=== PATIENT | male | born 1950 | race Caucasian/White ===

== ENCOUNTER 2020-08-25 21:04 | Emergency (ER) | payer MEDICARE, OTHER, SELFPAY ==
[2020-08-25 21:09] VITALS: BP 193/93; PULSE 96; RESP 22; TEMP 36.7; O2SAT 94; BMI 40.7
--- NOTE | 2020-08-25 21:09 | CTR_ITS ---
PROCEDURE INFORMATION: Exam: CT Head Without Contrast Exam date and time: 08/25/2020 9:11 PM Age: 70 years old Clinical indication: Speech disturbance; Patient HX: HX of stroke C/O weakness and aphasia TECHNIQUE: Imaging protocol: Computed tomography of the head without contrast. Radiation optimization: All CT scans at this facility use at least one of these dose optimization techniques: automated exposure control; mA and/or kV adjustment per patient size (includes targeted exams where dose is matched to clinical indication); or iterative reconstruction. COMPARISON: No relevant prior studies available. RADIATION DOSE METRICS: Total DLP (mGy-cm): 730.09 FINDINGS: Brain: Luis Miguel cisterna magna which is a normal variant. Chronic left frontal lobe infarct with encephalomalacia. 2.5 x 1.4 x 2.2 cm high density hematoma in the left temporal lobe with surrounding edema which may be secondary to hypertensive bleed versus hemorrhagic infarct versus spontaneous intracerebral hemorrhage from amyloid angiopathy or even hemorrhagic metastasis. No definite midline shift. Cerebral ventricles: No ventriculomegaly. Bones/joints: Unremarkable. No acute fracture. Paranasal sinuses: Visualized sinuses are unremarkable. No fluid levels. Mastoid air cells: Visualized mastoid air cells are well aerated. Vasculature: Severe calcified intracranial atherosclerotic vessel disease. Soft tissues: Unremarkable. Other findings: Estimated volume of hematoma is [address]/CT head wo con* [id number] IMPRESSION: 1. 2.5 x 1.4 x 2.2 cm high density hematoma in the left temporal lobe with surrounding edema which may be secondary to hypertensive bleed versus hemorrhagic infarct versus spontaneous intracerebral hemorrhage from amyloid angiopathy or even hemorrhagic metastasis. 2. Estimated volume of hematoma is 4 cc. 3. No definite midline shift. Radiation Dose CTDIVOL = (mGy): DLP = 730.09 (mGy-cm)
[2020-08-25 21:31] VITALS: BP 161/92; PULSE 96; RESP 25; O2SAT 96
--- NOTE | 2020-08-25 21:32 | ECG_ITS ---
[facility] Test Date: 2020-08-25 Pat Name: Zander Carrera Department: Room: Gender: Male Board Filler: : 1950 Requested By: Deejay Todd Order Number: [id number] Soto MD: Amaury Ricks M.D. Measurements Intervals [place] Rate: 94 P: 59 AL: 167 QRS: -44 QRSD: 90 T: 62 QT: 315 QTc: 394 Interpretive Statements SINUS RHYTHM LEFT AXIS DEVIATION [QRS AXIS < -30] PATTERN CONSISTENT WITH PULMONARY DISEASE SEPTAL MYOCARDIAL INFARCTION , OF INDETERMINATE AGE [40+ ms Q WAVE IN V1/V2] No previous ECG available for comparison Electronically Signed On 08-26-2020 17:50:53 SEISMIC PROSPECTING SUPERVISOR by Amaury Ricks M.D. [id number]
--- NOTE | 2020-08-25 21:32 | XRR_ITS ---
PROCEDURE INFORMATION: Exam: XR Chest, 1 View Exam date and time: 08/25/2020 9:48 PM Age: 70 years old Clinical indication: Other: AMS TECHNIQUE: Imaging protocol: XR of the chest Views: 1 view. COMPARISON: [facility] Chest 2 views 07/08/2014 9:22 AM FINDINGS: Lungs: The left lower lobe is partially obscured by overlying soft tissue density. No consolidative pulmonary infiltrate noted. Pleural space: No pleural effusion. No pneumothorax. Heart/Mediastinum: Mild cardiomegaly is noted. Vasculature: Mild atherosclerosis of the thoracic aorta. Bones/joints: Unremarkable. XR/XR chest 1V portable [id number] IMPRESSION: 1. Mild cardiomegaly is noted. This is new when compared to the previous study. 2. The left lower lobe is partially obscured by overlying soft tissue density. No consolidative pulmonary infiltrate noted.
--- NOTE | 2020-08-25 21:42 | W.ED.NEUROSD ---
HPI - Neuro Symptoms/Deficit General: Chief Complaint: Neuro Symptoms/Deficit Stated Complaint: poss stroke Time Seen by Provider: 08/25/20 21:09 History of Present Illness: HPI Narrative: 70-year-old gentleman with a history of embolic stroke 2 years ago. He presents after onset yesterday of a headache, today progressed to mainly language changes. He seemed weak and confused to his . He began to have progressive language problems, not understanding commands as well, and not able to express himself. He could walk. Yesterday he told his he did not want to come to the hospital Onset (ago): hour(s) Timing confirmed by: spouse Location: speech and ataxia History of same: No Severity: moderate Quality: weak Relieving factors: none Exacerbating factors: none Context: gradual onset On Anticoagulants: No Associated symptoms: Reports headache(s); Deny chest pain, cough, fevers/chills or vomiting Review of Systems Const: Denies: fever(s) or chills Card: Denies: chest pain Resp: Denies: dyspnea GI: Denies: abdominal pain or vomiting Neuro: Reports: headache(s), lack of coordination, behavioral changes and difficulty communicating thoughts; Denies: seizure-like activity Physical Exam Const: COMMON NORMALS: alert EXAM LIMITATIONS: altered mental status GENERAL APPEARANCE: ill appearing Chest: COMMONS NORMALS: normal inspection of the chest Resp: COMMON NORMALS: normal respiratory effort and No use of accessory muscles EFFORT & INSPECTION: No tachypneic and No respiratory distress AUSCULTATION: wheezes scattered wheezes Cardio: COMMON NORMALS: regular rate and regular rhythm RATE: regular rate RHYTHM: regular rhythm GI: COMMON NORMALS: Soft to palpation PALPATION: Yes Soft to palpation, No Tenderness to palpation present (GI) and No Guarding due to palpation present (GI) Neuro: SENSORIUM/ORIENTATION: Yes alert CRANIAL NERVES: Yes CN normal except as noted SPEECH: abnormal speech, expressive aphasia and receptive aphasia GAIT: Yes Unable to assess gait SENSORY EXAM: Yes extremities (appear normal) MOTOR EXAM: Pronator motor function not present and Motor abnormalities not present Course Consultations: Consultation #1: MIKEY Gallardo Vital Signs: Vital signs: Vital Signs Temperature 98.0 F 08/25/20 21:09 Pulse Rate 93 08/25/20 22:14 Respiratory Rate 26 H 08/25/20 22:14 Blood Pressure 168/98 08/25/20 22:14 Pulse Oximetry 97 08/25/20 22:14 MDM - Neuro Symptoms/Deficit MDM Narrative: Medical decision making narrative: 70-year-old male with a history of acute thrombotic stroke 2 years ago. He is not on anticoagulation. He does take aspirin 81 mg daily. He presents with headache, followed by language changes, and some ataxia and confusion. He does not appear weak in the extremities. He has significant intraparenchymal bleed in the left temporal lobe, 4 cm. No midline shift. He is awake and alert, but confused. Spoke with Negar Yeh, as we do not have neurosurgery services or neuro ICU here, and they have agreed to take as an ER to ER transfer for acute hemorrhagic stroke. Blood pressure has been 160/90. Has increased now to 200/102, will check in 5 minutes, and if not at the 165 karo will give some labetalol. Lab Data: Labs: Lab Results 08/25/20 08/25/20 08/25/20 Range/Units 21:36 21:52 21:52 WBC 7.6 (4.0-10.0) 10^3/ uL RBC 5.54 H (4.1-5.3) 10^6/u L Hgb 15.8 (11.7-16.6) g/dL Hct 50.8 (42.0-52.0) % MCV 91.7 (80-94) fL MCH 28.5 (28.0-34.0) pg MCHC 31.1 (30.0-36.0) g/dL RDW 14.1 (12.1-15.1) % Plt Count 147 (130-400) 10^3/c mm MPV 11.6 H (7.4-10.4) fL Neut % (Auto) 67.4 % Lymph % (Auto) 20.9 % [place] % (Auto) 8.3 % Eos % (Auto) 1.8 % Baso % (Auto) 1.3 % Neut # (Auto) 5.11 (1.8-7.7) 10^3/u L Lymph # (Auto) 1.6 (0.8-4.8) 10^3/u L [place] # (Auto) 0.6 (0.2-0.9) 10^3/u L Eos # (Auto) 0.1 (0.0-0.8) 10^3/u L Baso # (Auto) 0.1 (0.0-0.1) 10^3/u L Nucleated RBC % (a uto) 0 % Nucleated RBCs # 0.0 /100WBC PT Cancelled INR Cancelled APTT Cancelled Sodium Potassium Chloride Carbon Dioxide Anion Gap BUN Creatinine GFR Calculation Glucose POC Glucose 250 H (70-110) mg/dL Calculated Osmolal ity Calcium Total Bilirubin AST ALT Alkaline Phosphata se Total Protein Albumin Globulin 08/25/20 08/25/20 08/25/20 Range/Units 21:52 22:10 22:10 WBC (4.0-10.0) 10^3/ uL RBC (4.1-5.3) 10^6/u L Hgb (11.7-16.6) g/dL Hct (42.0-52.0) % MCV (80-94) fL MCH (28.0-34.0) pg MCHC (30.0-36.0) g/dL RDW (12.1-15.1) % Plt Count (130-400) 10^3/c mm MPV (7.4-10.4) fL Neut % (Auto) % Lymph % (Auto) % [place] % (Auto) % Eos % (Auto) % Baso % (Auto) % Neut # (Auto) (1.8-7.7) 10^3/u L Lymph # (Auto) (0.8-4.8) 10^3/u L [place] # (Auto) (0.2-0.9) 10^3/u L Eos # (Auto) (0.0-0.8) 10^3/u L Baso # (Auto) (0.0-0.1) 10^3/u L Nucleated RBC % (a uto) % Nucleated RBCs # /100WBC PT Cancelled INR Cancelled APTT Cancelled Sodium Cancelled Cancelled Potassium Cancelled Cancelled Chloride Cancelled Cancelled Carbon Dioxide Cancelled Cancelled Anion Gap Cancelled Cancelled BUN Cancelled Cancelled Creatinine Cancelled Cancelled GFR Calculation Cancelled Cancelled Glucose Cancelled Cancelled POC Glucose (70-110) mg/dL Calculated Osmolal ity Cancelled Cancelled Calcium Cancelled Cancelled Total Bilirubin Cancelled Cancelled AST Cancelled Cancelled ALT Cancelled Cancelled Alkaline Phosphata se Cancelled Cancelled Total Protein Cancelled Cancelled Albumin Cancelled Cancelled Globulin Cancelled Cancelled Discharge Plan Discharge Patient Disposition: Xfer Other Clinical Impression: Intracranial hemorrhage Condition: Stable Referrals: Van Oseguera MD [Primary Care Provider] - Coding Level of Care Code ED Alum Operator for Chg Fwd Exam Detailed
[2020-08-25 21:46] LABS: Glucose Point of Care 250 mg/dL (70-110)
[2020-08-25 21:50] VITALS: BP 200/102; PULSE 90; RESP 25; O2SAT 95
[2020-08-25 21:58] LABS: Basophils # 0.1 10^3/uL (0.0-0.1); Basophils % 1.3 %; Eosinophils # 0.1 10^3/uL (0.0-0.8); Eosinophils % 1.8 %; Hematocrit 50.8 % (42.0-52.0); Hemoglobin 15.8 g/dL (11.7-16.6); Lymphocytes # 1.6 10^3/uL (0.8-4.8); Lymphocytes % 20.9 %; Mean Corpuscular HGB Conc 31.1 g/dL (30.0-36.0); Mean Corpuscular Hemoglobin 28.5 pg (28.0-34.0); Mean Corpuscular Volume 91.7 fL (80-94); Mean Platelet Volume 11.6 fL (7.4-10.4); Monocytes # 0.6 10^3/uL (0.2-0.9); Monocytes % 8.3 %; Neutrophils # 5.11 10^3/uL (1.8-7.7); Neutrophils % 67.4 %; Nucleated Red Blood Cells % 0 %; Platelet Count 147 10^3/cmm (130-400); Red Blood Count 5.54 10^6/uL (4.1-5.3); Red Cell Distribution Width 14.1 % (12.1-15.1); White Blood Count 7.6 10^3/uL (4.0-10.0)
[2020-08-25 22:00] VITALS: BP 181/89; PULSE 97; RESP 23; O2SAT 97
[2020-08-25 22:14] VITALS: BP 168/98; PULSE 93; RESP 26; O2SAT 97
[2020-08-26 01:47] VITALS: BP 175/86; PULSE 81; RESP 16; O2SAT 97
--- NOTE | 2020-08-26 01:47 | PC.NURSE ---
This RN agrees with retail loan originator assistant assessment
== END 2020-08-26 01:48 | disposition other institution (70) ==
PROVIDERS: Emergency Provider Emergency Medicine; PCP Family Medicine
DX: I62.9 Nontraumatic intracranial hemorrhage, unspecified (principal); R53.1 Weakness
CPT/HCPCS: 12345; 36416; 70450; 71045; 82962; 85025; 93005; 96374; 99282; 99285

== ENCOUNTER 2020-09-03 08:11 | Outpatient (RCR) | payer MEDICARE, OTHER, SELFPAY | END 2020-09-23 23:59 | disposition home or self-care (01) | LOC: SR3 08:11 | PROVIDERS: PCP Family Medicine; Referring Provider Anesthesiology; Visit Provider Anesthesiology | DX: I61.9 Nontraumatic intracerebral hemorrhage, unspecified (principal) | CPT/HCPCS: 96105; 97162; 97165 ==

== ENCOUNTER → 2020-09-17 08:02 | Outpatient (BNVA) | payer MEDICARE, OTHER, SELFPAY | PROVIDERS: PCP Family Medicine; Visit Provider Nurse Practitioner | DX: Z86.73 Personal history of transient ischemic attack (TIA), and cerebral infarction without residual deficits (principal); F17.210 Nicotine dependence, cigarettes, uncomplicated | CPT/HCPCS: 99214 ==

== ENCOUNTER 2020-10-18 07:44 | Outpatient (CLI) | payer MEDICARE, OTHER, SELFPAY ==
--- NOTE | 2020-10-18 07:59 | CT_ITS ---
WS: [id number] CT ANGIOGRAM CEREBRAL ARTERIES HISTORY: I61.9 - Nontraumatic intracerebral hemorrhage, unspecified TECHNIQUE: Pre and postcontrast imaging through the brain. CT angiogram is performed of the cerebral arteries. During arterial injection imaging is obtained from the skull vertex to the skull base in 1. 25 mm imaging. Coronal and sagittal reformats are submitted. Additional multi planar reformats of the cerebral arteries are submitted, MIP imaging also reviewed. All CT scans at [facility] use at least one of these dose optimization techniques: automated exposure control; mA and/or kV adju stment per patient size (includes targeted exams where dose is matched to clinical indication); or it erative reconstruction. CONTRAST: Omnipaque 350; 95 mL IV. DLP: 504.54 mGycm COMPARISON: None available. Intracranial vertebral arteries: RIGHT vertebral artery slightly dominant. There are a few scattered calcified plaques in the vertebral arteries. No stenosis. Basilar artery: No significant stenosis or occlusion. No aneurysm. Intracranial Internal carotid arteries: The petrous, cavernous and supraclinoid carotid arteries ther e are a few scattered calcified plaques. Calcified plaques become more moderate the cavernous sinuses . 50% stenosis involving the RIGHT supraclinoid carotid artery. No occlusion or high-grade stenosis. Middle cerebral arteries: Normal. Anterior cerebral arteries and ACOM: Normal. Posterior cerebral arteries and PCOM's: Small caliber posterior communicating arteries. No occlusions . Posterior cerebral arteries are patent. Dural venous sinuses are normally enhancing. Mastoid air cells: Small amount of fluid in the mastoid air cells. Small amount of cerumen in the LEF T external auditory canal. Paranasal sinuses: Mild mucoperiosteal thickening RIGHT maxillary sinus. No air-fluid levels. Calvarium: Normal. CT/CT angio head [id number] IMPRESSION: 1. No vascular abnormality noted in the LEFT temporal lobe to correspond to th e previously described hemorrhage. 2. No aneurysm or AVM. 3. Mild to moderate atherosclerotic disease within the intracranial carotid ar teries. No high-grade stenosis.
--- NOTE | 2020-10-18 07:59 | CT_ITS ---
WS: [id number] CT HEAD NONCONTRAST HISTORY: I61.9 - Nontraumatic intracerebral hemorrhage, unspecified TECHNIQUE: Contiguous axial imaging performed through the brain in 2.5 mm imaging. Bone and soft tiss ue windows. All CT scans at [facility] use at least one of these dose optimization techniq ues: automated exposure control; mA and/or kV adjustment per patient size (includes targeted exams wh ere dose is matched to clinical indication); or iterative reconstruction. DLP: 925.91 mGycm COMPARISON: 08/26/2020 and 08/25/2020 Interval resolution of the acute hemorrhage in the LEFT temporal lobe identified on 08/25/2020. There i s now residual area of decreased attenuation with some mild variability in the periphery. There is an additional area of encephalomalacia from a remote LEFT frontal infarct. Mild atrophy noted bilaterally and within the cerebellum. Ventricles: Mild ex vacuole dilatation of the LEFT lateral ventricle from the volume loss in the LEF T cerebrum. Paranasal sinuses: As visualized are clear. Mastoid air cells: Small amount of fluid in the mastoid air cells bilaterally. Calvarium and scalp: Skull is intact with no soft tissue edema or swelling. Moderate atherosclerotic plaque within the cavernous carotid arteries. CT/CT head wo con* [id number] IMPRESSION: 1. Interval resolution of the acute hemorrhage in the LEFT temporal lobe since 08/25/2020. 2. Residual post hemorrhage ischemic changes in the LEFT temporal lobe. 3. Prior remote large LEFT frontal lobe infarct with encephalomalacia.
[2020-10-18] MEDS: iohexol 350 mg/mL 100 mL Btl IV (08:43)
== END 2020-10-18 07:45 | disposition home or self-care (01) ==
LOC: RADWPI 07:49
PROVIDERS: PCP Family Medicine; Visit Provider Nurse Practitioner
DX: I61.9 Nontraumatic intracerebral hemorrhage, unspecified (principal); I65.23 Occlusion and stenosis of bilateral carotid arteries; I63.9 Cerebral infarction, unspecified; G93.89 Other specified disorders of brain
CPT/HCPCS: 70450; 70496; Q9967

== ENCOUNTER → 2021-01-11 07:55 | Outpatient (BNVA) | payer MEDICARE, OTHER, SELFPAY | PROVIDERS: PCP Family Medicine; Visit Provider Nurse Practitioner | DX: Z86.73 Personal history of transient ischemic attack (TIA), and cerebral infarction without residual deficits (principal); F17.210 Nicotine dependence, cigarettes, uncomplicated | CPT/HCPCS: 99213 ==

== ENCOUNTER → 2021-01-16 12:24 | Outpatient (BNVA) | payer MEDICARE, OTHER, SELFPAY | PROVIDERS: PCP Family Medicine; Visit Provider Specialist | DX: I69.398 Other sequelae of cerebral infarction (principal); R56.9 Unspecified convulsions; F17.210 Nicotine dependence, cigarettes, uncomplicated | CPT/HCPCS: 95816 ==

== ENCOUNTER → 2021-03-21 09:48 | Outpatient (BNVA) | payer MEDICARE, OTHER, SELFPAY | PROVIDERS: PCP Family Medicine; Visit Provider Specialist | DX: R56.9 Unspecified convulsions (principal); F17.200 Nicotine dependence, unspecified, uncomplicated | CPT/HCPCS: 95816 ==

== ENCOUNTER 2021-12-03 08:43 | Outpatient (CLI) | payer MEDICARE, OTHER, SELFPAY ==
--- NOTE | 2021-12-03 08:55 | CT_ITS ---
WS: [id number] LDCT LUNG CANCER SCREENING HISTORY: NICOTINE DEPENDENCE TECHNIQUE: Axial imaging performed from the apices to 1 cm below the costophrenic angles. Coronal and sagittal reformats are submitted with axial MIP series. All CT scans at [facility] use at least one of these dose optimization techniques: automated exposure control; mA and/or kV adjustment per patient size (includes targeted exams where dose is matched to clinical indication); or iterativ e reconstruction. DLP: 87.79 mGy.cm DIvol: Mean CTDIvol: 1.60 (mGy) COMPARISON: None available. Diagnostic quality: Quality is limited by breathing artifact and body habitus. Lung Nodules: Round, noncalcified nodule measuring 6 mm LEFT lower lobe, image 153 of series 4. There are additional calcified nodules. Lungs: Hyperexpansion and emphysema. Heart: Moderately enlarged heart. No pericardial effusion. Other findings: Mild atherosclerosis aorta. Mild enlargement of the pulmonary artery. Heavy calcifica tion in the LEFT anterior descending coronary artery. Small hiatal hernia. Nodular surface of the marissa er from cirrhosis. LEFT lobe of the liver is enlarged in the RIGHT is small. No adrenal mass. Mild at rophy of each kidney. Gallbladder appears present and contracted. CT/CT lung screening [id number] IMPRESSION: LUNG-RADS: 3S-Probably Benign with Significant Findings FOLLOW UP: 6 Month LDCT OTHER FINDINGS (S MODIFIER): Cirrhotic liver. Moderate coronary artery atherosc lerosis. Quality of this examination is limited by significant breathing artifa ct and body habitus.
== END 2021-12-03 08:44 | disposition home or self-care (01) ==
LOC: RAD 08:50
PROVIDERS: PCP Family Medicine; Visit Provider Family Medicine
DX: Z12.2 Encounter for screening for malignant neoplasm of respiratory organs (principal); F17.210 Nicotine dependence, cigarettes, uncomplicated
CPT/HCPCS: 71271

== ENCOUNTER → 2022-06-26 12:53 | Outpatient (BNVA) | payer MEDICARE, OTHER, SELFPAY | PROVIDERS: PCP Family Medicine; Visit Provider Surgery | DX: K61.1 Rectal abscess (principal) | CPT/HCPCS: 99203 ==

== ENCOUNTER 2022-11-27 22:11 | Inpatient (IN) | payer MEDICARE, OTHER, SELFPAY ==
[2022-11-27 22:15] VITALS: PULSE 123; RESP 24; TEMP 36.7; O2SAT 86
--- NOTE | 2022-11-27 22:24 | XRR_ITS ---
PROCEDURE INFORMATION: Exam: XR Chest Exam date and time: 11/27/2022 10:30 PM Age: 72 years old Clinical indication: Shortness of breath; Additional info: SOB TECHNIQUE: Imaging protocol: Radiologic exam of the chest. Views: 1 view. COMPARISON: CT lung screening [id number] 12/03/2021 9:02 AM FINDINGS: Lungs: Bibasilar atelectasis versus infiltrate. Pulmonary vascular congestion. Pleural spaces: Unremarkable. No pleural effusion. No pneumothorax. Heart/Mediastinum: Cardiomegaly. Bones/joints: Unremarkable. XR/XR chest 1V portable [id number] IMPRESSION: 1. Bibasilar atelectasis versus infiltrate. 2. Cardiomegaly. 3. Pulmonary vascular congestion.
[2022-11-27 22:33] VITALS: BP 146/103; PULSE 122; O2SAT 95
--- NOTE | 2022-11-27 22:34 | W.ED.CHESTPA ---
HPI - Chest Pain General: Chief Complaint: Chest Pain Stated Complaint: SOB\Chest Pain Time Seen by Provider: 11/27/22 22:24 Source: patient Mode of arrival: ambulatory Limitations: no limitations History of Present Illness: 72-year-old male who is a longtime smoker he states that every year at this time he seems to have worsening dyspnea and wheezing he does have albuterol at home he is never been formally diagnosed with COPD he also takes Lasix as well states over last 3 days he had increasing cough shortness of breath patient here is tachypneic tachycardic he was 86% on room air he is requiring oxygen at this time able to speak in 4-5 word sentences. States has been coughing up phlegm he has not had any improving factors he states he had had some slight increasing swelling in his legs he does have a chest pain he states that sharp but seems to be more with his cough. Associated symptoms: Reports dyspnea; Deny abdominal pain, nausea or vomiting Review of Systems Const: Reports: chills Eyes: Denies: blurry vision or eye discomfort ENMT: Denies: throat pain or dental pain Card: Reports: chest pain Resp: Reports: dyspnea, non-productive cough and wheezing GI: Denies: abdominal pain, nausea, vomiting or diarrhea : Denies: dysuria Musc: Denies: neck pain or back pain Skin/Breast: Denies: rash Neuro: Denies: headache(s) Psych: Denies: depression Fernando/Lymph: Denies: easy bruising All/Imm: Denies: urticaria PFSH ED PFSH: Surgical History History of surgery on arm History of thumb surgery Family History Mother Stroke Hypertension Social History Smoking and tobacco status: current every day smoker Alcohol intake: never Physical Exam Const: COMMON NORMALS: patient oriented x3 GENERAL APPEARANCE: in distress and ill appearing HENMT: COMMON NORMALS: normocephalic and atraumatic HEAD & SCALP: normocephalic and atraumatic Eye: COMMON NORMALS: Equal, round and reactive pupils present and EOMs intact bilaterally PUPIL: Yes Equal, round and reactive pupils present Neck/C-Spine: COMMON NORMALS: full ROM and supple Chest: COMMONS NORMALS: normal inspection of the chest and normal palpation of entire chest wall Resp: COMMON NORMALS: No retractions EFFORT & INSPECTION: Yes tachypneic and Yes respiratory distress AUSCULTATION: wheezes Cardio: COMMON NORMALS: regular rhythm and No murmurs present (Cardio) RATE: tachycardic RHYTHM: regular rhythm GI: COMMON NORMALS: Normal to inspection, nondistended, normoactive bowel sounds present, Soft to palpation, non-tender and no masses PALPATION: Yes Soft to palpation Extremity: COMMON NORMALS: normal to inspection and full ROM Neuro: COMMON NORMALS: patient oriented x3, moves all extremities and no focal motor deficits Psych: COMMON NORMALS: mental status grossly normal, Normal thought process present and cooperative THOUGHT PROCESS: Normal thought process present Skin: COMMON NORMALS: no rashes or lesions noted and no wounds GENERAL SKIN EXAM: no rashes or lesions noted Course Vital Signs: Vital signs: Vital Signs Temperature 98.0 F 11/27/22 22:15 Pulse Rate 111 H 11/27/22 23:42 Respiratory Rate 18 11/28/22 00:54 Blood Pressure 115/84 11/27/22 23:42 Pulse Oximetry 98 11/28/22 00:54 Oxygen Delivery Me thod 11/27/22 23:42 Oxygen Flow Rate 6 11/27/22 23:42 MDM - Chest Pain Medical Decision Making Patient presents here with shortness of breath along with cough x-ray CT showing pneumonia he is requiring 6 L oxygen here he is improved here after breathing treatment and was oxygen he does have a slightly elevated troponin no signs of pulm embolism did speak to upholsterer limousine and hearse will give a dose of Lovenox and trend the troponin we will continue to treat his pneumonia as well spoke to hospitalist who will admit Lab Data 11/27/22 23:04 11/27/22 23:04 Radiology Impressions Chest X-Ray 11/27/22 22:24 IMPRESSION: 1. Bibasilar atelectasis versus infiltrate. 2. Cardiomegaly. 3. Pulmonary vascular congestion. Chest CTA 11/27/22 23:40 IMPRESSION: 1. Negative for pulmonary embolus. 2. Scattered prominent mediastinal lymph nodes measuring up to 15 mm in the subcarinal region, nonspecific. 3. Small bilateral pleural effusions. 4. Cardiomegaly. 5. Coronary artery atherosclerotic calcifications. 6. Cirrhotic liver. 7. Right middle and lingular lobe atelectasis versus infiltrate. 8. Left adrenal hypertrophy suspected, similar to prior exam. Laboratory Results WBC 12.5 10^3/uL (4.0-10.0) H 11/27/22 23:04 RBC 5.27 10^6/uL (4.1-5.3) 11/27/22 23:04 Hgb 14.7 g/dL (11.7-16.6) 11/27/22 23:04 Hct 47.6 % (42.0-52.0) 11/27/22 23:04 MCV 90.3 fl (80-94) 11/27/22 23:04 MCH 27.9 pg (28.0-34.0) L 11/27/22 23:04 MCHC 30.9 g/dL (30.0-36.0) 11/27/22 23:04 RDW 14.7 % (12.1-15.1) 11/27/22 23:04 Plt Count 198 10^3/cmm (130-400) 11/27/22 23:04 MPV 10.6 fL (7.4-10.4) H 11/27/22 23:04 Neut % (Auto) 82.6 % 11/27/22 23:04 Lymph % (Auto) 9.4 % 11/27/22 23:04 [place] % (Auto) 5.5 % 11/27/22 23:04 Eos % (Auto) 1.1 % 11/27/22 23:04 Baso % (Auto) 1.0 % 11/27/22 23:04 Neut # (Auto) 10.28 10^3/uL (1.8-7.7) H 11/27/22 23:04 Lymph # (Auto) 1.2 10^3/uL (0.8-4.8) 11/27/22 23:04 [place] # (Auto) 0.7 10^3/uL (0.2-0.9) 11/27/22 23:04 Eos # (Auto) 0.1 10^3/uL (0.0-0.8) 11/27/22 23:04 Baso # (Auto) 0.1 10^3/uL (0.0-0.1) 11/27/22 23:04 Nucleated RBC % (auto) 0 % 11/27/22 23:04 Nucleated RBCs # 0.0 /100WBC 11/27/22 23:04 PT 13.20 SECONDS (12.1-14.9) 11/27/22 23:04 INR 0.98 (0.8-1.2) 11/27/22 23:04 Specimen Type Arterial 11/27/22 22:50 Sample Site Radial, left 11/27/22 22:50 ABG pH 7.37 (7.35-7.45) 11/27/22 22:50 ABG pCO2 51.3 mmHg (35-45) H 11/27/22 22:50 ABG pO2 64.8 mmHg (80.0-100.0) L 11/27/22 22:50 ABG HCO3 29.4 mmol/L (22-26) H 11/27/22 22:50 ABG Base Excess 2.9 mmol/L (-2.0-2.0) H 11/27/22 22:50 [place] Test Pos 11/27/22 22:50 Hematocrit 44.9 % (42-52) 11/27/22 22:50 O2 Delivery Device Nc 11/27/22 22:50 O2 Liters/Min 6.0 % 11/27/22 22:50 Job Placement Officer ID [email or web address] 11/27/22 22:50 Sodium 135 mmol/L (136-145) L 11/27/22 23:04 Potassium 4.2 mmol/L (3.5-5.1) 11/27/22 23:04 Chloride 93 mmol/L (98-107) L 11/27/22 23:04 Carbon Dioxide 27 mmol/L (22-29) 11/27/22 23:04 Anion Gap 19.2 (5-19) H 11/27/22 23:04 BUN 21 mg/dL (8-23) 11/27/22 23:04 Creatinine 1.2 mg/dL (0.7-1.2) 11/27/22 23:04 GFR Calculation Not Reportable 11/27/22 23:04 Glucose 261 mg/dL (65-115) H 11/27/22 23:04 Calculated Osmolality 292 mOsm/kg (285-295) 11/27/22 23:04 Calcium 8.8 mg/dL (8.5-10.5) 11/27/22 23:04 Total Bilirubin 0.4 mg/dL (0.15-1.2) 11/27/22 23:04 AST 20 U/L (0-40) 11/27/22 23:04 ALT 25 U/L (0-41) 11/27/22 23:04 Alkaline Phosphatase 107 U/L (40-130) 11/27/22 23:04 Troponin T Baseline 261 ng/L (0-15) H* 11/27/22 23:04 NT-Pro-B Natriuret Pep 1821 pg/mL (0-125) H 11/27/22 23:04 Total Protein 7.8 g/dL (6.6-8.7) 11/27/22 23:04 Albumin 3.7 g/dL (3.5-5.2) 11/27/22 23:04 Globulin 4.1 g/dL (1.3-4.6) 11/27/22 23:04 Influenza Type A Ag negative (Negative) 11/27/22 22:40 Influenza Type B Ag negative (Negative) 11/27/22 22:40 SARS-CoV-2 Ag (Rapid) negative (Negative) 11/27/22 22:40 Critical Care Time Critical Care Time: Critical Care Time: Yes Total Critical Care Time: 45 Attestation: The high probability of a clinically significant, sudden or life threatening deterioration of the patient's cv,resp system(s) required my full and direct attention, intervention and personal management. The critical care time is as shown. This time is in addition to time spent performing any reported procedures but includes the following: [x] Data and vital sign review and interpretation [x] Patient assessment, examination and intervention [x] Documentation [x] Medication orders and management Discharge Plan Discharge Patient Disposition: Admitted As Inpatient Clinical Impression: Pneumonia, Acute respiratory failure with hypoxia, Non-ST elevation MN (NSTEMI) Condition: Stable Coding Level of Care Code ED Kier Tender for April Radford
--- NOTE | 2022-11-27 22:37 | ECG_ITS ---
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 Measurements Intervals [place] Rate: 120 P: 0 SD: 0 QRS: -42 QRSD: 106 T: 137 QT: 328 QTc: 463 Interpretive Statements SUPRAVENTRICULAR TACHYCARDIA LEFT AXIS DEVIATION [QRS AXIS < -30] ANTEROSEPTAL MYOCARDIAL INFARCTION , OF INDETERMINATE AGE [40+ ms Q WAVE IN V1-V4] MODERATE T-WAVE ABNORMALITY, CONSIDER LATERAL ISCHEMIA [-0.1+ mV T-WAVE IN I/aVL/V5/V6] Compared to ECG 08/25/2020 21:41:00 T-wave abnormality now present Possible ischemia now present Sinus rhythm no longer present Myocardial infarct finding still present Electronically Signed On 11-27-2022 23:38:23 CDT by Amaury Ricks M.D. [id number]
[2022-11-27] MEDS: albuterol 2.5 mg/3 mL Neb INHALATION (22:43)
[2022-11-27 22:45] VITALS: PULSE 120; RESP 22; O2SAT 90
[2022-11-27 23:01] LABS: ABG PCO2 51.3 mmHg (35-45); ABG PH Result 7.37 (7.35-7.45); Arterial Blood Gas Hematocrit 44.9 % (42-52); Base Excess ABG 2.9 mmol/L (-2.0-2.0); Blood Gas Allen Test Pos; Blood Gas Sample Site Radial, left; Blood Gas Sample Type Arterial; HCO3 ABG 29.4 mmol/L (22-26); Oxygen Device NC; PO2 ABG 64.8 mmHg (80.0-100.0)
[2022-11-27 23:12] LABS: Basophils # 0.1 10^3/uL (0.0-0.1); Eosinophils # 0.1 10^3/uL (0.0-0.8); Eosinophils % 1.1 %; Hematocrit 47.6 % (42.0-52.0); Hemoglobin 14.7 g/dL (11.7-16.6); Lymphocytes # 1.2 10^3/uL (0.8-4.8); Lymphocytes % 9.4 %; Mean Corpuscular HGB Conc 30.9 g/dL (30.0-36.0); Mean Corpuscular Hemoglobin 27.9 pg (28.0-34.0); Mean Corpuscular Volume 90.3 fl (80-94); Mean Platelet Volume 10.6 fL (7.4-10.4); Monocytes # 0.7 10^3/uL (0.2-0.9); Monocytes % 5.5 %; Neutrophils # 10.28 10^3/uL (1.8-7.7); Neutrophils % 82.6 %; Nucleated Red Blood Cells % 0 %; Platelet Count 198 10^3/cmm (130-400); Red Blood Count 5.27 10^6/uL (4.1-5.3); Red Cell Distribution Width 14.7 % (12.1-15.1); White Blood Count 12.5 10^3/uL (4.0-10.0)
[2022-11-27 23:16] LABS: Influenza A by IFA negative (Negative); Influenza B by IFA negative (Negative)
[2022-11-27 23:17] LABS: SARS Covid-2 Antigen negative (Negative)
[2022-11-27 23:32] LABS: INR 0.98 (0.8-1.2)
[2022-11-27 23:38] LABS: Troponin(5th) Baseline 261 ng/L (0-15)
--- NOTE | 2022-11-27 23:40 | CTR_ITS ---
PROCEDURE INFORMATION: Exam: CTA Chest With Contrast Exam date and time: 11/28/2022 12:29 AM Age: 72 years old Clinical indication: Pain and abnormal findings; Abnormal diagnostic tests; Other: Elevated troponin; Shortness of breath; Chest pressure; Patient HX: C/O chest pain with SOB. Baseline troponin of 265. History of colon cancer. TECHNIQUE: Imaging protocol: Computed tomographic angiography of the chest with contrast. 3D rendering (Not supervised by radiologist): MIP and/or 3D reconstructed images were created by the technologist. Radiation optimization: All CT scans at this facility use at least one of these dose optimization techniques: automated exposure control; mA and/or kV adjustment per patient size (includes targeted exams where dose is matched to clinical indication); or iterative reconstruction. Contrast material: OMNI 350; Contrast volume: 86 ml; Contrast route: INTRAVENOUS (IV); REPORTING DATA: Count of CT and Cardiac NM exams in prior 12 months: This patient has received [address] and 0 known cardiac nuclear medicine studies in the 12 months prior to the current study. COMPARISON: CT lung screening [id number] 12/03/2021 9:02 AM RADIATION DOSE METRICS: Total DLP (mGy-cm): 567.05 FINDINGS: Pulmonary arteries: Normal. No pulmonary emboli. Aorta: Unremarkable. No aortic aneurysm. No aortic dissection. Lungs: Right middle and lingular lobe atelectasis versus infiltrate. Pleural spaces: Small bilateral pleural effusions. Heart: Cardiomegaly. Coronary arteries: Coronary artery atherosclerotic calcifications. Lymph nodes: Scattered prominent mediastinal lymph nodes measuring up to 15 mm in the subcarinal region, nonspecific. Liver: Cirrhotic liver. Bones/joints: Unremarkable. No acute fracture. Soft tissues: Left adrenal hypertrophy suspected, similar to prior exam. CT/CT angio chest PE protcl [id number] IMPRESSION: 1. Negative for pulmonary embolus. 2. Scattered prominent mediastinal lymph nodes measuring up to 15 mm in the subcarinal region, nonspecific. 3. Small bilateral pleural effusions. 4. Cardiomegaly. 5. Coronary artery atherosclerotic calcifications. 6. Cirrhotic liver. 7. Right middle and lingular lobe atelectasis versus infiltrate. 8. Left adrenal hypertrophy suspected, similar to prior exam.
[2022-11-27 23:42] VITALS: BP 115/84; PULSE 111; O2SAT 99
[2022-11-27] MEDS: aspirin 81 mg Chew Tablet 324 MG PO (23:44)
[2022-11-28] VITALS (36 sets, daily range): BP systolic 100–141; BP diastolic 64–100; PULSE 62–117; RESP 11–39; TEMP 36.1–36.8; O2SAT 90–98; BMI 41.1
[2022-11-28] MEDS: ondansetron 2 mg/ML SDV 2 mL 4 MG IVP (00:11)
[2022-11-28] MEDS: morphine 4 mg/mL SDV 1 mL IVP (00:11)
[2022-11-28 00:22] LABS: Alanine Aminotransferase 25 U/L (0-41); Albumin Level 3.7 g/dL (3.5-5.2); Alkaline Phosphatase 107 U/L (40-130); Anion Gap 19.2 (5-19); Aspartate Amino Transferase 20 U/L (0-40); Blood Urea Nitrogen 21 mg/dL (8-23); Calcium 8.8 mg/dL (8.5-10.5); Carbon Dioxide 27 mmol/L (22-29); Chloride 93 mmol/L (98-107); Globulin 4.1 g/dL (1.3-4.6); Glucose 261 mg/dL (65-115); NT Pro B Type Natriuretic Pept 1821 pg/mL (0-125); Osmolality Calculated 292 mOsm/kg (285-295); Potassium 4.2 mmol/L (3.5-5.1); Sodium 135 mmol/L (136-145); Total Bilirubin 0.4 mg/dL (0.15-1.2); Total Protein 7.8 g/dL (6.6-8.7)
[2022-11-28] MEDS: cefTRIAXone 1,000 MG in sodium chloride 0.9% (plus) 50 ML 100 MG IV ×2 (00:25→23:50)
[2022-11-28] MEDS: iohexol 350 mg/mL 500 mL Btl (per mL) IV (00:36)
--- NOTE | 2022-11-28 00:47 | ECG_ITS ---
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 Measurements Intervals [place] Rate: 120 P: 0 MA: 0 QRS: -71 QRSD: 168 T: 76 QT: 350 QTc: 495 Interpretive Statements ATRIAL FLUTTER/TACHYCARDIA WITH RAPID VENTRICULAR RESPONSE RIGHT BUNDLE BRANCH BLOCK [120+ ms QRS DURATION, UPRIGHT V1, 40+ ms S IN I/aVL/V4/V5/V6] LEFT ANTERIOR FASCICULAR BLOCK [QRS AXIS <= -45, QR IN I, RS IN II] POSSIBLE ANTERIOR MYOCARDIAL INFARCTION , PROBABLY OLD [30 ms Q WAVE IN V3/V4, OR R < 0.2 mV IN V4] ST DEPRESSION, CONSIDER SUBENDOCARDIAL INJURY [0.1+ mV ST DEPRESSION] Compared to ECG 11/27/2022 22:37:58 Right bundle-branch block now present. Left anterior fascicular block now present ST (T wave) deviation now present.Left-axis deviation no longer present Possible ischemia no longer present Myocardial infarct finding still present Electronically Signed On 11-28-2022 21:36:57 CDT by Natanael Hays M.D. [id number]
[2022-11-28] MEDS: enoxaparin 120 mg/0.8 mL Syringe SUBCUT (00:54)
[2022-11-28] MEDS: HYDROmorphone 1 mg/mL INJ 1 mL IVP (00:54)
[2022-11-28] MEDS: azithromycin 500 MG in sodium chloride 0.9% 250 ML 250 MG IV (01:17)
[2022-11-28 01:38] LABS: Troponin 5 2HR 278.3 ng/L (0-15); Troponin 5 2HR Delta 17.3 ABS# (0-10)
--- NOTE | 2022-11-28 02:50 | PC.NURSE ---
Called to make aware of patient arrived on unit. Made aware that patient is very SOB and has exp wheezes after getting out of bed to BR. to order RT to assess and treat, asked nurse to call RT to assess patient.
--- NOTE | 2022-11-28 04:24 | ECG_ITS ---
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 Measurements Intervals [place] Rate: 97 P: 47 ME: 148 QRS: -63 QRSD: 122 T: 86 QT: 356 QTc: 453 Interpretive Statements SINUS RHYTHM LEFT AXIS DEVIATION [QRS AXIS < -30] ANTEROSEPTAL MYOCARDIAL INFARCTION , OF INDETERMINATE AGE [40+ ms Q WAVE IN V1-V4] ST DEPRESSION, CONSIDER SUBENDOCARDIAL INJURY [0.1+ mV ST DEPRESSION] Compared to ECG 11/28/2022 00:47:34 Left-axis deviation now present Right bundle-branch block no longer present Left anterior fascicular block no longer present Myocardial infarct finding still present ST (T wave) deviation still present Electronically Signed On 11-28-2022 21:38:21 CDT by Natanael Hays M.D. [id number]
--- NOTE | 2022-11-28 05:05 | PM.HP ---
Providers/Chief Complaint Admitting Physician: Abilio Goddard MD Primary Care Provider: Van Oseguera MD Chief Complaint: SOB\Chest Pain History of Present Illness Zander Carrera is a 72 year old male who is a chronic smoker he has been smoking since he was 15 years old, has seasonal allergies, history of prostate cancer with recurrence awaiting PET scan, seeing a physician in [place], presented today with chief complaint worsening shortness of breath and chest pain. Patient is stating that for last 4 to 5 days he has been experiencing seasonal allergies, sinus congestion, productive cough yellow-colored sputum, he has not noticed any fever, nausea, vomiting but symptoms are associated with chest pain which started around 7 PM a few hours before his arrival in the ER, he is describing his chest pain as throbbing pain radiates towards his neck and back. He is also experiencing wheezing. Currently he is smoking half a pack a day In the ER he was diagnosed with NSTEMI, community-acquired pneumonia, acute hypoxia CTA ruled out PE Currently he is on 5 to 6 L nasal cannula EKG showing ST depression anterolateral leads Review of Systems Const: Reports: body aches and fatigue; Denies: fever(s) Eyes: Denies: change in vision ENMT: Denies: throat pain Card: Reports: chest pain, dyspnea on exertion and orthopnea Resp: Reports: dyspnea and productive cough GI: Denies: abdominal pain : Denies: urinary frequency Musc: Denies: neck pain Skin/Breast: Denies: rash Medications/Allergies Home Medications Medication Instructions Recorded Confirmed Last Taken Type ascorbic acid (vitamin C) 1,000 mg 1 g PO DAILY 09/17/20 06/26/22 Unknown History tablet calcium-vitamin D2-iron tablet tab PO DAILY 09/17/20 06/26/22 Unknown History ferrous sulfate 324 mg (65 mg 648 mg PO DAILY 09/17/20 06/26/22 Unknown History iron) tablet,delayed release furosemide 40 mg tablet 40 mg PO DAILY 09/17/20 06/26/22 Unknown History metformin 500 mg tablet 1,000 mg PO BID 09/17/20 06/26/22 Unknown History montelukast 10 mg tablet 10 mg PO DAILY 09/17/20 06/26/22 Unknown History tamsulosin 0.4 mg capsule 0.4 mg PO DAILY 09/17/20 06/26/22 Unknown History levetiracetam 500 mg tablet 500 mg PO DAILY #30 tabs 02/14/21 06/26/22 Unknown Rx (Keppra) clindamycin HCl 300 mg capsule 300 mg PO QID 10 days #40 caps 06/26/22 06/26/22 Unknown Rx Allergies Allergy/AdvReac Type Severity Reaction Status Date / Time Penicillins Allergy ALGY-Rash Verified 06/26/22 13:00 PFSH Acute PFSH: Medical History (Updated 11/28/22 @ 06:10 by Abilio Goddard MD) Liver cirrhosis Perirectal abscess Prostate cancer Seizure Stroke Surgical History History of surgery on arm History of thumb surgery Family History Mother Stroke Hypertension Social History Smoking and tobacco status: current every day smoker Alcohol intake: never Vitals/I&O/Wt Last Vital Signs Temp 96.9 F L 11/28/22 02:20 Pulse 98 11/28/22 02:50 Resp 13 11/28/22 02:50 BP 100/64 11/28/22 02:50 Pulse Ox 97 11/28/22 03:30 O2 Del Method 11/28/22 03:30 O2 Flow Rate 6 11/28/22 03:30 11/27/22 11/27/22 11/28/22 14:59 22:59 06:59 Intake Total 300 / 300 Balance 300 / 300 Weight last 48 hrs Weight 126.507 kg Weight 120.202 kg Physical Exam Narrative: Morbidly obese male Appears stated age Conversational dyspnea Currently on 6 L humidified air nasal cannula Active wheezing Awake and alert GCS 15 Lower extremity venous stasis dermatitis Dry skin Trace edema Abdomen distended nontender is at the bedside S1, S2 Data 11/27/22 23:04 11/27/22 23:04 Micro: Microbiology 11/28/22 00:21 Blood Culture - Preliminary Blood SPECIMEN COLLECTED 11/28/22 00:21 Blood Culture - Preliminary Blood SPECIMEN COLLECTED A&P Assessment and plan (1) Pneumonia: (2) Acute respiratory failure with hypoxia: (3) Non-ST elevation IA (NSTEMI): (4) Lymphadenopathy: (5) COPD exacerbation: Plan Acute hypoxia with community-acquired pneumonia Start ceftriaxone azithromycin IV steroids for wheezing DuoNeb every 4 as needed Respiratory to assess and treat I Do believe patient has undiagnosed COPD, he does have 15 mm scattered prominent mediastinal lymphadenopathy, for which he will need outpatient pulmonary follow-up, he will also need COPD official diagnosis with pulmonary function test NSTEMI Currently chest pain-free Dyspnea on exertion EKG showing ST depression Requested echo Start ACS protocol Therapeutic Lovenox No signs of PE Patient will need an angiogram, please call cardiology in the morning Acute COPD exacerbation due to pneumonia IV steroids Patient will need pulmonary follow-up outpatient Diastolic CHF exacerbation Continue IV Lasix Lasix Liver cirrhosis most likely related to Key, patient does not drink alcohol, chronic smoker he has been smoking since he was 15 years old Cardiac diet Full code DVT prophylaxis: With therapeutic Lovenox History of seizure continue [place] Attestations Medical Necessity Statement*: More than 2 midnights anticipated Diagnoses Pneumonia J18.9 Acute respiratory failure with hypoxia J96.01 Non-ST elevation IA (NSTEMI) I21.4 Lymphadenopathy R59.1 COPD exacerbation J44.1
[2022-11-28] MEDS: clopidogrel 300 mg Tablet PO (05:45)
[2022-11-28 05:55] LABS: Troponin 5 6HR 447.2 ng/L (0-15); Troponin 5 6HR Delta 186.2 ng/L (0-12)
[2022-11-28 07:16] LABS: Glucose Point of Care 251 mg/dL (70-110)
[2022-11-28] MEDS: ipratropium-albuterol 3 mL Neb INHALATION ×3 (07:51→20:03)
--- NOTE | 2022-11-28 08:04 | PM.CONSULT ---
Providers/Reason For Consult Consulting Physician/Specialty*: Amira Hays MD/cardiology Reason for Consult*: Patient with chest pain and elevated troponin T Requesting Physician: Dr. Goddard/Dr. Gallegos Attending Physician: Berkley Gallegos MD Primary Care Provider: Van Oseguera MD History of Present Illness History of Present Illness Zander Carrera is a 72 year old male is admitted to hospital with clinical features of COPD exacerbation. He also was complaining of chest tightness/heaviness. He was found to have elevated troponin T. Cardiology consult is requested for further cardiac evaluation recommendations. Mr. Carrera is a very poor historian. He has a history of type 2 diabetes,? Dyslipidemia and CVA x2. He been having increasing shortness of breath lately especially with the allergies. For the last 2 days, he been having shortness of breath and tight feeling in the chest. He also has been having increasing cough coughing up whitish and occasional yellowish sputum. Denies any fever or chills. No orthopnea or any PND. He has a history of chest pain and had some cardiac work-up in the past. Details are not available. No documented history for coronary artery disease, myocardial infarction or congestive heart failure. He has a history of heavy smoking abuse, 2 packs a day for more than 40 years. For the last 5 to 6 years, he been trying to cut back. No alcohol abuse or any other substance abuse. No significant family history for atherosclerotic heart diseas. Patient came with a troponin T of 261. The 2-hour delta was 17 and a 6-hour delta of 181. His EKG showed diffuse ST-T changes. Review of Systems Narrative: CONSTITUTIONAL: No fever or chills. EYES: No blurring of vision or other visual disturbances lately. ENT: No hoarseness of voice, auditory disturbances or sore throat. CARDIOVASCULAR: As mentioned above. RESPIRATORY: Increasing shortness of breath and cough as mentioned above. GASTROINTESTINAL: No hematemesis or melena. GENITOURINARY: No dysuria or hematuria. INTEGUMENTARY: No skin rashes or history of skin cancer. NEURO: No transient ischemic attacks or amaurosis. PSYCHIATRIC: No history of psychosis or major depression. HEMATOLOGIC: No bleeding disorders or significant anemia. ENDOCRINE: Type 2 diabetes as mentioned above MUSCULOSKELETAL: No recent joint pain or swelling. ALLERGY/IMMUNOLOGY: As mentioned above. Medications/Allergies Home Medications Medication Instructions Recorded Confirmed Last Taken Type ascorbic acid (vitamin C) 1,000 mg 1 g PO DAILY 09/17/20 11/28/22 Unknown History tablet calcium-vitamin D2-iron tablet 1 tab PO DAILY 09/17/20 11/28/22 Unknown History ferrous sulfate 324 mg (65 mg 648 mg PO DAILY 09/17/20 11/28/22 Unknown History iron) tablet,delayed release furosemide 40 mg tablet 40 mg PO DAILY 09/17/20 11/28/22 Unknown History metformin 500 mg tablet 1,000 mg PO BID 09/17/20 11/28/22 Unknown History montelukast 10 mg tablet 10 mg PO DAILY 09/17/20 11/28/22 Unknown History tamsulosin 0.4 mg capsule 0.4 mg PO DAILY 09/17/20 11/28/22 Unknown History Allergies Allergy/AdvReac Type Severity Reaction Status Date / Time Penicillins Allergy ALGY-Rash Verified 11/28/22 08:38 Current Medications Generic Name Dose Route Start Last Admin Trade Name Kwadwo PRN Reason Stop Dose Admin Albuterol/Ipratropium 3 ml 11/28/22 08:00 11/28/22 07:51 Ipratropium-Albuterol 3 Ml Neb INHALATION 3 ml Q6H.RESP GUDELIA Administration Methylprednisolone Sodium Succinate 40 mg 11/28/22 05:15 11/28/22 05:45 Methylprednisolone Sod Succ 40 Mg/Ml Inj IVP 40 mg Q12H GUDELIA Administration PFSH Acute PFSH: Medical History Liver cirrhosis Perirectal abscess Prostate cancer Seizure Stroke Surgical History History of surgery on arm History of thumb surgery Family History Mother Stroke Hypertension Social History Smoking and tobacco status: current every day smoker Alcohol intake: never Vitals/I&O/Wt Last Vital Signs Temp 97.7 F 11/28/22 06:56 Pulse 92 11/28/22 06:56 Resp 18 11/28/22 06:56 BP 118/93 11/28/22 06:56 Pulse Ox 97 11/28/22 06:56 O2 Del Method 11/28/22 06:56 O2 Flow Rate 5 11/28/22 06:56 11/27/22 11/28/22 11/28/22 22:59 06:59 14:59 Intake Total 350 / 350 Output Total 350 / 350 Balance 0 / 0 Weight last 48 hrs Weight 278 lb 14.4 oz Weight 265 lb Physical Exam Narrative: GENERAL: The patient is alert and oriented times three. Not in any acute distress. Slightly tachypneic HEENT: No significant pallor, icterus or lymphadenopathy.Oral cavity: There are no mucous membrane lesions. NECK: Trachea appears to be central. No masses noted. No JVD or thyromegaly appreciated. RESPIRATORY: Breath sounds are heard bilaterally. Diminished musical sounds in the bases. Bilateral expiratory wheezing and occasional coarse crackles. BREASTS: Deferred. HEART: The heart sounds are normal. No S3 or S4. No significant murmurs. No pericardial rub ABDOMEN: No vessel pulsations or distention. No tenderness. No organomegaly appreciated. Bowel sounds are normally heard. : Deferred. RECTAL: Deferred. LYMPHATIC: No lymphadenopathy noted in the neck. EXTREMITIES: 1-2+ edema both lower extremities. No cyanosis. Peripheral pulses are palpable but weak bilaterally. MUSCULOSKELETAL: No acute joint deformities or swelling SKIN: There are no significant rashes or ecchymosis NEUROPSYCHIATRIC: The patient is alert and oriented x3. Appears to be in a good mood. No tremors or rigidity noted. Data 11/27/22 23:04 11/27/22 23:04 Other Labs: Laboratory Last Values WBC 12.5 10^3/uL (4.0-10.0) H 11/27/22 23:04 RBC 5.27 10^6/uL (4.1-5.3) 11/27/22 23:04 Hgb 14.7 g/dL (11.7-16.6) 11/27/22 23:04 Hct 47.6 % (42.0-52.0) 11/27/22 23:04 MCV 90.3 fl (80-94) 11/27/22 23:04 MCH 27.9 pg (28.0-34.0) L 11/27/22 23:04 MCHC 30.9 g/dL (30.0-36.0) 11/27/22 23:04 RDW 14.7 % (12.1-15.1) 11/27/22 23:04 Plt Count 198 10^3/cmm (130-400) 11/27/22 23:04 MPV 10.6 fL (7.4-10.4) H 11/27/22 23:04 Neut % (Auto) 82.6 % 11/27/22 23:04 Lymph % (Auto) 9.4 % 11/27/22 23:04 [place] % (Auto) 5.5 % 11/27/22 23:04 Eos % (Auto) 1.1 % 11/27/22 23:04 Baso % (Auto) 1.0 % 11/27/22 23:04 Neut # (Auto) 10.28 10^3/uL (1.8-7.7) H 11/27/22 23:04 Lymph # (Auto) 1.2 10^3/uL (0.8-4.8) 11/27/22 23:04 [place] # (Auto) 0.7 10^3/uL (0.2-0.9) 11/27/22 23:04 Eos # (Auto) 0.1 10^3/uL (0.0-0.8) 11/27/22 23:04 Baso # (Auto) 0.1 10^3/uL (0.0-0.1) 11/27/22 23:04 Nucleated RBC % (auto) 0 % 11/27/22 23:04 Nucleated RBCs # 0.0 /100WBC 11/27/22 23:04 PT 13.20 SECONDS (12.1-14.9) 11/27/22 23:04 INR 0.98 (0.8-1.2) 11/27/22 23:04 Specimen Type Arterial 11/27/22 22:50 Sample Site Radial, left 11/27/22 22:50 ABG pH 7.37 (7.35-7.45) 11/27/22 22:50 ABG pCO2 51.3 mmHg (35-45) H 11/27/22 22:50 ABG pO2 64.8 mmHg (80.0-100.0) L 11/27/22 22:50 ABG HCO3 29.4 mmol/L (22-26) H 11/27/22 22:50 ABG Base Excess 2.9 mmol/L (-2.0-2.0) H 11/27/22 22:50 [place] Test Pos 11/27/22 22:50 Hematocrit 44.9 % (42-52) 11/27/22 22:50 O2 Delivery Device Nc 11/27/22 22:50 O2 Liters/Min 6.0 % 11/27/22 22:50 Trimming Assembler ID Evelyn 11/27/22 22:50 Sodium 135 mmol/L (136-145) L 11/27/22 23:04 Potassium 4.2 mmol/L (3.5-5.1) 11/27/22 23:04 Chloride 93 mmol/L (98-107) L 11/27/22 23:04 Carbon Dioxide 27 mmol/L (22-29) 11/27/22 23:04 Anion Gap 19.2 (5-19) H 11/27/22 23:04 BUN 21 mg/dL (8-23) 11/27/22 23:04 Creatinine 1.2 mg/dL (0.7-1.2) 11/27/22 23:04 GFR Calculation Not Reportable 11/27/22 23:04 Glucose 261 mg/dL (65-115) H 11/27/22 23:04 POC Glucose 251 mg/dL (70-110) H 11/28/22 07:13 Calculated Osmolality 292 mOsm/kg (285-295) 11/27/22 23:04 Calcium 8.8 mg/dL (8.5-10.5) 11/27/22 23:04 Total Bilirubin 0.4 mg/dL (0.15-1.2) 11/27/22 23:04 AST 20 U/L (0-40) 11/27/22 23:04 ALT 25 U/L (0-41) 11/27/22 23:04 Alkaline Phosphatase 107 U/L (40-130) 11/27/22 23:04 Troponin T Baseline 261 ng/L (0-15) H* 11/27/22 23:04 Troponin T 120 Minute 278.3 ng/L (0-15) H 11/28/22 00:51 Delta Troponin T 17.3 ABS# (0-10) H* 11/28/22 00:51 Troponin T Hi Sens 6Hr 447.2 ng/L (0-15) H 11/28/22 05:11 Troponin T Hi Sens 6Hr Delta 186.2 ng/L (0-12) H* 11/28/22 05:11 NT-Pro-B Natriuret Pep 1821 pg/mL (0-125) H 11/27/22 23:04 Total Protein 7.8 g/dL (6.6-8.7) 11/27/22 23:04 Albumin 3.7 g/dL (3.5-5.2) 11/27/22 23:04 Globulin 4.1 g/dL (1.3-4.6) 11/27/22 23:04 Influenza Type A Ag negative (Negative) 11/27/22 22:40 Influenza Type B Ag negative (Negative) 11/27/22 22:40 SARS-CoV-2 Ag (Rapid) negative (Negative) 11/27/22 22:40 Micro: Microbiology 11/28/22 00:21 Blood Culture - Preliminary Blood SPECIMEN COLLECTED 11/28/22 00:21 Blood Culture - Preliminary Blood SPECIMEN COLLECTED EKG 1: My Interpretation: Normal sinus rhythm with a heart rate of 97 bpm. QS pattern in leads V2 and V3 suggesting old anteroseptal OR. Left axis deviation. Nonspecific IVCD. ST depressions in leads V5 V6, 1 and aVL suggesting anterolateral wall ischemia. A&P Assessment and plan (1) Elevated troponin: The patient Significant features may suggest a non-ST elevation myocardial infarction. Hemodynamically seems to be stable at this time. The EKG is suggestive of anterolateral wall ischemia. At this point, the patient may be treated with subcu Lovenox, beta-richard, aspirin, Plavix and statin. An echocardiogram was ordered. I will be reviewing the echocardiogram. (2) COPD exacerbation: Management as per the primary. The white cell count is elevated. Management as per the primary. (3) Chest pain: Patient's chest symptoms are atypical. Because of the COPD exacerbation, most of the symptoms could be related to this. (4) T2DM (type 2 diabetes mellitus): Management as per the primary. Plan I will be reviewing the echocardiogram. Patient may benefit from cardiac catheterization. Based on the clinical progress, further recommendations will be made. Thank you for the opportunity to evaluate this patient and make these recommendations Consult Attestations Medical Necessity Statement: Patient requires continued hospital stay for close monitoring and further management Coding Level of Care Code 27919 Diagnoses Elevated troponin R77.8 COPD exacerbation J44.1 Chest pain R07.9 T2DM (type 2 diabetes mellitus) E11.9
[2022-11-28] MEDS: insulin lispro 100 unit/1 mL SUBCUT ×3 (08:28→17:12)
[2022-11-28] MEDS: montelukast sodium 10 mg Tablet PO (08:50)
[2022-11-28] MEDS: potassium chloride ER 20 mEq Tablet PO (08:50)
[2022-11-28] MEDS: levETIRAcetam 500 mg Tablet PO (08:50)
[2022-11-28] MEDS: aspirin 81 mg EC Tablet PO (08:50)
[2022-11-28] MEDS: azithromycin 250 mg Tablet 500 MG PO (08:51)
[2022-11-28] MEDS: tamsulosin 0.4 mg Capsule PO (08:51)
[2022-11-28] MEDS: clopidogrel 75 mg Tablet PO (08:51)
--- NOTE | 2022-11-28 11:18 | PM.PN ---
Subjective Subjective: Still short of breath. Wheezing a lot. No chest pain. Both Mr. Carrera and his think breathing is primary rather than something related to heart. No personal history of heart disease though does have diabetes history of smoking and obesity. Sounds like he has a history of sleep apnea but has been unable to tolerate CPAP therapy. He struggles with oxygen therapy as well. Was significantly hypoxic and continues to require oxygen at 5 L by nasal cannula. Reviewed with patient and his significant cardiac enzyme elevation and need to evaluate further to ensure were not missing something that would require different management. In talking with him he has had problems with lower extremity edema lately. He has attributed that to sleeping in the recliner which is his usual pattern and not keeping his legs elevated. He has had dyspnea on exertion but has attributed it to allergies being worse and breathing issues in general. No family history of coronary artery disease. Vitals/I&O/Wt Last Vital Signs Temp 97.8 F 11/28/22 11:04 Pulse 99 11/28/22 11:04 Resp 22 H 11/28/22 11:04 BP 141/94 11/28/22 11:04 Pulse Ox 94 11/28/22 11:04 O2 Del Method 11/28/22 11:04 O2 Flow Rate 5 11/28/22 11:04 11/27/22 11/28/22 11/28/22 22:59 06:59 14:59 Intake Total 350 / 350 120 / 120 Output Total 350 / 350 Balance 0 / 0 120 / 120 Weight last 48 hrs Weight 126.507 kg Weight 120.202 kg Physical Exam Narrative: Awake and alert. Looks like he does not feel well. Some audible wheezing. Oxygen is in place. Lungs with diffuse wheezing inspiratory and expiratory. Breath sounds are decreased at both bases. Heart sounds are distant. Abdomen is soft, rotund. 3+ pitting edema bilaterally. Brisk capillary refill. No calf tenderness. Data 11/27/22 23:04 11/27/22 23:04 Micro: Microbiology 11/28/22 00:21 Blood Culture - Preliminary Blood SPECIMEN COLLECTED 11/28/22 00:21 Blood Culture - Preliminary Blood SPECIMEN COLLECTED A&P Assessment and plan (1) Seasonal allergies: (2) Pneumonia: (3) Acute respiratory failure with hypoxia: (4) COPD exacerbation: (5) Non-ST elevation UT (NSTEMI): (6) Lymphadenopathy: (7) T2DM (type 2 diabetes mellitus): (8) Hypertension: Plan Continue treatment with Rocephin and azithromycin Continue systemic steroids Add inhaled steroids Continue breathing treatments Add Flonase Continue Singulair Follow-up pending cultures Continue IV Lasix plus supplemental potassium, monitoring output Monitor renal function Discussed with Dr. Hays and plan is tentatively for cardiac catheterization after treatment of his pulmonary issues Continue treatment dose Lovenox, aspirin, statin therapy Check lipid panel Add beta-blockade Add insulin therapy, off of metformin presently Hold vitamin C, calcium plus vitamin D, ferrous sulfate Continue home Flomax Stop Keppra as no longer home medication Order care otherwise Plans were discussed with patient and his and both were given an opportunity to ask questions At discharge anticipate he will likely need oxygen therapy. He has had difficulty tolerating oxygen and facemasks for sleep apnea management in the past Attestations Medical Necessity Statement*: Requires ongoing management for respiratory and cardiac issues as described. At high risk of rapid clinical decline. Coding Level of Care Code Acute Code for Chg Fwd Moderate Time for a total of 35 minutes, includes reviewing past or interval history, examining/interviewing patient, placing orders, updating patient/family/other support, discussing plan of care with staff, communicating with other healthcare providers and documenting encounter Diagnoses Seasonal allergies J30.2 Pneumonia J18.9 Acute respiratory failure with hypoxia J96.01 COPD exacerbation J44.1 Non-ST elevation UT (NSTEMI) I21.4 Lymphadenopathy R59.1 T2DM (type 2 diabetes mellitus) E11.9 Hypertension I10
[2022-11-28 11:25] LABS: Glucose Point of Care 250 mg/dL (70-110)
[2022-11-28] MEDS: enoxaparin 150 mg/mL Syringe 130 MG SUBCUT ×2 (12:17→23:51)
[2022-11-28] MEDS: FUROsemide 10 mg/mL SDV 4mL 40 MG IVP (12:18)
[2022-11-28] MEDS: metoprolol tartrate 25 mg Tablet PO ×2 (14:02→20:37)
[2022-11-28] MEDS: fluticasone nasal spray 16gm Btl 2 SPRAY NASAL (14:04)
[2022-11-28 18:07] LABS: Glucose Point of Care 209 mg/dL (70-110)
[2022-11-28] MEDS: budesonide 0.5 mg/2 mL Neb INHALATION (20:03)
[2022-11-28 20:21] LABS: Glucose Point of Care 183 mg/dL (70-110)
[2022-11-28] MEDS: atorvastatin 40 mg Tablet 80 MG PO (20:36)
[2022-11-29] VITALS (31 sets, daily range): BP systolic 106–122; BP diastolic 65–87; PULSE 81–103; RESP 16–27; TEMP 36.3–37.2; O2SAT 83–97
[2022-11-29] MEDS: ipratropium-albuterol 3 mL Neb INHALATION ×4 (01:17→20:53)
[2022-11-29 03:00] LABS: Basophils % 0.1 %; Eosinophils % 0.1 %; Hematocrit 46.5 % (42.0-52.0); Hemoglobin 13.5 g/dL (11.7-16.6); Lymphocytes # 0.8 10^3/uL (0.8-4.8); Lymphocytes % 5.9 %; Mean Corpuscular Hemoglobin 27.1 pg (28.0-34.0); Mean Corpuscular Volume 93.4 fl (80-94); Mean Platelet Volume 11.3 fL (7.4-10.4); Monocytes # 0.6 10^3/uL (0.2-0.9); Monocytes % 4.4 %; Neutrophils # 12.49 10^3/uL (1.8-7.7); Neutrophils % 89.1 %; Nucleated Red Blood Cells % 0 %; Platelet Count 228 10^3/cmm (130-400); Red Blood Count 4.98 10^6/uL (4.1-5.3); Red Cell Distribution Width 14.6 % (12.1-15.1)
[2022-11-29 03:31] LABS: Anion Gap 19.1 (5-19); Blood Urea Nitrogen 39 mg/dL (8-23); C Reactive Protein 15.1 mg/L (0.0-4.9); Calcium 8.8 mg/dL (8.5-10.5); Carbon Dioxide 26 mmol/L (22-29); Chloride 95 mmol/L (98-107); Glucose 182 mg/dL (65-115); Magnesium 2.4 mg/dL (1.7-2.3); Osmolality Calculated 292 mOsm/kg (285-295); Phosphorus 4.8 mg/dL (2.5-4.5); Potassium 6.1 mmol/L (3.5-5.1); Sodium 134 mmol/L (136-145)
[2022-11-29 03:35] LABS: Estmated Average Glucose 189; Hemoglobin A1C 8.2 % (4.0-6.0)
[2022-11-29 03:38] LABS: Creatinine Clr Calc Pharmacy 58.5699
--- NOTE | 2022-11-29 04:44 | PC.NURSE ---
Vasquez placed by student nurse using aseptic technique. Noted patient to be draining blood into his catheter at this time. Informed Dr Baugh. Perform irrigation. Patient tolerating well. Denies pain to catheter.
[2022-11-29] MEDS: lanolin oint 7 gm 1 APPLIC TOPICAL (05:23)
--- NOTE | 2022-11-29 05:30 | PC.NURSE ---
This RN has followed and observed SN Enedelia perform assessments, administer medications and performed tasks using appropriate protocol procedures. I agree with all of students documentation.
--- NOTE | 2022-11-29 06:00 | USCV_ITS ---
Zander Carrera Age: 72 Gender: M : 1950 Exam Date: 11/29/2022 14:13 Ordering Phys: Natanael Hays MD ([email or web address]) Technologist: KHANG Exam Location: [facility] [place] Indication: cp/sob BP: / HR: 94 Rhythm: Sinus Technical Quality: Adequate MEASUREMENTS (Male / Female) Normal Values 2D ECHO LV Diastolic Diameter PLAX 7.4 cm 4.2 - 5.9 / 3.9 - 5.3 cm LV Systolic Diameter PLAX 6.6 cm IVS Diastolic Thickness 1.0 cm 0.6 - 1.0 / 0.6 - 0.9 cm IVS Systolic Thickness 1.1 cm LVPW Diastolic Thickness 1.1 cm 0.6 - 1.0 / 0.6 - 0.9 cm LVPW Systolic Thickness 1.0 cm LVOT Diameter 2.1 cm LV Ejection Fraction 2D Teich 23.1 % LV Ejection Fraction MOD 2C 42.4 % LV Ejection Fraction 2C AL 40.8 % LA Diameter 4.6 cm IVC Diameter 2.8 cm M-MODE Aortic Annulus Diameter 3.3 cm LA Ao Ratio MM 1.5 MV E Point Septal Separation 1.5 cm DOPPLER AV Peak Velocity 275.0 cm/s LVOT Peak Velocity 80.0 cm/s AV Area Cont Eq vti 1.3 cm squared AV Area Cont Eq pk 1.0 cm squared MV Area PHT 5.0 cm squared Mitral E to A Ratio 1.6 MV E' Velocity 73.0 cm/s Mitral E to MV E' Ratio 34.7 Mitral E to LV E' Lateral Ratio 32.3 Mitral E to LV E' Septal Ratio 38.4 TR Peak Velocity 189.7 cm/s TR Peak Gradient 14.4 mmHg Right Atrial Pressure 15.0 mmHg Pulmonary Artery Systolic Pressu 29.4 mmHg PV Peak Velocity 106.0 cm/s FINDINGS Left Ventricle Normal LV size with a slightly diminished ejection fraction of around 50%. Segmental valve analysis difficult because of poor ultrasonic windows.Grade III/IV diastolic dysfunction (restrictive filling pattern), severely elevated filling pressures. Right Ventricle Possibly of normal size ejection fraction. Right Atrium Appears to be of normal size. Left Atrium Mildly increased left atrial size. Mitral Valve Thickened mitral valve. Moderate mitral annular calcification. Aortic Valve Moderate aortic valve stenosis, mean gradient 18.5 mmHg, BRIAN 1.3 cm squared. Peak velocity of 2.75 m/s with a peak gradient of 30 and a mean gradient of 19 millimeters of mercury. This could be an underestimation because of the poor Doppler signals. Tricuspid Valve Trace tricuspid valve regurgitation. Pulmonic Valve Pulmonic valve not well visualized. Pericardium Normal pericardium without effusion. Aorta Normal ascending aorta dimension. IVC Dilated IVC with decreased respiratory variation. Estimated right atrial pressure of 15 mmHg CONCLUSIONS Normal LV size with a slightly diminished ejection fraction of around 50%. Segmental valve analysis difficult because of poor ultrasonic windows.Grade III/IV diastolic dysfunction (restrictive filling pattern), severely elevated filling pressures. Moderate aortic valve stenosis, mean gradient 18.5 mmHg, BRIAN 1.3 cm squared. Peak velocity of 2.75 m/s with a peak gradient of 30 mm Hg. This could be an underestimation because of the poor Doppler signals. Thickened mitral valve. Moderate mitral annular calcification. Trace tricuspid valve regurgitation. Estimated pulmonary artery peak systolic pressure of 29 mmHg. This could be an underestimation because of poor Doppler signals There is no pericardial effusion. No similar previous studies are available for comparison Technically difficult study because of the poor ultrasonic window. Dr Natanael Hays MD [facility] (Electronically Signed) Final Date: 29 November 2022 20:42 S
[2022-11-29 06:10] LABS: Glucose Point of Care 184 mg/dL (70-110)
[2022-11-29] MEDS: budesonide 0.5 mg/2 mL Neb INHALATION ×2 (08:12→20:53)
--- NOTE | 2022-11-29 08:17 | PM.PN ---
Subjective Subjective: His breathing is much better today. Denies any chest pain. Has the baseline shortness of breath with activities. No fever or chills. He also has some hematuria in the Vasquez's catheter. The creatinine was found to be elevated Medications: Medication Review Details: Current Medications Acetaminophen (Acetaminophen 500 Mg Tablet) 500 mg PO Q4H PRN PRN Reason: fever Albuterol/Ipratropium (Ipratropium-Albuterol 3 Ml Neb) 3 ml INHALATION Q6H.RESP GUDELIA Last Admin: 11/29/22 08:12 Dose: 3 ml Albuterol/Ipratropium (Ipratropium-Albuterol 3 Ml Neb) 3 ml INHALATION Q6H PRN PRN Reason: SHORTNESS OF BREATH Aspirin (Aspirin 81 Mg Ec Tablet) 81 mg PO DAILY [facility] Last Admin: 11/28/22 08:50 Dose: 81 mg Atorvastatin Calcium (Atorvastatin 40 Mg Tablet) 80 mg PO BEDTIME GUDELIA Last Admin: 11/28/22 20:36 Dose: 80 mg Azithromycin (Azithromycin 250 Mg Tablet) 500 mg PO DAILY GUDELIA; Protocol Last Admin: 11/28/22 08:51 Dose: 500 mg Budesonide (Budesonide 0.5 Mg/2 Ml Neb) 0.5 mg INHALATION BID.RESPIRATORY GUDELIA Last Admin: 11/29/22 08:12 Dose: 0.5 mg Clopidogrel Bisulfate (Clopidogrel 75 Mg Tablet) 75 mg PO DAILY [facility] Last Admin: 11/28/22 08:51 Dose: 75 mg Dextrose (Dextrose 50% Syringe 50 Ml) 25 ml IVP ONCE PRN; Protocol PRN Reason: hypoglycemia protocol Dextrose (Dextrose 50% Syringe 50 Ml) 50 ml IVP PRN PRN; Protocol PRN Reason: hypoglycemia protocol Enoxaparin Sodium (Enoxaparin 150 Mg/Ml Syringe) 130 mg SUBCUT Q12H [facility] Last Admin: 11/28/22 23:51 Dose: 130 mg Fluticasone Propionate (Fluticasone Nasal [place] 16gm Btl) 2 spray NASAL DAILY [facility] Last Admin: 11/28/22 14:04 Dose: 2 spray Glucagon (Glucagon 1 Mg/Ml Inj 1 Ml) 1 mg IM ONCE PRN; Protocol PRN Reason: Adult Acute Hypoglycemia Prot. Dextrose (D5w) 500 mls @ 100 mls/hr IV ONCE PRN; Protocol PRN Reason: Adult Acute Hypoglycemia Prot Ceftriaxone Sodium 1,000 mg/ (Sodium Chloride) 50 mls @ 100 mls/hr IV Q24H [facility]; Protocol Last Infusion: 11/29/22 00:25 Dose: Infused Sodium Chloride (Sodium Chloride 0.9%) 1,000 mls @ 75 mls/hr IV .[id number] [facility] Stop: 11/29/22 15:44 Insulin Human Lispro (Insulin Lispro 100 Unit/1 Ml) 0 unit SUBCUT TIDWM [facility]; Protocol Last Admin: 11/28/22 17:12 Dose: 6 unit Insulin Human Lispro (Insulin Lispro 100 Unit/1 Ml) 0 unit SUBCUT BEDTIME [facility]; Protocol Lanolin (Lanolin Oint 7 Gm) 1 applic TOPICAL PRN PRN PRN Reason: DRYNESS Last Admin: 11/29/22 05:23 Dose: 1 applic Methylprednisolone Sodium Succinate (Methylprednisolone Sod Succ 40 Mg/Ml Inj) 40 mg IVP Q12H [facility] Last Admin: 11/29/22 05:23 Dose: 40 mg Metoprolol Tartrate (Metoprolol Tartrate 25 Mg Tablet) 12.5 mg PO BID@0900,2100 [facility] Montelukast Sodium (Montelukast Sodium 10 Mg Tablet) 10 mg PO DAILY [facility] Last Admin: 11/28/22 08:50 Dose: 10 mg Morphine Sulfate (Morphine Ir 15 Mg Tablet) 15 mg PO Q6H PRN PRN Reason: pAIN Ondansetron HCl (Ondansetron 2 Mg/Ml Sdv 2 Ml) 4 mg IVP Q6H PRN PRN Reason: NAUSEA AND VOMITING Tamsulosin HCl (Tamsulosin 0.4 Mg Capsule) 0.4 mg PO DAILY [facility] Last Admin: 11/28/22 08:51 Dose: 0.4 mg Vitals/I&O/Wt Last Vital Signs Temp 98.1 F 11/29/22 07:50 Pulse 83 11/29/22 08:12 Resp 16 11/29/22 08:12 BP 115/76 11/29/22 07:50 Pulse Ox 91 11/29/22 08:12 O2 Del Method 11/29/22 08:12 O2 Flow Rate 4 11/29/22 08:12 11/28/22 11/29/22 11/29/22 22:59 06:59 14:59 Intake Total 820 / 940 Output Total 500 / 500 400 / 900 Balance -500 / -380 420 / 40 Weight last 48 hrs Weight 280 lb 4.8 oz Weight 278 lb 14.4 oz Weight 265 lb Physical Exam Narrative: GENERAL: The patient is alert and oriented times three. Not in any acute distress. HEENT: No significant pallor, icterus or lymphadenopathy.Oral cavity: There are no mucous membrane lesions. NECK: Trachea appears to be central. No masses noted. No JVD or thyromegaly appreciated. RESPIRATORY: Breath sounds are heard bilaterally. Intensity of breath sounds are somewhat diminished in the bases. Occasional expiratory wheezing. BREASTS: Deferred. HEART: The heart sounds are normal. No S3 or S4. Ejection stock murmur grade 3 or 6 in the aortic area. No diastolic murmurs. No pericardial rub ABDOMEN: No vessel pulsations or distention. No tenderness. No organomegaly appreciated. Bowel sounds are normally heard. : Deferred. RECTAL: Deferred. LYMPHATIC: No lymphadenopathy noted in the neck. EXTREMITIES: No edema or cyanosis. No clubbing. MUSCULOSKELETAL: No acute joint deformities or swelling SKIN: There are no significant rashes or ecchymosis NEUROPSYCHIATRIC: The patient is alert and oriented x3. Appears to be in a good mood. No tremors or rigidity noted. Urinary Catheter Management: Vasquez: Cath Placed During This Visit: yes Reason for Continuing Indwelling Catheter: Accurate Measurement of Urinary Output in Critically Ill Patients Urinary Catheter Date of Insertion: 11/29/22 Urinary Catheter Time of Insertion: 01:14 Data 11/29/22 02:27 11/29/22 02:27 Other Labs: Laboratory Last Values WBC 14.0 10^3/uL (4.0-10.0) H 11/29/22 02: RBC 4.98 10^6/uL (4.1-5.3) 11/29/22 02:27 Hgb 13.5 g/dL (11.7-16.6) 11/29/22 02:27 Hct 46.5 % (42.0-52.0) 11/29/22 02:27 MCV 93.4 fl (80-94) 11/29/22 02:27 MCH 27.1 pg (28.0-34.0) L 11/29/22 02:27 MCHC 29.0 g/dL (30.0-36.0) L D 11/29/22 02:27 RDW 14.6 % (12.1-15.1) 11/29/22 02: Plt Count 228 10^3/cmm (130-400) 11/29/22 02: MPV 11.3 fL (7.4-10.4) H 11/29/22 02:27 Neut % (Auto) 89.1 % 11/29/22 02: Lymph % (Auto) 5.9 % 11/29/22 02: [place] % (Auto) 4.4 % 11/29/22 02: Eos % (Auto) 0.1 % 11/29/22 02: Baso % (Auto) 0.1 % 11/29/22 02: Neut # (Auto) 12.49 10^3/uL (1.8-7.7) H 11/29/22 02: Lymph # (Auto) 0.8 10^3/uL (0.8-4.8) 11/29/22 02: [place] # (Auto) 0.6 10^3/uL (0.2-0.9) 11/29/22 02: Eos # (Auto) 0.0 10^3/uL (0.0-0.8) 11/29/22 02: Baso # (Auto) 0.0 10^3/uL (0.0-0.1) 11/29/22 02: Nucleated RBC % (auto) 0 % 11/29/22 02: Nucleated RBCs # 0.0 /100WBC 11/29/22 02: PT 13.20 SECONDS (12.1-14.9) 11/27/22 23:04 INR 0.98 (0.8-1.2) 11/27/22 23:04 Specimen Type Arterial 11/27/22 22:50 Sample Site Radial, left 11/27/22 22:50 ABG pH 7.37 (7.35-7.45) 11/27/22 22:50 ABG pCO2 51.3 mmHg (35-45) H 11/27/22 22:50 ABG pO2 64.8 mmHg (80.0-100.0) L 11/27/22 22:50 ABG HCO3 29.4 mmol/L (22-26) H 11/27/22 22:50 ABG Base Excess 2.9 mmol/L (-2.0-2.0) H 11/27/22 22:50 [place] Test Pos 11/27/22 22:50 Hematocrit 44.9 % (42-52) 11/27/22 22:50 O2 Delivery Device Nc 11/27/22 22:50 O2 Liters/Min 6.0 % 11/27/22 22:50 Repairer And Checker ID Evelyn 11/27/22 22:50 Sodium 134 mmol/L (136-145) L 11/29/22 02:27 Potassium 6.1 mmol/L (3.5-5.1) H 11/29/22 02:27 Chloride 95 mmol/L (98-107) L 11/29/22 02:27 Carbon Dioxide 26 mmol/L (22-29) 11/29/22 02:27 Anion Gap 19.1 (5-19) H 11/29/22 02:27 BUN 39 mg/dL (8-23) H 11/29/22 02:27 Creatinine 1.5 mg/dL (0.7-1.2) H 11/29/22 02:27 GFR Calculation Not Reportable 11/29/22 02:27 Glucose 182 mg/dL (65-115) H 11/29/22 02:27 POC Glucose 184 mg/dL (70-110) H 11/29/22 06:01 Estimat Average Glucose 189 11/29/22 02:27 Hemoglobin A1c 8.2 % (4.0-6.0) H 11/29/22 02:27 Calculated Osmolality 292 mOsm/kg (285-295) 11/29/22 02:27 Calcium 8.8 mg/dL (8.5-10.5) 11/29/22 02:27 Phosphorus 4.8 mg/dL (2.5-4.5) H 11/29/22 02:27 Magnesium 2.4 mg/dL (1.7-2.3) H 11/29/22 02:27 Total Bilirubin 0.4 mg/dL (0.15-1.2) 11/27/22 23:04 AST 20 U/L (0-40) 11/27/22 23:04 ALT 25 U/L (0-41) 11/27/22 23:04 Alkaline Phosphatase 107 U/L (40-130) 11/27/22 23:04 Troponin T Baseline 261 ng/L (0-15) H* 11/27/22 23:04 Troponin T 120 Minute 278.3 ng/L (0-15) H 11/28/22 00:51 Delta Troponin T 17.3 ABS# (0-10) H* 11/28/22 00:51 Troponin T Hi Sens 6Hr 447.2 ng/L (0-15) H 11/28/22 05:11 Troponin T Hi Sens 6Hr Delta 186.2 ng/L (0-12) H* 11/28/22 05:11 C-Reactive Protein 15.1 mg/L (0.0-4.9) H 11/29/22 02:27 NT-Pro-B Natriuret Pep 1821 pg/mL (0-125) H 11/27/22 23:04 Total Protein 7.8 g/dL (6.6-8.7) 11/27/22 23:04 Albumin 3.7 g/dL (3.5-5.2) 11/27/22 23:04 Globulin 4.1 g/dL (1.3-4.6) 11/27/22 23:04 Influenza Type A Ag negative (Negative) 11/27/22 22:40 Influenza Type B Ag negative (Negative) 11/27/22 22:40 SARS-CoV-2 Ag (Rapid) negative (Negative) 11/27/22 22:40 Micro: Microbiology 11/28/22 00:21 Blood Culture - Preliminary Blood NEGATIVE TO DATE 11/28/22 00:21 Blood Culture - Preliminary Blood NEGATIVE TO DATE 11/28/22 05:50 MRSA Culture - Final Nose 11/28/22 07:50 Gram Stain - Final Sputum - Expectorated Sputum A&P Assessment and plan (1) Elevated troponin: The patient has features of non-ST elevation myocardial infarction. Hemodynamically seems to be stable. The delta on the 6 over troponin T is 181. We may go ahead and do a troponin T in the morning. (2) COPD exacerbation: Patient has significant improvement of the respiratory status. Continue on the current management. (3) Chest pain: Symptoms are currently stable. (4) T2DM (type 2 diabetes mellitus): Management as per the primary. Blood sugar seems to be fairly under control. (5) Acute kidney injury: Etiology is not clear. Patient is remaining normotensive at this time. Most likely he may have underlying diabetic kidney disease. (6) Hyperkalemia: Mild. Etiology is unclear. Plan Careful hydration today. BMP in the morning. Troponin T in the morning. Hematuria work-up as per Dr. Gallegos Based on the clinical progress, further recommendations will be made Attestations Medical Necessity Statement*: Patient requires continued hospital stay for close monitoring and further management Coding Level of Care Code Acute Code for Chg Fwd Diagnoses Elevated troponin R77.8 COPD exacerbation J44.1 Chest pain R07.9 T2DM (type 2 diabetes mellitus) E11.9 Acute kidney injury N17.9 Hyperkalemia E87.5
[2022-11-29 08:26] LABS: Uric Acid 8.6 mg/dL (3.4-7.0)
[2022-11-29] MEDS: clopidogrel 75 mg Tablet PO (10:05)
[2022-11-29] MEDS: aspirin 81 mg EC Tablet PO (10:06)
[2022-11-29 10:07] LABS: Bilirubin Urine Neg (Negative); Blood Urine 3+ (Negative); Glucose Urine UA Trace (Normal); Ketones Urine Negative (Negative); Leukocyte Esterase Urine Negative (Negative); Nitrate Urine Negative (Negative); Protein Urine 3+ (Negative); Urine Color Yellow (Yellow); Urobilinogen Urine Norm (Negative); pH Urine 6 (5-7)
[2022-11-29] MEDS: montelukast sodium 10 mg Tablet PO (10:07)
[2022-11-29] MEDS: azithromycin 250 mg Tablet 500 MG PO (10:07)
[2022-11-29] MEDS: tamsulosin 0.4 mg Capsule PO (10:07)
[2022-11-29 10:08] LABS: Add Urine Microscopic? YES
[2022-11-29] MEDS: sodium chloride 0.9% 1,000 ML 75 ML IV (10:08)
[2022-11-29 10:09] LABS: Urine Creatinine 133 mg/dL (39-259); Urine Random Sodium 29 mmol/L
[2022-11-29 10:11] LABS: RBC Urine TOO NUMEROUS TO CNT /hpf (0-2); Squamous Epithelial Cell Urine 0-4 /hpf (0-5); WBC Urine 40-55 /hpf (0-5)
[2022-11-29 10:12] LABS: Bacteria Urine 1+ /hpf
[2022-11-29 10:13] LABS: Add Urine Culture? Yes
[2022-11-29 10:50] LABS: Blood Urea Nitrogen 43 mg/dL (8-23); Carbon Dioxide 26 mmol/L (22-29); Chloride 95 mmol/L (98-107); Glucose 198 mg/dL (65-115); Osmolality Calculated 294 mOsm/kg (285-295); Sodium 134 mmol/L (136-145)
[2022-11-29] MEDS: metoprolol tartrate 25 mg Tablet 12.5 MG PO ×2 (10:52→21:24)
[2022-11-29] MEDS: fluticasone nasal spray 16gm Btl 2 SPRAY NASAL (10:56)
[2022-11-29 11:00] LABS: Anion Gap 18.5 (5-19); Potassium 5.5 mmol/L (3.5-5.1)
[2022-11-29 11:03] LABS: Glucose Point of Care 220 mg/dL (70-110)
--- NOTE | 2022-11-29 11:42 | PC.NURSE ---
Due to hematuria, Dr. Gallegos is putting Lovenox on hold.
[2022-11-29] MEDS: insulin lispro 100 unit/1 mL SUBCUT ×3 (12:01→21:25)
--- NOTE | 2022-11-29 13:54 | P.PN_ITS ---
Subjective Subjective: Overnight had some decreased urine output and Vasquez catheter was placed. Initial urine output was dark yellow. He subsequently developed some gross hematuria. Attempts at irrigating and clearing have not been successful. He does have a known history of prostate cancer. He follows with a urologist in [place]. This morning potassium was up to 6.1 and BUN and creatinine were also elevated compared to values yesterday. He had received some IV Lasix also. Despite all of this patient actually feels a little bit better today. Breathing is a little bit better. He is trying to keep his legs up. No new complaints. Vitals/I&O/Wt Last Vital Signs Temp 98.9 F 11/29/22 11:02 Pulse 96 11/29/22 13:38 Resp 16 11/29/22 13:33 BP 122/87 11/29/22 11:02 Pulse Ox 96 11/29/22 13:33 O2 Del Method 11/29/22 13:33 O2 Flow Rate 4.5 11/29/22 13:33 11/28/22 11/29/22 11/29/22 22:59 06:59 14:59 Intake Total 820 / 940 Output Total 500 / 500 400 / 900 200 / 200 Balance -500 / -380 420 / 40 -200 / -200 Weight last 48 hrs Weight 127.142 kg Weight 126.507 kg Weight 120.202 kg Physical Exam Narrative: Awake, not quite as ill-appearing nor working as hard to breathe today. Continues to have wheezing. Heart sounds are distant but regular. Abdomen is soft. Vasquez catheter in place with dark red urine. No change to lower extremity edema but was keeping legs lowered. Urinary Catheter Management: Vasquez: Cath Placed During This Visit: yes Reason for Continuing Indwelling Catheter: Accurate Measurement of Urinary Output in Critically Ill Patients Urinary Catheter Date of Insertion: 11/29/22 Urinary Catheter Time of Insertion: 01:14 Data 11/29/22 02:27 11/29/22 10:03 Micro: Microbiology 11/28/22 07:50 Gram Stain - Final Sputum - Expectorated Sputum Sputum Culture - Preliminary 11/28/22 00:21 Blood Culture - Preliminary Blood NEGATIVE TO DATE 11/28/22 00:21 Blood Culture - Preliminary Blood NEGATIVE TO DATE 11/28/22 05:50 MRSA Culture - Final Nose A&P Assessment and plan (1) Seasonal allergies: (2) Pneumonia: Organism unknown, present on admission, with infiltrates described in the right middle and lingular lobes (3) Acute respiratory failure with hypoxia: Strongly suspect patient has chronic hypoxia that has been untreated. He does have known sleep apnea and is intolerant of facial mask. (4) COPD exacerbation: Related to allergies and pneumonia (5) Non-ST elevation [place] (NSTEMI): May be a type II process related to degree of hypoxemia but has risk factors for coronary artery disease including obesity, diabetes, hypertension. Cardiomegaly and small bilateral pleural effusions noted on CTA of the chest. (6) Lymphadenopathy: Scattered mediastinal lymph nodes up to 15 mm in the subcarinal region noted on CTA of the chest (7) T2DM (type 2 diabetes mellitus): Chronically on metformin, hemoglobin A1c 8.2 (8) Hypertension: Chronically on Lasix (9) Gross hematuria: Likely traumatic related to Vasquez placement along with anticoagulation. (10) Prostate cancer: May be a contributing factor to above, chronically on Flomax (11) Acute kidney injury: Unclear if this is due to postobstructive process, prerenal or ATN from contrast or other medications at this point in time. (12) Hyperkalemia: Related to acute kidney injury Plan Continue treatment with Rocephin and azithromycin Continue systemic steroids, though will need to watch renal function On inhaled steroids Continue breathing treatments Continue Flonase and Singulair Blood cultures are no growth to date Have held IV Lasix and potassium IV fluids initiated, to run at a low rate Monitor renal function, urine output closely Check urinalysis Lovenox presently held On aspirin and statin therapy, plavix, metoprolol Check lipid panel Continue insulin therapy, off of home metformin, consider addition of long- acting insulin tomorrow Home vitamin C, calcium plus vitamin D, ferrous sulfate all held On home Flomax Supportive care otherwise Plans were discussed with patient and his , as well as several family members who were in the room. All were given an opportunity to ask questions. Encourage patient to keep his legs elevated At discharge anticipate he will likely need oxygen therapy. He has had difficulty tolerating oxygen and facemasks for sleep apnea management in the past. I let him and his family know about this along with my suspicions that he has had issues for some time with low oxygen levels. He would also benefit from a referral to podiatry. Other follow-up beyond PCP to be determined depending on clinical course. Attestations Medical Necessity Statement*: Requires ongoing inpatient stay for management of cardiopulmonary issues as noted above and now also kidney issues. Comorbid medical conditions put him at high risk of complications from treatment and evaluation. and High Time for a total of 50 minutes, includes reviewing past or interval history, examining/interviewing patient, placing orders, updating patient/family/other support, discussing plan of care with staff, communicating with other healthcare providers and documenting encounter Diagnoses Seasonal allergies J30.2 Pneumonia J18.9 Acute respiratory failure with hypoxia J96.01 COPD exacerbation J44.1 Non-ST elevation MA (NSTEMI) I21.4 Lymphadenopathy R59.1 T2DM (type 2 diabetes mellitus) E11.9 Hypertension I10 Gross hematuria R31.0 Prostate cancer C61 Acute kidney injury N17.9 Hyperkalemia E87.5
[2022-11-29 16:33] LABS: Glucose Point of Care 192 mg/dL (70-110)
[2022-11-29 20:49] LABS: Glucose Point of Care 190 mg/dL (70-110)
[2022-11-29] MEDS: atorvastatin 40 mg Tablet 80 MG PO (21:24)
[2022-11-29] MEDS: cefTRIAXone 1,000 MG in sodium chloride 0.9% (plus) 50 ML 100 MG IV (23:30)
[2022-11-30] VITALS (54 sets, daily range): BP systolic 83–181; BP diastolic 59–122; PULSE 60–103; RESP 0–24; TEMP 36.3–37.2; O2SAT 85–99
[2022-11-30] MEDS: ipratropium-albuterol 3 mL Neb INHALATION ×4 (02:29→19:28)
--- NOTE | 2022-11-30 05:21 | PC.NURSE ---
Noted patient SpO2 on monitor to dip to 79%. Patient sleeping with 3L NC and mouth breathing. Increased O2 to 5L high flow NC with increase of SpO2 only to 80-83%. Informed Ruthy RT and she placed oxymask on patient at 5L. Patient's SpO2 is currently 97%. Instructed patient on decrease in O2 levels and he verbalized understanding and was agreeable to try mask for a while until levels improved. Will continue to monitor.
--- NOTE | 2022-11-30 05:36 | PC.NURSE ---
This RN agrees with all assessments and medication administrations. Followed SN and observed her using appropriate patient identifiers.
[2022-11-30 05:42] LABS: Blood Urea Nitrogen 50 mg/dL (8-23); C Reactive Protein 10.3 mg/L (0.0-4.9); Calcium 8.8 mg/dL (8.5-10.5); Carbon Dioxide 25 mmol/L (22-29); Chloride 94 mmol/L (98-107); Cholesterol 176 mg/dL (0-200); Glucose 184 mg/dL (65-115); HDL Cholesterol 40 mg/dL (60-100); LDL Cholesterol Calculated 111 mg/dL (50-129); LDL HDL Ratio 2.78 RATIO (0.00-3.22); Magnesium 2.7 mg/dL (1.7-2.3); Osmolality Calculated 288 mOsm/kg (285-295); Sodium 130 mmol/L (136-145); Triglycerides 125 mg/dL (0-150)
[2022-11-30 05:55] LABS: Anion Gap 16.7 (5-19); Potassium 5.7 mmol/L (3.5-5.1)
[2022-11-30 05:56] LABS: Troponin T (5th) Once 2042 ng/L (0-15)
--- NOTE | 2022-11-30 06:07 | PC.NURSE ---
Received critical troponin this morning of 2041. Informed Dr Baugh and Dr Hays. Received instruction from Dr Hays to keep patient NPO this morning.
[2022-11-30 07:06] LABS: Glucose Point of Care 230 mg/dL (70-110)
--- NOTE | 2022-11-30 07:07 | PC.NURSE ---
Patient agitated this morning wanting to have his flores removed and to go home. Informed Dr Gallegos of this as well as troponin changes. Doctor said to leave flores in place and to give onetime dose of Ativan 0.25 IVP. RBVO
[2022-11-30] MEDS: LORazepam 2 mg/mL INJ 1 mL 0.25 MG IVP (07:12)
[2022-11-30] MEDS: budesonide 0.5 mg/2 mL Neb INHALATION ×2 (07:32→19:28)
--- NOTE | 2022-11-30 08:15 | PC.NURSE ---
Dr. Gallegos at bedside to see patient and speak to patient's . Dr. Gallegos educated patient's on patient's current status and plan of care. Dr. Gallegos spoke with one of the patient's sons, updated him on current status and plan of care. It was decided, between Dr. Gallegos and patient's ,that the patient would not have chest compressions if his heart was to stop. Patient's was given the opportunity to ask questions and have concerns addressed. Patient's son was also educated on patient's code status. Pt's and son verbalized an understanding of updated plan of care.
[2022-11-30 08:16] LABS: Basophils % 0.1 %; Hematocrit 40.2 % (42.0-52.0); Hemoglobin 12.3 g/dL (11.7-16.6); Lymphocytes # 0.8 10^3/uL (0.8-4.8); Lymphocytes % 6.1 %; Mean Corpuscular HGB Conc 30.6 g/dL (30.0-36.0); Mean Corpuscular Hemoglobin 27.2 pg (28.0-34.0); Mean Corpuscular Volume 88.9 fl (80-94); Mean Platelet Volume 12.3 fL (7.4-10.4); Monocytes # 0.7 10^3/uL (0.2-0.9); Monocytes % 5.1 %; Neutrophils % 88.3 %; Nucleated Red Blood Cells % 0 %; Platelet Count 199 10^3/cmm (130-400); Red Blood Count 4.52 10^6/uL (4.1-5.3); Red Cell Distribution Width 14.5 % (12.1-15.1); White Blood Count 13.5 10^3/uL (4.0-10.0)
[2022-11-30 08:36] LABS: Blood Gas Allen Test Pos; Blood Gas Sample Type Arterial; Carboxyhemoglobin 1.5 %THgb (0.4-20.1); HCO3 ABG 29.8 mmol/L (22-26); Oxygen Device NC
--- NOTE | 2022-11-30 08:44 | P.PN_ITS ---
Subjective Subjective: Patient did well most of the night but this morning started to get restless and a little agitated. He did not want to keep his oxygen on. He was wanting his catheter out. He was wanting to take his IV out and he was wanting to leave. His Katt nor nursing staff were able to calm him down. Katt indicates that he gets like this sometimes when his mind gets set something. While renal function was better to the today his troponin has significantly elevated to 2041 from a previous peak of 447. He has not specifically complained of chest pain. He had been down to 3 L of oxygen by nasal cannula from a peak of 5 L but oxygen saturations dropped into the 80s when he had taken his oxygen off with agitation this morning. He is back up to 5 L by nasal cannula but continued to struggle to keep it on and persisted and wanting to leave. Ultimately gave him 0.25 of IV Ativan. He did calm some after this. He has been maintaining appropriate oxygen saturations but when he awakens he immediately tries to take his oxygen off still. I had a long talk with his Katt regarding the significant increase in troponins. He has no prior history of any coronary artery disease. As was the concern at admission, I strongly suspect that he has obstructive coronary disease that has not been identified in addition to his chronic respiratory issues. Dr. Hays is aware of the lab abnormality and current condition and patient has been made n.p.o. I will note that anticoagulation was held yesterday secondary to gross hematuria and worsening renal function. He received fluids and creatinine improved to 1.1. BUN is still up at 50 and potassium is still elevated above normal range. Fluid balance is equivocal since admission and 240 mL positive the last 24 hours. He has some wheezing but does not appear to be significantly fluid overloaded. I was not aware of this prior to talking to his nor evaluating him first thing this morning but echocardiogram came back yesterday showing an ejection fraction of 50% but with moderate aortic stenosis with an aortic valve area of 1.3 cm?, peak velocity of 2.75 m/s, peak gradient of 30 mmHg and a mean gradient of 18.5 mmHg. Poor Doppler signals could indicate an underestimation. Estimated peak pulmonary artery systolic pressure was 29 and also could be underestimated. No prior studies for comparison. In light of the acute decline this morning and ongoing evidence of continued heart strain and patient confusion hindering care, I am transferring him to the ICU. If we need to intubate him short-term to evaluate further that would be okay but he would not want and has clearly expressed to his long-term mechanical ventilation. He would not want chest compressions as he would not want to go through something in which she would definitively have a lower quality of life then he has of late. Before I knew of the aortic valve stenosis as an additional complicating factor and son were considering potential for cardiac catheterization to see if he had a blockage that might be amendable to percutaneous intervention. They indicate he would not want open heart surgery primarily because he would not want to be that dependent and definitively in need of rehabilitation postprocedure. If he were to have a shockable rhythm that we could manage without chest compressions that would be okay as would emergency cardiac medications again without need for compressions. Both patient's and son understand that the strain on the apparent damage to the heart muscle currently is such that he could have an acute life-threatening arrhythmia at any point in time and that he may not survive this hospital stay regardless of what we do. I have updated current CODE STATUS to reflect their wishes. Venous blood gas was checked and showed 7.34/55 presently. At this point in time I am keeping him on oxygen by nasal cannula. If he gets to the point that we are unable to keep it on him, need to proceed with intubation. I have spoken with Dr. Hays and at this point in time we are resuming anticoagulation with heparin drip including a bolus. We will monitor to see if he has recurrent hematuria. If he does not tentatively may consider cardiac catheterization today. If he goes for cardiac catheterization he will require intubation as he is unable to lie flat and we are unable to sedate him and protect his airway safely under the circumstances. If he develops recurrent hematuria with initiation of heparin drip options will be more limited particularly with known history of prostate cancer. In that circumstance, in light of his desires previously expressed to family, we may be at a point of continuing management though with more of a focus on comfort. I have reviewed all of this now not o nly with patient's Katt and son Riky but his other son Isaias, his Sister Gabi, a niece, his [id number] Tori Carrera who is a former ER nurse here and his other [id number] all of whom are here. All were given an opportunity to ask questions and appeared to appreciate current condition. I have spoken with respiratory therapy. He is maintaining oxygen saturation and respiratory rate currently. We will reattempt an ABG in a couple of hours after we see if he is going to have any bleeding or sooner if things change. Vitals/I&O/Wt Last Vital Signs Temp 97.4 F L 11/30/22 04:00 Pulse 86 11/30/22 07:35 Resp 17 11/30/22 07:35 BP 129/88 11/30/22 04:00 Pulse Ox 92 11/30/22 07:35 O2 Del Method 11/30/22 07:35 O2 Flow Rate 5 11/30/22 07:35 11/29/22 11/30/22 11/30/22 22:59 06:59 14:59 Intake Total 1290 / 1290 Output Total 450 / 650 400 / 1050 Balance -450 / -650 890 / 240 Weight last 48 hrs Weight 127.142 kg Physical Exam Urinary Catheter Management: Vasquez: Cath Placed During This Visit: yes Reason for Continuing Indwelling Catheter: Accurate Measurement of Urinary Output in Critically Ill Patients Urinary Catheter Date of Insertion: 11/29/22 Urinary Catheter Time of Insertion: 01:14 Data 11/30/22 04:10 11/30/22 04:10 Other Labs: Laboratory Tests 11/30/22 11/30/22 11/30/22 04:10 04:10 08:24 ABG pH 7.34 L ABG pCO2 55.2 H Troponin T Gen 5 ng/L 2042 H* C-Reactive Protein 10.3 H Triglycerides 125 Cholesterol 176 LDL Cholesterol, Calc 111 HDL Cholesterol 40 L Micro: Microbiology 11/29/22 08:57 Urine Culture - Preliminary Urine,Clean Catch 11/28/22 07:50 Gram Stain - Final Sputum - Expectorated Sputum Sputum Culture - Preliminary Echo: Radiologist's impression: CONCLUSIONS ?Normal LV size with a slightly diminished ejection fraction of ?around 50%.? Segmental valve analysis difficult because of poor ?ultrasonic windows.Grade III/IV diastolic dysfunction ?(restrictive filling pattern), severely elevated filling ?pressures. ?Moderate aortic valve stenosis, mean gradient 18.5 mmHg, BRIAN 1.3 ?cm squared.? Peak velocity of 2.75 m/s with a peak gradient of 30 mm ?Hg. This could be an underestimation because of the poor Doppler ?signals. ?Thickened mitral valve. Moderate mitral annular calcification. ?Trace tricuspid valve regurgitation.? Estimated pulmonary artery ?peak systolic pressure of 29 mmHg.? This could be an ?underestimation because of poor Doppler signals ?There is no pericardial effusion. ?No similar previous studies are available for comparison ?Technically difficult study because of the poor ultrasonic ?window. A&P Assessment and plan (1) Seasonal allergies: (2) Pneumonia: Organism unknown, present on admission, with infiltrates described in the right middle and lingular lobes (3) Acute respiratory failure with hypoxia: Strongly suspect patient has chronic hypoxia that has been untreated. He does have known sleep apnea and is intolerant of facial mask. (4) COPD exacerbation: Related to allergies and pneumonia (5) Non-ST elevation NH (NSTEMI): Type II process related to degree of hypoxemia considered but has risk factors for coronary artery disease including obesity, diabetes, hypertension. Cardiomegaly and small bilateral pleural effusions noted on CTA of the chest. With significant increase in troponin elevation likely had obstructive coronary disease is higher. (6) Lymphadenopathy: Scattered mediastinal lymph nodes up to 15 mm in the subcarinal region noted on CTA of the chest (7) T2DM (type 2 diabetes mellitus): Chronically on metformin, hemoglobin A1c 8.2 (8) Hypertension: Chronically on Lasix (9) Gross hematuria: Likely traumatic related to Vasquez placement along with anticoagulation. Resolved with irrigation and holding of anticoagulation. Will monitor with resumption of anticoagulation. (10) Prostate cancer: May be a contributing factor to above, chronically on Flomax (11) Acute kidney injury: Suspect prerenal from diuresis plus or minus a component of ATN. Improved creatinine today though BUN is a bit higher and potassium remains elevated. May be related to steroids. (12) Hyperkalemia: Related to acute kidney injury, though persists after normalization of creatinine. Not on any potassium containing medications presently will need to monitor. (13) Aortic stenosis: Newly identified diagnosis as per echocardiogram. Aortic valve area 1.3 cm?. Plan Transferring to ICU Continue Rocephin and azithromycin (QT interval okay on EKG today) Continue systemic and inhaled steroids, breathing treatments Maintain oxygen therapy Monitor respiratory status closely with low threshold to intubate to maintain appropriate oxygenation and further evaluation as discussed above Heparin drip resuming Watch for recurrent hematuria In if no hematuria noted in the next few hours we will notify Dr. Hays with plan for cardiac catheterization today For catheterization will require intubation If has hematuria we will discuss plans of care with family and Dr. Hays depending on clinical status at that time Attempt another ABG with any respiratory or other clinical change Currently n.p.o. Will attempt to maintain aspirin, statin, Plavix and beta-blockade Depending on course today may change beta-blockade to IV Other oral medications remain on profile though holding this morning Has insulin for diabetes next Add PPI Maintain Vasquez catheter for close monitoring of urine output and hematuria in this critically ill patient CODE STATUS has been changed to reflect limited advanced life support measures including temporary intubation, defibrillation and emergency cardiac medications if needed for acute arrhythmia management but no CPR. Patient would not want prolonged resuscitative efforts or interventions in which his quality of life would be greatly decreased from baseline. Supportive care for patient and family Further plans pending clinical course today . Attestations Medical Necessity Statement*: Patient currently in critical condition with high risk of rapid clinical decline up to and including the possibility of as described above. Has been transferred to ICU for continued care as outlined. Coding Level of Care Code Critical Care >/= 30 minutes Critical care time (in minutes): 100 The high probability of a clinically significant, sudden or life threatening deterioration, as referenced in this documentation, required my full and direct attention, intervention and personal management. The critical care time shown is in addition to time spent performing any reported separately billable procedures and includes the following: [x] Data and vital sign review and interpretation [x ] Patient assessment, examination and intervention [x] Medication orders and management [x] Patient/Family updates as able [x] Care Coordination and Documentation. The entirety of this time was spent for his to face with patient and in extended conversations with his family regarding current clinical condition, present plans for management and ultimate goals of care, discussions with nursing staff and cardiology, coordinating care and such. Diagnoses Seasonal allergies J30.2 Pneumonia J18.9 Acute respiratory failure with hypoxia J96.01 COPD exacerbation J44.1 Non-ST elevation NH (NSTEMI) I21.4 Lymphadenopathy R59.1 T2DM (type 2 diabetes mellitus) E11.9 Hypertension I10 Gross hematuria R31.0 Prostate cancer C61 Acute kidney injury N17.9 Hyperkalemia E87.5 Aortic stenosis I35.0
[2022-11-30] MEDS: insulin lispro 100 unit/1 mL SUBCUT ×4 (09:13→21:01)
--- NOTE | 2022-11-30 09:37 | ECG_ITS ---
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 Measurements Intervals [place] Rate: 92 P: 62 KS: 144 QRS: -49 QRSD: 127 T: 129 QT: 355 QTc: 440 Interpretive Statements SINUS RHYTHM LEFT AXIS DEVIATION [QRS AXIS < -30] ANTEROSEPTAL MYOCARDIAL INFARCTION , OF INDETERMINATE AGE [40+ ms Q WAVE IN V1-V4] ST DEVIATION AND MODERATE T-WAVE ABNORMALITY, CONSIDER melvina LATERAL ISCHEMIA [-0.1+ mV T-WAVE IN I/aVL/V5/V6] Compared to ECG 11/28/2022 04:38:46 T-wave abnormality now present Possible ischemia now present ST (T wave) deviation no longer present Myocardial infarct finding still present Electronically Signed On 11-30-2022 22:15:39 CDT by Natanael Hays M.D. [email or web address]
[2022-11-30] MEDS: heparin drip 25,000 UNIT/500 ML PREMIX 91.54 UNIT IV (10:18)
[2022-11-30] MEDS: heparin 5,000 unit/mL INJ 1 mL IV (10:31)
[2022-11-30 10:32] LABS: ABG PCO2 53.7 mmHg (35-45); ABG PH Result 7.35 (7.35-7.45); Alveolar-Arterial Oxygen Gradi 3.5 mmHg (5-10); Arterial Blood Gas Hematocrit 38.4 % (42-52); Base Excess ABG 3.1 mmol/L (-2.0-2.0); Blood Gas Operator Identificat CAK; Blood Gas Sample Site Radial, left; HGB O2 Sat 87.7 % (95-100); Ionized Calcium Level - ABG 1.2 mmol/L (1.1-1.4); Methemoglobin 0.3 % (0.4-1.5); Oxygen Saturation ABG 89.3; PO2 ABG 58.9 mmHg (80.0-100.0); Potassium Level - ABG 5.5 mmol/L (3.5-5.0); Total Hemoglobin 12.5 g/dL (14-18)
[2022-11-30] MEDS: azithromycin 500 MG in sodium chloride 0.9% 250 ML 250 MG IV (11:04)
[2022-11-30] MEDS: metoprolol tartrate 25 mg Tablet 12.5 MG PO (11:19)
[2022-11-30 12:35] LABS: Glucose Point of Care 207 mg/dL (70-110)
--- NOTE | 2022-11-30 13:09 | XRR_ITS ---
PROCEDURE INFORMATION: Exam: XR Chest Exam date and time: 11/30/2022 12:14 PM Age: 72 years old Clinical indication: Other: Increased difficulty breathing; Additional info: Increased work of breathing TECHNIQUE: Imaging protocol: Radiologic exam of the chest. Views: 1 view. COMPARISON: CR (CHEST, ) 11/27/2022 10:30 PM FINDINGS: Lungs: There is perihilar vascular congestion and lower lobe pulmonary edema consistent with CHF mildly progressed from previous exam. Pleural spaces: Unremarkable. No pleural effusion. No pneumothorax. Heart/Mediastinum: Cardiac silhouette is moderately enlarged unchanged. The Bones/joints: Unremarkable for age. XR/XR chest 1V portable [id number] IMPRESSION: Cardiomegaly with moderate to CHF pattern worsened from prior study.
[2022-11-30] MEDS: metoprolol tartrate 1 mg/1 mL SDV 5 mL 5 MG IVP (13:11)
[2022-11-30] MEDS: FUROsemide 10 mg/mL SDV 10mL 60 MG IVP (13:19)
--- NOTE | 2022-11-30 13:43 | P.PN_ITS ---
Subjective Subjective: Patient was found to have some episodes of hypoxia and altered mental status in the floor. For that reason, he was brought to the ICU. His troponin T also was found to be going up. EKG does not show any new changes. He has persistent ST T changes in the anterolateral leads. According the fami ly, his mental status has changed from yesterday. Medications: Medication Review Details: Current Medications Acetaminophen (Acetaminophen 500 Mg Tablet) 500 mg PO Q4H PRN PRN Reason: fever Albuterol/Ipratropium (Ipratropium-Albuterol 3 Ml Neb) 3 ml INHALATION Q6H.RESP GUDELIA Last Admin: 11/30/22 07:32 Dose: 3 ml Albuterol/Ipratropium (Ipratropium-Albuterol 3 Ml Neb) 3 ml INHALATION Q6H PRN PRN Reason: SHORTNESS OF BREATH Aspirin (Aspirin 81 Mg Ec Tablet) 81 mg PO DAILY GUDELIA Last Admin: 11/30/22 11:28 Dose: Not Given Atorvastatin Calcium (Atorvastatin 40 Mg Tablet) 80 mg PO BEDTIME GUDELIA Last Admin: 11/29/22 21:24 Dose: 80 mg Budesonide (Budesonide 0.5 Mg/2 Ml Neb) 0.5 mg INHALATION BID.RESPIRATORY GUDELIA Last Admin: 11/30/22 07:32 Dose: 0.5 mg Clopidogrel Bisulfate (Clopidogrel 75 Mg Tablet) 75 mg PO DAILY GUDELIA Last Admin: 11/30/22 11:28 Dose: Not Given Dextrose (Dextrose 50% Syringe 50 Ml) 25 ml IVP ONCE PRN; Protocol PRN Reason: hypoglycemia protocol Dextrose (Dextrose 50% Syringe 50 Ml) 50 ml IVP PRN PRN; Protocol PRN Reason: hypoglycemia protocol Enoxaparin Sodium (Enoxaparin 150 Mg/Ml Syringe) 130 mg SUBCUT Q12H GUDELIA Last Admin: 11/28/22 23:51 Dose: 130 mg Fluticasone Propionate (Fluticasone Nasal [place] 16gm Btl) 2 spray NASAL DAILY GUDELIA Last Admin: 11/30/22 11:19 Dose: Not Given Glucagon (Glucagon 1 Mg/Ml Inj 1 Ml) 1 mg IM ONCE PRN; Protocol PRN Reason: Adult Acute Hypoglycemia Prot. Heparin Sodium (Porcine) (Heparin 5,000 Unit/Ml Inj 1 Ml) 0 unit IV PRN PRN; Protocol PRN Reason: Heparin weight-base protocol Last Admin: 11/30/22 10:31 Dose: 6,500 unit Dextrose (D5w) 500 mls @ 100 mls/hr IV ONCE PRN; Protocol PRN Reason: Adult Acute Hypoglycemia Prot Ceftriaxone Sodium 1,000 mg/ (Sodium Chloride) 50 mls @ 100 mls/hr IV Q24H [facility]; Protocol Last Infusion: 11/30/22 00:36 Dose: Infused Azithromycin 500 mg/ Sodium (Chloride) 250 mls @ 250 mls/hr IV Q24H GUDELIA; Protocol Last Infusion: 11/30/22 12:39 Dose: Infused Heparin Sodium/Sodium Chloride (Heparin Drip) 25,000 unit in 500 mls @ 0 mls/hr IV .Q0M GUDELIA; Protocol Last Admin: 11/30/22 10:18 Dose: 36 unit/kg/hr, 91.54 mls/hr Insulin Human Lispro (Insulin Lispro 100 Unit/1 Ml) 0 unit SUBCUT TIDWM [facility]; Protocol Last Admin: 11/30/22 12:59 Dose: 6 unit Insulin Human Lispro (Insulin Lispro 100 Unit/1 Ml) 0 unit SUBCUT BEDTIME [facility]; Protocol Last Admin: 11/29/22 21:25 Dose: 2 unit Lanolin (Lanolin Oint 7 Gm) 1 applic TOPICAL PRN PRN PRN Reason: DRYNESS Last Admin: 11/29/22 05:23 Dose: 1 applic Methylprednisolone Sodium Succinate (Methylprednisolone Sod Succ 40 Mg/Ml Inj) 40 mg IVP Q12H [facility] Last Admin: 11/30/22 04:01 Dose: 40 mg Metoprolol Tartrate (Metoprolol Tartrate 25 Mg Tablet) 12.5 mg PO BID@0900,2100 [facility] Last Admin: 11/30/22 11:19 Dose: 12.5 mg Metoprolol Tartrate (Metoprolol Tartrate 1 Mg/1 Ml Sdv 5 Ml) 5 mg IVP Q6H PRN PRN Reason: HYPERTENSION Last Admin: 11/30/22 13:11 Dose: 5 mg Montelukast Sodium (Montelukast Sodium 10 Mg Tablet) 10 mg PO DAILY [facility] Last Admin: 11/29/22 10:07 Dose: 10 mg Morphine Sulfate (Morphine 4 Mg/Ml Sdv 1 Ml) 2 mg IVP Q1H PRN PRN Reason: Respiratory distress Ondansetron HCl (Ondansetron 2 Mg/Ml Sdv 2 Ml) 4 mg IVP Q6H PRN PRN Reason: NAUSEA AND VOMITING Pantoprazole Sodium (Pantoprazole 40 Mg Sdv) 40 mg IVP Q24H [facility] Last Admin: 11/30/22 11:28 Dose: Not Given Tamsulosin HCl (Tamsulosin 0.4 Mg Capsule) 0.4 mg PO DAILY [facility] Last Admin: 11/29/22 10:07 Dose: 0.4 mg Vitals/I&O/Wt Last Vital Signs Temp 98.9 F 11/30/22 08:00 Pulse 91 11/30/22 09:00 Resp 14 11/30/22 09:00 BP 130/95 11/30/22 09:00 Pulse Ox 89 L 11/30/22 09:00 O2 Del Method 11/30/22 09:00 O2 Flow Rate 5 11/30/22 08:00 11/29/22 11/30/22 11/30/22 22:59 06:59 14:59 Intake Total 1290 / 1290 250 / 250 Output Total 450 / 650 400 / 1050 250 / 250 Balance -450 / -650 890 / 240 0 / 0 Weight last 48 hrs Weight 280 lb 4.8 oz Physical Exam Narrative: GENERAL: Patient appears very drowsy. No focal motor deficits. HEENT: No significant pallor, icterus or lymphadenopathy.Oral cavity: There are no mucous membrane lesions. NECK: Trachea appears to be central. No masses noted. No JVD or thyromegaly a ppreciated. RESPIRATORY: Breath sounds heard bilaterally with extensive expiratory wheezing and coarse crackles. Few fine rales in the bases. BREASTS: Deferred. [] HEART: The heart sounds are normal. No S3 or S4. Ejection systolic murmur grade 3 or 6 in the aortic area. No diastolic murmurs. ABDOMEN: No vessel pulsations or distention. No tenderness. No organomegaly appreciated. Bowel sounds are normally heard. [] : Deferred. [] RECTAL: Deferred. [] LYMPHATIC: No lymphadenopathy noted in the neck. EXTREMITIES: Trace edema with no cyanosis. MUSCULOSKELETAL: No acute joint deformities or swelling SKIN: There are no significant rashes or ecchymosis NEUROPSYCHIATRIC: Patient appears drowsy with no focal motor deficits. Urinary Catheter Management: Vasquez: Cath Placed During This Visit: yes Reason for Continuing Indwelling Catheter: Accurate Measurement of Urinary Output in Critically Ill Patients Urinary Catheter Date of Insertion: 11/29/22 Urinary Catheter Time of Insertion: 01:14 Data 11/30/22 04:10 11/30/22 04:10 Other Labs: Laboratory Last Values WBC 13.5 10^3/uL (4.0-10.0) H 11/30/22 04:10 RBC 4.52 10^6/uL (4.1-5.3) 11/30/22 04:10 Hgb 12.3 g/dL (11.7-16.6) 11/30/22 04:10 Hct 40.2 % (42.0-52.0) L 11/30/22 04:10 MCV 88.9 fl (80-94) 11/30/22 04:10 MCH 27.2 pg (28.0-34.0) L 11/30/22 04:10 MCHC 30.6 g/dL (30.0-36.0) D 11/30/22 04:10 RDW 14.5 % (12.1-15.1) 11/30/22 04:10 Plt Count 199 10^3/cmm (130-400) 11/30/22 04:10 Plt Count Cancelled 11/30/22 04:10 MPV 12.3 fL (7.4-10.4) H 11/30/22 04:10 Neut % (Auto) 88.3 % 11/30/22 04:10 Lymph % (Auto) 6.1 % 11/30/22 04:10 [place] % (Auto) 5.1 % 11/30/22 04:10 Eos % (Auto) 0.0 % 11/30/22 04:10 Baso % (Auto) 0.1 % 11/30/22 04:10 Neut # (Auto) 11.90 10^3/uL (1.8-7.7) H 11/30/22 04:10 Lymph # (Auto) 0.8 10^3/uL (0.8-4.8) 11/30/22 04:10 [place] # (Auto) 0.7 10^3/uL (0.2-0.9) 11/30/22 04:10 Eos # (Auto) 0.0 10^3/uL (0.0-0.8) 11/30/22 04:10 Baso # (Auto) 0.0 10^3/uL (0.0-0.1) 11/30/22 04:10 Nucleated RBC % (auto) 0 % 11/30/22 04:10 Nucleated RBCs # 0.0 /100WBC 11/30/22 04:10 PT 13.20 SECONDS (12.1-14.9) 11/27/22 23:04 INR 0.98 (0.8-1.2) 11/27/22 23:04 Specimen Type Arterial 11/30/22 08:24 Sample Site Radial, left 11/30/22 08:24 ABG pH 7.35 (7.35-7.45) 11/30/22 08:24 ABG pCO2 53.7 mmHg (35-45) H 11/30/22 08:24 ABG pO2 58.9 mmHg (80.0-100.0) L 11/30/22 08:24 ABG HCO3 29.8 mmol/L (22-26) H 11/30/22 08:24 ABG O2 Saturation 89.3 11/30/22 08:24 ABG Base Excess 3.1 mmol/L (-2.0-2.0) H 11/30/22 08:24 [place] Test Pos 11/30/22 08:24 A-a O2 Gradient 3.5 mmHg (5-10) L 11/30/22 08:24 Hematocrit 38.4 % (42-52) L 11/30/22 08:24 Hgb O2 Saturation 87.7 % (95-100) L 11/30/22 08:24 Carboxyhemoglobin 1.5 %THgb (0.4-20.1) 11/30/22 08:24 Methemoglobin 0.3 % (0.4-1.5) L 11/30/22 08:24 Total Hemoglobin 12.5 g/dL (14-18) L 11/30/22 08:24 Sodium 136.0 mmol/L (131-143) 11/30/22 08:24 Potassium 5.5 mmol/L (3.5-5.0) H 11/30/22 08:24 Glucose 207.0 mg/dL (70-115) H 11/30/22 08:24 Ionized Calcium 1.2 mmol/L (1.1-1.4) 11/30/22 08:24 O2 Delivery Device Nc 11/30/22 08:24 O2 Liters/Min 4.0 % 11/30/22 08:24 Iuss Analyst ID Cak 11/30/22 08:24 Sodium 130 mmol/L (136-145) L 11/30/22 04:10 Potassium 5.7 mmol/L (3.5-5.1) H 11/30/22 04:10 Chloride 94 mmol/L (98-107) L 11/30/22 04:10 Carbon Dioxide 25 mmol/L (22-29) 11/30/22 04:10 Anion Gap 16.7 (5-19) 11/30/22 04:10 BUN 50 mg/dL (8-23) H 11/30/22 04:10 Creatinine 1.1 mg/dL (0.7-1.2) 11/30/22 04:10 GFR Calculation Not Reportable 11/30/22 04:10 Glucose 184 mg/dL (65-115) H 11/30/22 04:10 POC Glucose 207 mg/dL (70-110) H 11/30/22 12:30 Estimat Average Glucose 189 11/29/22 02:27 Hemoglobin A1c 8.2 % (4.0-6.0) H 11/29/22 02:27 Calculated Osmolality 288 mOsm/kg (285-295) 11/30/22 04:10 Uric Acid 8.6 mg/dL (3.4-7.0) H 11/29/22 02:27 Calcium 8.8 mg/dL (8.5-10.5) 11/30/22 04:10 Phosphorus 4.0 mg/dL (2.5-4.5) 11/30/22 04:10 Magnesium 2.7 mg/dL (1.7-2.3) H 11/30/22 04:10 Total Bilirubin 0.4 mg/dL (0.15-1.2) 11/27/22 23:04 AST 20 U/L (0-40) 11/27/22 23:04 ALT 25 U/L (0-41) 11/27/22 23:04 Alkaline Phosphatase 107 U/L (40-130) 11/27/22 23:04 Troponin T Gen 5 ng/L 2042 ng/L (0-15) H* 11/30/22 04:10 Troponin T Baseline 261 ng/L (0-15) H* 11/27/22 23:04 Troponin T 120 Minute 278.3 ng/L (0-15) H 11/28/22 00:51 Delta Troponin T 17.3 ABS# (0-10) H* 11/28/22 00:51 Troponin T Hi Sens 6Hr 447.2 ng/L (0-15) H 11/28/22 05:11 Troponin T Hi Sens 6Hr Delta 186.2 ng/L (0-12) H* 11/28/22 05:11 C-Reactive Protein 10.3 mg/L (0.0-4.9) H 11/30/22 04:10 NT-Pro-B Natriuret Pep 1821 pg/mL (0-125) H 11/27/22 23:04 Total Protein 7.8 g/dL (6.6-8.7) 11/27/22 23:04 Albumin 3.7 g/dL (3.5-5.2) 11/27/22 23:04 Globulin 4.1 g/dL (1.3-4.6) 11/27/22 23:04 Triglycerides 125 mg/dL (0-150) 11/30/22 04:10 Cholesterol 176 mg/dL (0-200) 11/30/22 04:10 LDL Cholesterol, Calc 111 mg/dL (50-129) 11/30/22 04:10 HDL Cholesterol 40 mg/dL (60-100) L 11/30/22 04:10 LDL/HDL Ratio 2.78 RATIO (0.00-3.22) 11/30/22 04:10 Cholesterol/HDL Ratio 4.40 mg/dL (1.0-5.00) 11/30/22 04:10 Urine Color Yellow (Yellow) 11/29/22 08:57 Urine Appearance [place] (CLEAR) A 11/29/22 08:57 Urine pH 6 (5-7) 11/29/22 08:57 Ur Specific [place] 1.020 (1.005-1.030) 11/29/22 08:57 Urine Protein 3+ (Negative) H 11/29/22 08:57 Urine Glucose (UA) Trace (Normal) H 11/29/22 08:57 Urine Ketones Negative (Negative) 11/29/22 08:57 Urine Blood 3+ (Negative) H 11/29/22 08:57 Urine Nitrate Negative (Negative) 11/29/22 08:57 Urine Bilirubin Neg (Negative) 11/29/22 08:57 Urine Urobilinogen Norm mg/dL (Negative) 11/29/22 08:57 Ur Leukocyte Esterase Negative (Negative) 11/29/22 08:57 Urine RBC Too numerous to cnt /hpf (0-2) H 11/29/22 08:57 Urine WBC 40-55 /hpf (0-5) H 11/29/22 08:57 Ur Squamous Epith Cells 0-4 /hpf (0-5) H 11/29/22 08:57 Amorphous Sediment Not Reportable 11/29/22 08:57 Urine Bacteria 1+ /hpf (NONE) H 11/29/22 08:57 Ur Random Sodium 29 mmol/L 11/29/22 08:57 Urine Creatinine 133 mg/dL (39-259) 11/29/22 08:57 Influenza Type A Ag negative (Negative) 11/27/22 22:40 Influenza Type B Ag negative (Negative) 11/27/22 22:40 SARS-CoV-2 Ag (Rapid) negative (Negative) 11/27/22 22:40 Micro: Microbiology 11/28/22 07:50 Gram Stain - Final Sputum - Expectorated Sputum Sputum Culture - Final 11/29/22 08:57 Urine Culture - Preliminary Urine,Clean Catch A&P Assessment and plan (1) Elevated troponin: Troponin today. The EKG does not reveal any new changes. He has some persistent ST depressions in the anterolateral leads. (2) COPD exacerbation: The respiratory status seems to be intermittently getting worse. The altered mental status is unexplained. His oxygenation seems to be appropriate even th ough he may have intermittent hypoxia. However he has difficulty lying flat. (3) Chest pain: Symptoms are currently stable. Intermittently he may have some chest discomfort. It might be difficult to discern whether that is real or not. (4) T2DM (type 2 diabetes mellitus): Management as per the primary. Blood sugar seems to be fairly under control. (5) Acute kidney injury: The creatinine today is better. (6) Hyperkalemia: The potassium level also is normal today. (7) Altered mental status: The etiology of the altered mental status is nausea. According to family he has a history of hemorrhagic stroke couple of years ago. Currently has no headache. However a CT of the head might be appropriate to rule out that possibility. Plan Based on the results of the above tests and the patient's clinical progress, further recommendations will be made. Because of his altered mental status, intermittent hypoxia ,difficulty in lying flat we may need to protect his airway before taking him to the [facility]. This was discussed with Dr. Gallegos. Dr. Gallegos is considering to intubate him before taking him to the CT or doing any invasive procedures. The family also wanted him to have only a limited code. He does not want to be on any ventilatory support for long.. Also he is opposed to have open heart surgery. We will keep him n.p.o. after midnight . Reevaluate in the morning. Consider cardiac catheterization sometime tomorrow if his clinical status is stable. Attestations Medical Necessity Statement*: Patient requires continued hospital stay for close monitoring and further management Coding Level of Care Code 97265 Diagnoses Elevated troponin R77.8 COPD exacerbation J44.1 Chest pain R07.9 T2DM (type 2 diabetes mellitus) E11.9 Acute kidney injury N17.9 Hyperkalemia E87.5 Altered mental status R41.82
[2022-11-30] MEDS: rocuronium 10 mg/mL INJ 5mL 6357.1 MG IVP (14:15)
--- NOTE | 2022-11-30 14:16 | CTR_ITS ---
PROCEDURE INFORMATION: Exam: CT Head Without Contrast Exam date and time: 11/30/2022 3:35 PM the with the Age: 72 years old Clinical indication: Altered mental status/memory loss; Additional info: Confusion, HX hemorrhagic stroke, on anticoagulation for nstemi (trop 2000+), HX hemorrhagic TECHNIQUE: Imaging protocol: Computed tomography of the head without contrast. Radiation optimization: All CT scans at this facility use at least one of these dose optimization techniques: automated exposure control; mA and/or kV adjustment per patient size (includes targeted exams where dose is matched to clinical indication); or iterative reconstruction. REPORTING DATA: Count of CT and Cardiac NM exams in prior 12 months: This patient has received 2 known CTs and 0 known cardiac nuclear medicine studies in the 12 months prior to the current study. COMPARISON: CT head wo con* [id number] 10/18/2020 8:27 AM RADIATION DOSE METRICS: Total DLP (mGy-cm): 1104.88. FINDINGS: Brain: Moderate size area of encephalomalacia left posterior frontal lobe unchanged secondary to old infarct. Small cystic hypodensity within the right of midline developed from previous exam believed secondary to old brainstem infarct. Small old lacunar infarct right periventricular white matter. No evidence of acute infarct. No evidence of intracranial hemorrhage. Remaining cortical sulci are unremarkable. Cerebral ventricles: Unremarkable for age. Paranasal sinuses: Partial opacification of the ethmoid sinuses nasal fossa and right maxillary sinus with the small fluid level right maxillary sinus. Mastoid air cells: Visualized mastoid air cells are well aerated. Bones/joints: Unremarkable. No acute fracture. Soft tissues: Unremarkable. CT/CT head wo con* [id number] IMPRESSION: 1. Interval development of small rounded cystic hypodensity within the terrie right of midline presumed secondary to old brainstem infarct. Recommend follow-up contrast enhanced MRI exam of the brain for confirmation. 2. Small lacunar infarct right periventricular white matter also developed from previous exam likely chronic and could also be reassessed on MRI exam. 3. Stable large area of encephalomalacia left frontal lobe secondary to old infarct. 4. Mild paranasal sinusitis.
[2022-11-30] MEDS: propofol 1,000 MG/100 ML INJ 3.81 MG IV (14:24)
--- NOTE | 2022-11-30 14:46 | XRR_ITS ---
PROCEDURE INFORMATION: Exam: XR Chest Exam date and time: 11/30/2022 2:51 PM Age: 72 years old Clinical indication: Device placement; Other: Et and ng placement; Additional info: Intubation TECHNIQUE: Imaging protocol: Radiologic exam of the chest. Views: 1 view. COMPARISON: CR (CHEST, ) 11/30/2022 12:14 PM FINDINGS: Tubes, catheters and devices: There is an ET tube situated 3 cm above the theresa in adequate position. There is an NG tube coursing into the body of the stomach. Lungs: There is diffuse perihilar and lower lobe pulmonary congestion consistent with CHF, unchanged. Pleural spaces: Unremarkable. No pleural effusion. No pneumothorax. Heart/Mediastinum: Heart remains enlarged. Bones/joints: Unremarkable for age. XR/XR chest 1V portable [id number] IMPRESSION: Interval placement of NG and ET tube in satisfactory position.
--- NOTE | 2022-11-30 16:28 | PC.NURSE ---
Wasted 13ml Propofol from intubation with charge nurse, DARREN.
--- NOTE | 2022-11-30 16:38 | XRR_ITS ---
PROCEDURE INFORMATION: Exam: XR Chest Exam date and time: 11/30/2022 4:47 PM Age: 72 years old Clinical indication: Device placement; Picc; Additional info: Line TECHNIQUE: Imaging protocol: Radiologic exam of the chest. Views: 1 view. COMPARISON: CR (CHEST, ) 11/30/2022 2:51 PM FINDINGS: Tubes, catheters and devices: ET and NG tube are unchanged and in satisfactory position. There is a right-sided PICC line whose tip projects at the cavoatrial junction in satisfactory position. Lungs: There is perihilar and lower lobe pulmonary edema stable from previous examination. Pleural spaces: Unremarkable. No pleural effusion. No pneumothorax. Heart/Mediastinum: Heart is enlarged. Bones/joints: Unremarkable for age. XR/XR chest 1V portable [id number] IMPRESSION: Interval placement of PICC line in satisfactory position.
--- NOTE | 2022-11-30 16:43 | PC.NURSE ---
At 1412 patient intubated by health promotion educator anesthesiologist and RT, and this nurse. Uneventful intubation. See respiratory documentation for vent settings. Patient Sedated with Fentanal at 125, Propofol at 30, currently. Patient proveded consent for procedure and patient agreeable with plan at the time prior to intubation. Dr. Gallegos extensively educated patient and family on plan of care and any and all questions were answered at bedside.
--- NOTE | 2022-11-30 16:55 | PC.NURSE ---
PICC Insertion Consulted by house charge for PICC placement. Upon arrival to room, discussed procedure with patient's spouse and obtained written consent. Assessed RUE via ultrasound and determined brachial vein to be best target for cannulation due to lack of evidence of thrombus or stenosis. Using ultrasound guidance, MST and sterile technique, accessed vein x1 stick. Device advanced without resistance. Positive blood return. Flushed easily. Device secured. EBL <10mL. Patient tolerated as expected. Handed off to primary nurse.
[2022-11-30 17:23] LABS: ABG PCO2 45.8 mmHg (35-45); ABG PH Result 7.42 (7.35-7.45); Arterial Blood Gas Hematocrit 36.4 % (42-52); Base Excess ABG 4.3 mmol/L (-2.0-2.0); Blood Gas Allen Test Pos; Blood Gas Operator Identificat CAK; Blood Gas Sample Site Radial, left; Blood Gas Sample Type Arterial; HCO3 ABG 29.5 mmol/L (22-26); Oxygen Device VENT
[2022-11-30] MEDS: sodium chloride 0.45% 1,000 ML 50 ML IV (17:28)
[2022-11-30 18:43] LABS: Partial Thromboplastin Time 77.9 SECONDS (23.9-36.7)
[2022-11-30 19:31] LABS: Glucose Point of Care 164 mg/dL (70-110)
[2022-11-30 20:57] LABS: Glucose Point of Care 187 mg/dL (70-110)
[2022-11-30] MEDS: propofol 1,000 MG/100 ML INJ 22.89 MG IV (21:59)
[2022-11-30 22:07] LABS: Ammonia 22 umol/L (16-60)
--- NOTE | 2022-11-30 23:00 | PC.NURSE ---
Welfare Eligibility Worker Prep , Katt Carrera was contacted and a telephone consent was given for cardiac catheterization, to be performed 12/01/2022 at 0730. Consent was given to me and verified by the charge nurse ANTONIO Umaña. Will attain am labs and call Dr. Hays with results at 0530. Will hold Heparin infusion at 0400, and have pt ready to transport around 0700.
[2022-12-01] VITALS (104 sets, daily range): BP systolic 70–120; BP diastolic 50–81; PULSE 53–82; RESP 16–18; TEMP 37.2; O2SAT 89–99
[2022-12-01] MEDS: heparin drip 25,000 UNIT/500 ML PREMIX 33 UNIT IV (00:15)
[2022-12-01] MEDS: chlorhexidine gluconate 4% Btl 118 mL 1 APPLIC TOPICAL (00:15)
[2022-12-01] MEDS: cefTRIAXone 1,000 MG in sodium chloride 0.9% (plus) 50 ML 100 MG IV ×2 (00:16→23:14)
[2022-12-01 00:52] LABS: Basophils % 0.1 %; Hematocrit 35.8 % (42.0-52.0); Lymphocytes # 0.7 10^3/uL (0.8-4.8); Lymphocytes % 7.4 %; Mean Corpuscular HGB Conc 30.7 g/dL (30.0-36.0); Monocytes # 0.6 10^3/uL (0.2-0.9); Monocytes % 6.7 %; Neutrophils # 7.76 10^3/uL (1.8-7.7); Neutrophils % 85.4 %; Nucleated Red Blood Cells % 0 %; Platelet Count 166 10^3/cmm (130-400); Red Blood Count 4.07 10^6/uL (4.1-5.3); Red Cell Distribution Width 14.6 % (12.1-15.1); White Blood Count 9.1 10^3/uL (4.0-10.0)
[2022-12-01 01:06] LABS: Partial Thromboplastin Time 66.1 SECONDS (23.9-36.7)
[2022-12-01 01:17] LABS: Creatine Phosphokinase 254 U/L (39-308)
[2022-12-01 01:18] LABS: Alanine Aminotransferase 30 U/L (0-41); Albumin Level 2.8 g/dL (3.5-5.2); Alkaline Phosphatase 65 U/L (40-130); Anion Gap 17.2 (5-19); Aspartate Amino Transferase 35 U/L (0-40); Blood Urea Nitrogen 51 mg/dL (8-23); Calcium 8.1 mg/dL (8.5-10.5); Carbon Dioxide 25 mmol/L (22-29); Chloride 98 mmol/L (98-107); Globulin 3.1 g/dL (1.3-4.6); Glucose 148 mg/dL (65-115); Magnesium 2.5 mg/dL (1.7-2.3); Osmolality Calculated 296 mOsm/kg (285-295); Phosphorus 3.9 mg/dL (2.5-4.5); Potassium 5.2 mmol/L (3.5-5.1); Sodium 135 mmol/L (136-145); Total Bilirubin 0.3 mg/dL (0.15-1.2); Total Protein 5.9 g/dL (6.6-8.7)
[2022-12-01 01:39] LABS: Troponin T (5th) Once 2208 ng/L (0-15)
[2022-12-01] MEDS: propofol 1,000 MG/100 ML INJ 19.07 MG IV ×4 (02:51→20:04)
[2022-12-01] MEDS: ipratropium-albuterol 3 mL Neb INHALATION ×4 (03:04→20:05)
[2022-12-01 03:11] LABS: ABG PCO2 40.1 mmHg (35-45); ABG PH Result 7.46 (7.35-7.45); Arterial Blood Gas Hematocrit 35.1 % (42-52); Blood Gas Allen Test Pos; Blood Gas Sample Site Radial, right; Blood Gas Sample Type Arterial; HCO3 ABG 28.2 mmol/L (22-26); Oxygen Device VENT; PO2 ABG 71.7 mmHg (80.0-100.0)
--- NOTE | 2022-12-01 04:00 | XRR_ITS ---
PROCEDURE INFORMATION: Exam: XR Chest Exam date and time: 12/01/2022 4:14 AM Age: 72 years old Clinical indication: Other: Pulmonary edema, copd, ventilated PT; Additional info: Pulmonary edema copd vent TECHNIQUE: Imaging protocol: Radiologic exam of the chest. Views: 1 view. COMPARISON: CR (CHEST, ) 11/30/2022 4:47 PM FINDINGS: Tubes, catheters and devices: Endotracheal tube position is unremarkable about 4.5 cm cephalad to the theresa. PICC line in the distal SVC. Enteric tube within stomach. Lungs: Hazy lower lung opacities bilaterally. Pleural spaces: Bilateral pleural effusions. Negative for pneumothorax. Heart/Mediastinum: Cardiomegaly. Bones/joints: Unremarkable. XR/XR chest 1V portable [id number] IMPRESSION: No significant change in the chest.
--- NOTE | 2022-12-01 06:33 | XACV_ITS ---
Exam Room: 2 Ht: 175 cm Wt: 127 kg BSA: 2.55 m2 Gender: Male : 1950 Any Known Allergies: Penicillins Exam Priority: Routine Procedure(s): Procedure Description: Diagnostic procedure Procedure Description: Left Heart Catheterization Procedure Description: Coronary Angiography Saúl WILKES; Diagnostic Cath Status: Elective Diagnostic Findings * Left Anterior Descending has no significant disease. * Circumflex has no significant disease. * Abdominal angiogram performed to assess access site for possible impella. Femoral arteries are patent however there is left external iliac artery plaque noted. Calcified arteries. * Left Main: significant 80% stenosis, DEB: 3 flow. * Proximal Right Coronary Artery: total occlusion, DEB: 0 flow. * Coronary angiography shows right dominance. PCI Status: Elective Conclusions 1. Severe left main artery stenosis. 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 2. Moderate to severe aortic stenosis with mean gradient across the aortic valve of 39 mmHg. Recommendations * I had a detailed discussion with the patient and family regarding all possible options, including attempt to transfer to tertiary care center for heart team discussion vs high risk impella supported PCI of left main artery here vs medical therapy/hospice. Family wants to think and inform us about decision later. primary sticker hand, Dr Hays also present during the discussion. * Continue aggressive medical therapy. Pressures Phase:Rest AO : 117 / 68 ( 86 ) @ 1:32:00 PM 91 / 67 ( 78 ) @ 1:33:00 PM 128 / 73 ( 94 ) @ 1:40:00 PM 125 / 71 ( 92 ) @ 1:40:00 PM LV : 173 / 0 / 43 @ 1:39:00 PM 179 / 10 / 45 @ 1:39:00 PM 176 / 10 / 44 @ 1:40:00 PM Valves Phase:DefaultPhase AV : 47.0 @ 1:19:26 PM 47.0 @ 1:19:26 PM AV Mean Gradient: 39.0 @ 1:19:26 PM 39.0 @ 1:19:26 PM Clinical Evaluation EBL: 5mL-10mL Procedural Details Procedure Consent Obtained. Admit Source: In Patient. Pre-Procedure Time Out. Identified patient by full name and date of as verbalized by the patient/guarantor. Does the consent match the physician's order: Yes. Accurate & Complete Informed Consent: Yes. Inpatient/Outpatient History & Physical on Chart: Yes. If H&P is completed, is and addenduem needed: No; If yes, is the addendum complete: N/A. Visualize and Verify Site with Patient/Guarantor: N/A. Relevant Radiology Images available: N/A. The risks, benefits, and alternatives of sedation and/or procedure were discussed by physician. The patient agrees to continue. [facility] Clinical Fraility Score: 7: Severely Frail. Research Coordinator Indications:NSTEMI. Cardiovascular Instability: Yes, if yes, Acute Heart Failure. Current diagnosis: NSTEMI. Procedure started. IV Site on Arrival: 20 gauge in the right forearm. IV Site on Arrival: 20 gauge in the left forearm. PICC line access upper right arm. IV Fluids: 0.9% NaCl at KVO. 800 mL infused prior to quality lab assoc. Levo 4mcg/min. Fentanyl 75mcg/hr. Propofol 25 mcg/kg/min. Pre Procedural Pulses: bilateral dorsalis pedis was Doppled. bilateral groins was prepped with chloroprep then draped in the usual sterile fashion. Physician notified. Baseline sample Acquired. HR: 70 BPM. Patient arrived to quality lab assoc on a ventilator and will be managed by respiratiory. Physician arrived. Physician scrubbed in. Immediate Pre-Procedure Time Out. Correct Patient: Yes; Correct Procedure: Yes; Correct Site: Yes; Correct Patient Position: Yes; Correct Supplies: Yes; Dried Flammable Prep: Yes; Blood Products Available: N/A;. Lidocaine 1% infiltrated to the right groin. Ultrasound being used by Dr Ricks for access. An attempt to gain access to the right femoral artery was unsuccessful. Manual pressure was held as needed to stop the bleeding. Arterial access obtained with micropuncture set. A 5 prydeinig JL4 catheter in over wire. Multiple views taken of left coronary artery. Catheter removed over the exchange wire. A 5 prydeinig JR4 catheter in over wire. EDP Sample taken: LV 179/10,45; HR: 70 BPM; SpO2: 96%. Pullback taken: LV 176/10,44; AO 128/73(94); Mean: 39mmHg, Peak to Peak: 47mmHg, SEP: 19sec/min; HR: 68 BPM; SpO2: 96%. Multiple views taken of right coronary artery. Catheter removed over the exchange wire. A 5 prydeinig Angled Pig catheter in over wire. Abdominal Aortogram performed in AP @ 10 mL/second for a total of 30 mL. Catheter out. Wire out. Side port of sheath attached to Normal Saline flush at KVO to maintain patency. Patient's family updated. AP pads attatched to pt per physcian. A Suture was successful obtaining hemostatsis at the Right Femoral artery insertion site. No VTE prophylaxis required. Medication's Wasted: Lidocaine 1% = 2 mL. Post-op diagnosis: severe l main artery stenosis. Complications: none. Estimated blood loss: 5mL-10mL. Circulation: W/N/L, pulses unchanged. Nausea/Vomiting: No. Procedure completed. Patient transferred by bed to ICU. Vital chart was stopped. Access Site Site: Right Femoral artery Sheath Size: 6 Fr Hemostasis Method: Suture Hemostasis Success: Successful I, the attending physician, have reviewed and verified all procedure medications. Yes, all medications given per verbal order History/Risk Factors Hypertension: Yes Dyslipidemia: Yes Peripheral Arterial Disease (PAD): No Myocardial Infarction (WA): No Obesity: No Renal Disease: No Tobacco Use: Current/Recent(w/in 1 year) Prior Interventions PCI: No CABG: No Valve Surgery: No Report Signatures Finalized by Amaury Ricks MD on 12/15/2022 10:33 AM
[2022-12-01] MEDS: budesonide 0.5 mg/2 mL Neb INHALATION ×2 (07:23→20:05)
--- NOTE | 2022-12-01 07:47 | CT_ITS ---
WS: [id number] CT ABDOMEN PELVIS TECHNIQUE: Noncontrast CT of the abdomen and pelvis with coronal and sagittal reformatted images. CLINICAL INFORMATION: hypotension, abnormal UA, jenna COMPARISON: None. DLP: 1194.[address] scans at [facility] use at least one of these dose optimization techniques: automated e xposure control; mA and/or kV adjustment per patient size (includes targeted exams where dose is matc hed to clinical indication); or iterative reconstruction. FINDINGS: Small moderate bilateral pleural effusions. Compressive atelectasis in the lung bases. Enteric tube w ith tip in the stomach. Wide mouth fat-containing umbilical hernia.. . Small to moderate bilateral pl eural effusions with compressive atelectasis in the lung bases. Fatty atrophy of the pancreas. Splenic artery calcification. Adrenal glands are normal. No hydronephrosis in either kidney. No obstructing renal or ureteral calcu li. Vasquez catheter. Small RIGHT renal cyst upper pole RIGHT kidney measuring 12 mm. Aortic calcificat ion. Slightly aneurysmal distal abdominal aorta measuring 2.9 x 2.7 cm AP by transverse. Prominent prostate measuring 5.4 CM. Small amount of free fluid in the pelvis. Mild diffuse body wall anasarca. Cardiomegaly. Spondylolysis L5-S1. Minimal anterolisthesis L5 on S1. CT/CT kidney stone [id number] IMPRESSION: 1. Small to moderate bilateral pleural effusions RIGHT greater than LEFT with compressive atelectasis in the lung bases. 2. No hydronephrosis in either kidney. No obstructing renal or ureteral calcul i. 3. Vasquez catheter. Enlarged prostate measuring 5.4 cm. 4. Cardiomegaly. 5. Cirrhotic liver. 6. Enteric tube with tip in the stomach. 7. Fat-containing umbilical hernia. No herniated bowel. 8. Slightly aneurysmal distal abdominal aorta measuring 2.9 x 2.7 cm
--- NOTE | 2022-12-01 07:47 | USCV_ITS ---
Zander Carrera Age: 72 Gender: M : 1950 Exam Date: 12/01/2022 09:18 Ordering Phys: Migel Bates MD Technologist: Martinez Swain Exam Location: [facility] Indication: EF BP: 109 / 64 HR: 78 Rhythm: Sinus Technical Quality: Adequate MEASUREMENTS (Male / Female) Normal Values 2D ECHO LV Ejection Fraction MOD 2C 42.4 % LV Ejection Fraction 2C AL 41.8 % FINDINGS Left Ventricle Moderate to severe diffuse hypokinesia of the septum, anteroseptum and the LV apex. The LV ejection fraction on 25 to 30% Because of the technical difficulty, echo contrast was used Mildly dilated LV cavity Right Ventricle Right Atrium Left Atrium Mitral Valve Aortic Valve Tricuspid Valve Pulmonic Valve Pericardium Aorta IVC CONCLUSIONS 1. Multiple wall motion normalities with a diminished ejection fraction of 25 to 30%. 2. Mildly dilated LV cavity. 3. Mildly dilated left atrium. (Echo contrast - Optison was used to delineate the endocardium and to estimate the LV ejection fraction) Comparison with the previous study is difficult because of the difference in the technical quality Dr Natanael Hays MD [facility] (Electronically Signed) Final Date: 01 December 2022 09:55 S
[2022-12-01 08:09] LABS: Glucose Point of Care 188 mg/dL (70-110)
[2022-12-01] MEDS: insulin lispro 100 unit/1 mL SUBCUT ×4 (08:42→21:07)
[2022-12-01] MEDS: azithromycin 500 MG in sodium chloride 0.9% 250 ML 250 MG IV (09:01)
--- NOTE | 2022-12-01 10:03 | ECG_ITS ---
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 Measurements Intervals [place] Rate: 76 P: 73 NE: 162 QRS: -53 QRSD: 118 T: 176 QT: 393 QTc: 444 Interpretive Statements SINUS RHYTHM LEFT AXIS DEVIATION [QRS AXIS < -30] ANTEROSEPTAL MYOCARDIAL INFARCTION , PROBABLY RECENT [40+ ms Q WAVE IN V1-V4] ACUTE AR Compared to ECG 11/30/2022 09:42:20 T-wave abnormality no longer present Possible ischemia no longer present Myocardial infarct finding still present Electronically Signed On 12-01-2022 23:47:36 CDT by Natanael Hays M.D. [id number]
--- NOTE | 2022-12-01 10:16 | PC.SOCIAL ---
IMM UPDATED IMM dated and initialed and copy given to family, and placed in chart.
[2022-12-01] MEDS: pantoprazole 40 mg SDV IVP (11:29)
[2022-12-01 11:32] LABS: Glucose Point of Care 220 mg/dL (70-110)
--- NOTE | 2022-12-01 11:55 | PC.NURSE ---
Patient off Unit Patient off unit to supervisor cytogenetic laboratory, taken on vent & cont. monitoring. Fentanyl, Propofol, Levophed and IVF infusing per orders/protocol please see MAR for infusion rates. Patient not alert or following commands at this time.
--- NOTE | 2022-12-01 11:58 | P.PN_ITS ---
Subjective Subjective: On ventilator, sedated, not in discomfort. Reportedly briefly awoke last night, did not seem in discomfort. Vitals/I&O/Wt Last Vital Signs Temp 99.0 F 12/01/22 09:00 Pulse 71 12/01/22 09:00 Resp 16 12/01/22 08:58 BP 105/68 12/01/22 09:00 Pulse Ox 98 12/01/22 09:00 O2 Del Method 12/01/22 09:00 O2 Flow Rate 6 12/01/22 08:56 FiO2 30 12/01/22 09:00 11/30/22 12/01/22 12/01/22 22:59 06:59 14:59 Intake Total 499.946 / 758.748 512.699 / 1271.447 126.971 / 126.971 Output Total 900 / 1150 225 / 1375 Balance -400.054 / -391.252 287.699 / -103.553 126.971 / 126.971 Physical Exam Narrative: Accompanied by family including his . Const: GENERAL APPEARANCE: patient mechanically ventilated HENMT: COMMON NORMALS: oropharynx normal Neck/C-Spine: COMMON NORMALS: no JVD Resp: AUSCULTATION: rhonchi Cardio: COMMON NORMALS: no JVD, regular rhythm, S1 normal heart sound present, S2 normal heart sound present and No murmurs present (Cardio) RHYTHM: regular rhythm HEART SOUNDS: S1 normal heart sound present and S2 normal heart sound present GI: COMMON NORMALS: Normal to inspection, nondistended, normoactive bowel sounds present, Soft to palpation and non-tender PALPATION: Yes Soft to palpation Extremity: COMMON NORMALS: no joint enlargement GENERAL: Yes edema (Trace) Urinary Catheter Management: Vasquez: Cath Placed During This Visit: no Data 12/01/22 00:36 12/01/22 00:36 Micro: Microbiology 11/30/22 14:40 Gram Stain - Final Sputum - Endotracheal Tube Aspirate Sputum Culture - Preliminary Gram Negative Rods 11/29/22 08:57 Urine Culture - Final Urine,Clean Catch 11/28/22 07:50 Gram Stain - Final Sputum - Expectorated Sputum Sputum Culture - Final A&P Assessment and plan (1) Hypotension: Cardiology noting concern of developing hypotension overnight, discussed this morning with also development of ALFRED, required up to 4 mcg of Levophed. Review of his vitals, labs revealed no fever, no leukocytosis. Noted urine abnormality with RBC and WBC although with some loss of possible trauma from the Vasquez. Some rhonchi noted exam this morning with secretions being suctioned. Discussed with family possible etiologies, as well as further assessment treatment plan. He continues empirically on ceftriaxone and azithromycin. So far no growth on blood cultures, no growth on initial urine culture, sputum culture, negative MRSA PCR. Continue. Coverage for now. Discussed possibility of cardiogenic shock given his had noted NSTEMI. Requested repeat limited TTE. Additionally requested assessment with kidney stone protocol CT given pyuria, hematuria, ALFRED, hypotension, to exclude possibility of obstructive uropathy with developing septic shock. Otherwise plan to pursue coronary angiography for further cardiac relation and possible management. Continue empiric antibiotics antibiotic coverage. Pulmonary toilet. Follow-up pending cultures. As per discussion with nursing staff he has been comfortable, has not tried to wake up overnight or recently, per family woke up briefly last night was not in discomfort. Nursing to wean down propofol to help further reduce need for pressor. Continue fentanyl for now. Limited TTE which was changed to contrast today by cardiology due to poor visibility and prior study, with wall motion abnormalities, diminished EF 25- 30%. He is returning from CT scan. Updated and discussed with family, they want to proceed with coronary angiography which is being arranged by cardiology. Incidental findings on CT without hydronephrosis or obstructive uropathy. Noted moderate bilateral pleural effusions right greater than left. Compressive atelectasis. Cardiomegaly, cirrhotic appearance of liver. Enlarged prostate 5.4 cm. Fat-containing umbilical hernia without herniated bowel. Slightly aneurysmal distal abdominal aorta 2.9 x 2.7 cm. Aortic stenosis noticeable, although per discussion with cardiology more on the milder side. (2) Seasonal allergies: (3) Pneumonia: Possible pneumonia, although afebrile, without leukocytosis. Does have secretions/rhonchi. RT performing pulmonary toilet. Continue ceftriaxone, azithromycin. Follow-up sputum, blood cultures. MRSA PCR noted negative. (4) Acute respiratory failure with hypoxia: Strongly suspect patient has chronic hypoxia that has been untreated. He does have known sleep apnea and is intolerant of facial mask. Reported history of emphysema. (5) COPD exacerbation: Related to allergies and pneumonia (6) Non-ST elevation VT (NSTEMI): On aspirin, Plavix, heparin drip. Beta-richard held, hypotensive. Decreased EF on TTE. Suspicion of type I VT, possibly type II as well with risk factors of CAD, on presentation with suspected pneumonia, cardiomegaly and small bilateral pleural effusions noted on CTA of the chest. (7) Lymphadenopathy: Scattered mediastinal lymph nodes up to 15 mm in the subcarinal region noted on CTA of the chest (8) T2DM (type 2 diabetes mellitus): Chronically on metformin, hemoglobin A1c 8.2 (9) Hypertension: Chronically on Lasix (10) Gross hematuria: Likely traumatic related to Vasquez placement along with anticoagulation. Resolved with irrigation and holding of anticoagulation. Will monitor with resumption of anticoagulation. CT kidney stone protocol suggestion of stone/obstructive uropathy. Follow-up CBC requested. (11) Prostate cancer: May be a contributing factor to above, chronically on Flomax (12) Acute kidney injury: Creatinine up to 1.4. Obstructive uropathy urgently excluded as above. Otherwise suspicion for prerenal ALFRED versus ATN. Continue hemodynamic support, wean down as tolerating. Follow-up chemistry requested, follow-up kidney function and potassium tonight and in the morning. (13) Hyperkalemia: Related to acute kidney injury, though persists after normalization of creatinine. Not on any potassium containing medications presently will need to monitor. (14) Aortic stenosis: Newly identified diagnosis as per echocardiogram. Aortic valve area 1.3 cm?. Plan Bilateral pleural effusions, right greater than left: With noted decreased EF 25-30%, NSTEMI, peripheral trace edema. Suspect component of CHF for which will benefit from diuresis, however, currently hypotensive, pending additional cardiac assessment as above. Smoking addiction Emphysema Attestations Medical Necessity Statement*: Continue admission for assessment management of hypotension, NSTEMI, cardiomyopathy, Coding Level of Care Code Critical Care >/= 30 minutes Critical care time (in minutes): 40 The high probability of a clinically significant, sudden or life threatening deterioration, as referenced in this documentation, required my full and direct attention, intervention and personal management. The critical care time shown is in addition to time spent performing any reported separately billable procedures and includes the following: [x] Data and vital sign review and interpretation [x ] Patient assessment, examination and intervention [x] Medication orders and management [x] Patient/Family updates as able [x] Care Coordination and Documentation. Diagnoses Hypotension I95.9 Seasonal allergies J30.2 Pneumonia J18.9 Acute respiratory failure with hypoxia J96.01 COPD exacerbation J44.1 Non-ST elevation VT (NSTEMI) I21.4 Lymphadenopathy R59.1 T2DM (type 2 diabetes mellitus) E11.9 Hypertension I10 Gross hematuria R31.0 Prostate cancer C61 Acute kidney injury N17.9 Hyperkalemia E87.5 Aortic stenosis I35.0
--- NOTE | 2022-12-01 12:08 | W.PM.OPSUD ---
Surgery/Procedure H&P Update DATE OF PROCEDURE: December 01, 2022 DATE H&P PERFORMED: 11/28/22 H&P UPDATE INFORMATION: I have reviewed H&P completed within last 30 days and I have examined patient prior to procedure CHANGES TO PREVIOUS DOCUMENTATION: Patient is now intubated and sedated. Patient has a significant drop in LV systolic function PREOP DIAGNOSIS: NSTEMI/ Congestive heart failure PRIMARY INDICATION FOR PROCEDURE: NSTEMI/ Congestive heart failure PLANNED PROCEDURE: Operation Date: 12/01/22 07:45 Proposed Procedures p Cardiac Catheterization(Not Applicable) - Amaury Ricks MD Possible percutaneous coronary intervention PATIENT REASSESSED PRIOR TO SEDATION, WITH NO CHANGE NOTED: Yes OTHER PERTINENT EXAM FINDINGS: Intubated and sedated. Regularly regular. AIRWAY EVAL/ANESTHESIA PLAN: ASA IV, Local Anesthesia and Risks, benefits & alternatives of sedation and/or procedure discussed
--- NOTE | 2022-12-01 13:21 | PC.NURSE ---
Patient Arrive From [facility] Patient arrived from radiographer cardiac catheterization on vent and cont. monitoring. Fentanyl, Propofol, Levophed and IVF infusing upon arrival from radiographer cardiac catheterization. Patient has right femoral sheath in place hooked to pressure bag. Dressing applied over sheath insertion site.
--- NOTE | 2022-12-01 16:54 | PM.MISC ---
Miscellaneous Note Purpose of Documentation: Brief procedure note Note: Left main artery: Has severe 80-90% hazy stenosis. LAD: Patent LCx: Patent RCA: Chronic total occlusion of the proximal vessel. Left to right collaterals seen LVEDP: Very high, over 40mmHg Moderate to severe aortic stenosis PLAN: Detailed discussion with the family. All options discussed including transfer to tertiary care center for possible CABG evaluation vs high risk PCI of left main artery with impella support. Family wants to think about it and will inform us about the final decision. If decide on high risk PCI, we will proceed with loading with dual antiplatelet agents. We will discuss the situation again in the evening with patient's family and finalize the plan.
--- NOTE | 2022-12-01 16:59 | XRR_ITS ---
PROCEDURE INFORMATION: Exam: XR Abdomen Exam date and time: 12/01/2022 4:11 PM Age: 72 years old Clinical indication: Abdominal pain; Acute; Additional info: Assess for any distention/obstruction TECHNIQUE: Imaging protocol: Radiologic exam of the abdomen. Views: 2 Views. Upright and supine views. COMPARISON: NM bone scan whole body* [id number] 12/28/2015 11:03 AM FINDINGS: Tubes, catheters and devices: Endotracheal tube tip in place 4.4 cm above the theresa. Enteric tube tip below the diaphragm over the gastric bubble. Right central venous catheter tip just distal to the right atrium. Lungs: Patchy bilateral largely right lower lobe pneumonia. Pulmonary vascular congestion. Heart/Mediastinum: Cardiomegaly. Gastrointestinal tract: Normal. No bowel dilation. Intraperitoneal space: Normal. No free air. Bones/joints: Unremarkable for age. XR/XR acute abdomen series [id number] IMPRESSION: 1. Endotracheal tube tip in place 4.4 cm above the theresa. 2. Enteric tube tip below the diaphragm over the gastric bubble. 3. Cardiomegaly. 4. Patchy bilateral largely right lower lobe pneumonia. 5. Pulmonary vascular congestion. 6. Right central venous catheter tip just distal to the right atrium.
[2022-12-01 17:22] LABS: Glucose Point of Care 220 mg/dL (70-110)
[2022-12-01 17:25] LABS: Anion Gap 17.5 (5-19); Blood Urea Nitrogen 49 mg/dL (8-23); Calcium 8.1 mg/dL (8.5-10.5); Carbon Dioxide 24 mmol/L (22-29); Chloride 95 mmol/L (98-107); Glucose 209 mg/dL (65-115); Osmolality Calculated 293 mOsm/kg (285-295); Potassium 4.5 mmol/L (3.5-5.1); Sodium 132 mmol/L (136-145)
[2022-12-01] MEDS: aspirin 325 mg Tablet PO (17:28)
[2022-12-01] MEDS: clopidogrel 300 mg Tablet 600 MG PO (17:29)
[2022-12-01] MEDS: sodium chloride 0.45% 1,000 ML 50 ML IV (20:34)
[2022-12-01] MEDS: atorvastatin 40 mg Tablet 80 MG PO (20:40)
--- NOTE | 2022-12-01 20:59 | P.PN_ITS ---
Subjective Subjective: The patient remains intubated and sedated. He had some hypotensive episodes last night and was started on Levophed. Currently is on Levophed 4 mics per KG per minute. His FiO2 is 40% No fever or chills. No cough no hemoptysis. No new arrhythmias to Medications: Medication Review Details: Current Medications Acetaminophen (Acetaminophen 500 Mg Tablet) 500 mg PO Q4H PRN PRN Reason: fever Albuterol/Ipratropium (Ipratropium-Albuterol 3 Ml Neb) 3 ml INHALATION Q6H.RESP GUDELIA Last Admin: 12/01/22 20:05 Dose: 3 ml Albuterol/Ipratropium (Ipratropium-Albuterol 3 Ml Neb) 3 ml INHALATION Q6H PRN PRN Reason: SHORTNESS OF BREATH Aspirin (Aspirin 81 Mg Ec Tablet) 81 mg PO DAILY GUDELIA Last Admin: 12/01/22 09:23 Dose: Not Given Atorvastatin Calcium (Atorvastatin 40 Mg Tablet) 80 mg PO BEDTIME GUDELIA Last Admin: 12/01/22 20:40 Dose: 80 mg Budesonide (Budesonide 0.5 Mg/2 Ml Neb) 0.5 mg INHALATION BID.RESPIRATORY GUDELIA Last Admin: 12/01/22 20:05 Dose: 0.5 mg Chlorhexidine Gluconate (Chlorhexidine Gluconate 4% Btl 118 Ml) 1 applic TOPICAL 0100 GUDELIA Last Admin: 12/01/22 00:15 Dose: 1 applic Clopidogrel Bisulfate (Clopidogrel 75 Mg Tablet) 75 mg PO DAILY GUDELIA Last Admin: 12/01/22 09:23 Dose: Not Given Dextrose (Dextrose 50% Syringe 50 Ml) 25 ml IVP ONCE PRN; Protocol PRN Reason: hypoglycemia protocol Dextrose (Dextrose 50% Syringe 50 Ml) 50 ml IVP PRN PRN; Protocol PRN Reason: hypoglycemia protocol Diphenhydramine HCl (Diphenhydramine 50 Mg Capsule) 50 mg PO ONCE ONE Stop: 12/02/22 07:01 Fluticasone Propionate (Fluticasone Nasal Success 16gm Btl) 2 spray NASAL DAILY GUDELIA Last Admin: 12/01/22 08:10 Dose: Not Given Glucagon (Glucagon 1 Mg/Ml Inj 1 Ml) 1 mg IM ONCE PRN; Protocol PRN Reason: Adult Acute Hypoglycemia Prot. Heparin Sodium (Porcine) (Heparin 5,000 Unit/Ml Inj 1 Ml) 0 unit IV PRN PRN; Protocol PRN Reason: Heparin weight-base protocol Last Admin: 11/30/22 10:31 Dose: 6,500 unit Dextrose (D5w) 500 mls @ 100 mls/hr IV ONCE PRN; Protocol PRN Reason: Adult Acute Hypoglycemia Prot Ceftriaxone Sodium 1,000 mg/ (Sodium Chloride) 50 mls @ 100 mls/hr IV Q24H GUDELIA; Protocol Last Infusion: 12/01/22 00:49 Dose: Infused Azithromycin 500 mg/ Sodium (Chloride) 250 mls @ 250 mls/hr IV Q24H GUDELIA; Protocol Last Infusion: 12/01/22 10:01 Dose: Infused Heparin Sodium/Sodium Chloride (Heparin Drip) 25,000 unit in 500 mls @ 0 mls/hr IV .Q0M GUDELIA; Protocol Last Titration: 12/01/22 04:00 Dose: 0 unit/kg/hr, 0 mls/hr Propofol (Diprivan) 1,000 mg in 100 mls @ 0 mls/hr IV .Q0M GUDELIA; Protocol Last Admin: 12/01/22 20:04 Dose: 25 mcg/kg/min, 19.07 mls/hr Fentanyl 1,000 mcg/ Sodium (Chloride) 100 mls @ 0 mls/hr IV .Q0M GUDELIA; Protocol Last Admin: 12/01/22 20:41 Dose: 75 mcg/hr, 7.5 mls/hr Sodium Chloride (Sodium Chloride 0.45%) 1,000 mls @ 50 mls/hr IV .Q20H GUDELIA Last Admin: 12/01/22 20:34 Dose: 50 mls/hr Norepinephrine Bitartrate 4 mg (/ Dextrose) 254 mls @ 0 mls/hr IV .Q0M GUDELIA; Protocol Last Titration: 12/01/22 20:05 Dose: 2 mcg/min, 7.62 mls/hr Insulin Human Lispro (Insulin Lispro 100 Unit/1 Ml) 0 unit SUBCUT TIDWM GUDELIA; Protocol Last Admin: 12/01/22 17:47 Dose: 6 unit Insulin Human Lispro (Insulin Lispro 100 Unit/1 Ml) 0 unit SUBCUT BEDTIME GUDELIA; Protocol Last Admin: 11/30/22 21:01 Dose: 2 unit Lanolin (Lanolin Oint 7 Gm) 1 applic TOPICAL PRN PRN PRN Reason: DRYNESS Last Admin: 11/29/22 05:23 Dose: 1 applic Methylprednisolone Sodium Succinate (Methylprednisolone Sod Succ 40 Mg/Ml Inj) 40 mg IVP Q12H GUDELIA Last Admin: 12/01/22 17:28 Dose: 40 mg Metoprolol Tartrate (Metoprolol Tartrate 1 Mg/1 Ml Sdv 5 Ml) 5 mg IVP Q6H PRN PRN Reason: HYPERTENSION Last Admin: 11/30/22 13:11 Dose: 5 mg Ondansetron HCl (Ondansetron 2 Mg/Ml Sdv 2 Ml) 4 mg IVP Q6H PRN PRN Reason: NAUSEA AND VOMITING Pantoprazole Sodium (Pantoprazole 40 Mg Sdv) 40 mg IVP Q24H GUDELIA Last Admin: 12/01/22 11:29 Dose: 40 mg Vitals/I&O/Wt Last Vital Signs Temp 99.0 F 12/01/22 09:00 Pulse 68 12/01/22 20:05 Resp 18 12/01/22 20:41 BP 105/65 12/01/22 16:15 Pulse Ox 94 12/01/22 20:05 O2 Del Method 12/01/22 20:05 O2 Flow Rate 6 12/01/22 08:56 FiO2 30 12/01/22 20:05 12/01/22 12/01/22 12/01/22 06:59 14:59 22:59 Intake Total 512.699 / 4999.140 3088.971 / 1476.971 435.542 / 1912.513 Output Total 225 / 1375 650 / 650 Balance 287.699 / -264.976 6329.971 / 1476.971 -214.458 / 1262.513 Physical Exam Narrative: GENERAL: Patient is intubated and sedated. HEENT: No significant pallor, icterus or lymphadenopathy.Oral cavity: There are no mucous membrane lesions. NECK: Trachea appears to be central. No masses noted. No JVD or thyromegaly appreciated. RESPIRATORY: Occasional scattered expiratory wheezing present BREASTS: Deferred. HEART: The heart sounds are normal. No S3 or S4. No significant murmurs. No pericardial rub ABDOMEN: No vessel pulsations or distention. No tenderness. No organomegaly appreciated. Bowel sounds are normally heard. : Deferred. RECTAL: Deferred. LYMPHATIC: No lymphadenopathy noted in the neck. EXTREMITIES: Trace edema with no cyanosis MUSCULOSKELETAL: No acute joint deformities or swelling SKIN: There are no significant rashes or ecchymosis NEUROPSYCHIATRIC: The patient is alert and oriented x3. Appears to be in a good mood. No tremors or rigidity noted. Urinary Catheter Management: Vasquez: Cath Placed During This Visit: yes Reason for Continuing Indwelling Catheter: Accurate Measurement of Urinary Output in Critically Ill Patients Urinary Catheter Date of Insertion: 11/29/22 Urinary Catheter Time of Insertion: 01:14 Data 12/01/22 00:36 12/01/22 16:32 Other Labs: Laboratory Last Values WBC 9.1 10^3/uL (4.0-10.0) 12/01/22 00:36 RBC 4.07 10^6/uL (4.1-5.3) L 12/01/22 00:36 Hgb 11.0 g/dL (11.7-16.6) L 12/01/22 00:36 Hct 35.8 % (42.0-52.0) L 12/01/22 00:36 MCV 88.0 fl (80-94) 04 00:36 MCH 27.0 pg (28.0-34.0) L 12/01/22 00:36 MCHC 30.7 g/dL (30.0-36.0) 12/01/22 00:36 RDW 14.6 % (12.1-15.1) 12/01/22 00:36 Plt Count 166 10^3/cmm (130-400) 12/01/22 00:36 MPV 11.0 fL (7.4-10.4) H 12/01/22 00:36 Neut % (Auto) 85.4 % 12/01/22 00:36 Lymph % (Auto) 7.4 % 12/01/22 00:36 [place] % (Auto) 6.7 % 12/01/22 00:36 Eos % (Auto) 0.0 % 12/01/22 00:36 Baso % (Auto) 0.1 % 12/01/22 00:36 Neut # (Auto) 7.76 10^3/uL (1.8-7.7) H 12/01/22 00:36 Lymph # (Auto) 0.7 10^3/uL (0.8-4.8) L 12/01/22 00:36 [place] # (Auto) 0.6 10^3/uL (0.2-0.9) 12/01/22 00:36 Eos # (Auto) 0.0 10^3/uL (0.0-0.8) 12/01/22 00:36 Baso # (Auto) 0.0 10^3/uL (0.0-0.1) 12/01/22 00:36 Nucleated RBC % (auto) 0 % 12/01/22 00:36 Nucleated RBCs # 0.0 /100WBC 12/01/22 00:36 PT 13.20 SECONDS (12.1-14.9) 11/27/22 23:04 INR 0.98 (0.8-1.2) 11/27/22 23:04 APTT 66.1 SECONDS (23.9-36.7) H 12/01/22 00:36 Specimen Type Arterial 12/01/22 03:06 Sample Site Radial, right 12/01/22 03:06 ABG pH 7.46 (7.35-7.45) H 12/01/22 03:06 ABG pCO2 40.1 mmHg (35-45) 12/01/22 03:06 ABG pO2 71.7 mmHg (80.0-100.0) L 12/01/22 03:06 ABG HCO3 28.2 mmol/L (22-26) H 12/01/22 03:06 ABG O2 Saturation 89.3 11/30/22 08:24 ABG Base Excess 4.0 mmol/L (-2.0-2.0) H 12/01/22 03:06 [place] Test Pos 12/01/22 03:06 A-a O2 Gradient 3.5 mmHg (5-10) L 11/30/22 08:24 Hematocrit 35.1 % (42-52) L 12/01/22 03:06 Hgb O2 Saturation 87.7 % (95-100) L 11/30/22 08:24 Carboxyhemoglobin 1.5 %THgb (0.4-20.1) 11/30/22 08:24 Methemoglobin 0.3 % (0.4-1.5) L 11/30/22 08:24 Total Hemoglobin 12.5 g/dL (14-18) L 11/30/22 08:24 Sodium 136.0 mmol/L (131-143) 11/30/22 08:24 Potassium 5.5 mmol/L (3.5-5.0) H 11/30/22 08:24 Glucose 207.0 mg/dL (70-115) H 11/30/22 08:24 Ionized Calcium 1.2 mmol/L (1.1-1.4) 11/30/22 08:24 O2 Delivery Device Vent 12/01/22 03:06 O2 Liters/Min 4.0 % 11/30/22 08:24 FiO2 40.0 % 12/01/22 03:06 Tidal Volume 0.50 12/01/22 03:06 PEEP 8.0 cmH20 12/01/22 03:06 Offset Second Press Operator ID [email or web address] 12/01/22 03:06 Sodium 132 mmol/L (136-145) L 12/01/22 16:32 Potassium 4.5 mmol/L (3.5-5.1) 12/01/22 16:32 Chloride 95 mmol/L (98-107) L 12/01/22 16:32 Carbon Dioxide 24 mmol/L (22-29) 12/01/22 16:32 Anion Gap 17.5 (5-19) 12/01/22 16:32 BUN 49 mg/dL (8-23) H 12/01/22 16:32 Creatinine 1.3 mg/dL (0.7-1.2) H 12/01/22 16:32 GFR Calculation Not Reportable 12/01/22 16:32 Glucose 209 mg/dL (65-115) H 12/01/22 16:32 POC Glucose 220 mg/dL (70-110) H 12/01/22 17:18 Estimat Average Glucose 189 11/29/22 02:27 Hemoglobin A1c 8.2 % (4.0-6.0) H 11/29/22 02:27 Calculated Osmolality 293 mOsm/kg (285-295) 12/01/22 16:32 Uric Acid 8.6 mg/dL (3.4-7.0) H 11/29/22 02:27 Calcium 8.1 mg/dL (8.5-10.5) L 12/01/22 16:32 Phosphorus 3.9 mg/dL (2.5-4.5) 12/01/22 00:36 Magnesium 2.5 mg/dL (1.7-2.3) H 12/01/22 00:36 Total Bilirubin 0.3 mg/dL (0.15-1.2) 12/01/22 00:36 AST 35 U/L (0-40) 12/01/22 00:36 ALT 30 U/L (0-41) 12/01/22 00:36 Alkaline Phosphatase 65 U/L (40-130) 12/01/22 00:36 Ammonia 22 umol/L (16-60) 11/30/22 21:41 Creatine Kinase 254 U/L (39-308) 12/01/22 00:36 Troponin T Gen 5 ng/L 2208 ng/L (0-15) H* 12/01/22 00:36 Troponin T Baseline 261 ng/L (0-15) H* 11/27/22 23:04 Troponin T 120 Minute 278.3 ng/L (0-15) H 11/28/22 00:51 Delta Troponin T 17.3 ABS# (0-10) H* 11/28/22 00:51 Troponin T Hi Sens 6Hr 447.2 ng/L (0-15) H 11/28/22 05:11 Troponin T Hi Sens 6Hr Delta 186.2 ng/L (0-12) H* 11/28/22 05:11 C-Reactive Protein 10.3 mg/L (0.0-4.9) H 11/30/22 04:10 NT-Pro-B Natriuret Pep 1821 pg/mL (0-125) H 11/27/22 23:04 Total Protein 5.9 g/dL (6.6-8.7) L 12/01/22 00:36 Albumin 2.8 g/dL (3.5-5.2) L 12/01/22 00:36 Globulin 3.1 g/dL (1.3-4.6) 12/01/22 00:36 Triglycerides 125 mg/dL (0-150) 11/30/22 04:10 Cholesterol 176 mg/dL (0-200) 11/30/22 04:10 LDL Cholesterol, Calc 111 mg/dL (50-129) 11/30/22 04:10 HDL Cholesterol 40 mg/dL (60-100) L 11/30/22 04:10 LDL/HDL Ratio 2.78 RATIO (0.00-3.22) 11/30/22 04:10 Cholesterol/HDL Ratio 4.40 mg/dL (1.0-5.00) 11/30/22 04:10 Urine Color Cancelled 12/01/22 08:35 Urine Appearance Cancelled 12/01/22 08:35 Urine pH Cancelled 12/01/22 08:35 Ur Specific [place] Cancelled 12/01/22 08:35 Urine Protein Cancelled 12/01/22 08:35 Urine Glucose (UA) Cancelled 12/01/22 08:35 Urine Ketones Cancelled 12/01/22 08:35 Urine Blood Cancelled 12/01/22 08:35 Urine Nitrate Cancelled 12/01/22 08:35 Urine Bilirubin Cancelled 12/01/22 08:35 Prot Sulfosalicylic Acd Cancelled 12/01/22 08:35 Urine Urobilinogen Cancelled 12/01/22 08:35 Ur Leukocyte Esterase Cancelled 12/01/22 08:35 Urine RBC Too numerous to cnt /hpf (0-2) H 11/29/22 08:57 Urine WBC 40-55 /hpf (0-5) H 11/29/22 08:57 Ur Squamous Epith Cells 0-4 /hpf (0-5) H 11/29/22 08:57 Amorphous Sediment Not Reportable 11/29/22 08:57 Urine Bacteria 1+ /hpf (NONE) H 11/29/22 08:57 Ur Random Sodium 29 mmol/L 11/29/22 08:57 Urine Creatinine 133 mg/dL (39-259) 11/29/22 08:57 Influenza Type A Ag negative (Negative) 11/27/22 22:40 Influenza Type B Ag negative (Negative) 11/27/22 22:40 SARS-CoV-2 Ag (Rapid) negative (Negative) 11/27/22 22:40 Micro: Microbiology 11/30/22 14:40 Gram Stain - Final Sputum - Endotracheal Tube Aspirate Sputum Culture - Preliminary Gram Negative Rods 11/29/22 08:57 Urine Culture - Final Urine,Clean Catch A&P Assessment and plan (1) Elevated troponin: Troponin . The EKG does not reveal any new changes. He has some persistent ST depressions in the anterolateral leads. Troponin T seems to be slowly trending down. Today it is 1800 range. (2) COPD exacerbation: The respiratory status seems to be intermittently getting worse. The altered mental status is unexplained. His oxygenation seems to be appropriate even though he may have intermittent hypoxia. However he has difficulty lying flat. (3) Chest pain: Symptoms are currently stable. Intermittently he may have some chest discomfor t. It might be difficult to discern whether that is real or not. (4) T2DM (type 2 diabetes mellitus): Management as per the primary. Blood sugar seems to be fairly under control. (5) Acute kidney injury: The creatinine today is better. (6) Hyperkalemia: The potassium level also is normal today. (7) Altered mental status: Pt has been having periods of confusion, even at home Plan I will be discussing with Dr. Chaudhari as to as to what would be an appropriate time to do the cardiac catheterization. He would like to see him hemodynamically as stable as possible. A limited 2D echocardiogram with contrast was performed today. His ejection fr action was around 25 to 30%. Most likely he may have three-vessel disease. This needs to be further evaluated. Based on the clinical progress, further recommendations will be made. Attestations Medical Necessity Statement*: patient requires continued hospital stay for close monitoring and further management Coding Level of Care Code 30307 Diagnoses Elevated troponin R77.8 COPD exacerbation J44.1 Chest pain R07.9 T2DM (type 2 diabetes mellitus) E11.9 Acute kidney injury N17.9 Hyperkalemia E87.5 Altered mental status R41.82
[2022-12-01 22:14] LABS: Glucose Point of Care 213 mg/dL (70-110)
[2022-12-02] VITALS (89 sets, daily range): BP systolic 83–121; BP diastolic 53–78; PULSE 54–74; RESP 13–26; O2SAT 90–100
[2022-12-02] MEDS: propofol 1,000 MG/100 ML INJ 22.89 MG IV ×4 (00:41→16:27)
[2022-12-02] MEDS: chlorhexidine gluconate 4% Btl 118 mL 1 APPLIC TOPICAL (01:41)
[2022-12-02 02:41] LABS: Basophils % 0.1 %; Hematocrit 36.9 % (42.0-52.0); Hemoglobin 11.5 g/dL (11.7-16.6); Lymphocytes # 0.6 10^3/uL (0.8-4.8); Lymphocytes % 4.4 %; Mean Corpuscular HGB Conc 31.2 g/dL (30.0-36.0); Mean Corpuscular Hemoglobin 26.9 pg (28.0-34.0); Mean Corpuscular Volume 86.4 fl (80-94); Mean Platelet Volume 11.1 fL (7.4-10.4); Neutrophils # 12.46 10^3/uL (1.8-7.7); Nucleated Red Blood Cells % 0 %; Platelet Count 220 10^3/cmm (130-400); Red Blood Count 4.27 10^6/uL (4.1-5.3); Red Cell Distribution Width 14.7 % (12.1-15.1); White Blood Count 14.2 10^3/uL (4.0-10.0)
[2022-12-02] MEDS: ipratropium-albuterol 3 mL Neb INHALATION ×4 (02:59→19:53)
[2022-12-02 03:00] LABS: Alanine Aminotransferase 32 U/L (0-41); Albumin Level 3.1 g/dL (3.5-5.2); Alkaline Phosphatase 67 U/L (40-130); Anion Gap 17.6 (5-19); Aspartate Amino Transferase 40 U/L (0-40); Blood Urea Nitrogen 45 mg/dL (8-23); Carbon Dioxide 25 mmol/L (22-29); Chloride 98 mmol/L (98-107); Glucose 209 mg/dL (65-115); Osmolality Calculated 300 mOsm/kg (285-295); Potassium 4.6 mmol/L (3.5-5.1); Sodium 136 mmol/L (136-145); Total Bilirubin 0.3 mg/dL (0.15-1.2); Total Protein 6.1 g/dL (6.6-8.7)
--- NOTE | 2022-12-02 06:31 | XACV_ITS ---
Exam Room: [facility] Ht: 175 cm Wt: 127 kg BSA: 2.55 m2 Gender: Male : 1950 Any Known Allergies: Penicillins Exam Priority: Routine Procedure(s): Procedure Description: Diagnostic procedure Procedure Description: PCI procedure Procedure Description: Left Heart Catheterization Procedure Description: Coronary IVUS Procedure Description: Drug Eluting Coronary Stent Procedure Description: PTCA Procedure Description: Miscellaneous Procedure Description: Perclose Procedure Description: ACT Procedure Description: Coronary Angiography Procedure Description: pVAD Diagnostic Cath Status: Urgent Diagnostic Findings * INDICATION: NSTEMI/Cardiogenic shock/ Congestive heart failure. Patient currently intubated. Patient had diagnostic coronary angiogram performed yesterday. He has critical left main artery stenosis. 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 All options were discussed with patient's family including transfer to a tertiary care center for CABG evaluation versus high risk Impella supported PCI. Risks and benefits of the procedures inluding possibility of were discussed in detail. They expressed patient's wishes of not undergoing open heart procedures and wanted to proceed with high risk PCI at our center. Code status will be full code for duration of the procedure. * This was a planned PCI of left main artery. For full diagnostic report, please refer to procedure from 12/01/2022. * Right Coronary Artery not injected. * Left Anterior Descending has no disease. * Circumflex has no disease. * Left Main to Left Main: significant 80% stenosis, DEB: 3 flow. PCI Status: Urgent PCI Indication: NSTE - ACS Interventional Findings * Procedure detail: We obtained bilateral common femoral artery access using micropuncture. Right common femoral artery was healthier and we decided to place Impella through that. Under fluoroscopic guidance, Impella CP was placed. We engaged left main artery with XB 3.5 guide catheter. IVUS was performed to size the vessel. We predilated left main artery serially with 2.5 x 12 mm semicompliant balloon followed by 3.0 x 15 mm semicompliant balloon. We then predilated the vessel with 3.25 x 8 mm NC balloon. At this time we proceeded with placement of 3.5 x 18 mm resolute Kam drug-eluting stent based on the vessel sizing on IVUS. We again performed IVUS that showed excellent stent expansion other than midsegment with there was slight underexpansion. We postdilated this area with a 3.5 x 12 mm noncompliant balloon at high pressure. At this time final angiogram was performed that showed excellent stent expansion, no residual stenosis and DEB-3 flow. Guidewire and guide catheter were removed. Impella was removed at the end of the procedure however 12 Cambodian sheath was placed for removal later and hemostasis. Patient left the Fruit Tester in a stable condition.. * Left Main to Left Main: 80% stenosis treated with a AB TREK 2.50X12 RX BALLOON, AB TREK 3.00X15 RX BALLOON, ASHLEY LESTER EUPHORA RX [id number] BALLOON, ASHLEY Flynn KAM 3.5X18 TATI, and ASHLEY LESTER EUPHORA RX [id number] BALLOON. 0% residual stenosis, DEB: 3 flow. Conclusions 1. Severe left main artery stenosis s/p 2. successful revascularization 3. with 4. Impella supported high risk PCI. 5. TATI x1 placed.. 6. Left Main to Left Main was treated with a Balloon, Balloon, Balloon, Drug Eluting Stent, and Balloon. Recommendations * Transfer back to ICU. * Dual antiplatelet therapy with aspirin and Plavix for at least 1 year. * High intensity statin therapy. * Outpatient cardiology follow-up. Interventional RX Recommendation: PCI w/o planned CABG Diagnostic RX Recommendation: PCI w/o planned CABG Anticoagulation: Heparin Pressures Phase:Rest AO : 112 / 78 ( 94 ) @ 10:55:00 AM 114 / 87 ( 101 ) @ 10:56:00 AM 75 / 39 ( 53 ) @ 11:00:00 AM 62 / 35 ( 46 ) @ 11:03:00 AM 108 / 76 ( 91 ) @ 11:07:00 AM 96 / 81 ( 89 ) @ 11:23:00 AM LV : 164 / 6 / 30 @ 10:34:00 AM Clinical Evaluation EBL: 5mL-10mL Procedural Details Procedure Consent Obtained. Hemodynamic formulas in Rest were re-calculated based on hemoglobin value from 12/02/2022 12:00:00 AM. Pre-Procedure Time Out. Identified patient by full name and date of as verbalized by the patient/guarantor. Does the consent match the physician's order: Yes. Accurate & Complete Informed Consent: Yes. Inpatient/Outpatient History & Physical on Chart: Yes. If H&P is completed, is and addenduem needed: No; If yes, is the addendum complete: N/A. Visualize and Verify Site with Patient/Guarantor: N/A. Relevant Radiology Images available: Yes. Pre-op teaching completed and patient verbalized understanding. The risks, benefits, and alternatives of sedation and/or procedure were discussed by physician. The patient agrees to continue. Physician arrived. Procedure started. [facility] Clinical Fraility Score: 7: Severely Frail. Fruit Tester Indications: ACS > 24 hours. Chest Pain Symptom Assessment: Typical Angina Symptoms. Cardiovascular Instability: Yes, if yes, Cardiogenic Shock. Correct patient, site and procedure confirmed by cath team. Current diagnosis: ACS. PERRLA. Strong, equal hand bus monitor bilaterally. Lungs clear x 5 lobes. IV Site on Arrival: 20 gauge in the right forearm. Patient arrived to the [facility] on the ventilator and on a Fentanyl drip and Propofol drip. ICU nurse is present to monitor the Propofol. He arrived with a flores catheter. bilateral groins was prepped with chloroprep then draped in the usual sterile fashion. IV Fluids: 0.9% NaCl at KVO. 500 mL infused prior to manager laboratory. Baseline sample Acquired. HR: 61 BPM. IV Site on Arrival: 18 gauge in the left forearm. Patient has a PICC line in the right upper arm. Physician scrubbed in. Immediate Pre-Procedure Time Out. Correct Patient: Yes; Correct Procedure: Yes; Correct Site: Yes; Correct Patient Position: Yes; Correct Supplies: Yes; Dried Flammable Prep: Yes; Blood Products Available: N/A;. Ultrasound being used to obtain left femoral arterial access. AP Pads placed on patient. Lidocaine 1% infiltrated to the left groin. Arterial access obtained with micropuncture set. Patient arrived with a right femoral sheath from his procedure yesterday. Contrast hand injected through the left femoral sheath. Contrast hand injected through the right femoral sheath. The 6Fr right femoral sheath out OTW. Perclose x3 (lot# [id number] x2 and lot# [id number]) seated in the right femoral access site. The 6Fr sheath inserted OTW in the right femoral arterial access site. The right 6Fr sheath out OTW. 8Fr dilator inserted OTW. 8Fr dilator out OTW. 10Fr dilator inserted OTW. 10Fr dilator out OTW. 12Fr dilator inserted OTW. 12Fr dilator out OTW. The 14Fr Impella sheath inserted OTW and inserted to the right femoral artery. A 5 cook islander Angled Pig catheter in over wire through the right femoral sheath. Catheter removed over the exchange wire. A 5 cook islander JR4 catheter in over wire. EDP Sample taken: LV 164/6,30; HR: 71 BPM; SpO2: 93%. Imella wire inserted and advanced through the cathter. Catheter removed over the Impella wire. Impella CP inserted and advanced OTW. Current Diagnosis : ACS. Patient's family updated. Impella wire out. Impella CP adequately postioned across the valve with a flow of 3.7. ACT drawn. Results 239 seconds. Therapeutic limits - pre-heparin administration 90-150 seconds and monitoring heparin during a vascular procedure >250 seconds. The 6Fr left femoral sheath was exchanged for a 7Fr 45cm Flexor sheath. The 7Fr Flexor sheath out OTW. The 7Fr dilator inserted OTW. A 7Fr dilator removed OTW. A 7Fr short sheath inserted and advanced through the left femoral sheath. Contrast hand injected through the left femoral sheath. 6 cook islander XB 3.5 guide catheter was inserted over the wire. Guide catheter out. 6 cook islander CLS 3 guide catheter was inserted over the wire. Runthrough guidewire was advanced through the guide catheter to lesion in the LM. IVUS catheter inserted OTW and advanced to the LM. IVUS measurements obtained. Patient's family updated. IVUS catheter removed OTW. Inflation number : 1 A AB TREK 2.50X12 RX BALLOON was prepped and advanced across the LMCA , then inflated to 10 CHARLES for 0:19 seconds. Inflation number: 2 The AB TREK 2.50X12 RX BALLOON was reinflated across the LMCA, to 8 CHARLES for 0:16 seconds. Inflation number: 3 The AB TREK 2.50X12 RX BALLOON was reinflated across the LMCA, to 12 CHARLES for 0:20 seconds. Balloon out. Results checked. 3.0x15mm Balloon inserted to lesion in the prox LM. Patient's family updated. Balloon out. Inflation number : 4 A AB TREK 3.00X15 RX BALLOON was prepped and advanced across the LMCA , then inflated to 10 CHARLES for 0:27 seconds. Inflation number: 5 The AB TREK 3.00X15 RX BALLOON was reinflated across the LMCA, to 12 CHARLES for 0:11 seconds. Balloon out. Results checked. Inflation number : 6 A MDT NC EUPHORA RX [id number] BALLOON was prepped and advanced across the LMCA , then inflated to 12 CHARLES for 0:24 seconds. Inflation number: 7 The MDT NC EUPHORA RX [id number] BALLOON was reinflated across the LMCA, to 14 CHARLES for 0:23 seconds. Balloon out. IVUS catheter inserted OTW and advanced to the LM. IVUS measurements obtained. IVUS catheter removed OTW. Inflation Number : 8 A MDT R KAM 3.5X18 TATI -Lot Number# _[id number] EXP: 07/18/2025 was prepped and advanced across the LMCA. The stent was deployed at 12 CHARLES for 0:31 seconds. Stent balloon out over wire. Results checked. IVUS catheter inserted OTW and advanced to the LM. IVUS measurements obtained. IVUS catheter removed OTW. Patient's family updated. Inflation number : 9 A MDT NC EUPHORA RX 3.26U57LL BALLOON was prepped and advanced across the LMCA , then inflated to 14 CHARLES for 0:28 seconds. Inflation number: 10 The MDT NC EUPHORA RX [id number] BALLOON was reinflated across the LMCA, to 14 CHARLES for 0:16 seconds. Balloon out. Results checked. Wire out. Results checked. ACT drawn. Results out of range seconds. Therapeutic limits - pre-heparin administration 90-150 seconds and monitoring heparin during a vascular procedure >250 seconds. Guide catheter out. Impella catheter removed. Perclose x2 placed in the right femoral artery. There was still some oozing. A 8Fr femoral sheath inserted. 15 mins of pressure held and still oozing around the sheath. The 8Fr was removed OTW. A 12Fr 13cm sheath inserted OTW. Contrast hand injected through the sheath to check the placement. Arterial sheath flushed and connected to tranducer and pressure bag with heparinized saline. Medication's Wasted: Heparin = 1000 units. Medication's Wasted: Lidocaine 1% = 1 mL. Total IV fluids: 110 mL. A Suture was successful obtaining hemostatsis at the Left Femoral artery insertion site. Arterial sheath flushed and connected to tranducer and pressure bag with heparinized saline. Post Procedure: Pulses reassessed and unchanged. PERRLA. Strong, equal hand bus monitor bilaterally. No VTE prophylaxis required. Complications: None. Post-op diagnosis: Stent to LM. Estimated blood loss: 5mL-10mL. Responsiveness - Normal response to verbal stimuli; alert and oriented, PERRLA. Airway - Unaffected, no intervention required; spontaneous ventilation. Circulation: W/N/L, pulses unchanged. Nausea/Vomiting: No. ACT drawn. Results 272 seconds. Therapeutic limits - pre-heparin administration 90-150 seconds and monitoring heparin during a vascular procedure >250 seconds. Procedure completed. Vital chart was stopped. Femostop placed above the right femoral sheath. Patient transferred by bed to ICU. Access Site Site: Left Femoral artery Sheath Size: 6 Fr Hemostasis Method: Suture Hemostasis Success: Successful Site: Right Femoral artery Sheath Size: 6 Fr Hemostasis Success: Unsuccessful Procedure Medications Start: 9:27 AM Stop: 9:27 AM Medication: Heparin Amount: 62593 units Route: I.V. Start: 9:46 AM Stop: 9:46 AM Medication: Heparin Amount: 2000 units Route: I.V. Start: 9:58 AM Stop: 9:58 AM Medication: Heparin Amount: 2000 units Route: I.V. Start: 10:07 AM Stop: 10:07 AM Medication: Heparin Amount: 1000 units Route: I.V. Start: 10:35 AM Stop: 10:35 AM Medication: Heparin Amount: 1000 units Route: I.V. I, the attending physician, have reviewed and verified all procedure medications. Yes, all medications given per verbal order History/Risk Factors Hypertension: Yes Dyslipidemia: Yes Peripheral Arterial Disease (PAD): No Myocardial Infarction (DE): No Obesity: No Renal Disease: No Tobacco Use: Current/Recent(w/in 1 year) Prior Interventions PCI: No CABG: No Valve Surgery: No Report Signatures Finalized by Amaury Ricks MD on 12/16/2022 12:18 PM
[2022-12-02] MEDS: budesonide 0.5 mg/2 mL Neb INHALATION ×2 (07:15→19:53)
[2022-12-02 07:21] LABS: Glucose Point of Care 220 mg/dL (70-110)
[2022-12-02] MEDS: diphenhydrAMINE 50 mg Capsule PO (07:42)
[2022-12-02] MEDS: insulin lispro 100 unit/1 mL SUBCUT ×4 (07:43→20:35)
[2022-12-02] MEDS: clopidogrel 75 mg Tablet PO (08:01)
--- NOTE | 2022-12-02 08:38 | P.HPUD_ITS ---
Surgery/Procedure H&P Update DATE OF PROCEDURE: December 02, 2022 DATE H&P PERFORMED: 11/28/22 H&P UPDATE INFORMATION: I have reviewed H&P completed within last 30 days, I have examined patient prior to procedure and Changes to prior documentation as noted here CHANGES TO PREVIOUS DOCUMENTATION: Patient has diagnostic coronary angiogram performed yesterday. He has critical left main artery stenosis. 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 All options were discussed with patient's family including transfer to a tertiary care center for CABG evaluation versus high risk Impella supported PCI. Risks and benefits of the procedures inluding possibility of were discussed in detail. They expressed patient's wishes of not undergoing open heart procedures and wanted to proceed with high risk PCI at our center. Code status will be full code for duration of the procedure. PREOP DIAGNOSIS: NSTEMI/ Congestive heart failure/Cardiogenic shock PRIMARY INDICATION FOR PROCEDURE: NSTEMI/ Congestive heart failure/Cardiogenic shock PLANNED PROCEDURE: Operation Date: 12/02/22 Proposed Procedures p Cardiac Catheterization(Not Applicable) -Amaury Ricks MD High risk impella supported PCI of left main artery Patient is intubated and sedated PATIENT REASSESSED PRIOR TO SEDATION, WITH NO CHANGE NOTED: Yes OTHER PERTINENT EXAM FINDINGS: Intubated and sedated
--- NOTE | 2022-12-02 12:03 | PC.NURSE ---
[facility]
[2022-12-02] MEDS: aspirin 81 mg EC Tablet PO (12:27)
[2022-12-02] MEDS: pantoprazole 40 mg SDV IVP (13:14)
--- NOTE | 2022-12-02 13:20 | PM.PN ---
Subjective Subjective: Intubated, mechanical insulation with sedation. Does not appear in discomfort. Vitals/I&O/Wt Last Vital Signs Temp 99.0 F 12/01/22 09:00 Pulse 56 L 12/02/22 12:00 Resp 16 12/02/22 11:59 BP 95/59 12/02/22 12:00 Pulse Ox 99 12/02/22 12:00 O2 Del Method 12/02/22 07:10 O2 Flow Rate 6 12/02/22 06:00 FiO2 30 12/02/22 11:59 12/01/22 12/02/22 12/02/22 22:59 06:59 14:59 Intake Total 447.226 / 1924.197 281.538 / 2205.735 260 / 260 Output Total 950 / 950 375 / 1325 Balance -502.774 / 974.197 -93.462 / 880.735 260 / 260 Physical Exam Const: GENERAL APPEARANCE: patient mechanically ventilated HENMT: COMMON NORMALS: oropharynx normal Neck/C-Spine: COMMON NORMALS: no JVD Resp: AUSCULTATION: rhonchi (Fewer) Cardio: COMMON NORMALS: no JVD, regular rhythm, S1 normal heart sound present, S2 normal heart sound present and No murmurs present (Cardio) RHYTHM: regular rhythm HEART SOUNDS: S1 normal heart sound present and S2 normal heart sound present GI: COMMON NORMALS: Normal to inspection, nondistended, normoactive bowel sounds present, Soft to palpation and non-tender PALPATION: Yes Soft to palpation Extremity: COMMON NORMALS: no joint enlargement NARRATIVE EXTREMITY EXAM: Right femoral sheath in place. GENERAL: Yes edema (Trace) Urinary Catheter Management: Vasquez: Cath Placed During This Visit: yes Reason for Continuing Indwelling Catheter: Accurate Measurement of Urinary Output in Critically Ill Patients Urinary Catheter Date of Insertion: 11/29/22 Urinary Catheter Time of Insertion: 01:14 Data 12/02/22 02:10 12/02/22 02:04 Micro: Microbiology 11/30/22 14:40 Gram Stain - Final Sputum - Endotracheal Tube Aspirate Sputum Culture - Preliminary Gram Negative Rods 11/29/22 08:57 Urine Culture - Final Urine,Clean Catch A&P Assessment and plan (1) Hypotension: Hypertension improved, overnight weaned off pressor, today transiently with Impella support while undergoing high risk PCI, but weaned off support, weaned off pressor. Impella removed. Currently MAP soft, 67 mmHg, on 30 mg/min propofol. This will be attempted to be weaned down which expect will help with blood pressure and he will continue on fentanyl. Hypertension suspected was likely degree of cardiogenic shock, moderate to severe aortic stenosis and propofol. Limited TTE which was repeated with contrast due to poor visibility and prior study, with wall motion abnormalities, diminished EF 25-30%. (2) Non-ST elevation CT (NSTEMI): Status post high risk PCI, transient Impella support on 12/02. Stent placed in LAD. She is currently stent in place, heavy arterial calcification. Pending return to Inside Account Executive later tonight for removal. On aspirin, Plavix. Beta-richard held, hypotensive. Will benefit from addition of statin. Type I NSTEMI with troponin elevation, EKG changes, regional wall motion abnormalities on echo decreased EF. (3) Seasonal allergies: (4) Pneumonia: Discussed with family also gram-negative rods in sputum. Continue ceftriaxone. Follow-up sputum culture. Possible pneumonia, although afebrile, without leukocytosis. Does have secretions/rhonchi. RT performing pulmonary toilet. Continue ceftriaxone, azithromycin. Follow-up sputum, blood cultures. MRSA PCR noted negative. (5) Acute respiratory failure with hypoxia: Pneumonia, as well as appears may have component of decompensated acute systolic and diastolic CHF with as discussed bilateral pleural effusions. Continue to biotic coverage. Follow-up sputum culture. Discussed additionally will benefit from diuresis, as per discussion with cardiology diuresis to be attempted starting tomorrow at which point we will also start to see if able to wean off ventilatory support. Discussed with family consideration also given he had encephalopathy/delirium prior to intubation that is possible he may have it again with attempted weaning sedation and ventilatory support which may complicate his recovery. Suspected chronic hypoxia that has been untreated. He does have known sleep apnea and is intolerant of facial mask. Reported history of emphysema. (6) COPD exacerbation: Continue with antibiotics as above, Solu-Medrol. Breathing treatments. Related to allergies and pneumonia (7) Lymphadenopathy: Scattered mediastinal lymph nodes up to 15 mm in the subcarinal region noted on CTA of the chest (8) T2DM (type 2 diabetes mellitus): Chronically on metformin, hemoglobin A1c 8.2 (9) Hypertension: Chronically on Lasix (10) Gross hematuria: Likely traumatic related to Vasquez placement along with anticoagulation. Resolved with irrigation and holding of anticoagulation. Will monitor with resumption of anticoagulation. CT kidney stone protocol suggestion of stone/obstructive uropathy. Follow-up CBC requested. (11) Prostate cancer: May be a contributing factor to above, chronically on Flomax (12) Acute kidney injury: Creatinine up to 1.4. Obstructive uropathy urgently excluded as above. Otherwise suspicion for prerenal ALFRED versus ATN. Continue hemodynamic support, wean down as tolerating. Follow-up chemistry requested, follow-up kidney function and potassium tonight and in the morning. (13) Hyperkalemia: Related to acute kidney injury, though persists after normalization of creatinine. Not on any potassium containing medications presently will need to monitor. (14) Aortic stenosis: Newly identified diagnosis as per echocardiogram. Aortic valve area 1.3 cm?. Plan Bilateral pleural effusions, right greater than left: With noted decreased EF 25-30%, NSTEMI, peripheral trace edema. Suspect component of CHF for which will benefit from diuresis, however, currently hypotensive, pending additional cardiac assessment as above. Smoking addiction Emphysema Attestations Medical Necessity Statement*: Continue admission for assessment management following high risk PCI mechanical attention support, soft blood pressures with multiple contributing factors, with NSTEMI, cardiomyopathy, moderate to severe aortic stenosis, continue ventilatory support, at the moment requiring sedation, treatment of pneumonia, subsequently additionally treatment of CHF. Coding Level of Care Code Critical Care >/= 30 minutes Critical care time (in minutes): 35 The high probability of a clinically significant, sudden or life threatening deterioration, as referenced in this documentation, required my full and direct attention, intervention and personal management. The critical care time shown is in addition to time spent performing any reported separately billable procedures and includes the following: [x] Data and vital sign review and interpretation [x] Patient assessment, examination and intervention [x] Medication orders and management [x] Patient/Family updates as able [x] Care Coordination and Documentation. Diagnoses Hypotension I95.9 Non-ST elevation CT (NSTEMI) I21.4 Seasonal allergies J30.2 Pneumonia J18.9 Acute respiratory failure with hypoxia J96.01 COPD exacerbation J44.1 Lymphadenopathy R59.1 T2DM (type 2 diabetes mellitus) E11.9 Hypertension I10 Gross hematuria R31.0 Prostate cancer C61 Acute kidney injury N17.9 Hyperkalemia E87.5 Aortic stenosis I35.0
[2022-12-02] MEDS: sodium chloride 0.45% 1,000 ML 50 ML IV (17:44)
--- NOTE | 2022-12-02 17:44 | P.MISC_ITS ---
Miscellaneous Note Purpose of Documentation: Brief procedure note Note: We used right common femoral artery to place impella. 7 Fr sheath was introduced in the Left CLINICAL APPLICATIONS SPECIALIST . After serial dilation of the left main artery stenosis with compliant and non compliant balloons, we performed PCI of left main artery with a 3.5x18 mm Resolute bernard TATI. IVUS was used for stent sizing and post dilation assessment. Impella was removed at the end of the procedure. Patient left the semiconductor lab technician in a stable condition. Impella sheath was removed and was replaced with 12 Fr sheath for removal later once ACT will normalize. Perclose sutures were stabilized. Patient left semiconductor lab technician in a stable condition
--- NOTE | 2022-12-02 17:46 | PC.NURSE ---
[facility] at approximately 1540, picket [employer] removed both groin lines, bedrest for the next 6 hours, no s\s of active bleeding or hematoma present
[2022-12-02 17:48] LABS: Glucose Point of Care 241 mg/dL (70-110)
--- NOTE | 2022-12-02 17:49 | P.PCN_ITS ---
Procedure Note: Date of procedure: 12/02/22 Pre-procedure diagnosis: Femoral sheath removal and perclose deployment Post-procedure diagnosis: other (S/p femoral sheath removal and perclose deployment) Procedure: Patient was brought to laboratory technology teacher and using sterile technique was prepped. Right SCREW MACHINE OPERATOR SWISS TYPE had 12 fr sheath and preclosure sutures. We deployed the 2 percloses and manual pressure was held. Successful hemostasis was achieved. We then removed the 7 fr left SCREW MACHINE OPERATOR SWISS TYPE sheath and manual pressure was held. Patient left the laboratory technology teacher in a stable condition. Performing Provider: Amaury Ricks Estimated blood loss (mL): 10 Complications: None Condition: stable Disposition: ICU Coding Level of Care Code Acute Code for [facility]
--- NOTE | 2022-12-02 17:49 | PM.PROC ---
Procedure Note: Date of procedure: 12/02/22 Pre-procedure diagnosis: Femoral sheath removal and perclose deployment Post-procedure diagnosis: other (S/p femoral sheath removal and perclose deployment) Procedure: Patient was brought to analytical lab technician and using sterile technique was prepped. Right RESIDENT MANAGER had 12 fr sheath and preclosure sutures. We deployed the 2 percloses and manual pressure was held. Successful hemostasis was achieved. We then removed the 7 fr left RESIDENT MANAGER sheath and manual pressure was held. Patient left the analytical lab technician in a stable condition. Performing Provider: Amaury Ricks Estimated blood loss (mL): 10 Complications: None Condition: stable Disposition: ICU Coding Level of Care Code Acute Code for [facility] Fwjohann
--- NOTE | 2022-12-02 18:46 | PM.PN ---
Subjective Subjective: Patient underwent left main stenting today with Impella support. He tolerated the procedure fairly well. Still remains intubated. As of now the IV sedation's are being weaned down. Medications: Medication Review Details: Current Medications Acetaminophen (Acetaminophen 500 Mg Tablet) 500 mg PO Q4H PRN PRN Reason: fever Albuterol/Ipratropium (Ipratropium-Albuterol 3 Ml Neb) 3 ml INHALATION Q6H.RESP GUDELIA Last Admin: 12/02/22 14:26 Dose: 3 ml Albuterol/Ipratropium (Ipratropium-Albuterol 3 Ml Neb) 3 ml INHALATION Q6H PRN PRN Reason: SHORTNESS OF BREATH Aspirin (Aspirin 81 Mg Ec Tablet) 81 mg PO DAILY [facility] Last Admin: 12/02/22 12:27 Dose: 81 mg Atorvastatin Calcium (Atorvastatin 40 Mg Tablet) 80 mg PO BEDTIME GUDELIA Last Admin: 12/01/22 20:40 Dose: 80 mg Budesonide (Budesonide 0.5 Mg/2 Ml Neb) 0.5 mg INHALATION BID.RESPIRATORY [facility] Last Admin: 12/02/22 07:15 Dose: 0.5 mg Chlorhexidine Gluconate (Chlorhexidine Gluconate 4% Btl 118 Ml) 1 applic TOPICAL 0100 UGDELIA Last Admin: 12/02/22 01:41 Dose: 1 applic Clopidogrel Bisulfate (Clopidogrel 75 Mg Tablet) 75 mg PO DAILY [facility] Last Admin: 12/02/22 08:01 Dose: 75 mg Dextrose (Dextrose 50% Syringe 50 Ml) 25 ml IVP ONCE PRN; Protocol PRN Reason: hypoglycemia protocol Dextrose (Dextrose 50% Syringe 50 Ml) 50 ml IVP PRN PRN; Protocol PRN Reason: hypoglycemia protocol Fluticasone Propionate (Fluticasone Nasal [place] 16gm Btl) 2 spray NASAL DAILY [facility] Last Admin: 12/02/22 12:05 Dose: Not Given Glucagon (Glucagon 1 Mg/Ml Inj 1 Ml) 1 mg IM ONCE PRN; Protocol PRN Reason: Adult Acute Hypoglycemia Prot. Heparin Sodium (Porcine) (Heparin 5,000 Unit/Ml Inj 1 Ml) 0 unit IV PRN PRN; Protocol PRN Reason: Heparin weight-base protocol Last Admin: 11/30/22 10:31 Dose: 6,500 unit Dextrose (D5w) 500 mls @ 100 mls/hr IV ONCE PRN; Protocol PRN Reason: Adult Acute Hypoglycemia Prot Ceftriaxone Sodium 1,000 mg/ (Sodium Chloride) 50 mls @ 100 mls/hr IV Q24H GUDELIA; Protocol Last Infusion: 12/02/22 00:49 Dose: Infused Azithromycin 500 mg/ Sodium (Chloride) 250 mls @ 250 mls/hr IV Q24H GUDELIA; Protocol Last Admin: 12/02/22 12:05 Dose: Not Given Heparin Sodium/Sodium Chloride (Heparin Drip) 25,000 unit in 500 mls @ 0 mls/hr IV .Q0M GUDELIA; Protocol Last Titration: 12/01/22 04:00 Dose: 0 unit/kg/hr, 0 mls/hr Propofol (Diprivan) 1,000 mg in 100 mls @ 0 mls/hr IV .Q0M GUDELIA; Protocol Last Titration: 12/02/22 18:13 Dose: 20 mcg/kg/min, 15.26 mls/hr Fentanyl 1,000 mcg/ Sodium (Chloride) 100 mls @ 0 mls/hr IV .Q0M GUDELIA; Protocol Last Titration: 12/02/22 18:13 Dose: 100 mcg/hr, 10 mls/hr Sodium Chloride (Sodium Chloride 0.45%) 1,000 mls @ 50 mls/hr IV .Q20H GUDELIA Last Admin: 12/02/22 17:44 Dose: 50 mls/hr Norepinephrine Bitartrate 4 mg (/ Dextrose) 254 mls @ 0 mls/hr IV .Q0M GUDELIA; Protocol Last Titration: 12/02/22 05:07 Dose: 0 mcg/min, 0 mls/hr Insulin Human Lispro (Insulin Lispro 100 Unit/1 Ml) 0 unit SUBCUT TIDWM GUDELIA; Protocol Last Admin: 12/02/22 17:46 Dose: 8 unit Insulin Human Lispro (Insulin Lispro 100 Unit/1 Ml) 0 unit SUBCUT BEDTIME GUDELIA; Protocol Last Admin: 12/01/22 21:07 Dose: 2 unit Lanolin (Lanolin Oint 7 Gm) 1 applic TOPICAL PRN PRN PRN Reason: DRYNESS Last Admin: 11/29/22 05:23 Dose: 1 applic Methylprednisolone Sodium Succinate (Methylprednisolone Sod Succ 40 Mg/Ml Inj) 40 mg IVP Q12H GUDELIA Last Admin: 12/02/22 17:43 Dose: 40 mg Metoprolol Tartrate (Metoprolol Tartrate 1 Mg/1 Ml Sdv 5 Ml) 5 mg IVP Q6H PRN PRN Reason: HYPERTENSION Last Admin: 11/30/22 13:11 Dose: 5 mg Ondansetron HCl (Ondansetron 2 Mg/Ml Sdv 2 Ml) 4 mg IVP Q6H PRN PRN Reason: NAUSEA AND VOMITING Pantoprazole Sodium (Pantoprazole 40 Mg Sdv) 40 mg IVP Q24H GUDELIA Last Admin: 12/02/22 13:14 Dose: 40 mg Vitals/I&O/Wt Last Vital Signs Temp 99.0 F 12/01/22 09:00 Pulse 56 L 12/02/22 14:20 Resp 16 12/02/22 17:50 BP 95/59 12/02/22 12:00 Pulse Ox 95 12/02/22 17:50 O2 Del Method 12/02/22 14:10 O2 Flow Rate 6 12/02/22 06:00 FiO2 30 12/02/22 17:50 12/02/22 12/02/22 12/02/22 06:59 14:59 22:59 Intake Total 281.538 / 2205.735 260 / 260 1201.939 / 1461.939 Output Total 375 / 1325 Balance -93.462 / 880.735 260 / 260 1201.939 / 1461.939 Physical Exam Narrative: GENERAL: The patient is intubated and sedated HEENT: No significant pallor, icterus or lymphadenopathy.Oral cavity: There are no mucous membrane lesions. NECK: Trachea appears to be central. No masses noted. No JVD or thyromegaly appreciated. RESPIRATORY: Chest is symmetrical. No intercostals muscle retraction or any accessory muscle activation. There is no chest wall tenderness. Breath sounds are heard bilaterally. No rales or rhonchi heard. No evidence of any consolidation. BREASTS: Deferred. HEART: The heart sounds are normal. No S3 or S4. Ejection systolic murmur grade 3 or 6 in the aortic area. No diastolic murmurs. No pericardial rub ABDOMEN: No vessel pulsations or distention. No tenderness. No organomegaly appreciated. Bowel sounds are normally heard. : Deferred. RECTAL: Deferred. LYMPHATIC: No lymphadenopathy noted in the neck. EXTREMITIES: No edema or cyanosis. No clubbing. MUSCULOSKELETAL: No acute joint deformities or swelling SKIN: There are no significant rashes or ecchymosis NEUROPSYCHIATRIC: Patient is intubated and sedated Urinary Catheter Management: Vasquez: Cath Placed During This Visit: yes Reason for Continuing Indwelling Catheter: Accurate Measurement of Urinary Output in Critically Ill Patients Urinary Catheter Date of Insertion: 11/29/22 Urinary Catheter Time of Insertion: 01:14 Data 12/03/22 02:13 12/03/22 02:13 Micro: Microbiology 11/30/22 14:40 Gram Stain - Final Sputum - Endotracheal Tube Aspirate Sputum Culture - Final Pseudomonas aeruginosa A&P Assessment and plan (1) Stenosis of left main coronary artery: Start post PCI of the left main. Currently seems to be stable. We will continue on the Plavix, aspirin and other medications. (2) Non-ST elevation [place] (NSTEMI): No recurrence of chest pain. Status post hypotension. Currently off the vasopressors. Hemodynamic status seems to be fairly stable (3) Acute respiratory failure with hypoxia: Respiratory status seems to be s stable at this time. in the process of weaning off the ventilator (4) Altered mental status: Currently intubated and sedated. (5) T2DM (type 2 diabetes mellitus): The diabetes seems to be fairly under control. (6) Acute kidney injury: The kidney function seems to stable Plan Patient may be continued on the current medications. Work on gradual extubation. Attestations Medical Necessity Statement*: Patient requires close monitoring at this point Coding Level of Care Code 32384 Diagnoses Stenosis of left main coronary artery I25.10 Non-ST elevation [place] (NSTEMI) I21.4 Acute respiratory failure with hypoxia J96.01 Altered mental status R41.82 T2DM (type 2 diabetes mellitus) E11.9 Acute kidney injury N17.9
[2022-12-02 20:16] LABS: Glucose Point of Care 227 mg/dL (70-110)
[2022-12-02] MEDS: atorvastatin 40 mg Tablet 80 MG PO (20:22)
[2022-12-03] VITALS (89 sets, daily range): BP systolic 86–126; BP diastolic 53–72; PULSE 57–82; RESP 11–22; TEMP 37.1–37.3; O2SAT 88–97; BMI 44.1
[2022-12-03] MEDS: cefTRIAXone 1,000 MG in sodium chloride 0.9% (plus) 50 ML 100 MG IV (00:13)
[2022-12-03 00:41] LABS: Glucose Point of Care 242 mg/dL (70-110)
[2022-12-03] MEDS: propofol 1,000 MG/100 ML INJ 15.26 MG IV (01:11)
--- NOTE | 2022-12-03 01:39 | PC.NURSE ---
Addendum entered by Gina Schmitz RN 12/03/22 01:49: Witnessed waste of 20 ml propofol with ANTONIO Cuello. Original Note: 20 mL of propofol wasted with ANTONIO Fuentes.
[2022-12-03 02:24] LABS: Basophils % 0.1 %; Hematocrit 33.3 % (42.0-52.0); Hemoglobin 10.5 g/dL (11.7-16.6); Lymphocytes # 0.6 10^3/uL (0.8-4.8); Lymphocytes % 4.1 %; Mean Corpuscular HGB Conc 31.5 g/dL (30.0-36.0); Mean Corpuscular Hemoglobin 27.3 pg (28.0-34.0); Mean Corpuscular Volume 86.7 fl (80-94); Mean Platelet Volume 11.3 fL (7.4-10.4); Monocytes # 1.1 10^3/uL (0.2-0.9); Monocytes % 7.6 %; Neutrophils # 12.89 10^3/uL (1.8-7.7); Neutrophils % 87.7 %; Nucleated Red Blood Cells % 0.3 %; Platelet Count 187 10^3/cmm (130-400); Red Blood Count 3.84 10^6/uL (4.1-5.3); Red Cell Distribution Width 14.7 % (12.1-15.1); White Blood Count 14.7 10^3/uL (4.0-10.0)
[2022-12-03] MEDS: ipratropium-albuterol 3 mL Neb INHALATION ×4 (02:39→20:16)
--- NOTE | 2022-12-03 02:43 | PC.NURSE ---
Upon assessment,Lung sounds were coarse and crackles. Dr. Baugh notified and no new orders received.
[2022-12-03 02:48] LABS: Alanine Aminotransferase 26 U/L (0-41); Albumin Level 2.7 g/dL (3.5-5.2); Alkaline Phosphatase 56 U/L (40-130); Aspartate Amino Transferase 28 U/L (0-40); Blood Urea Nitrogen 40 mg/dL (8-23); Calcium 7.6 mg/dL (8.5-10.5); Carbon Dioxide 25 mmol/L (22-29); Chloride 98 mmol/L (98-107); Globulin 2.8 g/dL (1.3-4.6); Glucose 179 mg/dL (65-115); Osmolality Calculated 290 mOsm/kg (285-295); Sodium 133 mmol/L (136-145); Total Bilirubin 0.3 mg/dL (0.15-1.2); Total Protein 5.5 g/dL (6.6-8.7)
[2022-12-03 02:49] LABS: Anion Gap 14.8 (5-19); Potassium 4.8 mmol/L (3.5-5.1)
[2022-12-03] MEDS: chlorhexidine gluconate 4% Btl 118 mL 1 APPLIC TOPICAL (03:30)
[2022-12-03] MEDS: propofol 1,000 MG/100 ML INJ 19.07 MG IV (06:30)
[2022-12-03 07:07] LABS: Glucose Point of Care 224 mg/dL (70-110)
[2022-12-03] MEDS: budesonide 0.5 mg/2 mL Neb INHALATION ×2 (07:58→20:16)
[2022-12-03] MEDS: insulin lispro 100 unit/1 mL SUBCUT ×4 (08:28→20:44)
[2022-12-03] MEDS: aspirin 81 mg EC Tablet PO (08:33)
[2022-12-03] MEDS: clopidogrel 75 mg Tablet PO (08:33)
[2022-12-03] MEDS: azithromycin 500 MG in sodium chloride 0.9% 250 ML 250 MG IV (08:41)
[2022-12-03] MEDS: levofloxacin-dextrose 5 % 750 MG/150 ML PREMIX 100 MG IV (08:51)
[2022-12-03] MEDS: pantoprazole 40 mg SDV IVP (10:24)
[2022-12-03] MEDS: FUROsemide 10 mg/mL SDV 2mL 20 MG IVP ×2 (10:53→22:38)
[2022-12-03 12:16] LABS: Glucose Point of Care 226 mg/dL (70-110)
--- NOTE | 2022-12-03 12:27 | PC.SOCIAL ---
IMM update IMM not updated as patient is intubated and not expected to dc in the next 24-48 hours.
[2022-12-03] MEDS: propofol 1,000 MG/100 ML INJ 11.44 MG IV (12:51)
--- NOTE | 2022-12-03 16:17 | P.PN_ITS ---
Subjective Subjective: Intubated, sedated, noted moving extremities spontaneously on fentanyl and propofol. Vitals/I&O/Wt Last Vital Signs Temp 98.8 F 12/03/22 04:00 Pulse 72 12/03/22 14:00 Resp 16 12/03/22 13:16 BP 105/61 12/03/22 12:00 Pulse Ox 92 12/03/22 13:16 O2 Del Method Mechanical Ventilation 12/03/22 13:16 O2 Flow Rate 6 12/02/22 06:00 FiO2 40 12/03/22 13:16 12/03/22 12/03/22 12/03/22 06:59 14:59 22:59 Intake Total 100.612 / 8183.812 8347.000 / 1600.000 Output Total 615 / 1265 Balance -514.388 / 906.463 2375.000 / 1600.000 Weight last 48 hrs Weight 135.76 kg Physical Exam Narrative: Accompanied by family including his . Const: GENERAL APPEARANCE: patient mechanically ventilated HENMT: COMMON NORMALS: oropharynx normal Neck/C-Spine: COMMON NORMALS: no JVD Resp: AUSCULTATION: rhonchi (Fewer) Cardio: COMMON NORMALS: no JVD, regular rhythm, S1 normal heart sound present, S2 normal heart sound present and No murmurs present (Cardio) RHYTHM: regular rhythm HEART SOUNDS: S1 normal heart sound present and S2 normal heart sound present GI: COMMON NORMALS: Normal to inspection, nondistended, normoactive bowel sounds present, Soft to palpation and non-tender PALPATION: Yes Soft to palpation Extremity: COMMON NORMALS: no joint enlargement NARRATIVE EXTREMITY EXAM: Right femoral sheath in place. GENERAL: Yes edema (Trace) Urinary Catheter Management: Vasquez: Cath Placed During This Visit: yes Reason for Continuing Indwelling Catheter: Accurate Measurement of Urinary Output in Critically Ill Patients Urinary Catheter Date of Insertion: 11/29/22 Urinary Catheter Time of Insertion: 01:14 Data 12/03/22 02:13 12/03/22 02:13 Micro: Microbiology 11/28/22 00:21 Blood Culture - Final Blood NO GROWTH AFTER 5 DAYS 11/28/22 00:21 Blood Culture - Final Blood NO GROWTH AFTER 5 DAYS 11/30/22 14:40 Gram Stain - Final Sputum - Endotracheal Tube Aspirate Sputum Culture - Final Pseudomonas aeruginosa A&P Assessment and plan (1) Acute respiratory failure with hypoxia: IV fluid discontinued. Discussed with cardiology, start Lasix, for now with soft blood pressure 20 mg IV twice daily. Monitor blood pressures, I&O. Follow-up chemistry requested to track electrolytes, renal function. Continue Vasquez. Weaning sedation, coming down on performance related to help with soft blood pressures, but is still on 100 mics of fentanyl as well. With, now on propofol had to stay on 15 mcg as otherwise becoming rather restless. As discussed with family certainly acute metabolic encephalopathy with delirium unfortunately may make weaning more of a challenge. Add Precedex, will try to see if he can cut down to max dose of 50 mcg on fentanyl. Keep propofol as his unless becoming more restless. Spontaneous breathing trial. Continue to reassess possibility for extubation. Discussed with his this morning also Pseudomonas noted in culture sputum culture. Antibiotics changed from ceftriaxone to Levaquin. Continue azithromycin. FiO2 30% this morning, PEEP 6, FiO2 had to be increased with weaning sedation with some dyssynchrony To 40%. Discussed with family consideration also given he had encephalopathy/delirium prior to intubation that is possible he may have it again with attempted weaning sedation and ventilatory support which may complicate his recovery. Suspected chronic hypoxia that has been untreated. He does have known sleep apnea and is intolerant of facial mask. Reported history of emphysema. (2) Hypotension: Overall better, but blood pressure still soft. Wean down on propofol. With ex tubation intent needs to wean down on fentanyl. Lasix added this morning at only 20 mg IV twice daily. Continue to watch blood pressure. Hypertension suspected was likely degree of cardiogenic shock, moderate to severe aortic stenosis and propofol. Limited TTE which was repeated with contrast due to poor visibility and prior study, with wall motion abnormalities, diminished EF 25-30%. (3) Non-ST elevation [place] (NSTEMI): Status post high risk PCI, transient Impella support on 12/02. Stent placed in LAD. Sheath removed on return to Director Housekeeping last night and hemostasis achieved. On aspirin, Plavix. Beta-richard held, hypotensive. Will benefit from addition of statin. Type I NSTEMI with troponin elevation, EKG changes, regional wall motion abnormalities on echo decreased EF. (4) Seasonal allergies: (5) Pneumonia: Pseudomonas. Change ceftriaxone to Levaquin. Continue azithromycin. Possible pneumonia, although afebrile, without leukocytosis. Does have secretions/rhonchi. RT performing pulmonary toilet. Continue ceftriaxone, azithromycin. Follow-up sputum, blood cultures. MRSA PCR noted negative. (6) COPD exacerbation: Antibiotic changed as above, Solu-Medrol. Breathing treatments. Related to allergies and pneumonia (7) Lymphadenopathy: Scattered mediastinal lymph nodes up to 15 mm in the subcarinal region noted on CTA of the chest (8) T2DM (type 2 diabetes mellitus): Chronically on metformin, hemoglobin A1c 8.2 (9) Hypertension: Chronically on Lasix (10) Gross hematuria: Likely traumatic related to Vasquez placement along with anticoagulation. Resolved with irrigation and holding of anticoagulation. Will monitor with resumption of anticoagulation. CT kidney stone protocol suggestion of stone/obstructive uropathy. Follow-up CBC requested. (11) Prostate cancer: May be a contributing factor to above, chronically on Flomax (12) Acute kidney injury: Improved, creatinine down to 1, although some dilutional effect likely as well. Discussed with his . Monitor renal function, urine output with diuresis. Obstructive uropathy excluded. Otherwise suspicion for prerenal ALFRED versus ATN. Continue hemodynamic support, wean down as tolerating. Follow-up chemistry requested. (13) Hyperkalemia: Resolved. Related to acute kidney injury, though persists after normalization of creatinine. Not on any potassium containing medications presently will need to monitor. (14) Aortic stenosis: Newly identified diagnosis as per echocardiogram. Aortic valve area 1.3 cm?. Plan Bilateral pleural effusions, right greater than left: Started diuresis gently due to soft blood pressure. Monitor HANNAH, blood pressures, renal function. With noted decreased EF 25-30%, NSTEMI, peripheral trace edema. Suspect component of acute systolic and diastolic CHF for which will benefit from diuresis, however, currently hypotensive, pending additional cardiac assessment as above. Smoking addiction Emphysema Attestations Medical Necessity Statement*: Continue admission for assessment management of respiratory failure, weaning of mechanical ventilatory support, CHF, pneumonia, weaning of sedation in setting of encephalopathy with delirium, status post high risk PCI for NSTEMI. Coding Level of Care Code Critical Care >/= 30 minutes Critical care time (in minutes): 45 The high probability of a clinically significant, sudden or life threatening d eterioration, as referenced in this documentation, required my full and direct attention, intervention and personal management. The critical care time shown is in addition to time spent performing any reported separately billable procedures and includes the following: [x] Data and vital sign review and interpretation [x ] Patient assessment, examination and intervention [x] Medication orders and management [x] Patient/Family updates as able [x] Care Coordination and Documentation. Diagnoses Acute respiratory failure with hypoxia J96.01 Hypotension I95.9 Non-ST elevation [place] (NSTEMI) I21.4 Seasonal allergies J30.2 Pneumonia J18.9 COPD exacerbation J44.1 Lymphadenopathy R59.1 T2DM (type 2 diabetes mellitus) E11.9 Hypertension I10 Gross hematuria R31.0 Prostate cancer C61 Acute kidney injury N17.9 Hyperkalemia E87.5 Aortic stenosis I35.0
[2022-12-03] MEDS: dexmedetomidine 400 MCG in sodium chloride 0.9% (100 ml) 100 ML IV (16:42)
[2022-12-03 17:25] LABS: Glucose Point of Care 183 mg/dL (70-110)
[2022-12-03] MEDS: atorvastatin 40 mg Tablet 80 MG PO (20:36)
[2022-12-03 20:53] LABS: Glucose Point of Care 197 mg/dL (70-110)
--- NOTE | 2022-12-03 22:51 | PM.PN ---
Subjective Subjective: The patient is still on the ventilator. Telemetry shows sinus rhythm. Blood pressure is still soft. Continues to be off the vasopressors Medications: Medication Review Details: Current Medications Acetaminophen (Acetaminophen 500 Mg Tablet) 500 mg PO Q4H PRN PRN Reason: fever Albuterol/Ipratropium (Ipratropium-Albuterol 3 Ml Neb) 3 ml INHALATION Q6H.RESP GUDELIA Last Admin: 12/03/22 20:16 Dose: 3 ml Albuterol/Ipratropium (Ipratropium-Albuterol 3 Ml Neb) 3 ml INHALATION Q6H PRN PRN Reason: SHORTNESS OF BREATH Aspirin (Aspirin 81 Mg Ec Tablet) 81 mg PO DAILY GUDELIA Last Admin: 12/03/22 08:33 Dose: 81 mg Atorvastatin Calcium (Atorvastatin 40 Mg Tablet) 80 mg PO BEDTIME GUDELIA Last Admin: 12/03/22 20:36 Dose: 80 mg Budesonide (Budesonide 0.5 Mg/2 Ml Neb) 0.5 mg INHALATION BID.RESPIRATORY GUDELIA Last Admin: 12/03/22 20:16 Dose: 0.5 mg Chlorhexidine Gluconate (Chlorhexidine Gluconate 4% Btl 118 Ml) 1 applic TOPICAL 0100 GUDELIA Last Admin: 12/03/22 03:30 Dose: 1 applic Clopidogrel Bisulfate (Clopidogrel 75 Mg Tablet) 75 mg PO DAILY [facility] Last Admin: 12/03/22 08:33 Dose: 75 mg Dextrose (Dextrose 50% Syringe 50 Ml) 25 ml IVP ONCE PRN; Protocol PRN Reason: hypoglycemia protocol Dextrose (Dextrose 50% Syringe 50 Ml) 50 ml IVP PRN PRN; Protocol PRN Reason: hypoglycemia protocol Fluticasone Propionate (Fluticasone Nasal [employer] 16gm Btl) 2 spray NASAL DAILY [facility] Last Admin: 12/03/22 08:03 Dose: Not Given Furosemide (Furosemide 10 Mg/Ml Sdv 2ml) 20 mg IVP Q12H [facility] Last Admin: 12/03/22 22:38 Dose: 20 mg Glucagon (Glucagon 1 Mg/Ml Inj 1 Ml) 1 mg IM ONCE PRN; Protocol PRN Reason: Adult Acute Hypoglycemia Prot. Heparin Sodium (Porcine) (Heparin 5,000 Unit/Ml Inj 1 Ml) 0 unit IV PRN PRN; Protocol PRN Reason: Heparin weight-base protocol Last Admin: 11/30/22 10:31 Dose: 6,500 unit Dextrose (D5w) 500 mls @ 100 mls/hr IV ONCE PRN; Protocol PRN Reason: Adult Acute Hypoglycemia Prot Azithromycin 500 mg/ Sodium (Chloride) 250 mls @ 250 mls/hr IV Q24H GUDELIA; Protocol Last Infusion: 12/03/22 10:15 Dose: Infused Heparin Sodium/Sodium Chloride (Heparin Drip) 25,000 unit in 500 mls @ 0 mls/hr IV .Q0M GUDELIA; Protocol Last Titration: 12/01/22 04:00 Dose: 0 unit/kg/hr, 0 mls/hr Propofol (Diprivan) 1,000 mg in 100 mls @ 0 mls/hr IV .Q0M GUDELIA; Protocol Last Titration: 12/03/22 16:43 Dose: 10 mcg/kg/min, 7.63 mls/hr Norepinephrine Bitartrate 4 mg (/ Dextrose) 254 mls @ 0 mls/hr IV .Q0M GUDELIA; Protocol Last Titration: 12/02/22 21:45 Dose: 1 mcg/min, 3.81 mls/hr Levofloxacin/Dextrose (Levaquin-D5w) 750 mg in 150 mls @ 100 mls/hr IV Q24H GUDELIA; Protocol Last Infusion: 12/03/22 10:24 Dose: Infused Dexmedetomidine HCl 400 mcg/ (Sodium Chloride) 104 mls @ 0 mls/hr IV .Q0M GUDELIA; Protocol Last Titration: 12/03/22 17:30 Dose: 0.4 mcg/kg/hr, 14.12 mls/hr Fentanyl 1,000 mcg/ Sodium (Chloride) 100 mls @ 0 mls/hr IV .Q0M GUDELIA; Protocol Last Admin: 12/03/22 21:22 Dose: 50 mcg/hr, 5 mls/hr Insulin Human Lispro (Insulin Lispro 100 Unit/1 Ml) 0 unit SUBCUT TIDWM GUDELIA; Protocol Last Admin: 12/03/22 17:24 Dose: 6 unit Insulin Human Lispro (Insulin Lispro 100 Unit/1 Ml) 0 unit SUBCUT BEDTIME GUDELIA; Protocol Last Admin: 12/03/22 20:44 Dose: 2 unit Lanolin (Lanolin Oint 7 Gm) 1 applic TOPICAL PRN PRN PRN Reason: DRYNESS Last Admin: 11/29/22 05:23 Dose: 1 applic Methylprednisolone Sodium Succinate (Methylprednisolone Sod Succ 40 Mg/Ml Inj) 40 mg IVP Q12H [facility] Last Admin: 12/03/22 16:34 Dose: 40 mg Metoprolol Tartrate (Metoprolol Tartrate 1 Mg/1 Ml Sdv 5 Ml) 5 mg IVP Q6H PRN PRN Reason: HYPERTENSION Last Admin: 11/30/22 13:11 Dose: 5 mg Ondansetron HCl (Ondansetron 2 Mg/Ml Sdv 2 Ml) 4 mg IVP Q6H PRN PRN Reason: NAUSEA AND VOMITING Pantoprazole Sodium (Pantoprazole 40 Mg Sdv) 40 mg IVP Q24H GUDELIA Last Admin: 12/03/22 10:24 Dose: 40 mg Vitals/I&O/Wt Last Vital Signs Temp 99.1 F 12/03/22 20:00 Pulse 74 12/03/22 22:00 Resp 14 12/03/22 20:00 BP 91/55 12/03/22 21:30 Pulse Ox 93 12/03/22 21:30 O2 Del Method Mechanical Ventilation 12/03/22 20:00 O2 Flow Rate 6 12/02/22 06:00 FiO2 40 12/03/22 22:00 12/03/22 12/03/22 12/03/22 06:59 14:59 22:59 Intake Total 100.612 / 8943.818 4406.000 / 1600.000 130.624 / 1730.624 Output Total 615 / 1265 1000 / 1000 Balance -514.388 / 601.982 6039.000 / 1600.000 -869.376 / 730.624 Weight last 48 hrs Weight 299 lb 4.8 oz Physical Exam Narrative: GENERAL: Patient is remaining intubated. The IV propofol and fentanyl are being titrated down. HEENT: Minimal pallor with no icterus or lymphadenopathy.Oral cavity: There are no mucous membrane lesions. NECK: Trachea appears to be central. No masses noted. No JVD or thyromegaly appreciated. RESPIRATORY: Chest is symmetrical. No intercostals muscle retraction or any accessory muscle activation. There is no chest wall tenderness. Breath sounds are heard bilaterally. Psych scattered expiratory wheezing BREASTS: Deferred. HEART: The heart sounds are normal. No S3 or S4. No pericardial rub ABDOMEN: No vessel pulsations or distention. No tenderness. No organomegaly appreciated. Bowel sounds are normally heard. : Deferred. RECTAL: Deferred. LYMPHATIC: No lymphadenopathy noted in the neck. EXTREMITIES: Trace edema with no cyanosis MUSCULOSKELETAL: No acute joint deformities or swelling SKIN: There are no significant rashes or ecchymosis NEUROPSYCHIATRIC: No focal motor deficits Urinary Catheter Management: Vasquez: Cath Placed During This Visit: yes Reason for Continuing Indwelling Catheter: Accurate Measurement of Urinary Output in Critically Ill Patients Urinary Catheter Date of Insertion: 11/29/22 Urinary Catheter Time of Insertion: 01:14 Data 12/03/22 02:13 12/03/22 02:13 Other Labs: Laboratory Last Values WBC 14.7 10^3/uL (4.0-10.0) H 12/03/22 02:13 RBC 3.84 10^6/uL (4.1-5.3) L 12/03/22 02:13 Hgb 10.5 g/dL (11.7-16.6) L 12/03/22 02:13 Hct 33.3 % (42.0-52.0) L 12/03/22 02:13 MCV 86.7 fl (80-94) 12/03/22 02:13 MCH 27.3 pg (28.0-34.0) L 12/03/22 02:13 MCHC 31.5 g/dL (30.0-36.0) 12/03/22 02:13 RDW 14.7 % (12.1-15.1) 12/03/22 02:13 Plt Count 187 10^3/cmm (130-400) 12/03/22 02:13 MPV 11.3 fL (7.4-10.4) H 12/03/22 02:13 Neut % (Auto) 87.7 % 12/03/22 02:13 Lymph % (Auto) 4.1 % 12/03/22 02:13 [place] % (Auto) 7.6 % 12/03/22 02:13 Eos % (Auto) 0.0 % 12/03/22 02:13 Baso % (Auto) 0.1 % 12/03/22 02:13 Neut # (Auto) 12.89 10^3/uL (1.8-7.7) H 12/03/22 02:13 Lymph # (Auto) 0.6 10^3/uL (0.8-4.8) L 12/03/22 02:13 [place] # (Auto) 1.1 10^3/uL (0.2-0.9) H 12/03/22 02:13 Eos # (Auto) 0.0 10^3/uL (0.0-0.8) 12/03/22 02:13 Baso # (Auto) 0.0 10^3/uL (0.0-0.1) 12/03/22 02:13 Nucleated RBC % (auto) 0.3 % 12/03/22 02:13 Nucleated RBCs # 0.0 /100WBC 12/03/22 02:13 PT 13.20 SECONDS (12.1-14.9) 11/27/22 23:04 INR 0.98 (0.8-1.2) 11/27/22 23:04 APTT 66.1 SECONDS (23.9-36.7) H 12/01/22 00:36 Specimen Type Arterial 12/01/22 03:06 Sample Site Radial, right 12/01/22 03:06 ABG pH 7.46 (7.35-7.45) H 12/01/22 03:06 ABG pCO2 40.1 mmHg (35-45) 12/01/22 03:06 ABG pO2 71.7 mmHg (80.0-100.0) L 12/01/22 03:06 ABG HCO3 28.2 mmol/L (22-26) H 12/01/22 03:06 ABG O2 Saturation 89.3 11/30/22 08:24 ABG Base Excess 4.0 mmol/L (-2.0-2.0) H 12/01/22 03:06 [place] Test Pos 12/01/22 03:06 A-a O2 Gradient 3.5 mmHg (5-10) L 11/30/22 08:24 Hematocrit 35.1 % (42-52) L 12/01/22 03:06 Hgb O2 Saturation 87.7 % (95-100) L 11/30/22 08:24 Carboxyhemoglobin 1.5 %THgb (0.4-20.1) 11/30/22 08:24 Methemoglobin 0.3 % (0.4-1.5) L 11/30/22 08:24 Total Hemoglobin 12.5 g/dL (14-18) L 11/30/22 08:24 Sodium 136.0 mmol/L (131-143) 11/30/22 08:24 Potassium 5.5 mmol/L (3.5-5.0) H 11/30/22 08:24 Glucose 207.0 mg/dL (70-115) H 11/30/22 08:24 Ionized Calcium 1.2 mmol/L (1.1-1.4) 11/30/22 08:24 O2 Delivery Device Vent 12/01/22 03:06 O2 Liters/Min 4.0 % 11/30/22 08:24 FiO2 40.0 % 12/01/22 03:06 Tidal Volume 0.50 12/01/22 03:06 PEEP 8.0 cmH20 12/01/22 03:06 Agent Contract Clerk ID [email or web address] 12/01/22 03:06 Sodium 133 mmol/L (136-145) L 12/03/22 02:13 Potassium 4.8 mmol/L (3.5-5.1) 12/03/22 02:13 Chloride 98 mmol/L (98-107) 12/03/22 02:13 Carbon Dioxide 25 mmol/L (22-29) 12/03/22 02:13 Anion Gap 14.8 (5-19) 12/03/22 02:13 BUN 40 mg/dL (8-23) H 12/03/22 02:13 Creatinine 1.0 mg/dL (0.7-1.2) 12/03/22 02:13 GFR Calculation Not Reportable 12/03/22 02:13 Glucose 179 mg/dL (65-115) H 12/03/22 02:13 POC Glucose 197 mg/dL (70-110) H 12/03/22 20:38 Estimat Average Glucose 189 11/29/22 02:27 Hemoglobin A1c 8.2 % (4.0-6.0) H 11/29/22 02:27 Calculated Osmolality 290 mOsm/kg (285-295) 12/03/22 02:13 Uric Acid 8.6 mg/dL (3.4-7.0) H 11/29/22 02:27 Calcium 7.6 mg/dL (8.5-10.5) L 12/03/22 02:13 Phosphorus 3.9 mg/dL (2.5-4.5) 12/01/22 00:36 Magnesium 2.5 mg/dL (1.7-2.3) H 12/01/22 00:36 Total Bilirubin 0.3 mg/dL (0.15-1.2) 12/03/22 02:13 AST 28 U/L (0-40) 12/03/22 02:13 ALT 26 U/L (0-41) 12/03/22 02:13 Alkaline Phosphatase 56 U/L (40-130) 12/03/22 02:13 Ammonia 22 umol/L (16-60) 11/30/22 21:41 Creatine Kinase 254 U/L (39-308) 12/01/22 00:36 Troponin T Gen 5 ng/L 2208 ng/L (0-15) H* 12/01/22 00:36 Troponin T Baseline 261 ng/L (0-15) H* 11/27/22 23:04 Troponin T 120 Minute 278.3 ng/L (0-15) H 11/28/22 00:51 Delta Troponin T 17.3 ABS# (0-10) H* 11/28/22 00:51 Troponin T Hi Sens 6Hr 447.2 ng/L (0-15) H 11/28/22 05:11 Troponin T Hi Sens 6Hr Delta 186.2 ng/L (0-12) H* 11/28/22 05:11 C-Reactive Protein 10.3 mg/L (0.0-4.9) H 11/30/22 04:10 NT-Pro-B Natriuret Pep 1821 pg/mL (0-125) H 11/27/22 23:04 Total Protein 5.5 g/dL (6.6-8.7) L 12/03/22 02:13 Albumin 2.7 g/dL (3.5-5.2) L 12/03/22 02:13 Globulin 2.8 g/dL (1.3-4.6) 12/03/22 02:13 Triglycerides 125 mg/dL (0-150) 11/30/22 04:10 Cholesterol 176 mg/dL (0-200) 11/30/22 04:10 LDL Cholesterol, Calc 111 mg/dL (50-129) 11/30/22 04:10 HDL Cholesterol 40 mg/dL (60-100) L 11/30/22 04:10 LDL/HDL Ratio 2.78 RATIO (0.00-3.22) 11/30/22 04:10 Cholesterol/HDL Ratio 4.40 mg/dL (1.0-5.00) 11/30/22 04:10 Urine Color Cancelled 12/01/22 08:35 Urine Appearance Cancelled 12/01/22 08:35 Urine pH Cancelled 12/01/22 08:35 Ur Specific [place] Cancelled 12/01/22 08:35 Urine Protein Cancelled 12/01/22 08:35 Urine Glucose (UA) Cancelled 12/01/22 08:35 Urine Ketones Cancelled 12/01/22 08:35 Urine Blood Cancelled 12/01/22 08:35 Urine Nitrate Cancelled 12/01/22 08:35 Urine Bilirubin Cancelled 12/01/22 08:35 Prot Sulfosalicylic Acd Cancelled 12/01/22 08:35 Urine Urobilinogen Cancelled 12/01/22 08:35 Ur Leukocyte Esterase Cancelled 12/01/22 08:35 Urine RBC Too numerous to cnt /hpf (0-2) H 11/29/22 08:57 Urine WBC 40-55 /hpf (0-5) H 11/29/22 08:57 Ur Squamous Epith Cells 0-4 /hpf (0-5) H 11/29/22 08:57 Amorphous Sediment Not Reportable 11/29/22 08:57 Urine Bacteria 1+ /hpf (NONE) H 11/29/22 08:57 Ur Random Sodium 29 mmol/L 11/29/22 08:57 Urine Creatinine 133 mg/dL (39-259) 11/29/22 08:57 Influenza Type A Ag negative (Negative) 11/27/22 22:40 Influenza Type B Ag negative (Negative) 11/27/22 22:40 SARS-CoV-2 Ag (Rapid) negative (Negative) 11/27/22 22:40 Micro: Microbiology 11/28/22 00:21 Blood Culture - Final Blood NO GROWTH AFTER 5 DAYS 11/28/22 00:21 Blood Culture - Final Blood NO GROWTH AFTER 5 DAYS A&P Assessment and plan (1) Stenosis of left main coronary artery: Start post PCI of the left main. Currently seems to be stable. We will continue on the Plavix, aspirin and other medications. (2) Non-ST elevation [place] (NSTEMI): No recurrence of chest pain. Status post hypotension. Currently off the vasopressors. Hemodynamic status seems to be fairly stable. The blood pressure seems to be improving as the IV sedation is being tapered down (3) Acute respiratory failure with hypoxia: Respiratory status seems to be s stable at this time. Patient is on FiO2 30%. In the process of weaning off the ventilator (4) Altered mental status: Currently intubated and sedated. (5) T2DM (type 2 diabetes mellitus): The blood sugar seems to be fairly under control. (6) Acute kidney injury: The kidney function seems to stable Plan May continue to work on weaning him off the ventilator Attestations Medical Necessity Statement*: Patient requires continued hospital stay for close monitoring and further management Coding Level of Care Code 44818 Diagnoses Stenosis of left main coronary artery I25.10 Non-ST elevation [place] (NSTEMI) I21.4 Acute respiratory failure with hypoxia J96.01 Altered mental status R41.82 T2DM (type 2 diabetes mellitus) E11.9 Acute kidney injury N17.9
[2022-12-04] VITALS (54 sets, daily range): BP systolic 92–120; BP diastolic 52–74; PULSE 60–76; RESP 7–29; TEMP 35.9–37.4; O2SAT 88–99; BMI 44.7
[2022-12-04] MEDS: dexmedetomidine 400 MCG in sodium chloride 0.9% (100 ml) 100 ML 14.12 MCG IV ×2 (00:19→08:38)
[2022-12-04] MEDS: chlorhexidine gluconate 4% Btl 118 mL 1 APPLIC TOPICAL (01:10)
[2022-12-04] MEDS: propofol 1,000 MG/100 ML INJ 7.63 MG IV (01:12)
[2022-12-04] MEDS: ipratropium-albuterol 3 mL Neb INHALATION ×4 (02:23→19:49)
[2022-12-04 03:09] LABS: Basophils % 0.1 %; Hematocrit 33.3 % (42.0-52.0); Hemoglobin 10.3 g/dL (11.7-16.6); Lymphocytes # 0.6 10^3/uL (0.8-4.8); Lymphocytes % 4.4 %; Mean Corpuscular HGB Conc 30.9 g/dL (30.0-36.0); Mean Corpuscular Hemoglobin 26.8 pg (28.0-34.0); Mean Corpuscular Volume 86.7 fl (80-94); Mean Platelet Volume 11.3 fL (7.4-10.4); Monocytes # 0.9 10^3/uL (0.2-0.9); Monocytes % 7.1 %; Neutrophils # 11.32 10^3/uL (1.8-7.7); Neutrophils % 87.9 %; Nucleated Red Blood Cells # 0.1 /100WBC; Nucleated Red Blood Cells % 0.4 %; Platelet Count 173 10^3/cmm (130-400); Red Blood Count 3.84 10^6/uL (4.1-5.3); Red Cell Distribution Width 14.9 % (12.1-15.1); White Blood Count 12.9 10^3/uL (4.0-10.0)
[2022-12-04 03:27] LABS: Alanine Aminotransferase 24 U/L (0-41); Albumin Level 2.9 g/dL (3.5-5.2); Alkaline Phosphatase 59 U/L (40-130); Aspartate Amino Transferase 17 U/L (0-40); Blood Urea Nitrogen 45 mg/dL (8-23); Calcium 7.6 mg/dL (8.5-10.5); Carbon Dioxide 27 mmol/L (22-29); Chloride 99 mmol/L (98-107); Globulin 2.8 g/dL (1.3-4.6); Glucose 211 mg/dL (65-115); Osmolality Calculated 302 mOsm/kg (285-295); Sodium 137 mmol/L (136-145); Total Bilirubin 0.3 mg/dL (0.15-1.2); Total Protein 5.7 g/dL (6.6-8.7)
[2022-12-04 06:39] LABS: Blood Gas Allen Test Pos; Blood Gas Operator Identificat JB; Blood Gas Sample Site Radial, right; Blood Gas Sample Type Arterial; Oxygen Device VENT
[2022-12-04 06:41] LABS: ABG PCO2 40.6 mmHg (35-45); ABG PH Result 7.45 (7.35-7.45); Alveolar-Arterial Oxygen Gradi 22.3 mmHg (5-10); Arterial Blood Gas Hematocrit 35.7 % (42-52); Base Excess ABG 3.6 mmol/L (-2.0-2.0); Carboxyhemoglobin 1.2 %THgb (0.4-20.1); HGB O2 Sat 91.1 % (95-100); Methemoglobin 0.4 % (0.4-1.5); Oxygen Saturation ABG 92.6; PO2 ABG 62.8 mmHg (80.0-100.0); Total Hemoglobin 11.6 g/dL (14-18)
[2022-12-04] MEDS: budesonide 0.5 mg/2 mL Neb INHALATION ×2 (07:50→19:49)
--- NOTE | 2022-12-04 07:59 | PM.PN ---
Subjective Subjective: The patient is off all the IV sedation. He still appears to be paroxysmal nocturnal dyspnea drowsy. Answers to questions by yes or no. Seems to be moving all the extremities. No fever or chills. Vitals are stable. No arrhythmias on the monitor. Medications: Medication Review Details: Current Medications Acetaminophen (Acetaminophen 500 Mg Tablet) 500 mg PO Q4H PRN PRN Reason: fever Albuterol/Ipratropium (Ipratropium-Albuterol 3 Ml Neb) 3 ml INHALATION Q6H.RESP [facility] Last Admin: 12/04/22 13:20 Dose: 3 ml Albuterol/Ipratropium (Ipratropium-Albuterol 3 Ml Neb) 3 ml INHALATION Q6H PRN PRN Reason: SHORTNESS OF BREATH Aspirin (Aspirin 81 Mg Ec Tablet) [address] [facility] Last Admin: 12/04/22 08:35 Dose: 81 mg Atorvastatin Calcium (Atorvastatin 40 Mg Tablet) [address] [facility] Last Admin: 12/03/22 20:36 Dose: 80 mg Budesonide (Budesonide 0.5 Mg/2 Ml Neb) 0.5 mg [address]ID.RES[address] [facility] Last Admin: 12/04/22 07:50 Dose: 0.5 mg Chlorhexidine Gluconate (Chlorhexidine Gluconate 4% Btl 118 Ml) [address] [facility] Last Admin: 12/04/22 01:10 Dose: 1 applic Clopidogrel Bisulfate (Clopidogrel 75 Mg Tablet) [address] [facility] Last Admin: 12/04/22 08:35 Dose: 75 mg Dextrose (Dextrose 50% Syringe 50 Ml) 25 ml IVP ONCE PRN; Protocol PRN Reason: hypoglycemia protocol Dextrose (Dextrose 50% Syringe 50 Ml) 50 ml IVP PRN PRN; Protocol PRN Reason: hypoglycemia protocol Fluticasone Propionate (Fluticasone Nasal [place] 16gm Btl) [address] [facility] Last Admin: 12/04/22 08:35 Dose: 2 spray Furosemide (Furosemide 10 Mg/Ml Sdv 2ml) [address] [facility] Last Admin: 12/04/22 11:19 Dose: 20 mg Glucagon (Glucagon 1 Mg/Ml Inj 1 Ml) 1 mg IM ONCE PRN; Protocol PRN Reason: Adult Acute Hypoglycemia Prot. Heparin Sodium (Porcine) (Heparin 5,000 Unit/Ml Inj 1 Ml) 0 unit IV PRN PRN; Protocol PRN Reason: Heparin weight-base protocol Last Admin: 11/30/22 10:31 Dose: 6,500 unit Dextrose (D5w) 500 mls @ 100 mls/hr IV ONCE PRN; Protocol PRN Reason: Adult Acute Hypoglycemia Prot Azithromycin 500 mg/ Sodium (Chloride) 250 mls @ 250 mls/hr IV Q24H [facility]; Protocol Last Admin: 12/04/22 08:35 Dose: 250 mls/hr Heparin Sodium/Sodium Chloride (Heparin Drip) 25,000 unit in 500 mls @ 0 mls/hr IV .Q0M [facility]; Protocol Last Titration: 12/01/22 04:00 Dose: 0 unit/kg/hr, 0 mls/hr Propofol (Diprivan) 1,000 mg in 100 mls @ 0 mls/hr IV .Q0M [facility]; Protocol Last Admin: 12/04/22 01:12 Dose: 10 mcg/kg/min, 7.63 mls/hr Norepinephrine Bitartrate 4 mg (/ Dextrose) 254 mls @ 0 mls/hr IV .Q0M [facility]; Protocol Last Titration: 12/02/22 21:45 Dose: 1 mcg/min, 3.81 mls/hr Levofloxacin/Dextrose (Levaquin-D5w) 750 mg in 150 mls @ 100 mls/hr IV Q24H [facility]; Protocol Last Admin: 12/04/22 08:35 Dose: 100 mls/hr Fentanyl 1,000 mcg/ Sodium (Chloride) 100 mls @ 0 mls/hr IV .Q0M [facility]; Protocol Last Admin: 12/03/22 21:22 Dose: 50 mcg/hr, 5 mls/hr Dexmedetomidine HCl 1,000 mcg/ (Sodium Chloride) 260 mls @ 0 mls/hr IV .Q0M [facility]; Protocol Last Titration: 12/04/22 14:00 Dose: 0 mcg/kg/hr, 0 mls/hr Insulin Human Lispro (Insulin Lispro 100 Unit/1 Ml) 0 unit SUBCUT TIDWM [facility]; Protocol Last Admin: 12/04/22 17:02 Dose: 8 unit Insulin Human Lispro (Insulin Lispro 100 Unit/1 Ml) 0 unit SUBCUT BEDTIME [facility]; Protocol Last Admin: 12/03/22 20:44 Dose: 2 unit Lanolin (Lanolin Oint 7 Gm) 1 applic TOPICAL PRN PRN PRN Reason: DRYNESS Last Admin: 11/29/22 05:23 Dose: 1 applic Methylprednisolone Sodium Succinate (Methylprednisolone Sod Succ 40 Mg/Ml Inj) 20 mg IVP Q12H [facility] Last Admin: 12/04/22 17:02 Dose: 20 mg Metoprolol Tartrate (Metoprolol Tartrate 1 Mg/1 Ml Sdv 5 Ml) 5 mg IVP Q6H PRN PRN Reason: HYPERTENSION Last Admin: 11/30/22 13:11 Dose: 5 mg Ondansetron HCl (Ondansetron 2 Mg/Ml Sdv 2 Ml) 4 mg IVP Q6H PRN PRN Reason: NAUSEA AND VOMITING Pantoprazole Sodium (Pantoprazole 40 Mg Sdv) 40 mg IVP Q24H [facility] Last Admin: 12/04/22 11:19 Dose: 40 mg Vitals/I&O/Wt Last Vital Signs Temp 99.3 F 12/04/22 00:00 Pulse 63 12/04/22 07:50 Resp 19 H 12/04/22 07:50 BP 98/61 12/04/22 04:30 Pulse Ox 93 12/04/22 07:50 O2 Del Method Mechanical Ventilation 12/04/22 07:50 O2 Flow Rate 6 12/02/22 06:00 FiO2 40 12/04/22 07:50 12/03/22 12/04/22 12/04/22 22:59 06:59 14:59 Intake Total 130.624 / 1730.624 152.016 / 1882.640 Output Total 1700 / 1700 400 / 2100 Balance -1569.376 / 30.624 -247.984 / -217.360 Weight last 48 hrs Weight 303 lb Weight 299 lb 4.8 oz Physical Exam Narrative: GENERAL: Patient is remaining intubated. HEENT: Minimal pallor with no icterus or lymphadenopathy.Oral cavity: There are no mucous membrane lesions. NECK: Trachea appears to be central. No masses noted. No JVD or thyromegaly appreciated. RESPIRATORY: Chest is symmetrical. No intercostals muscle retraction or any accessory muscle activation. There is no chest wall tenderness. Breath sounds are heard bilaterally. Psych scattered expiratory wheezing BREASTS: Deferred. HEART: The heart sounds are normal. No S3 or S4. No pericardial rub ABDOMEN: No vessel pulsations or distention. No tenderness. No organomegaly appreciated. Bowel sounds are normally heard. : Deferred. RECTAL: Deferred. LYMPHATIC: No lymphadenopathy noted in the neck. EXTREMITIES: Trace edema with no cyanosis MUSCULOSKELETAL: No acute joint deformities or swelling SKIN: There are no significant rashes or ecchymosis NEUROPSYCHIATRIC: No focal motor deficits Urinary Catheter Management: Vasquez: Cath Placed During This Visit: yes Reason for Continuing Indwelling Catheter: Accurate Measurement of Urinary Output in Critically Ill Patients Urinary Catheter Date of Insertion: 11/29/22 Urinary Catheter Time of Insertion: 01:14 Data 12/04/22 02:22 12/04/22 02:22 Other Labs: Laboratory Last Values WBC 12.9 10^3/uL (4.0-10.0) H 12/04/22 02:22 RBC 3.84 10^6/uL (4.1-5.3) L 12/04/22 02:22 Hgb 10.3 g/dL (11.7-16.6) L 12/04/22 02:22 Hct 33.3 % (42.0-52.0) L 12/04/22 02:22 MCV 86.7 fl (80-94) 12/04/22 02:22 MCH 26.8 pg (28.0-34.0) L 12/04/22 02:22 MCHC 30.9 g/dL (30.0-36.0) 12/04/22 02:22 RDW 14.9 % (12.1-15.1) 12/04/22 02:22 Plt Count 173 10^3/cmm (130-400) 12/04/22 02:22 MPV 11.3 fL (7.4-10.4) H 12/04/22 02:22 Neut % (Auto) 87.9 % 12/04/22 02:22 Lymph % (Auto) 4.4 % 12/04/22 02:22 [place] % (Auto) 7.1 % 12/04/22 02:22 Eos % (Auto) 0.0 % 12/04/22 02:22 Baso % (Auto) 0.1 % 12/04/22 02:22 Neut # (Auto) 11.32 10^3/uL (1.8-7.7) H 12/04/22 02:22 Lymph # (Auto) 0.6 10^3/uL (0.8-4.8) L 12/04/22 02:22 [place] # (Auto) 0.9 10^3/uL (0.2-0.9) 12/04/22 02:22 Eos # (Auto) 0.0 10^3/uL (0.0-0.8) 12/04/22 02:22 Baso # (Auto) 0.0 10^3/uL (0.0-0.1) 12/04/22 02:22 Nucleated RBC % (auto) 0.4 % 12/04/22 02:22 Nucleated RBCs # 0.1 /100WBC 12/04/22 02:22 PT 13.20 SECONDS (12.1-14.9) 11/27/22 23:04 INR 0.98 (0.8-1.2) 11/27/22 23:04 APTT 66.1 SECONDS (23.9-36.7) H 12/01/22 00:36 Specimen Type Arterial 12/04/22 06:24 Sample Site Radial, right 12/04/22 06:24 ABG pH 7.45 (7.35-7.45) 12/04/22 06:24 ABG pCO2 40.6 mmHg (35-45) 12/04/22 06:24 ABG pO2 62.8 mmHg (80.0-100.0) L 12/04/22 06:24 ABG HCO3 28.0 mmol/L (22-26) H 12/04/22 06:24 ABG O2 Saturation 92.6 12/04/22 06:24 ABG Base Excess 3.6 mmol/L (-2.0-2.0) H 12/04/22 06:24 [place] Test Pos 12/04/22 06:24 A-a O2 Gradient 22.3 mmHg (5-10) H 12/04/22 06:24 Hematocrit 35.7 % (42-52) L 12/04/22 06:24 Hgb O2 Saturation 91.1 % (95-100) L 12/04/22 06:24 Carboxyhemoglobin 1.2 %THgb (0.4-20.1) 12/04/22 06:24 Methemoglobin 0.4 % (0.4-1.5) 12/04/22 06:24 Total Hemoglobin 11.6 g/dL (14-18) L 12/04/22 06:24 Sodium 136.0 mmol/L (131-143) 12/04/22 06:24 Potassium 5.0 mmol/L (3.5-5.0) 12/04/22 06:24 Glucose 210.0 mg/dL (70-115) H 12/04/22 06:24 Ionized Calcium 1.0 mmol/L (1.1-1.4) L 12/04/22 06:24 O2 Delivery Device Vent 12/04/22 06:24 O2 Liters/Min 4.0 % 11/30/22 08:24 FiO2 40.0 % 12/04/22 06:24 Tidal Volume 0.50 12/04/22 06:24 PEEP 8.0 cmH20 12/04/22 06:24 Video Specialist ID Lai 12/04/22 06:24 Sodium 137 mmol/L (136-145) 12/04/22 02:22 Potassium 5.0 mmol/L (3.5-5.1) 12/04/22 02:22 Chloride 99 mmol/L (98-107) 12/04/22 02:22 Carbon Dioxide 27 mmol/L (22-29) 12/04/22 02:22 Anion Gap 16.0 (5-19) 12/04/22 02:22 BUN 45 mg/dL (8-23) H 12/04/22 02:22 Creatinine 1.1 mg/dL (0.7-1.2) 12/04/22 02:22 GFR Calculation Not Reportable 12/04/22 02:22 Glucose 211 mg/dL (65-115) H 12/04/22 02:22 POC Glucose 197 mg/dL (70-110) H 12/03/22 20:38 Estimat Average Glucose 189 11/29/22 02:27 Hemoglobin A1c 8.2 % (4.0-6.0) H 11/29/22 02:27 Calculated Osmolality 302 mOsm/kg (285-295) H 12/04/22 02:22 Uric Acid 8.6 mg/dL (3.4-7.0) H 11/29/22 02:27 Calcium 7.6 mg/dL (8.5-10.5) L 12/04/22 02:22 Phosphorus 3.9 mg/dL (2.5-4.5) 12/01/22 00:36 Magnesium 2.5 mg/dL (1.7-2.3) H 12/01/22 00:36 Total Bilirubin 0.3 mg/dL (0.15-1.2) 12/04/22 02:22 AST 17 U/L (0-40) 12/04/22 02:22 ALT 24 U/L (0-41) 12/04/22 02:22 Alkaline Phosphatase 59 U/L (40-130) 12/04/22 02:22 Ammonia 22 umol/L (16-60) 11/30/22 21:41 Creatine Kinase 254 U/L (39-308) 12/01/22 00:36 Troponin T Gen 5 ng/L 2208 ng/L (0-15) H* 12/01/22 00:36 Troponin T Baseline 261 ng/L (0-15) H* 11/27/22 23:04 Troponin T 120 Minute 278.3 ng/L (0-15) H 11/28/22 00:51 Delta Troponin T 17.3 ABS# (0-10) H* 11/28/22 00:51 Troponin T Hi Sens 6Hr 447.2 ng/L (0-15) H 11/28/22 05:11 Troponin T Hi Sens 6Hr Delta 186.2 ng/L (0-12) H* 11/28/22 05:11 C-Reactive Protein 10.3 mg/L (0.0-4.9) H 11/30/22 04:10 NT-Pro-B Natriuret Pep 1821 pg/mL (0-125) H 11/27/22 23:04 Total Protein 5.7 g/dL (6.6-8.7) L 12/04/22 02:22 Albumin 2.9 g/dL (3.5-5.2) L 12/04/22 02:22 Globulin 2.8 g/dL (1.3-4.6) 12/04/22 02:22 Triglycerides 125 mg/dL (0-150) 11/30/22 04:10 Cholesterol 176 mg/dL (0-200) 11/30/22 04:10 LDL Cholesterol, Calc 111 mg/dL (50-129) 11/30/22 04:10 HDL Cholesterol 40 mg/dL (60-100) L 11/30/22 04:10 LDL/HDL Ratio 2.78 RATIO (0.00-3.22) 11/30/22 04:10 Cholesterol/HDL Ratio 4.40 mg/dL (1.0-5.00) 11/30/22 04:10 Urine Color Cancelled 12/01/22 08:35 Urine Appearance Cancelled 12/01/22 08:35 Urine pH Cancelled 12/01/22 08:35 Ur Specific Okay Cancelled 12/01/22 08:35 Urine Protein Cancelled 12/01/22 08:35 Urine Glucose (UA) Cancelled 12/01/22 08:35 Urine Ketones Cancelled 12/01/22 08:35 Urine Blood Cancelled 12/01/22 08:35 Urine Nitrate Cancelled 12/01/22 08:35 Urine Bilirubin Cancelled 12/01/22 08:35 Prot Sulfosalicylic Acd Cancelled 12/01/22 08:35 Urine Urobilinogen Cancelled 12/01/22 08:35 Ur Leukocyte Esterase Cancelled 12/01/22 08:35 Urine RBC Too numerous to cnt /hpf (0-2) H 11/29/22 08:57 Urine WBC 40-55 /hpf (0-5) H 11/29/22 08:57 Ur Squamous Epith Cells 0-4 /hpf (0-5) H 11/29/22 08:57 Amorphous Sediment Not Reportable 11/29/22 08:57 Urine Bacteria 1+ /hpf (NONE) H 11/29/22 08:57 Ur Random Sodium 29 mmol/L 11/29/22 08:57 Urine Creatinine 133 mg/dL (39-259) 11/29/22 08:57 Influenza Type A Ag negative (Negative) 11/27/22 22:40 Influenza Type B Ag negative (Negative) 11/27/22 22:40 SARS-CoV-2 Ag (Rapid) negative (Negative) 11/27/22 22:40 A&P Assessment and plan (1) Stenosis of left main coronary artery: Start post PCI of the left main. Currently seems to be stable. We will continue on the Plavix, aspirin and other medications. (2) Non-ST elevation [place] (NSTEMI): No recurrence of chest pain. Status post hypotension. Currently off the vasopressors. Hemodynamic status seems to be fairly stable. The blood pressure seems to be improving as the IV sedation is being tapered down (3) Acute respiratory failure with hypoxia: Respiratory status seems to be s stable at this time. Patient is on FiO2 30%. In the process of weaning off the ventilator (4) Altered mental status: Etiology. Patient has a history of altered mental status (5) T2DM (type 2 diabetes mellitus): The blood sugar seems to be fairly under control. (6) Acute kidney injury: The kidney function seems to stable Plan Still trying to wean him off the ventilator. Cardiac tejeda seems to be stable. May continue on the current measures. May gradually start him on GDMT Start of the metoprolol 12.5 mg p.o. twice daily Attestations Medical Necessity Statement*: Disposition as per the primary Coding Level of Care Code 39487 Diagnoses Stenosis of left main coronary artery I25.10 Non-ST elevation [place] (NSTEMI) I21.4 Acute respiratory failure with hypoxia J96.01 Altered mental status R41.82 T2DM (type 2 diabetes mellitus) E11.9 Acute kidney injury N17.9
[2022-12-04] MEDS: aspirin 81 mg EC Tablet PO (08:35)
[2022-12-04] MEDS: azithromycin 500 MG in sodium chloride 0.9% 250 ML 250 MG IV (08:35)
[2022-12-04] MEDS: clopidogrel 75 mg Tablet PO (08:35)
[2022-12-04] MEDS: fluticasone nasal spray 16gm Btl 2 SPRAY NASAL (08:35)
[2022-12-04] MEDS: levofloxacin-dextrose 5 % 750 MG/150 ML PREMIX 100 MG IV (08:35)
[2022-12-04 11:17] LABS: Glucose Point of Care 264 mg/dL (70-110)
[2022-12-04] MEDS: pantoprazole 40 mg SDV IVP (11:19)
[2022-12-04] MEDS: insulin lispro 100 unit/1 mL SUBCUT ×3 (11:19→20:37)
[2022-12-04] MEDS: FUROsemide 10 mg/mL SDV 2mL 20 MG IVP ×2 (11:19→22:22)
--- NOTE | 2022-12-04 13:17 | PM.PN ---
Subjective Subjective: Lethargic. Medications: Medication Review Details: Current Medications Acetaminophen (Acetaminophen 500 Mg Tablet) 500 mg PO Q4H PRN PRN Reason: fever Albuterol/Ipratropium (Ipratropium-Albuterol 3 Ml Neb) 3 ml INHALATION Q6H.RESP [facility] Last Admin: 12/03/22 20:16 Dose: 3 ml Albuterol/Ipratropium (Ipratropium-Albuterol 3 Ml Neb) 3 ml INHALATION Q6H PRN PRN Reason: SHORTNESS OF BREATH Aspirin (Aspirin 81 Mg Ec Tablet) 81 mg PO DAILY [facility] Last Admin: 12/03/22 08:33 Dose: 81 mg Atorvastatin Calcium (Atorvastatin 40 Mg Tablet) 80 mg PO BEDTIME [facility] Last Admin: 12/03/22 20:36 Dose: 80 mg Budesonide (Budesonide 0.5 Mg/2 Ml Neb) 0.5 mg INHALATION BID.RESPIRATORY [facility] Last Admin: 12/03/22 20:16 Dose: 0.5 mg Chlorhexidine Gluconate (Chlorhexidine Gluconate 4% Btl 118 Ml) 1 applic TOPICAL 0100 [facility] Last Admin: 12/03/22 03:30 Dose: 1 applic Clopidogrel Bisulfate (Clopidogrel 75 Mg Tablet) 75 mg PO DAILY [facility] Last Admin: 12/03/22 08:33 Dose: 75 mg Dextrose (Dextrose 50% Syringe 50 Ml) 25 ml IVP ONCE PRN; Protocol PRN Reason: hypoglycemia protocol Dextrose (Dextrose 50% Syringe 50 Ml) 50 ml IVP PRN PRN; Protocol PRN Reason: hypoglycemia protocol Fluticasone Propionate (Fluticasone Nasal [place] 16gm Btl) 2 spray NASAL DAILY [facility] Last Admin: 12/03/22 08:03 Dose: Not Given Furosemide (Furosemide 10 Mg/Ml Sdv 2ml) 20 mg IVP Q12H [facility] Last Admin: 12/03/22 22:38 Dose: 20 mg Glucagon (Glucagon 1 Mg/Ml Inj 1 Ml) 1 mg IM ONCE PRN; Protocol PRN Reason: Adult Acute Hypoglycemia Prot. Heparin Sodium (Porcine) (Heparin 5,000 Unit/Ml Inj 1 Ml) 0 unit IV PRN PRN; Protocol PRN Reason: Heparin weight-base protocol Last Admin: 11/30/22 10:31 Dose: 6,500 unit Dextrose (D5w) 500 mls @ 100 mls/hr IV ONCE PRN; Protocol PRN Reason: Adult Acute Hypoglycemia Prot Azithromycin 500 mg/ Sodium (Chloride) 250 mls @ 250 mls/hr IV Q24H [facility]; Protocol Last Infusion: 12/03/22 10:15 Dose: Infused Heparin Sodium/Sodium Chloride (Heparin Drip) 25,000 unit in 500 mls @ 0 mls/hr IV .Q0M [facility]; Protocol Last Titration: 12/01/22 04:00 Dose: 0 unit/kg/hr, 0 mls/hr Propofol (Diprivan) 1,000 mg in 100 mls @ 0 mls/hr IV .Q0M [facility]; Protocol Last Titration: 12/03/22 16:43 Dose: 10 mcg/kg/min, 7.63 mls/hr Norepinephrine Bitartrate 4 mg (/ Dextrose) 254 mls @ 0 mls/hr IV .Q0M [facility]; Protocol Last Titration: 12/02/22 21:45 Dose: 1 mcg/min, 3.81 mls/hr Levofloxacin/Dextrose (Levaquin-D5w) 750 mg in 150 mls @ 100 mls/hr IV Q24H [facility]; Protocol Last Infusion: 12/03/22 10:24 Dose: Infused Dexmedetomidine HCl 400 mcg/ (Sodium Chloride) 104 mls @ 0 mls/hr IV .Q0M [facility]; Protocol Last Titration: 12/03/22 17:30 Dose: 0.4 mcg/kg/hr, 14.12 mls/hr Fentanyl 1,000 mcg/ Sodium (Chloride) 100 mls @ 0 mls/hr IV .Q0M [facility]; Protocol Last Admin: 12/03/22 21:22 Dose: 50 mcg/hr, 5 mls/hr Insulin Human Lispro (Insulin Lispro 100 Unit/1 Ml) 0 unit SUBCUT TIDWM [facility]; Protocol Last Admin: 12/03/22 17:24 Dose: 6 unit Insulin Human Lispro (Insulin Lispro 100 Unit/1 Ml) 0 unit SUBCUT BEDTIME [facility]; Protocol Last Admin: 12/03/22 20:44 Dose: 2 unit Lanolin (Lanolin Oint 7 Gm) 1 applic TOPICAL PRN PRN PRN Reason: DRYNESS Last Admin: 11/29/22 05:23 Dose: 1 applic Methylprednisolone Sodium Succinate (Methylprednisolone Sod Succ 40 Mg/Ml Inj) 40 mg IVP Q12H [facility] Last Admin: 12/03/22 16:34 Dose: 40 mg Metoprolol Tartrate (Metoprolol Tartrate 1 Mg/1 Ml Sdv 5 Ml) 5 mg IVP Q6H PRN PRN Reason: HYPERTENSION Last Admin: 11/30/22 13:11 Dose: 5 mg Ondansetron HCl (Ondansetron 2 Mg/Ml Sdv 2 Ml) 4 mg IVP Q6H PRN PRN Reason: NAUSEA AND VOMITING Pantoprazole Sodium (Pantoprazole 40 Mg Sdv) 40 mg IVP Q24H [facility] Last Admin: 12/03/22 10:24 Dose: 40 mg Vitals/I&O/Wt Last Vital Signs Temp 99.3 F 12/04/22 00:00 Pulse 72 12/04/22 12:00 Resp 14 12/04/22 11:14 BP 114/70 12/04/22 12:00 Pulse Ox 91 12/04/22 12:00 O2 Del Method Mechanical Ventilation 12/04/22 07:50 O2 Flow Rate 6 12/02/22 06:00 FiO2 30 12/04/22 11:14 12/03/22 12/04/22 12/04/22 22:59 06:59 14:59 Intake Total 130.624 / 1730.624 152.016 / 1882.640 104 / 104 Output Total 1700 / 1700 400 / 2100 Balance -1569.376 / 30.624 -247.984 / -217.360 104 / 104 Weight last 48 hrs Weight 137.438 kg Weight 135.76 kg Physical Exam Narrative: Accompanied by family including his . Const: GENERAL APPEARANCE: patient mechanically ventilated HENMT: COMMON NORMALS: oropharynx normal Neck/C-Spine: COMMON NORMALS: no JVD Resp: AUSCULTATION: rhonchi (Fewer) Cardio: COMMON NORMALS: no JVD, regular rhythm, S1 normal heart sound present, S2 normal heart sound present and No murmurs present (Cardio) RHYTHM: regular rhythm HEART SOUNDS: S1 normal heart sound present and S2 normal heart sound present GI: COMMON NORMALS: Normal to inspection, nondistended, normoactive bowel sounds present, Soft to palpation and non-tender PALPATION: Yes Soft to palpation Extremity: COMMON NORMALS: no joint enlargement NARRATIVE EXTREMITY EXAM: Right femoral sheath in place. GENERAL: Yes edema (Trace) Urinary Catheter Management: Vasquez: Cath Placed During This Visit: yes Reason for Continuing Indwelling Catheter: Accurate Measurement of Urinary Output in Critically Ill Patients Urinary Catheter Date of Insertion: 11/29/22 Urinary Catheter Time of Insertion: 01:14 Data 12/04/22 02:22 12/04/22 02:22 A&P Assessment and plan (1) Acute respiratory failure with hypoxia: Weaning sedation, still lethargic. Last night with weaning down propofol waking up starting, restless, Precedex was added, fentanyl max dose decreased to 50 mcg, this morning continued weaning, fentanyl down to 30, propofol weaned off. Precedex 0.8. Currently off all sedation. Monitor mental status. Once waking up breathing trial, consideration of extubation. ABG this morning 7.45/40.6/62.8/28. On PEEP 6, FiO2 40. Continue treatment of respiratory infection, Levaquin, azithromycin. Pseudomonas in sputum culture. Continue diuretics, he is in negative balance today, -713 mL. Blood pressure is improving with weaning sedation. Likely will be able to escalate diuretic. Renal function noted with slight bump BUN 45, creatinine 1.1. Do anticipate a degree of increased given fluid overload. As discussed with family consideration also given he had encephalopathy/delirium prior to intubation that is possible he may have it again with attempted weaning sedation and ventilatory support which may complicate his recovery. Suspected chronic hypoxia that has been untreated. He does have known sleep apnea and is intolerant of facial mask. Reported history of emphysema. (2) Hypotension: Gradually improving with weaning down sedation. Lasix for now at only 20 mg IV twice daily. Continue to watch blood pressure. Hypertension suspected was likely degree of cardiogenic shock, moderate to severe aortic stenosis and propofol. Limited TTE which was repeated with contrast due to poor visibility and prior study, with wall motion abnormalities, diminished EF 25-30%. (3) Non-ST elevation [place] (NSTEMI): Status post high risk PCI, transient Impella support on 12/02. Stent placed in LAD. 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 On aspirin, Plavix. Beta-richard held, hypotensive. Will benefit from addition of statin. Type I NSTEMI with troponin elevation, EKG changes, regional wall motion abnormalities on echo decreased EF. (4) Seasonal allergies: (5) Pneumonia: Levaquin. Continue azithromycin. Noted leukocytosis improving, down to 12.9. Still predominantly neutrophilic 11.32. Possible pneumonia, although afebrile, without leukocytosis. Does have secretions/rhonchi. RT performing pulmonary toilet. Continue ceftriaxone, azithromycin. Follow-up sputum, blood cultures. MRSA PCR noted negative. (6) COPD exacerbation: Antibiotic changed as above, Solu-Medrol. Breathing treatments. Related to allergies and pneumonia (7) Lymphadenopathy: Scattered mediastinal lymph nodes up to 15 mm in the subcarinal region noted on CTA of the chest (8) T2DM (type 2 diabetes mellitus): Chronically on metformin, hemoglobin A1c 8.2 (9) Hypertension: Chronically on Lasix (10) Gross hematuria: Likely traumatic related to Vasquez placement along with anticoagulation. Resolved with irrigation and holding of anticoagulation. Will monitor with resumption of anticoagulation. CT kidney stone protocol suggestion of stone/obstructive uropathy. Follow-up CBC requested. (11) Prostate cancer: May be a contributing factor to above, chronically on Flomax (12) Acute kidney injury: Improved, although some dilutional effect likely as well. Anticipate increasing creatinine with diuresis. Monitor renal function, urine output with diuresis. Obstructive uropathy excluded. Otherwise suspicion for prerenal ALFRED versus ATN. Continue hemodynamic support, wean down as tolerating. Follow-up chemistry requested. (13) Hyperkalemia: Resolved. Related to acute kidney injury, though persists after normalization of creatinine. Not on any potassium containing medications presently will need to monitor. (14) Aortic stenosis: Newly identified diagnosis as per echocardiogram. Aortic valve area 1.3 cm?. Plan Bilateral pleural effusions, right greater than left: Started diuresis gently due to soft blood pressure. Monitor HANNAH, blood pressures, renal function. With noted decreased EF 25-30%, NSTEMI, peripheral trace edema. Suspect component of acute systolic and diastolic CHF for which will benefit from diuresis, however, currently hypotensive, pending additional cardiac assessment as above. Smoking addiction Emphysema Attestations Medical Necessity Statement*: Continue admission for weaning off sedation and MV support and extubation. Coding Level of Care Code Critical Care >/= 30 minutes Critical care time (in minutes): 35 The high probability of a clinically significant, sudden or life threatening deterioration, as referenced in this documentation, required my full and direct attention, intervention and personal management. The critical care time shown is in addition to time spent performing any reported separately billable procedures and includes the following: [x] Data and vital sign review and interpretation [x] Patient assessment, examination and intervention [x] Medication orders and management [x] Patient/Family updates as able [x] Care Coordination and Documentation. Diagnoses Acute respiratory failure with hypoxia J96.01 Hypotension I95.9 Non-ST elevation ND (NSTEMI) I21.4 Seasonal allergies J30.2 Pneumonia J18.9 COPD exacerbation J44.1 Lymphadenopathy R59.1 T2DM (type 2 diabetes mellitus) E11.9 Hypertension I10 Gross hematuria R31.0 Prostate cancer C61 Acute kidney injury N17.9 Hyperkalemia E87.5 Aortic stenosis I35.0
[2022-12-04 14:31] LABS: Ammonia 24 umol/L (16-60)
[2022-12-04 16:47] LABS: Glucose Point of Care 233 mg/dL (70-110)
--- NOTE | 2022-12-04 18:50 | PC.NURSE ---
Shift summary: Patient extubated per RT, AO x3, speech still little lethargic at times but improving. uneventful shift
[2022-12-04] MEDS: atorvastatin 40 mg Tablet 80 MG PO (20:37)
[2022-12-04 20:40] LABS: Glucose Point of Care 175 mg/dL (70-110)
[2022-12-05] VITALS (47 sets, daily range): BP systolic 88–130; BP diastolic 53–78; PULSE 66–87; RESP 15–29; TEMP 36.4–36.9; O2SAT 90–97; BMI 45.2; BMI 45.1
[2022-12-05] MEDS: ipratropium-albuterol 3 mL Neb INHALATION ×4 (01:42→20:13)
[2022-12-05 04:55] LABS: Basophils % 0.1 %; Hematocrit 34.1 % (42.0-52.0); Hemoglobin 10.5 g/dL (11.7-16.6); Lymphocytes # 0.8 10^3/uL (0.8-4.8); Lymphocytes % 5.7 %; Mean Corpuscular HGB Conc 30.8 g/dL (30.0-36.0); Mean Corpuscular Hemoglobin 27.5 pg (28.0-34.0); Mean Corpuscular Volume 89.3 fl (80-94); Mean Platelet Volume 11.5 fL (7.4-10.4); Monocytes # 1.1 10^3/uL (0.2-0.9); Monocytes % 7.9 %; Neutrophils # 11.66 10^3/uL (1.8-7.7); Neutrophils % 85.6 %; Nucleated Red Blood Cells % 0 %; Platelet Count 155 10^3/cmm (130-400); Red Blood Count 3.82 10^6/uL (4.1-5.3); Red Cell Distribution Width 15.1 % (12.1-15.1); White Blood Count 13.6 10^3/uL (4.0-10.0)
[2022-12-05 05:39] LABS: Blood Urea Nitrogen 44 mg/dL (8-23); Calcium 7.6 mg/dL (8.5-10.5); Carbon Dioxide 27 mmol/L (22-29); Chloride 101 mmol/L (98-107); Glucose 139 mg/dL (65-115); Osmolality Calculated 301 mOsm/kg (285-295); Sodium 139 mmol/L (136-145)
[2022-12-05 05:42] LABS: Anion Gap 16.1 (5-19); Potassium 5.1 mmol/L (3.5-5.1)
--- NOTE | 2022-12-05 07:42 | PM.PN ---
Subjective Subjective: Patient is extubated. Denies chest pain. Vitals/I&O/Wt Last Vital Signs Temp 97.5 F L 12/05/22 04:00 Pulse 67 12/05/22 06:00 Resp 15 12/05/22 06:00 BP 97/59 12/05/22 06:00 Pulse Ox 97 12/05/22 06:00 O2 Del Method Nasal Cannula 12/05/22 04:00 O2 Flow Rate 4 12/05/22 04:00 FiO2 30 12/04/22 13:25 12/04/22 12/05/22 12/05/22 22:59 06:59 14:59 Intake Total 250 / 413.422 220.196 / 633.618 Output Total 1400 / 1400 500 / 1900 Balance -1150 / -986.578 -279.804 / -1266.382 Weight last 48 hrs Weight 306 lb Weight 306 lb 7.08 oz Weight 303 lb Physical Exam Narrative: GENERAL: Patient is alert NECK: No jugular vein distension. [] HEENT: No cyanosis. No icterus. No pallor. [] HEART: Regular S1 and S2. No murmur, rub or gallop. [] LUNGS: Diminished air entry ABDOMEN: Soft CENTRAL NERVOUS SYSTEM: Grossly nonfocal. [] EXTREMITIES: Lower extremities with 1+ edema bilaterally. Urinary Catheter Management: Vasquez: Cath Placed During This Visit: yes Reason for Continuing Indwelling Catheter: Accurate Measurement of Urinary Output in Critically Ill Patients Urinary Catheter Date of Insertion: 11/29/22 Urinary Catheter Time of Insertion: 01:14 Data 12/06/22 03:45 12/06/22 03:45 A&P Assessment and plan (1) Stenosis of left main coronary artery: Start post PCI of the left main.Continue aspirin and Plavix. Patient is stable. (2) Non-ST elevation [place] (NSTEMI): No recurrence of chest pain. Off vasopressors. (3) Acute respiratory failure with hypoxia: Patient was extubated yesterday. Continue diuresis. Close monitoring of renal function (4) Altered mental status: Has prior history of altered mental status (5) T2DM (type 2 diabetes mellitus): Per primary team (6) Acute kidney injury: The kidney function seems to stable Plan Patient has improved significantly. Start metoprolol 12.5 mg BID Attestations Medical Necessity Statement*: Care expected to cross 2 midnights. Coding Level of Care Code Acute Code for Chg Fwd Diagnoses Stenosis of left main coronary artery I25.10 Non-ST elevation [place] (NSTEMI) I21.4 Acute respiratory failure with hypoxia J96.01 Altered mental status R41.82 T2DM (type 2 diabetes mellitus) E11.9 Acute kidney injury N17.9
[2022-12-05 07:56] LABS: Glucose Point of Care 172 mg/dL (70-110)
[2022-12-05] MEDS: budesonide 0.5 mg/2 mL Neb INHALATION ×2 (08:08→20:13)
[2022-12-05] MEDS: clopidogrel 75 mg Tablet PO (08:49)
[2022-12-05] MEDS: aspirin 81 mg EC Tablet PO (08:49)
[2022-12-05] MEDS: levofloxacin-dextrose 5 % 750 MG/150 ML PREMIX 100 MG IV (08:49)
[2022-12-05] MEDS: azithromycin 500 MG in sodium chloride 0.9% 250 ML 250 MG IV (08:49)
[2022-12-05] MEDS: insulin lispro 100 unit/1 mL SUBCUT ×4 (08:50→21:01)
[2022-12-05] MEDS: fluticasone nasal spray 16gm Btl 2 SPRAY NASAL (08:56)
[2022-12-05] MEDS: heparin 5,000 unit/mL INJ 1 mL 5000 UNIT SUBCUT ×2 (10:29→20:56)
[2022-12-05] MEDS: pantoprazole 40 mg SDV IVP (10:29)
[2022-12-05] MEDS: FUROsemide 10 mg/mL SDV 2mL 20 MG IVP ×2 (10:29→22:37)
[2022-12-05 11:05] LABS: Glucose Point of Care 177 mg/dL (70-110)
--- NOTE | 2022-12-05 11:26 | PC.SOCIAL ---
IMM Updated Updated pt on IMM. No questions voiced. Provided pt a copy. Initialed, dated, & timed copy in chart.
--- NOTE | 2022-12-05 14:26 | PM.PN ---
Subjective Subjective: He is overall feeling better, happy to be extubated. Feels comfortable on nasal cannula. He is overall generally very weak as pointed out by his nurse. He denies chest pain or pressure. Vitals/I&O/Wt Last Vital Signs Temp 98.3 F 12/05/22 08:00 Pulse 77 12/05/22 14:00 Resp 18 12/05/22 13:15 BP 121/75 12/05/22 12:30 Pulse Ox 94 12/05/22 13:15 O2 Del Method Nasal Cannula 12/05/22 13:15 O2 Flow Rate 3 12/05/22 13:15 FiO2 30 12/04/22 13:25 12/04/22 12/05/22 12/05/22 22:59 06:59 14:59 Intake Total 250 / 813.422 220.196 / 1033.618 400 / 400 Output Total 1400 / 1400 500 / 1900 Balance -1150 / -586.578 -279.804 / -866.382 400 / 400 Weight last 48 hrs Weight 138.799 kg Weight 139 kg Weight 137.438 kg Physical Exam Narrative: Accompanied by family including his . Const: GENERAL APPEARANCE: patient mechanically ventilated HENMT: COMMON NORMALS: oropharynx normal Neck/C-Spine: COMMON NORMALS: no JVD Resp: AUSCULTATION: rhonchi Cardio: COMMON NORMALS: no JVD, regular rhythm, S1 normal heart sound present, S2 normal heart sound present and No murmurs present (Cardio) RHYTHM: regular rhythm HEART SOUNDS: S1 normal heart sound present and S2 normal heart sound present GI: COMMON NORMALS: Normal to inspection, nondistended, normoactive bowel sounds present, Soft to palpation and non-tender PALPATION: Yes Soft to palpation Extremity: COMMON NORMALS: no joint enlargement GENERAL: Yes edema (Trace) Urinary Catheter Management: Vasquez: Cath Placed During This Visit: yes Reason for Continuing Indwelling Catheter: Accurate Measurement of Urinary Output in Critically Ill Patients Urinary Catheter Date of Insertion: 11/29/22 Urinary Catheter Time of Insertion: 01:14 Data 12/05/22 02:31 12/05/22 02:31 A&P Assessment and plan (1) Acute respiratory failure with hypoxia: Extubated 12/04 to nasal cannula. So far doing well on 3 L. Does have quite significant rhonchi. For now continue Solu-Medrol without further decrease at 20 mg. Add flutter valve, I-S. Mucinex. ST assessment. He is generally very weak. PT, OT. Continue Levaquin, azithromycin. Pseudomonas in sputum culture. Continue diuretics, he is in negative balance today. Blood pressure is improving with weaning sedation. Likely will be able to escalate diuretic. Renal function noted with slight bump BUN 45, creatinine 1.1. Do anticipate a degree of increased given fluid overload. Follow-up chemistry requested. Monitor electrolytes with diuresis, at risk of deficiency. Monitor on telemetry. Check magnesium as well. As discussed with family consideration also given he had encephalopathy/delirium prior to intubation that is possible he may have it again with attempted weaning sedation and ventilatory support which may complicate his recovery. Suspected chronic hypoxia that has been untreated. He does have known sleep apnea and is intolerant of facial mask. Reported history of emphysema. Transfer for continued care on CSU. (2) Hypotension: Gradually improving Lasix for now at only 20 mg IV twice daily. Continue to watch blood pressure. Hypotension suspected was likely degree of cardiogenic shock, moderate to severe aortic stenosis and propofol. Limited TTE which was repeated with contrast due to poor visibility and prior study, with wall motion abnormalities, diminished EF 25-30%. (3) Non-ST elevation [place] (NSTEMI): Status post high risk PCI, transient Impella support on 12/02. Stent placed in LAD. Sheath removed on return to [employer] last night and hemostasis achieved. On aspirin, Plavix. Beta-richard held, hypotensive. Will benefit from addition of statin. Type I NSTEMI with troponin elevation, EKG changes, regional wall motion abnormalities on echo decreased EF. Has been off heparin drip since held by cardiology. Changed to prophylactic dose. Discussed with cardiology. (4) Seasonal allergies: (5) Pneumonia: Levaquin. Continue azithromycin. Noted some worsening cytosis 13.6 with still predominantly neutrophilic. Still elevated 7.6. Thick secretions which he appears to be having difficulty bringing up. Continue pulmonary toilet, flutter valve discussed with him and his and added. As well as incentive spirometer. Guaifenesin. Discussed with RT. Continue ceftriaxone, azithromycin. Follow-up sputum, blood cultures. MRSA PCR noted negative. (6) COPD exacerbation: Antibiotic changed as above, Solu-Medrol. Breathing treatments. Solu-Medrol has been decreased down to 20 mg, continue Related to allergies and pneumonia (7) Lymphadenopathy: Scattered mediastinal lymph nodes up to 15 mm in the subcarinal region noted on CTA of the chest (8) T2DM (type 2 diabetes mellitus): Chronically on metformin, hemoglobin A1c 8.2 (9) Hypertension: Chronically on Lasix (10) Gross hematuria: Likely traumatic related to Vasquez placement along with anticoagulation. Resolved with irrigation and holding of anticoagulation. Will monitor with resumption of anticoagulation. CT kidney stone protocol suggestion of stone/obstructive uropathy. Follow-up CBC requested. (11) Prostate cancer: May be a contributing factor to above, chronically on Flomax (12) Acute kidney injury: Improved, although some dilutional effect likely as well. Anticipate increasing creatinine with diuresis. Monitor renal function, urine output with diuresis. Obstructive uropathy excluded. Otherwise suspicion for prerenal ALFRED versus ATN. Continue hemodynamic support, wean down as tolerating. Follow-up chemistry requested. (13) Hyperkalemia: Resolved. Related to acute kidney injury, though persists after normalization of creatinine. Not on any potassium containing medications presently will need to monitor. (14) Aortic stenosis: Newly identified diagnosis as per echocardiogram. Aortic valve area 1.3 cm?. Plan Bilateral pleural effusions, right greater than left: He is diuresing well. We will recheck x-ray in a day or 2. Monitor HANNAH, blood pressures, renal function. With noted decreased EF 25-30%, NSTEMI, peripheral trace edema. Suspect component of acute systolic and diastolic CHF for which will benefit from diuresis, however, currently hypotensive, pending additional cardiac assessment as above. Smoking addiction Emphysema Attestations Medical Necessity Statement*: Continue admission for assessment and management of improving respiratory failure, acute CHF, pneumonia, after NSTEMI, additional conditions as above. Diagnoses Acute respiratory failure with hypoxia J96.01 Hypotension I95.9 Non-ST elevation [place] (NSTEMI) I21.4 Seasonal allergies J30.2 Pneumonia J18.9 COPD exacerbation J44.1 Lymphadenopathy R59.1 T2DM (type 2 diabetes mellitus) E11.9 Hypertension I10 Gross hematuria R31.0 Prostate cancer C61 Acute kidney injury N17.9 Hyperkalemia E87.5 Aortic stenosis I35.0
[2022-12-05 17:00] LABS: Glucose Point of Care 144 mg/dL (70-110)
[2022-12-05] MEDS: guaiFENesin 600 mg Tablet PO (17:02)
[2022-12-05] MEDS: atorvastatin 40 mg Tablet 80 MG PO (20:55)
[2022-12-05 22:56] LABS: Glucose Point of Care 173 mg/dL (70-110)
[2022-12-06] VITALS (30 sets, daily range): BP systolic 110–136; BP diastolic 63–75; PULSE 72–99; RESP 13–26; TEMP 36.7–37.2; O2SAT 91–98; BMI 43.2
[2022-12-06] MEDS: zolpidem 5 mg Tablet 2.5 MG PO (01:33)
[2022-12-06] MEDS: ipratropium-albuterol 3 mL Neb INHALATION ×4 (02:49→20:08)
[2022-12-06 04:17] LABS: Basophils % 0.1 %; Hemoglobin 10.2 g/dL (11.7-16.6); Lymphocytes # 0.8 10^3/uL (0.8-4.8); Lymphocytes % 4.9 %; Mean Corpuscular Volume 89.9 fl (80-94); Mean Platelet Volume 10.9 fL (7.4-10.4); Monocytes # 1.1 10^3/uL (0.2-0.9); Neutrophils # 13.27 10^3/uL (1.8-7.7); Neutrophils % 87.5 %; Nucleated Red Blood Cells % 0 %; Platelet Count 162 10^3/cmm (130-400); Red Blood Count 3.78 10^6/uL (4.1-5.3); White Blood Count 15.2 10^3/uL (4.0-10.0)
[2022-12-06 04:47] LABS: Anion Gap 12.7 (5-19); Blood Urea Nitrogen 55 mg/dL (8-23); Calcium 7.6 mg/dL (8.5-10.5); Carbon Dioxide 27 mmol/L (22-29); Chloride 97 mmol/L (98-107); Glucose 141 mg/dL (65-115); Magnesium 2.5 mg/dL (1.7-2.3); Osmolality Calculated 291 mOsm/kg (285-295); Potassium 4.7 mmol/L (3.5-5.1); Sodium 132 mmol/L (136-145)
[2022-12-06 08:31] LABS: Glucose Point of Care 143 mg/dL (70-110)
[2022-12-06] MEDS: budesonide 0.5 mg/2 mL Neb INHALATION ×2 (08:37→20:08)
[2022-12-06] MEDS: insulin lispro 100 unit/1 mL SUBCUT ×4 (09:00→20:36)
[2022-12-06] MEDS: clopidogrel 75 mg Tablet PO (09:01)
[2022-12-06] MEDS: guaiFENesin 600 mg Tablet PO ×2 (09:01→17:16)
[2022-12-06] MEDS: aspirin 81 mg EC Tablet PO (09:01)
[2022-12-06] MEDS: azithromycin 500 MG in sodium chloride 0.9% 250 ML 250 MG IV (09:02)
[2022-12-06] MEDS: levofloxacin-dextrose 5 % 750 MG/150 ML PREMIX 100 MG IV (09:05)
[2022-12-06] MEDS: heparin 5,000 unit/mL INJ 1 mL 5000 UNIT SUBCUT ×2 (09:06→20:37)
[2022-12-06] MEDS: fluticasone nasal spray 16gm Btl 2 SPRAY NASAL (09:09)
--- NOTE | 2022-12-06 09:23 | PM.PN ---
Subjective Subjective: Patient is doing well. Sitting in chair today. No chest pain. Vitals/I&O/Wt Last Vital Signs Temp 98.6 F 12/06/22 04:00 Pulse 81 12/06/22 08:50 Resp 18 12/06/22 08:30 BP 128/68 12/06/22 04:00 Pulse Ox 95 12/06/22 08:30 O2 Del Method Nasal Cannula 12/06/22 08:30 O2 Flow Rate 3 12/06/22 08:30 FiO2 30 12/04/22 13:25 12/05/22 12/06/22 12/06/22 22:59 06:59 14:59 Intake Total 540 / 940 100 / 1040 Output Total 1650 / 1650 1000 / 2650 Balance -1110 / -710 -900 / -1610 Weight last 48 hrs Weight 292 lb 5.327 oz Weight 306 lb Weight 306 lb 7.08 oz Physical Exam Narrative: GENERAL: Patient is alert NECK: No jugular vein distension. [] HEENT: No cyanosis. No icterus. No pallor. [] HEART: Regular S1 and S2. No murmur, rub or gallop. [] LUNGS: Diminished air entry, has bilateral crackles ABDOMEN: Soft CENTRAL NERVOUS SYSTEM: Grossly nonfocal. [] EXTREMITIES: Lower extremities with 1+ edema bilaterally. Urinary Catheter Management: Vasquez: Cath Placed During This Visit: yes Reason for Continuing Indwelling Catheter: Accurate Measurement of Urinary Output in Critically Ill Patients Urinary Catheter Date of Insertion: 11/29/22 Urinary Catheter Time of Insertion: 01:14 Data 12/07/22 05:25 12/07/22 05:25 A&P Assessment and plan (1) Stenosis of left main coronary artery: Start post PCI of the left main.Continue aspirin and Plavix. Patient is improving (2) Non-ST elevation [place] (NSTEMI): Stable. S/p PCI of left main artery. Continue aspirin, plavix, statin therapy (3) Acute respiratory failure with hypoxia: Patient is diuresing well. Had increase in Cr and BUN today. Continue diuresis with close monitoring of renal function (4) Altered mental status: Has prior history of altered mental status (5) T2DM (type 2 diabetes mellitus): Per primary team (6) Acute kidney injury: Creatinine and BUN worsened today. Close monitoring. Plan Can uptitrate metoprolol as BP tolerates Attestations Medical Necessity Statement*: Care expected to cross 2 midnights. Coding Level of Care Code Acute Code for Chg Fwd Diagnoses Stenosis of left main coronary artery I25.10 Non-ST elevation [place] (NSTEMI) I21.4 Acute respiratory failure with hypoxia J96.01 Altered mental status R41.82 T2DM (type 2 diabetes mellitus) E11.9 Acute kidney injury N17.9
[2022-12-06] MEDS: metoprolol tartrate 25 mg Tablet 12.5 MG PO ×2 (10:40→20:39)
[2022-12-06] MEDS: pantoprazole 40 mg SDV IVP (10:41)
[2022-12-06] MEDS: FUROsemide 10 mg/mL SDV 2mL 20 MG IVP (10:42)
[2022-12-06] MEDS: polyethylene glycol 3350 Pkt 17 gm PO ×2 (12:03→17:12)
[2022-12-06 12:21] LABS: Glucose Point of Care 213 mg/dL (70-110)
--- NOTE | 2022-12-06 14:38 | PM.PN ---
Subjective Subjective: States he is doing all right today. Denies any chest pain or pressure. Breathing is okay. Generally weak, but to work with therapy. Will be agreeable to rehabilitation at [facility]. Vitals/I&O/Wt Last Vital Signs Temp 98.3 F 12/06/22 12:00 Pulse 77 12/06/22 14:29 Resp 18 12/06/22 14:17 BP 110/67 12/06/22 12:00 Pulse Ox 95 12/06/22 14:17 O2 Del Method Nasal Cannula 12/06/22 14:17 O2 Flow Rate 2.5 12/06/22 14:17 FiO2 30 12/04/22 13:25 12/05/22 12/06/22 12/06/22 22:59 06:59 14:59 Intake Total 540 / 940 100 / 1040 760 / 760 Output Total 1650 / 1650 1000 / 2650 1075 / 1075 Balance -1110 / -710 -900 / -1610 -315 / -315 Weight last 48 hrs Weight 132.6 kg Weight 138.799 kg Weight 139 kg Physical Exam Narrative: Accompanied by his . Const: GENERAL APPEARANCE: patient mechanically ventilated HENMT: COMMON NORMALS: oropharynx normal Neck/C-Spine: COMMON NORMALS: no JVD Resp: AUSCULTATION: rhonchi (Minimal) Cardio: COMMON NORMALS: no JVD, regular rhythm, S1 normal heart sound present, S2 normal heart sound present and No murmurs present (Cardio) RHYTHM: regular rhythm HEART SOUNDS: S1 normal heart sound present and S2 normal heart sound present GI: COMMON NORMALS: Normal to inspection, nondistended, normoactive bowel sounds present, Soft to palpation and non-tender PALPATION: Yes Soft to palpation Extremity: COMMON NORMALS: no joint enlargement GENERAL: Yes edema (Trace) Urinary Catheter Management: Vasquez: Cath Placed During This Visit: yes Reason for Continuing Indwelling Catheter: Accurate Measurement of Urinary Output in Critically Ill Patients Urinary Catheter Date of Insertion: 11/29/22 Urinary Catheter Time of Insertion: 01:14 Data 12/06/22 03:45 12/06/22 03:45 A&P Assessment and plan (1) Acute respiratory failure with hypoxia: Continue to gradually wean down oxygen support. She is having some phlegm, encouraged expectoration. Continue Antibiotic coverage with Levaquin to cover Pseudomonas which grew in culture, azithromycin. Decrease Solu-Medrol to 10 mg every 12 hours. Add flutter valve, I-S. Mucinex. ST assessment. He is generally very weak. PT, OT. Continue Levaquin, azithromycin. Pseudomonas in sputum culture. Continue diuretics INR noted, continues in negative balance, -2.3 L. We will repeat chest x-ray. Creatinine noted at 1.3. Hold additional Lasix for now. Do anticipate a degree of increase given fluid overload. Follow-up chemistry requested. Monitor electrolytes with diuresis, at risk of deficiency. Monitor on telemetry. Magnesium 2.5. Potassium 4.7. Sodium 132. So far encephalopathy and delirium have shown improvement, he has been awake alert, cooperative, calm. Suspected chronic hypoxia that has been untreated. He does have known sleep apnea and is intolerant of facial mask. Reported history of emphysema. In ICU as overflow from CSU. (2) Acute kidney injury: Creatinine is worsening up to 1.3. Hold Lasix. Follow-up renal function. Improved, although some dilutional effect likely as well. Anticipate increasing creatinine with diuresis. Monitor renal function, urine output with diuresis. Obstructive uropathy excluded. Otherwise suspicion for prerenal ALFRED versus ATN. Continue hemodynamic support, wean down as tolerating. Follow-up chemistry requested. (3) Hypotension: Gradually improving Lasix for now at only 20 mg IV twice daily. Continue to watch blood pressure. Hypotension suspected was likely degree of cardiogenic shock, moderate to severe aortic stenosis and propofol. Limited TTE which was repeated with contrast due to poor visibility and prior study, with wall motion abnormalities, diminished EF 25-30%. (4) Non-ST elevation [place] (NSTEMI): Status post high risk PCI, transient Impella support on 12/02. Stent placed in LAD. Sheath removed on return to [employer] last night and hemostasis achieved. On aspirin, Plavix. Beta-richard held, hypotensive. Will benefit from addition of statin. Type I NSTEMI with troponin elevation, EKG changes, regional wall motion abnormalities on echo decreased EF. Has been off heparin drip since held by cardiology. Changed to prophylactic dose. Discussed with cardiology. (5) Pneumonia: Levaquin. Continue azithromycin. Noted some worsening cytosis 13.6 with still predominantly neutrophilic. Still elevated 7.6. Thick secretions which he appears to be having difficulty bringing up. Continue pulmonary toilet, flutter valve discussed with him and his and added. As well as incentive spirometer. Guaifenesin. Discussed with RT. Pseudomonas aeruginosa on sputum culture. Negative blood cultures. MRSA PCR noted negative. (6) COPD exacerbation: Antibiotic changed as above, Solu-Medrol. Breathing treatments. Decrease Solu-Medrol dose to 10 mg every 12 hours. Related to allergies and pneumonia (7) Lymphadenopathy: Scattered mediastinal lymph nodes up to 15 mm in the subcarinal region noted on CTA of the chest (8) T2DM (type 2 diabetes mellitus): Chronically on metformin, hemoglobin A1c 8.2 (9) Hypertension: Chronically on Lasix (10) Gross hematuria: Likely traumatic related to Vasquez placement along with anticoagulation. Resolved with irrigation and holding of anticoagulation. Will monitor with resumption of anticoagulation. CT kidney stone protocol suggestion of stone/obstructive uropathy. Follow-up CBC requested. (11) Prostate cancer: May be a contributing factor to above, chronically on Flomax (12) Hyperkalemia: Resolved. Related to acute kidney injury, though persists after normalization of creatinine. Not on any potassium containing medications presently will need to monitor. (13) Aortic stenosis: Newly identified diagnosis as per echocardiogram. Aortic valve area 1.3 cm?. (14) Seasonal allergies: Plan Bilateral pleural effusions, right greater than left: Requested follow-up chest x-ray. Monitor HANNAH, blood pressures, renal function. With noted decreased EF 25-30%, NSTEMI, peripheral trace edema. Suspect component of acute systolic and diastolic CHF for which will benefit from diuresis, however, currently hypotensive, pending additional cardiac assessment as above. Physical deconditioning: Generally weak. Working with therapy. Case management working with patient and family regarding disposition, he will need rehabilitation at SNF. Smoking addiction Emphysema Attestations Medical Necessity Statement*: Continue admission for assessment and management of pneumonia, CHF exacerbation, ALFRED, COPD exacerbation and additional conditions as above. Diagnoses Acute respiratory failure with hypoxia J96.01 Acute kidney injury N17.9 Hypotension I95.9 Non-ST elevation [place] (NSTEMI) I21.4 Pneumonia J18.9 COPD exacerbation J44.1 Lymphadenopathy R59.1 T2DM (type 2 diabetes mellitus) E11.9 Hypertension I10 Gross hematuria R31.0 Prostate cancer C61 Hyperkalemia E87.5 Aortic stenosis I35.0 Seasonal allergies J30.2
[2022-12-06 16:17] LABS: Glucose Point of Care 164 mg/dL (70-110)
[2022-12-06] MEDS: bisacodyl 10 mg Supp PR (18:09)
--- NOTE | 2022-12-06 18:26 | PC.NURSE ---
This nurse and Tho RN were assisting patient back to bed. We had patient stand up form recliner, walker in hand, and one nurse helping steady the patient. Other nurse removed recliner form behind patient so it could be replaced with the bed and have patient sit down. Patient was unable to stand long enough to do furniture swap, but chair was already removed form behind patient. Patient had a gait belt on and was eased to the floor. Patient was able to be lowered to the floor in a controlled manner. Patient uninjured. Nurse used buster lift straps to get patient back into bed.
--- NOTE | 2022-12-06 18:41 | PC.NURSE ---
Shift SUmmary: uneventful shift. Patient was up to a chair for the entire shift, this was his first time getting up and he is very weak, but able to stand for very short periods. Oxygen titrated down to 2L. Sheath sites are unremarkable besides bruising which has not worsened. No bowel movement yet, miralax and bisacodyl given.
[2022-12-06 20:35] LABS: Glucose Point of Care 207 mg/dL (70-110)
[2022-12-06] MEDS: atorvastatin 40 mg Tablet 80 MG PO (20:37)
[2022-12-07] VITALS (26 sets, daily range): BP systolic 117–146; BP diastolic 60–79; PULSE 69–94; RESP 12–23; TEMP 36.5–36.7; O2SAT 89–99
[2022-12-07] MEDS: ipratropium-albuterol 3 mL Neb INHALATION ×4 (02:45→21:12)
[2022-12-07 05:58] LABS: Basophils % 0.1 %; Eosinophils % 0.2 %; Hematocrit 32.5 % (42.0-52.0); Hemoglobin 9.9 g/dL (11.7-16.6); Lymphocytes # 0.8 10^3/uL (0.8-4.8); Lymphocytes % 6.8 %; Mean Corpuscular HGB Conc 30.5 g/dL (30.0-36.0); Mean Corpuscular Hemoglobin 27.3 pg (28.0-34.0); Mean Corpuscular Volume 89.8 fl (80-94); Mean Platelet Volume 10.6 fL (7.4-10.4); Monocytes % 8.9 %; Neutrophils # 9.35 10^3/uL (1.8-7.7); Neutrophils % 83.2 %; Nucleated Red Blood Cells % 0 %; Platelet Count 146 10^3/cmm (130-400); Red Blood Count 3.62 10^6/uL (4.1-5.3); Red Cell Distribution Width 15.1 % (12.1-15.1); White Blood Count 11.2 10^3/uL (4.0-10.0)
[2022-12-07 06:24] LABS: Anion Gap 7.1 (5-19); Blood Urea Nitrogen 44 mg/dL (8-23); Carbon Dioxide 31 mmol/L (22-29); Chloride 98 mmol/L (98-107); Glucose 134 mg/dL (65-115); Osmolality Calculated 287 mOsm/kg (285-295); Potassium 4.1 mmol/L (3.5-5.1); Sodium 132 mmol/L (136-145)
--- NOTE | 2022-12-07 07:23 | PM.PN ---
Subjective Subjective: Patient is doing well. No complaints of chest pain. Renal function has improved and he is diuresing well. Vitals/I&O/Wt Last Vital Signs Temp 97.7 F 12/07/22 04:00 Pulse 75 12/07/22 06:00 Resp 14 12/07/22 04:00 BP 129/70 12/07/22 04:00 Pulse Ox 95 12/07/22 04:00 O2 Del Method Nasal Cannula 12/07/22 04:00 O2 Flow Rate 2 12/07/22 04:00 FiO2 30 12/04/22 13:25 12/06/22 12/07/22 12/07/22 22:59 06:59 14:59 Intake Total 450 / 1210 Output Total 1350 / 2425 900 / 3325 Balance -900 / -1215 -900 / -2115 Weight last 48 hrs Weight 286 lb Weight 292 lb 5.327 oz Physical Exam Narrative: GENERAL: Patient is alert NECK: No jugular vein distension. [] HEENT: No cyanosis. No icterus. No pallor. [] HEART: Regular S1 and S2. No murmur, rub or gallop. [] LUNGS: Diminished air entry, has bilateral crackles ABDOMEN: Soft CENTRAL NERVOUS SYSTEM: Grossly nonfocal. [] EXTREMITIES: Lower extremities with 1+ edema bilaterally. Urinary Catheter Management: Vasquez: Cath Placed During This Visit: yes Reason for Continuing Indwelling Catheter: Accurate Measurement of Urinary Output in Critically Ill Patients Urinary Catheter Date of Insertion: 11/29/22 Urinary Catheter Time of Insertion: 01:14 Data 12/08/22 04:37 12/08/22 04:37 A&P Assessment and plan (1) Stenosis of left main coronary artery: Start post PCI of the left main.Continue aspirin and Plavix. Patient is improving (2) Non-ST elevation [place] (NSTEMI): Stable. S/p PCI of left main artery. Continue aspirin, plavix, statin therapy. Overall improving. (3) Acute respiratory failure with hypoxia: Patient is diuresing well. Renal function improved, lasix was downtitrated. Continue at current dose (4) Altered mental status: Has prior history of altered mental status. Improved right now (5) T2DM (type 2 diabetes mellitus): Per primary team (6) Acute kidney injury: Creatinine and BUN improving. Diuresing well. Plan Metoprolol uptitrated and we will continue to uptitrate based on BP. Can consider adding ARB once renal function stabilizes. Will benefit from LifeVest. Attestations Medical Necessity Statement*: Care expected to cross 2 midnights. Coding Level of Care Code Acute Code for Chg Fwd Diagnoses Stenosis of left main coronary artery I25.10 Non-ST elevation [place] (NSTEMI) I21.4 Acute respiratory failure with hypoxia J96.01 Altered mental status R41.82 T2DM (type 2 diabetes mellitus) E11.9 Acute kidney injury N17.9
--- NOTE | 2022-12-07 08:00 | XRR_ITS ---
PROCEDURE INFORMATION: Exam: XR Chest Exam date and time: 12/07/2022 8:17 AM Age: 72 years old Clinical indication: Other: Follow-up pleural effusions TECHNIQUE: Imaging protocol: Radiologic exam of the chest. Views: 1 view. Other technique: Frontal portable upright view of the chest. COMPARISON: CR (CHEST, ) 12/01/2022 4:14 AM FINDINGS: Tubes, catheters and devices: EKG leads are present overlying the chest. The right upper extremity PICC line tip is in the mid SVC. Lungs: The pulmonary vasculature congestion has resolved. There is persistent stable left lower lobe opacity obscuring the left diaphragmatic and descending aortic shadows. Stable right lower lobe partial atelectasis. The pulmonary vasculature is normal. Pleural spaces: Increased small right pleural effusion. No pneumothorax. Heart/Mediastinum: The heart is normal in size and contour. Mediastinum: Stable. Vasculature: Moderate aortic arch atherosclerotic calcification without ectasia. Bones/joints: Stable. XR/XR chest 2V insp/exp 16310 IMPRESSION: 1. Resolved pulmonary vascular congestion. 2. Stable left lower lobe atelectasis/consolidation. 3. Stable right lower lobe partial atelectasis. 4. Increased small right pleural effusion.
[2022-12-07] MEDS: budesonide 0.5 mg/2 mL Neb INHALATION ×2 (08:17→21:11)
[2022-12-07 08:54] LABS: Glucose Point of Care 138 mg/dL (70-110)
[2022-12-07] MEDS: levofloxacin-dextrose 5 % 750 MG/150 ML PREMIX 100 MG IV (09:01)
[2022-12-07] MEDS: azithromycin 500 MG in sodium chloride 0.9% 250 ML 250 MG IV (09:02)
[2022-12-07] MEDS: aspirin 81 mg EC Tablet PO (09:02)
[2022-12-07] MEDS: clopidogrel 75 mg Tablet PO (09:02)
[2022-12-07] MEDS: guaiFENesin 600 mg Tablet PO ×2 (09:02→17:59)
[2022-12-07] MEDS: heparin 5,000 unit/mL INJ 1 mL 5000 UNIT SUBCUT ×2 (09:03→21:34)
[2022-12-07] MEDS: polyethylene glycol 3350 Pkt 17 gm PO (09:05)
[2022-12-07] MEDS: fluticasone nasal spray 16gm Btl 2 SPRAY NASAL (09:07)
[2022-12-07] MEDS: pantoprazole 40 mg SDV IVP (09:49)
[2022-12-07] MEDS: metoprolol tartrate 25 mg Tablet PO ×2 (09:49→21:33)
[2022-12-07 12:34] LABS: Glucose Point of Care 199 mg/dL (70-110)
[2022-12-07] MEDS: insulin lispro 100 unit/1 mL SUBCUT ×2 (12:40→21:34)
--- NOTE | 2022-12-07 15:22 | PC.SOCIAL ---
IMM Update Updated pt & on IMM. No questions voiced. Provided pt a copy. Initialed, dated, & timed copy in chart.
[2022-12-07 17:44] LABS: Glucose Point of Care 140 mg/dL (70-110)
--- NOTE | 2022-12-07 18:05 | PC.NURSE ---
Transfer Note Patient transferred to CSU room 107 from ICU via bed. Handoff report given to ANTONIO Saucedo. Patient oriented to environment and equipment. Covering service notified. Orders reviewed and will continue to monitor. Family notified. Upon transfer patient is alert/oriented x4, on 2LNC. Bruising noted to bilateral groin, no other wounds/skin issues noted upon transfer. All patient belongings transferred with patient and placed at bedside. No pain reported by patient throughout shift.
--- NOTE | 2022-12-07 18:21 | PC.NURSE ---
Patient arrived to CSU at 1805.
--- NOTE | 2022-12-07 20:08 | P.PN_ITS ---
Subjective Subjective: He reports he is doing all right. He still coughing up quite a bit of phlegm. Denies trouble breathing. No chest pain. His states that his legs felt warm last night. He does not seem to re member that. Vitals/I&O/Wt Last Vital Signs Temp 98.0 F 12/07/22 20:00 Pulse 89 12/07/22 20:00 Resp 19 H 12/07/22 20:00 BP 130/73 12/07/22 20:00 Pulse Ox 95 12/07/22 20:00 O2 Del Method Nasal Cannula 12/07/22 20:00 O2 Flow Rate 1 12/07/22 20:00 FiO2 30 12/04/22 13:25 12/07/22 12/07/22 12/07/22 06:59 14:59 22:59 Intake Total 1000 / 1000 Output Total 900 / 3325 1000 / 1000 Balance -900 / -2115 1000 / 1000 -1000 / 0 Weight last 48 hrs Weight 129.727 kg Weight 132.6 kg Physical Exam Narrative: Accompanied by his and son. Const: GENERAL APPEARANCE: patient mechanically ventilated HENMT: COMMON NORMALS: oropharynx normal Neck/C-Spine: COMMON NORMALS: no JVD Resp: AUSCULTATION: rhonchi (Minimal) Cardio: COMMON NORMALS: no JVD, regular rhythm, S1 normal heart sound present, S2 normal heart sound present and No murmurs present (Cardio) RHYTHM: regular rhythm HEART SOUNDS: S1 normal heart sound present and S2 normal heart sound present GI: COMMON NORMALS: Normal to inspection, nondistended, normoactive bowel sounds present, Soft to palpation and non-tender PALPATION: Yes Soft to palpation Extremity: COMMON NORMALS: no joint enlargement GENERAL: Yes edema (Trace) Urinary Catheter Management: Vasquez: Cath Placed During This Visit: yes Reason for Continuing Indwelling Catheter: Accurate Measurement of Urinary Output in Critically Ill Patients Urinary Catheter Date of Insertion: 11/29/22 Urinary Catheter Time of Insertion: 01:14 Data 12/07/22 05:25 12/07/22 05:25 A&P Assessment and plan (1) Acute respiratory failure with hypoxia: Continues having quite a bit of phlegm. Increase guaifenesin to 1200. We will switch to prednisone but continue steroid for now. Continue to gradually wean down oxygen support. She is having some phlegm, encouraged expectoration. Continue Antibiotic coverage with Levaquin to cover Pseudomonas which grew in culture, stop azithromycin. CXR appreciated, stable left lower lobe atelectasis/consolidation. Stable right lower lobe partial atelectasis. Encouraged flutter valve, I-S. Noted increased small right pleural effusion. flutter valve, I-S. Mucinex. ST assessment. He is generally very weak. PT, OT. Held diuretics. Chest x-ray appreciated with resolved pulmonary vascular congestion although there is increase in small right pleural effusion. Creatinine with improvement down to 0.9. BUN down to 44. Follow-up chemistry requested. Monitor electrolytes with diuresis, at risk of deficiency. Monitor on telemetry. Potassium 4.1. Follow-up chemistry. So far encephalopathy and delirium have shown improvement, he has been awake alert, cooperative, calm. Suspected chronic hypoxia that has been untreated. He does have known sleep apnea and is intolerant of facial mask. Reported history of emphysema. In ICU as overflow from CSU. (2) Acute kidney injury: As above. Improved, although some dilutional effect likely as well. Anticipate increasing creatinine with diuresis. Monitor renal function, urine output with diuresis. Obstructive uropathy excluded. Otherwise suspicion for prerenal ALFRED versus ATN. Continue hemodynamic support, wean down as tolerating. Follow-up chemistry requested. (3) Hypotension: Resolved Lasix on hold. Continue to watch blood pressure. Hypotension suspected was likely degree of cardiogenic shock, moderate to severe aortic stenosis and propofol. Limited TTE which was repeated with contrast due to poor visibility and prior study, with wall motion abnormalities, diminished EF 25-30%. (4) Non-ST elevation MO (NSTEMI): Status post high risk PCI, transient Impella support on 12/02. Stent placed in LAD. Sheath removed on return to [employer] last night and hemostasis achieved. On aspirin, Plavix. Beta-richard held, hypotensive. Will benefit from addition of statin. Type I NSTEMI with troponin elevation, EKG changes, regional wall motion abnormalities on echo decreased EF. Has been off heparin drip since held by cardiology. Changed to prophylactic dose. Discussed with cardiology. (5) Pneumonia: Levaquin. Stop azithromycin. Noted some worsening cytosis 13.6 with still predominantly neutrophilic. Still elevated 7.6. Thick secretions which he appears to be having difficulty bringing up. Continue pulmonary toilet, flutter valve discussed with him and his and added. As well as incentive spirometer. Guaifenesin. Discussed with RT. Pseudomonas aeruginosa on sputum culture. Negative blood cultures. MRSA PCR noted negative. (6) COPD exacerbation: Switch to prednisone. Stop azithromycin. Breathing treatments. Related to allergies and pneumonia (7) Lymphadenopathy: Scattered mediastinal lymph nodes up to 15 mm in the subcarinal region noted on CTA of the chest (8) T2DM (type 2 diabetes mellitus): Chronically on metformin, hemoglobin A1c 8.2 (9) Hypertension: Chronically on Lasix (10) Gross hematuria: Likely traumatic related to Vasquez placement along with anticoagulation. Resol moon with irrigation and holding of anticoagulation. Will monitor with resumption of anticoagulation. CT kidney stone protocol suggestion of stone/obstructive uropathy. Follow-up CBC requested. (11) Prostate cancer: May be a contributing factor to above, chronically on Flomax (12) Hyperkalemia: Resolved. Related to acute kidney injury, though persists after normalization of creatinine. Not on any potassium containing medications presently will need to monitor. (13) Aortic stenosis: Newly identified diagnosis as per echocardiogram. Aortic valve area 1.3 cm?. (14) Seasonal allergies: Plan Bilateral pleural effusions, right greater than left: Requested follow-up chest x-ray. Appreciated, slight increase in small right pleural effusion. Monitor HANNAH, blood pressures, renal function. With noted decreased EF 25-30%, NSTEMI, peripheral trace edema. Suspect component of acute systolic and diastolic CHF for which will benefit from diuresis, however, currently hy potensive, pending additional cardiac assessment as above. Physical deconditioning: Generally weak. Working with therapy. Case management working with patient and family regarding disposition, he will need rehabilitation at SNF. Smoking addiction Emphysema Attestations Medical Necessity Statement*: Continue admission for assessment and management of pneumonia, COPD this admission, de-escalation of treatment, post discharge planning and arrangements. Diagnoses Acute respiratory failure with hypoxia J96.01 Acute kidney injury N17.9 Hypotension I95.9 Non-ST elevation MO (NSTEMI) I21.4 Pneumonia J18.9 COPD exacerbation J44.1 Lymphadenopathy R59.1 T2DM (type 2 diabetes mellitus) E11.9 Hypertension I10 Gross hematuria R31.0 Prostate cancer C61 Hyperkalemia E87.5 Aortic stenosis I35.0 Seasonal allergies J30.2
[2022-12-07 21:21] LABS: Glucose Point of Care 260 mg/dL (70-110)
[2022-12-07] MEDS: atorvastatin 40 mg Tablet 80 MG PO (21:33)
[2022-12-08] VITALS (16 sets, daily range): BP systolic 108–128; BP diastolic 59–74; PULSE 72–87; RESP 15–22; TEMP 36.6–37.3; O2SAT 95–99
[2022-12-08 05:20] LABS: Basophils % 0.1 %; Eosinophils % 0.1 %; Hematocrit 30.9 % (42.0-52.0); Hemoglobin 9.2 g/dL (11.7-16.6); Lymphocytes # 0.5 10^3/uL (0.8-4.8); Mean Corpuscular HGB Conc 29.8 g/dL (30.0-36.0); Mean Corpuscular Hemoglobin 26.7 pg (28.0-34.0); Mean Corpuscular Volume 89.6 fl (80-94); Mean Platelet Volume 11.2 fL (7.4-10.4); Monocytes # 0.9 10^3/uL (0.2-0.9); Monocytes % 8.8 %; Neutrophils # 8.36 10^3/uL (1.8-7.7); Neutrophils % 85.2 %; Nucleated Red Blood Cells % 0 %; Platelet Count 141 10^3/cmm (130-400); Red Blood Count 3.45 10^6/uL (4.1-5.3); Red Cell Distribution Width 14.9 % (12.1-15.1); White Blood Count 9.8 10^3/uL (4.0-10.0)
[2022-12-08 05:42] LABS: Anion Gap 12.1 (5-19); Blood Urea Nitrogen 38 mg/dL (8-23); Calcium 8.2 mg/dL (8.5-10.5); Carbon Dioxide 29 mmol/L (22-29); Chloride 103 mmol/L (98-107); Glucose 187 mg/dL (65-115); Osmolality Calculated 302 mOsm/kg (285-295); Potassium 5.1 mmol/L (3.5-5.1); Sodium 139 mmol/L (136-145)
[2022-12-08 06:43] LABS: Glucose Point of Care 184 mg/dL (70-110)
[2022-12-08] MEDS: insulin lispro 100 unit/1 mL SUBCUT ×4 (08:13→21:10)
[2022-12-08] MEDS: fluticasone nasal spray 16gm Btl 2 SPRAY NASAL (08:20)
[2022-12-08] MEDS: aspirin 81 mg EC Tablet PO (08:20)
[2022-12-08] MEDS: predniSONE 20 mg Tablet PO (08:21)
[2022-12-08] MEDS: guaiFENesin 600 mg Tablet 1200 MG PO ×2 (08:21→18:59)
[2022-12-08] MEDS: clopidogrel 75 mg Tablet PO (08:21)
[2022-12-08] MEDS: levofloxacin-dextrose 5 % 750 MG/150 ML PREMIX 100 MG IV (08:24)
[2022-12-08] MEDS: heparin 5,000 unit/mL INJ 1 mL 5000 UNIT SUBCUT ×2 (09:12→21:10)
[2022-12-08] MEDS: metoprolol tartrate 25 mg Tablet PO ×2 (09:12→21:10)
[2022-12-08] MEDS: budesonide 0.5 mg/2 mL Neb INHALATION ×2 (09:46→19:18)
[2022-12-08] MEDS: ipratropium-albuterol 3 mL Neb INHALATION ×3 (09:46→19:19)
[2022-12-08] MEDS: pantoprazole 40 mg SDV IVP (09:59)
[2022-12-08 11:30] LABS: Glucose Point of Care 217 mg/dL (70-110)
[2022-12-08 17:18] LABS: Glucose Point of Care 180 mg/dL (70-110)
--- NOTE | 2022-12-08 20:10 | PM.PN ---
Subjective Subjective: The patient has not had any chest pain. The shortness of breath is significantly improved. He is slowly ambulating. The vital signs are stable. No significant arrhythmias were noted on the monitor Medications: Medication Review Details: Current Medications Acetaminophen (Acetaminophen 500 Mg Tablet) 500 mg PO Q4H PRN PRN Reason: fever Albuterol/Ipratropium (Ipratropium-Albuterol 3 Ml Neb) 3 ml INHALATION Q6H.RESP GUDELIA Last Admin: 12/08/22 19:19 Dose: 3 ml Albuterol/Ipratropium (Ipratropium-Albuterol 3 Ml Neb) 3 ml INHALATION Q6H PRN PRN Reason: SHORTNESS OF BREATH Aspirin (Aspirin 81 Mg Ec Tablet) 81 mg PO DAILY [facility] Last Admin: 12/08/22 08:20 Dose: 81 mg Atorvastatin Calcium (Atorvastatin 40 Mg Tablet) 80 mg PO BEDTIME GUDELIA Last Admin: 12/07/22 21:33 Dose: 80 mg Budesonide (Budesonide 0.5 Mg/2 Ml Neb) 0.5 mg INHALATION BID.RESPIRATORY [facility] Last Admin: 12/08/22 19:18 Dose: 0.5 mg Chlorhexidine Gluconate (Chlorhexidine Gluconate 4% Btl 118 Ml) 1 applic TOPICAL 0100 [facility] Last Admin: 12/08/22 00:04 Dose: Not Given Clopidogrel Bisulfate (Clopidogrel 75 Mg Tablet) 75 mg PO DAILY [facility] Last Admin: 12/08/22 08:21 Dose: 75 mg Dextrose (Dextrose 50% Syringe 50 Ml) 25 ml IVP ONCE PRN; Protocol PRN Reason: hypoglycemia protocol Dextrose (Dextrose 50% Syringe 50 Ml) 50 ml IVP PRN PRN; Protocol PRN Reason: hypoglycemia protocol Fluticasone Propionate (Fluticasone Nasal [place] 16gm Btl) 2 spray NASAL DAILY [facility] Last Admin: 12/08/22 08:20 Dose: 2 spray Furosemide (Furosemide 10 Mg/Ml Sdv 2ml) 20 mg IVP Q12H [facility] Last Admin: 12/06/22 10:42 Dose: 20 mg Glucagon (Glucagon 1 Mg/Ml Inj 1 Ml) 1 mg IM ONCE PRN; Protocol PRN Reason: Adult Acute Hypoglycemia Prot. Guaifenesin (Guaifenesin 600 Mg Tablet) 1,200 mg PO BID [facility] Last Admin: 12/08/22 18:59 Dose: 1,200 mg Heparin Sodium (Porcine) (Heparin 5,000 Unit/Ml Inj 1 Ml) 5,000 unit SUBCUT Q12H [facility] Last Admin: 12/08/22 09:12 Dose: 5,000 unit Dextrose (D5w) 500 mls @ 100 mls/hr IV ONCE PRN; Protocol PRN Reason: Adult Acute Hypoglycemia Prot Levofloxacin/Dextrose (Levaquin-D5w) 750 mg in 150 mls @ 100 mls/hr IV Q24H [facility]; Protocol Last Infusion: 12/08/22 09:57 Dose: Infused Insulin Human Lispro (Insulin Lispro 100 Unit/1 Ml) 0 unit SUBCUT TIDWM [facility]; Protocol Last Admin: 12/08/22 18:59 Dose: 4 unit Insulin Human Lispro (Insulin Lispro 100 Unit/1 Ml) 0 unit SUBCUT BEDTIME [facility]; Protocol Last Admin: 12/07/22 21:34 Dose: 3 unit Lanolin (Lanolin Oint 7 Gm) 1 applic TOPICAL PRN PRN PRN Reason: DRYNESS Last Admin: 11/29/22 05:23 Dose: 1 applic Metoprolol Tartrate (Metoprolol Tartrate 1 Mg/1 Ml Sdv 5 Ml) 5 mg IVP Q6H PRN PRN Reason: HYPERTENSION Last Admin: 11/30/22 13:11 Dose: 5 mg Metoprolol Tartrate (Metoprolol Tartrate 25 Mg Tablet) 25 mg PO BID@0900,2100 [facility] Last Admin: 12/08/22 09:12 Dose: 25 mg Ondansetron HCl (Ondansetron 2 Mg/Ml Sdv 2 Ml) 4 mg IVP Q6H PRN PRN Reason: NAUSEA AND VOMITING Pantoprazole Sodium (Pantoprazole 40 Mg Sdv) 40 mg IVP Q24H [facility] Last Admin: 12/08/22 09:59 Dose: 40 mg Polyethylene Glycol (Polyethylene Glycol 3350 Pkt 17 Gm) 17 gm PO BID [facility] Last Admin: 12/08/22 18:57 Dose: Not Given Prednisone (Prednisone 20 Mg Tablet) 20 mg PO DAILY [facility] Last Admin: 12/08/22 08:21 Dose: 20 mg Vitals/I&O/Wt Last Vital Signs Temp 99.1 F 12/08/22 19:52 Pulse 84 12/08/22 19:52 Resp 19 H 12/08/22 19:52 BP 110/60 12/08/22 19:52 Pulse Ox 95 12/08/22 19:52 O2 Del Method Nasal Cannula 12/08/22 19:19 O2 Flow Rate 2 12/08/22 19:19 FiO2 30 12/04/22 13:25 12/08/22 12/08/22 12/08/22 06:59 14:59 22:59 Intake Total 240 / 1360 510 / 510 360 / 870 Output Total 600 / 1950 950 / 950 Balance -360 / -590 510 / 510 -590 / -80 Weight last 48 hrs Weight 280 lb 3.32 oz Weight 286 lb Physical Exam Narrative: GENERAL: The patient is alert and oriented times three. Not in any acute distress. HEENT: No significant pallor, icterus or lymphadenopathy.Oral cavity: There are no mucous membrane lesions. NECK: Trachea appears to be central. No masses noted. No JVD or thyromegaly appreciated. RESPIRATORY: Chest is symmetrical. No intercostals muscle retraction or any accessory muscle activation. There is no chest wall tenderness. Breath sounds are heard bilaterally. Occasional expiratory wheezing and coarse crackles BREASTS: Deferred. HEART: The heart sounds are normal. No S3 or S4. No significant murmurs. No pericardial rub ABDOMEN: No vessel pulsations or distention. No tenderness. No organomegaly appreciated. Bowel sounds are normally heard. : Deferred. RECTAL: Deferred. LYMPHATIC: No lymphadenopathy noted in the neck. EXTREMITIES: No edema or cyanosis. No clubbing. MUSCULOSKELETAL: No acute joint deformities or swelling SKIN: There are no significant rashes or ecchymosis NEUROPSYCHIATRIC: The patient is alert and oriented x3. Appears to be in a good mood. No tremors or rigidity noted. Urinary Catheter Management: Vasquez: Cath Placed During This Visit: yes Reason for Continuing Indwelling Catheter: Acute Urinary Retention or Obstruction Urinary Catheter Date of Insertion: 11/29/22 Urinary Catheter Time of Insertion: 01:14 Data 12/08/22 04:37 12/08/22 04:37 Other Labs: Laboratory Last Values WBC 9.8 10^3/uL (4.0-10.0) 12/08/22 04:37 RBC 3.45 10^6/uL (4.1-5.3) L 12/08/22 04:37 Hgb 9.2 g/dL (11.7-16.6) L 12/08/22 04:37 Hct 30.9 % (42.0-52.0) L 12/08/22 04:37 MCV 89.6 fl (80-94) 12/08/22 04:37 MCH 26.7 pg (28.0-34.0) L 12/08/22 04:37 MCHC 29.8 g/dL (30.0-36.0) L 12/08/22 04:37 RDW 14.9 % (12.1-15.1) 12/08/22 04:37 Plt Count 141 10^3/cmm (130-400) 12/08/22 04:37 MPV 11.2 fL (7.4-10.4) H 12/08/22 04:37 Neut % (Auto) 85.2 % 12/08/22 04:37 Lymph % (Auto) 5.0 % 12/08/22 04:37 [place] % (Auto) 8.8 % 12/08/22 04:37 Eos % (Auto) 0.1 % 12/08/22 04:37 Baso % (Auto) 0.1 % 12/08/22 04:37 Neut # (Auto) 8.36 10^3/uL (1.8-7.7) H 12/08/22 04:37 Lymph # (Auto) 0.5 10^3/uL (0.8-4.8) L 12/08/22 04:37 [place] # (Auto) 0.9 10^3/uL (0.2-0.9) 12/08/22 04:37 Eos # (Auto) 0.0 10^3/uL (0.0-0.8) 12/08/22 04:37 Baso # (Auto) 0.0 10^3/uL (0.0-0.1) 12/08/22 04:37 Nucleated RBC % (auto) 0 % 12/08/22 04:37 Nucleated RBCs # 0.0 /100WBC 12/08/22 04:37 PT 13.20 SECONDS (12.1-14.9) 11/27/22 23:04 INR 0.98 (0.8-1.2) 11/27/22 23:04 APTT 66.1 SECONDS (23.9-36.7) H 12/01/22 00:36 Specimen Type Arterial 12/04/22 06:24 Sample Site Radial, right 12/04/22 06:24 ABG pH 7.45 (7.35-7.45) 12/04/22 06:24 ABG pCO2 40.6 mmHg (35-45) 12/04/22 06:24 ABG pO2 62.8 mmHg (80.0-100.0) L 12/04/22 06:24 ABG HCO3 28.0 mmol/L (22-26) H 12/04/22 06:24 ABG O2 Saturation 92.6 12/04/22 06:24 ABG Base Excess 3.6 mmol/L (-2.0-2.0) H 12/04/22 06:24 [place] Test Pos 12/04/22 06:24 A-a O2 Gradient 22.3 mmHg (5-10) H 12/04/22 06:24 Hematocrit 35.7 % (42-52) L 12/04/22 06:24 Hgb O2 Saturation 91.1 % (95-100) L 12/04/22 06:24 Carboxyhemoglobin 1.2 %THgb (0.4-20.1) 12/04/22 06:24 Methemoglobin 0.4 % (0.4-1.5) 12/04/22 06:24 Total Hemoglobin 11.6 g/dL (14-18) L 12/04/22 06:24 Sodium 136.0 mmol/L (131-143) 12/04/22 06:24 Potassium 5.0 mmol/L (3.5-5.0) 12/04/22 06:24 Glucose 210.0 mg/dL (70-115) H 12/04/22 06:24 Ionized Calcium 1.0 mmol/L (1.1-1.4) L 12/04/22 06:24 O2 Delivery Device Vent 12/04/22 06:24 O2 Liters/Min 4.0 % 11/30/22 08:24 FiO2 40.0 % 12/04/22 06:24 Tidal Volume 0.50 12/04/22 06:24 PEEP 8.0 cmH20 12/04/22 06:24 Project Portfolio Analyst ID Lai 12/04/22 06:24 Sodium 139 mmol/L (136-145) 12/08/22 04:37 Potassium 5.1 mmol/L (3.5-5.1) 12/08/22 04:37 Chloride 103 mmol/L (98-107) 12/08/22 04:37 Carbon Dioxide 29 mmol/L (22-29) 12/08/22 04:37 Anion Gap 12.1 (5-19) 12/08/22 04:37 BUN 38 mg/dL (8-23) H 12/08/22 04:37 Creatinine 0.9 mg/dL (0.7-1.2) 12/08/22 04:37 GFR Calculation Not Reportable 12/08/22 04:37 Glucose 187 mg/dL (65-115) H 12/08/22 04:37 POC Glucose 180 mg/dL (70-110) H 12/08/22 17:09 Estimat Average Glucose 189 11/29/22 02:27 Hemoglobin A1c 8.2 % (4.0-6.0) H 11/29/22 02:27 Calculated Osmolality 302 mOsm/kg (285-295) H 12/08/22 04:37 Uric Acid 8.6 mg/dL (3.4-7.0) H 11/29/22 02:27 Calcium 8.2 mg/dL (8.5-10.5) L 12/08/22 04:37 Phosphorus 3.9 mg/dL (2.5-4.5) 12/01/22 00:36 Magnesium 2.5 mg/dL (1.7-2.3) H 12/06/22 03:45 Total Bilirubin 0.3 mg/dL (0.15-1.2) 12/04/22 02:22 AST 17 U/L (0-40) 12/04/22 02:22 ALT 24 U/L (0-41) 12/04/22 02:22 Alkaline Phosphatase 59 U/L (40-130) 12/04/22 02:22 Ammonia 24 umol/L (16-60) 12/04/22 14:06 Creatine Kinase 254 U/L (39-308) 12/01/22 00:36 Troponin T Gen 5 ng/L 2208 ng/L (0-15) H* 12/01/22 00:36 Troponin T Baseline 261 ng/L (0-15) H* 11/27/22 23:04 Troponin T 120 Minute 278.3 ng/L (0-15) H 11/28/22 00:51 Delta Troponin T 17.3 ABS# (0-10) H* 11/28/22 00:51 Troponin T Hi Sens 6Hr 447.2 ng/L (0-15) H 11/28/22 05:11 Troponin T Hi Sens 6Hr Delta 186.2 ng/L (0-12) H* 11/28/22 05:11 C-Reactive Protein 10.3 mg/L (0.0-4.9) H 11/30/22 04:10 NT-Pro-B Natriuret Pep 1821 pg/mL (0-125) H 11/27/22 23:04 Total Protein 5.7 g/dL (6.6-8.7) L 12/04/22 02:22 Albumin 2.9 g/dL (3.5-5.2) L 12/04/22 02:22 Globulin 2.8 g/dL (1.3-4.6) 12/04/22 02:22 Triglycerides 125 mg/dL (0-150) 11/30/22 04:10 Cholesterol 176 mg/dL (0-200) 11/30/22 04:10 LDL Cholesterol, Calc 111 mg/dL (50-129) 11/30/22 04:10 HDL Cholesterol 40 mg/dL (60-100) L 11/30/22 04:10 LDL/HDL Ratio 2.78 RATIO (0.00-3.22) 11/30/22 04:10 Cholesterol/HDL Ratio 4.40 mg/dL (1.0-5.00) 11/30/22 04:10 Urine Color Cancelled 12/01/22 08:35 Urine Appearance Cancelled 12/01/22 08:35 Urine pH Cancelled 12/01/22 08:35 Ur Specific [place] Cancelled 12/01/22 08:35 Urine Protein Cancelled 12/01/22 08:35 Urine Glucose (UA) Cancelled 12/01/22 08:35 Urine Ketones Cancelled 12/01/22 08:35 Urine Blood Cancelled 12/01/22 08:35 Urine Nitrate Cancelled 12/01/22 08:35 Urine Bilirubin Cancelled 12/01/22 08:35 Prot Sulfosalicylic Acd Cancelled 12/01/22 08:35 Urine Urobilinogen Cancelled 12/01/22 08:35 Ur Leukocyte Esterase Cancelled 12/01/22 08:35 Urine RBC Too numerous to cnt /hpf (0-2) H 11/29/22 08:57 Urine WBC 40-55 /hpf (0-5) H 11/29/22 08:57 Ur Squamous Epith Cells 0-4 /hpf (0-5) H 11/29/22 08:57 Amorphous Sediment Not Reportable 11/29/22 08:57 Urine Bacteria 1+ /hpf (NONE) H 11/29/22 08:57 Ur Random Sodium 29 mmol/L 11/29/22 08:57 Urine Creatinine 133 mg/dL (39-259) 11/29/22 08:57 Influenza Type A Ag negative (Negative) 11/27/22 22:40 Influenza Type B Ag negative (Negative) 11/27/22 22:40 SARS-CoV-2 Ag (Rapid) negative (Negative) 11/27/22 22:40 A&P Assessment and plan (1) Stenosis of left main coronary artery: Start post PCI of the left main. Currently seems to be stable. We will continue on the Plavix, aspirin and other medications. (2) Ischemic cardiomyopathy: The ejection fraction was 25 to 30% by echocardiogram on 12/01/2022. I may go ahead and do a limited 2D echocardiogram in the morning to reevaluate ejection fraction. The need for the LifeVest will be decided afterwards (3) Non-ST elevation CO (NSTEMI): No recurrence of chest pain. (4) Acute respiratory failure with hypoxia: The patient is respiratory status is stable. He is off the ventilator. Oxygenation seems to be appropriate. (5) Altered mental status: His mental status has significant improvement (6) T2DM (type 2 diabetes mellitus): The blood sugar seems to be fairly under control. (7) Acute kidney injury: The kidney function seems to stable Plan Based on the results of the echocardiogram, further recommendations will be made. May continue on the current medications for the time being. Attestations Medical Necessity Statement*: Disposition as per the primary Coding Level of Care Code 31321 Diagnoses Stenosis of left main coronary artery I25.10 Ischemic cardiomyopathy I25.5 Non-ST elevation CO (NSTEMI) I21.4 Acute respiratory failure with hypoxia J96.01 Altered mental status R41.82 T2DM (type 2 diabetes mellitus) E11.9 Acute kidney injury N17.9
--- NOTE | 2022-12-08 20:18 | USCV_ITS ---
Zander Carrera Age: 72 Gender: M : 1950 Exam Date: 12/08/2022 23:21 Ordering Phys: Natanael Hays MD ([email or web address]) Technologist: RONALD Exam Location: [facility] [place] Indication: re-evaluate ejection fraction after coronary intervention. BP: 110 / 60 HR: 76 Rhythm: Sinus Technical Quality: Adequate with OPTISON MEASUREMENTS (Male / Female) Normal Values 2D ECHO LV Diastolic Diameter PLAX 4.7 cm 4.2 - 5.9 / 3.9 - 5.3 cm LV Systolic Diameter PLAX 3.2 cm IVS Diastolic Thickness 2.3 cm 0.6 - 1.0 / 0.6 - 0.9 cm IVS Systolic Thickness 3.4 cm LVPW Diastolic Thickness 1.9 cm 0.6 - 1.0 / 0.6 - 0.9 cm LVPW Systolic Thickness 2.1 cm LVOT Diameter 2.2 cm LV Ejection Fraction 2D Teich 59.2 % LV Ejection Fraction MOD 2C 37.4 % LV Ejection Fraction 2C AL 34.4 % LA Diameter 4.8 cm LA Width 4.5 cm LA Height 6.1 cm RA Width 4.6 cm RA Height 4.8 cm Aorta at Sinotubular Diameter 3.1 cm IVC Diameter 2.1 cm M-MODE Aortic Annulus Diameter 3.3 cm LA Ao Ratio MM 1.4 MV E Point Septal Separation 1.0 cm DOPPLER AV Peak Velocity 344.0 cm/s LVOT Peak Velocity 68.0 cm/s AV Area Cont Eq vti 0.8 cm squared AV Area Cont Eq pk 0.8 cm squared MV Peak Velocity 152.0 cm/s MV Area PHT 3.6 cm squared Mitral E to A Ratio 1.6 MV E' Velocity 80.0 cm/s Mitral E to MV E' Ratio 24.6 Mitral E to LV E' Lateral Ratio 21.5 Mitral E to LV E' Septal Ratio 29.4 PV Peak Velocity 147.0 cm/s RV Acceleration Time 0.1 s RV Ejection Time 0.3 s RV AcT/ET 0.4 FINDINGS Left Ventricle Normal LV size with a diminished ejection fraction of around 43%. Mild hypokinesia of the mid and apical septum, anteroseptum and inferior wall segments.Grade III/IV diastolic dysfunction (restrictive filling pattern), severely elevated filling pressures. Right Ventricle Normal right ventricular size. Mildly decreased right ventricular systolic function. Right Atrium Left Atrium Mildly increased left atrial size. Mitral Valve Thickened mitral valve. Moderate mitral annular calcification. Aortic Valve Severe low gradient aortic valve stenosis, mean gradient 26 mmHg, BRIAN 0.8 cm squared. Peak velocity of 3.44 m/s with a peak gradient of 47 mmHg. Tricuspid Valve Mild tricuspid valve regurgitation. Pulmonic Valve Pulmonic valve not well visualized. Pericardium No pericardial effusion. Aorta Normal aortic annulus size. IVC Normal inferior vena cava. CONCLUSIONS Normal LV size with a diminished ejection fraction of around 43%. Mild hypokinesia of the mid and apical septum, anteroseptum and inferior wall segments.Grade III/IV diastolic dysfunction (restrictive filling pattern), severely elevated filling pressures. Because of the poor ultrasonic window, Optison was used for endocardial delineation and ejection fraction estimation. Severe low gradient aortic valve stenosis, mean gradient 26 mmHg, BRIAN 0.8 cm squared. Peak velocity of 3.44 m/s with a peak gradient of 47 mmHg. Thickened mitral valve. Moderate mitral annular calcification. Mildly increased left atrial size. No pericardial effusion Compared to the study from 12/01/2022, there is significant improvement in the LV ejection fraction. The aortic valve stenosis appears to be more severe compared to the study from 11/29/2022-could be because of the difference in the technical quality Dr Natanael Hays MD [facility] (Electronically Signed) Final Date: 09 December 2022 10:14 S
--- NOTE | 2022-12-08 20:47 | PM.PN ---
Subjective Subjective: He reports he is doing better. Secretions are clearing up. He is working with [employer]. Worked with therapy, required sit to stand and assistance, but somewhat less than before. Vitals/I&O/Wt Last Vital Signs Temp 99.1 F 12/08/22 20:39 Pulse 84 12/08/22 20:39 Resp 19 H 12/08/22 20:39 BP 110/60 12/08/22 20:39 Pulse Ox 95 12/08/22 20:39 O2 Del Method Nasal Cannula 12/08/22 20:39 O2 Flow Rate 2 12/08/22 19:19 FiO2 30 12/04/22 13:25 12/08/22 12/08/22 12/08/22 06:59 14:59 22:59 Intake Total 240 / 1360 510 / 510 360 / 870 Output Total 600 / 1950 950 / 950 Balance -360 / -590 510 / 510 -590 / -80 Weight last 48 hrs Weight 127.1 kg Weight 129.727 kg Physical Exam Narrative: Accompanied by and granddaughter Const: GENERAL APPEARANCE: patient mechanically ventilated HENMT: COMMON NORMALS: oropharynx normal Neck/C-Spine: COMMON NORMALS: no JVD Resp: COMMON NORMALS: clear to auscultation bilaterally AUSCULTATION: clear to auscultation bilaterally Cardio: COMMON NORMALS: no JVD, regular rhythm, S1 normal heart sound present, S2 normal heart sound present and No murmurs present (Cardio) RHYTHM: regular rhythm HEART SOUNDS: S1 normal heart sound present and S2 normal heart sound present GI: COMMON NORMALS: Normal to inspection, nondistended, normoactive bowel sounds present, Soft to palpation and non-tender PALPATION: Yes Soft to palpation Extremity: COMMON NORMALS: no joint enlargement GENERAL: Yes edema (Trace) Urinary Catheter Management: Vasquez: Cath Placed During This Visit: yes Reason for Continuing Indwelling Catheter: Acute Urinary Retention or Obstruction Urinary Catheter Date of Insertion: 11/29/22 Urinary Catheter Time of Insertion: 01:14 Data 12/08/22 04:37 12/08/22 04:37 A&P Assessment and plan (1) Acute respiratory failure with hypoxia: Continues to improve. Phlegm is clearing up. He is working with [employer] valve. Increase guaifenesin to 1200. The crease prednisone to 10 mg. Continue to gradually wean down oxygen support. Antibiotic coverage with Levaquin to cover Pseudomonas which grew in culture, CXR stable left lower lobe atelectasis/consolidation. Stable right lower lobe partial atelectasis. Flutter valve, I-S. Noted increased small right pleural effusion. Cardiology note appreciated. Limited echo to be repeated. Consideration of LifeVest. flutter valve, I-S. Mucinex. ST assessment. He is generally very weak. PT, OT. Held diuretics. Chest x-ray appreciated with resolved pulmonary vascular congestion although there is increase in small right pleural effusion. Creatinine with improvement down to 0.9. BUN down to 44. Follow-up chemistry requested. Monitor electrolytes with diuresis, at risk of deficiency. Monitor on telemetry. Potassium 4.1. Follow-up chemistry. So far encephalopathy and delirium have shown improvement, he has been awake alert, cooperative, calm. Suspected chronic hypoxia that has been untreated. He does have known sleep apnea and is intolerant of facial mask. Reported history of emphysema. (2) Acute kidney injury: Improved. Monitor renal function, urine output with diuresis. Obstructive uropathy excluded. Otherwise suspicion for prerenal ALFRED versus ATN. Continue hemodynamic support, wean down as tolerating. Follow-up chemistry requested. (3) Hypotension: Resolved Lasix on hold. Continue to watch blood pressure. Hypotension suspected was likely degree of cardiogenic shock, moderate to severe aortic stenosis and propofol. Limited TTE which was repeated with contrast due to poor visibility and prior study, with wall motion abnormalities, diminished EF 25-30%. (4) Non-ST elevation MT (NSTEMI): Cardiology repeating limited TTE. Considering LifeVest at discharge. Status post high risk PCI, transient Impella support on 12/02. Stent placed in LAD. Sheath removed on return to [employer] last night and hemostasis achieved. On aspirin, Plavix. Beta-richard held, hypotensive. Will benefit from addition of statin. Type I NSTEMI with troponin elevation, EKG changes, regional wall motion abnormalities on echo decreased EF. Has been off heparin drip since held by cardiology. Changed to prophylactic dose. Discussed with cardiology. (5) Pneumonia: Levaquin. Leukocytosis noted resolved. Secretions resolving. Continue pulmonary toilet, flutter valve discussed with him and his and added. As well as incentive spirometer. Guaifenesin. Pseudomonas aeruginosa on sputum culture. Negative blood cultures. MRSA PCR noted negative. (6) COPD exacerbation: Decrease prednisone. Breathing treatments. Related to allergies and pneumonia (7) Lymphadenopathy: Scattered mediastinal lymph nodes up to 15 mm in the subcarinal region noted on CTA of the chest (8) T2DM (type 2 diabetes mellitus): Chronically on metformin, hemoglobin A1c 8.2 (9) Hypertension: Chronically on Lasix (10) Gross hematuria: Likely traumatic related to Vasquez placement along with anticoagulation. Resolved with irrigation and holding of anticoagulation. Will monitor with resumption of anticoagulation. CT kidney stone protocol suggestion of stone/obstructive uropathy. Follow-up CBC requested. (11) Prostate cancer: May be a contributing factor to above, chronically on Flomax (12) Hyperkalemia: Potassium again with uptrend up to 5.1. Change diet to low potassium. (13) Aortic stenosis: Newly identified diagnosis as per echocardiogram. Aortic valve area 1.3 cm?. (14) Seasonal allergies: Plan Bilateral pleural effusions, right greater than left: Requested follow-up chest x-ray. Appreciated, slight increase in small right pleural effusion. Monitor HANNAH, blood pressures, renal function. With noted decreased EF 25-30%, NSTEMI, peripheral trace edema. Suspect component of acute systolic and diastolic CHF for which will benefit from diuresis, however, currently hypotensive, pending additional cardiac assessment as above. Physical deconditioning: Generally weak. Working with therapy. Case management working with patient and family regarding disposition, he will need rehabilitation at SNF. Smoking addiction Emphysema Attestations Medical Necessity Statement*: Continue admission for reassessment of cardiomyopathy, treatment of pneumonia, de-escalation of treatment of COPD, reassessment of renal function, post discharge planning and arrangements. Diagnoses Acute respiratory failure with hypoxia J96.01 Acute kidney injury N17.9 Hypotension I95.9 Non-ST elevation MT (NSTEMI) I21.4 Pneumonia J18.9 COPD exacerbation J44.1 Lymphadenopathy R59.1 T2DM (type 2 diabetes mellitus) E11.9 Hypertension I10 Gross hematuria R31.0 Prostate cancer C61 Hyperkalemia E87.5 Aortic stenosis I35.0 Seasonal allergies J30.2
[2022-12-08 21:06] LABS: Glucose Point of Care 223 mg/dL (70-110)
[2022-12-08] MEDS: atorvastatin 40 mg Tablet 80 MG PO (21:10)
[2022-12-09] VITALS (12 sets, daily range): BP systolic 100–118; BP diastolic 60–75; PULSE 72–133; RESP 16–23; TEMP 36.8–37.1; O2SAT 93–99
[2022-12-09] MEDS: ipratropium-albuterol 3 mL Neb INHALATION ×3 (04:09→20:24)
--- NOTE | 2022-12-09 04:19 | ECG_ITS ---
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 Measurements Intervals [place] Rate: 112 P: 0 ND: 0 QRS: 35 QRSD: 119 T: 60 QT: 311 QTc: 425 Interpretive Statements ATRIAL FIBRILLATION WITH RAPID VENTRICULAR RESPONSE ANTEROSEPTAL MYOCARDIAL INFARCTION , OF INDETERMINATE AGE [40+ ms Q WAVE IN V1-V4] Compared to ECG 12/01/2022 10:03:58 Sinus rhythm no longer present Left-axis deviation no longer present Myocardial infarct finding still present Electronically Signed On 12-09-2022 14:49:17 CDT by Amaury Ricks M.D. [email or web address] [email or web address] [id number]
--- NOTE | 2022-12-09 04:35 | PC.NURSE ---
Made Dr Nova aware of patient going into a new onset afib, rate anywhere from 90-110s, will tach up to 120s when moving around. EKG confirmed Afib with RVR rate 112. Patient is asymptomatic. Per continue to monitor for now, no new orders.
[2022-12-09 06:21] LABS: Eosinophils # 0.1 10^3/uL (0.0-0.8); Eosinophils % 1.1 %; Hematocrit 29.8 % (42.0-52.0); Lymphocytes # 0.9 10^3/uL (0.8-4.8); Lymphocytes % 8.9 %; Mean Corpuscular HGB Conc 30.2 g/dL (30.0-36.0); Mean Corpuscular Hemoglobin 27.1 pg (28.0-34.0); Mean Corpuscular Volume 89.8 fl (80-94); Mean Platelet Volume 10.8 fL (7.4-10.4); Monocytes % 10.1 %; Nucleated Red Blood Cells % 0 %; Platelet Count 123 10^3/cmm (130-400); Red Blood Count 3.32 10^6/uL (4.1-5.3); Red Cell Distribution Width 15.2 % (12.1-15.1); White Blood Count 10.1 10^3/uL (4.0-10.0)
[2022-12-09 06:35] LABS: Anion Gap 11.6 (5-19); Blood Urea Nitrogen 31 mg/dL (8-23); Carbon Dioxide 28 mmol/L (22-29); Chloride 104 mmol/L (98-107); Glucose 211 mg/dL (65-115); Osmolality Calculated 301 mOsm/kg (285-295); Potassium 4.6 mmol/L (3.5-5.1); Sodium 139 mmol/L (136-145)
[2022-12-09 06:48] LABS: Glucose Point of Care 221 mg/dL (70-110)
[2022-12-09] MEDS: perflutren protein-a microsphr 0.22 mg/mL SDV 3 mL IV (06:56)
[2022-12-09] MEDS: insulin lispro 100 unit/1 mL SUBCUT ×4 (08:01→21:13)
[2022-12-09] MEDS: predniSONE 10 mg Tablet PO (08:39)
[2022-12-09] MEDS: clopidogrel 75 mg Tablet PO (08:39)
[2022-12-09] MEDS: guaiFENesin 600 mg Tablet 1200 MG PO ×2 (08:39→17:27)
[2022-12-09] MEDS: aspirin 81 mg EC Tablet PO (08:40)
[2022-12-09] MEDS: metoprolol tartrate 25 mg Tablet 50 MG PO ×2 (08:40→21:14)
[2022-12-09] MEDS: levofloxacin-dextrose 5 % 750 MG/150 ML PREMIX 100 MG IV (08:40)
[2022-12-09] MEDS: pantoprazole 40 mg SDV IVP (08:40)
[2022-12-09] MEDS: fluticasone nasal spray 16gm Btl 2 SPRAY NASAL (08:41)
[2022-12-09 08:57] LABS: Magnesium 1.9 mg/dL (1.7-2.3)
--- NOTE | 2022-12-09 09:56 | PC.NURSE ---
noted to be in nsr at 0950.dr rush and dr cantu here to examine pt.
--- NOTE | 2022-12-09 10:02 | PC.NURSE ---
sq heparin held per dr rush.
[2022-12-09] MEDS: amiodarone 200 mg Tablet 400 MG PO ×2 (10:06→21:14)
[2022-12-09 11:30] LABS: Glucose Point of Care 194 mg/dL (70-110)
--- NOTE | 2022-12-09 12:33 | CT_ITS ---
WS: [id number] CT HEAD NONCONTRAST HISTORY: AMS TECHNIQUE: Contiguous axial imaging performed through the brain in 2.5 mm imaging. Bone and soft tiss ue windows. Sagittal and coronal reformats reviewed. All CT scans at [facility] use at least one of these dose optimization techniques: automated exposure control; mA and/or kV adjustment per pa tient size (includes targeted exams where dose is matched to clinical indication); or iterative recon struction. DLP: 1148.71 mGy.cm COMPARISON: 11/30/2022 No acute intracranial hemorrhage, midline shift or mass effect. Moderate atrophy. Remote large LEFT frontal lobe infarct with ex vacuo dilatation of the lateral vent ricle. Prior lacunar infarct in the RIGHT terrie is unchanged. Mild cerebellar atrophy. Ventricles: Normal size with no hydrocephalus. No inferior displacement of cerebellar tonsils. Paranasal sinuses: As visualized are clear. Mastoid air cells: Well pneumatized. Calvarium and scalp: Skull is intact with no soft tissue edema or swelling. CT/CT head wo con* [id number] IMPRESSION: 1. Stable noncontrast head CT since 11/30/2022. No acute intracranial hemorrhage or edema. 2. Remote LEFT frontal lobe infarct. 3. Remote lacunar infarct RIGHT terrie. 4. Moderate atrophy and small vessel ischemic disease.
--- NOTE | 2022-12-09 12:33 | XR_ITS ---
WS: [id number] Portable AP upright chest, 12/09/2022 Clinical Data: poss aspiration Comparison: Portable chest, 12/07/2022 Findings: Bilateral pulmonary lower lobe opacities have increased compared to 2 days ago. The opaciti es may represent a combination of pneumonia, atelectasis and effusion. The heart is enlarged. The rig ht PICC line remains in the same position. Monitor leads are on the chest wall. No pneumothorax is se en. XR/XR chest 1V portable [id number] Impression: 1. Increase in bilateral lower lobe opacities. 2. Cardiomegaly.
[2022-12-09 16:41] LABS: Glucose Point of Care 159 mg/dL (70-110)
--- NOTE | 2022-12-09 19:16 | P.PN_ITS ---
Subjective Subjective: The patient went into atrial fibrillation last night. The dose of the metoprolol was increased to 50 mg p.o. twice daily. This morning he was found to be back in sinus rhythm. He had a repeat echocardiogram last evening. The ejection fraction was found to be 43%. Medications: Medication Review Details: Current Medications Acetaminophen (Acetaminophen 500 Mg Tablet) 500 mg PO Q4H PRN PRN Reason: fever Albuterol/Ipratropium (Ipratropium-Albuterol 3 Ml Neb) 3 ml INHALATION Q6H.RESP GUDELIA Last Admin: 12/09/22 13:44 Dose: 3 ml Albuterol/Ipratropium (Ipratropium-Albuterol 3 Ml Neb) 3 ml INHALATION Q6H PRN PRN Reason: SHORTNESS OF BREATH Amiodarone HCl (Amiodarone 200 Mg Tablet) 400 mg PO Q12H GUDELIA Apixaban (Apixaban 5 Mg Tablet) 5 mg PO BID@0900,2100 [facility] Aspirin (Aspirin 81 Mg Ec Tablet) 81 mg PO DAILY [facility] Last Admin: 12/09/22 08:40 Dose: 81 mg Atorvastatin Calcium (Atorvastatin 40 Mg Tablet) 80 mg PO BEDTIME [facility] Last Admin: 12/08/22 21:10 Dose: 80 mg Budesonide (Budesonide 0.5 Mg/2 Ml Neb) 0.5 mg INHALATION BID.RESPIRATORY [facility] Last Admin: 12/09/22 13:23 Dose: Not Given Chlorhexidine Gluconate (Chlorhexidine Gluconate 4% Btl 118 Ml) 1 applic TOPICAL 0100 [facility] Last Admin: 12/09/22 02:36 Dose: Not Given Clopidogrel Bisulfate (Clopidogrel 75 Mg Tablet) 75 mg PO DAILY [facility] Last Admin: 12/09/22 08:39 Dose: 75 mg Dextrose (Dextrose 50% Syringe 50 Ml) 25 ml IVP ONCE PRN; Protocol PRN Reason: hypoglycemia protocol Dextrose (Dextrose 50% Syringe 50 Ml) 50 ml IVP PRN PRN; Protocol PRN Reason: hypoglycemia protocol Fluticasone Propionate (Fluticasone Nasal Wright 16gm Btl) 2 spray NASAL DAILY [facility] Last Admin: 12/09/22 08:41 Dose: 2 spray Furosemide (Furosemide 10 Mg/Ml Sdv 2ml) 20 mg IVP Q12H GUDELIA Last Admin: 12/06/22 10:42 Dose: 20 mg Glucagon (Glucagon 1 Mg/Ml Inj 1 Ml) 1 mg IM ONCE PRN; Protocol PRN Reason: Adult Acute Hypoglycemia Prot. Guaifenesin (Guaifenesin 600 Mg Tablet) 1,200 mg PO BID [facility] Last Admin: 12/09/22 17:27 Dose: 1,200 mg Dextrose (D5w) 500 mls @ 100 mls/hr IV ONCE PRN; Protocol PRN Reason: Adult Acute Hypoglycemia Prot Levofloxacin/Dextrose (Levaquin-D5w) 750 mg in 150 mls @ 100 mls/hr IV Q24H [facility]; Protocol Last Infusion: 12/09/22 10:13 Dose: Infused Insulin Human Lispro (Insulin Lispro 100 Unit/1 Ml) 0 unit SUBCUT TIDWM [facility]; Protocol Last Admin: 12/09/22 17:27 Dose: 4 unit Insulin Human Lispro (Insulin Lispro 100 Unit/1 Ml) 0 unit SUBCUT BEDTIME [facility]; Protocol Last Admin: 12/08/22 21:10 Dose: 3 unit Lanolin (Lanolin Oint 7 Gm) 1 applic TOPICAL PRN PRN PRN Reason: DRYNESS Last Admin: 11/29/22 05:23 Dose: 1 applic Metoprolol Tartrate (Metoprolol Tartrate 1 Mg/1 Ml Sdv 5 Ml) 5 mg IVP Q6H PRN PRN Reason: HYPERTENSION Last Admin: 11/30/22 13:11 Dose: 5 mg Metoprolol Tartrate (Metoprolol Tartrate 25 Mg Tablet) 50 mg PO BID@0900,2100 [facility] Last Admin: 12/09/22 08:40 Dose: 50 mg Ondansetron HCl (Ondansetron 2 Mg/Ml Sdv 2 Ml) 4 mg IVP Q6H PRN PRN Reason: NAUSEA AND VOMITING Pantoprazole Sodium (Pantoprazole 40 Mg Sdv) 40 mg IVP Q24H [facility] Last Admin: 12/09/22 08:40 Dose: 40 mg Polyethylene Glycol (Polyethylene Glycol 3350 Pkt 17 Gm) 17 gm PO BID [facility] Last Admin: 12/09/22 16:33 Dose: Not Given Prednisone (Prednisone 10 Mg Tablet) 10 mg PO DAILY [facility] Last Admin: 12/09/22 08:39 Dose: 10 mg Vitals/I&O/Wt Last Vital Signs Temp 98.2 F 12/09/22 04:00 Pulse 77 12/09/22 16:00 Resp 23 H 12/09/22 16:00 BP 118/65 12/09/22 16:00 Pulse Ox 97 12/09/22 16:00 O2 Del Method Nasal Cannula 12/09/22 16:00 O2 Flow Rate 1.5 12/09/22 13:48 FiO2 30 12/04/22 13:25 12/09/22 12/09/22 12/09/22 06:59 14:59 22:59 Intake Total 630 / 630 Output Total 400 / 1550 Balance -400 / -680 630 / 630 Weight last 48 hrs Weight 279 lb 1.683 oz Weight 280 lb 3.32 oz Physical Exam Narrative: GENERAL: Patient is alert but somewhat confused. HEENT: No significant pallor, icterus or lymphadenopathy.Oral cavity: There are no mucous membrane lesions. NECK: Trachea appears to be central. No masses noted. No JVD or thyromegaly appreciated. RESPIRATORY: Chest is symmetrical. No intercostals muscle retraction or any accessory muscle activation. There is no chest wall tenderness. Breath sounds are heard bilaterally. No rales or rhonchi heard. No evidence of any consolidation. BREASTS: Deferred. HEART: The heart sounds are normal. No S3 or S4. Short systolic murmur in the left sternal border. No diastolic murmurs. No pericardial rub ABDOMEN: No vessel pulsations or distention. No tenderness. No organomegaly appreciated. Bowel sounds are normally heard. : Deferred. RECTAL: Deferred. LYMPHATIC: No lymphadenopathy noted in the neck. EXTREMITIES: Trace edema with no cyanosis. MUSCULOSKELETAL: No acute joint deformities or swelling SKIN: There are no significant rashes or ecchymosis NEUROPSYCHIATRIC: Patient is alert with intermittent confusion. No focal motor deficits. Urinary Catheter Management: Vasquez: Cath Placed During This Visit: yes Reason for Continuing Indwelling Catheter: Accurate Measurement of Urinary Output in Critically Ill Patients Urinary Catheter Date of Insertion: 11/29/22 Urinary Catheter Time of Insertion: 01:14 Data 12/09/22 06:08 12/09/22 06:08 Other Labs: Laboratory Last Values WBC 10.1 10^3/uL (4.0-10.0) H 12/09/22 06:08 RBC 3.32 10^6/uL (4.1-5.3) L 12/09/22 06:08 Hgb 9.0 g/dL (11.7-16.6) L 12/09/22 06:08 Hct 29.8 % (42.0-52.0) L 12/09/22 06:08 MCV 89.8 fl (80-94) 12/09/22 06:08 MCH 27.1 pg (28.0-34.0) L 12/09/22 06:08 MCHC 30.2 g/dL (30.0-36.0) 12/09/22 06:08 RDW 15.2 % (12.1-15.1) H 12/09/22 06:08 Plt Count 123 10^3/cmm (130-400) L 12/09/22 06:08 MPV 10.8 fL (7.4-10.4) H 12/09/22 06:08 Neut % (Auto) 79.0 % 12/09/22 06:08 Lymph % (Auto) 8.9 % 12/09/22 06:08 [place] % (Auto) 10.1 % 12/09/22 06:08 Eos % (Auto) 1.1 % 12/09/22 06:08 Baso % (Auto) 0.0 % 12/09/22 06:08 Neut # (Auto) 8.00 10^3/uL (1.8-7.7) H 12/09/22 06:08 Lymph # (Auto) 0.9 10^3/uL (0.8-4.8) 12/09/22 06:08 [place] # (Auto) 1.0 10^3/uL (0.2-0.9) H 12/09/22 06:08 Eos # (Auto) 0.1 10^3/uL (0.0-0.8) 12/09/22 06:08 Baso # (Auto) 0.0 10^3/uL (0.0-0.1) 12/09/22 06:08 Nucleated RBC % (auto) 0 % 12/09/22 06:08 Nucleated RBCs # 0.0 /100WBC 12/09/22 06:08 PT 13.20 SECONDS (12.1-14.9) 11/27/22 23:04 INR 0.98 (0.8-1.2) 11/27/22 23:04 APTT 66.1 SECONDS (23.9-36.7) H 12/01/22 00:36 Specimen Type Arterial 12/04/22 06:24 Sample Site Radial, right 12/04/22 06:24 ABG pH 7.45 (7.35-7.45) 12/04/22 06:24 ABG pCO2 40.6 mmHg (35-45) 12/04/22 06:24 ABG pO2 62.8 mmHg (80.0-100.0) L 12/04/22 06:24 ABG HCO3 28.0 mmol/L (22-26) H 12/04/22 06:24 ABG O2 Saturation 92.6 12/04/22 06:24 ABG Base Excess 3.6 mmol/L (-2.0-2.0) H 12/04/22 06:24 [place] Test Pos 12/04/22 06:24 A-a O2 Gradient 22.3 mmHg (5-10) H 12/04/22 06:24 Hematocrit 35.7 % (42-52) L 12/04/22 06:24 Hgb O2 Saturation 91.1 % (95-100) L 12/04/22 06:24 Carboxyhemoglobin 1.2 %THgb (0.4-20.1) 12/04/22 06:24 Methemoglobin 0.4 % (0.4-1.5) 12/04/22 06:24 Total Hemoglobin 11.6 g/dL (14-18) L 12/04/22 06:24 Sodium 136.0 mmol/L (131-143) 12/04/22 06:24 Potassium 5.0 mmol/L (3.5-5.0) 12/04/22 06:24 Glucose 210.0 mg/dL (70-115) H 12/04/22 06:24 Ionized Calcium 1.0 mmol/L (1.1-1.4) L 12/04/22 06:24 O2 Delivery Device Vent 12/04/22 06:24 O2 Liters/Min 4.0 % 11/30/22 08:24 FiO2 40.0 % 12/04/22 06:24 Tidal Volume 0.50 12/04/22 06:24 PEEP 8.0 cmH20 12/04/22 06:24 Fermenter ID Lai 12/04/22 06:24 Sodium 139 mmol/L (136-145) 12/09/22 06:08 Potassium 4.6 mmol/L (3.5-5.1) 12/09/22 06:08 Chloride 104 mmol/L (98-107) 12/09/22 06:08 Carbon Dioxide 28 mmol/L (22-29) 12/09/22 06:08 Anion Gap 11.6 (5-19) 12/09/22 06:08 BUN 31 mg/dL (8-23) H 12/09/22 06:08 Creatinine 0.9 mg/dL (0.7-1.2) 12/09/22 06:08 GFR Calculation Not Reportable 12/09/22 06:08 Glucose 211 mg/dL (65-115) H 12/09/22 06:08 POC Glucose 159 mg/dL (70-110) H 12/09/22 16:13 Estimat Average Glucose 189 11/29/22 02:27 Hemoglobin A1c 8.2 % (4.0-6.0) H 11/29/22 02:27 Calculated Osmolality 301 mOsm/kg (285-295) H 12/09/22 06:08 Uric Acid 8.6 mg/dL (3.4-7.0) H 11/29/22 02:27 Calcium 8.0 mg/dL (8.5-10.5) L 12/09/22 06:08 Phosphorus 3.9 mg/dL (2.5-4.5) 12/01/22 00:36 Magnesium 1.9 mg/dL (1.7-2.3) 12/09/22 06:08 Total Bilirubin 0.3 mg/dL (0.15-1.2) 12/04/22 02:22 AST 17 U/L (0-40) 12/04/22 02:22 ALT 24 U/L (0-41) 12/04/22 02:22 Alkaline Phosphatase 59 U/L (40-130) 12/04/22 02:22 Ammonia 24 umol/L (16-60) 12/04/22 14:06 Creatine Kinase 254 U/L (39-308) 12/01/22 00:36 Troponin T Gen 5 ng/L 2208 ng/L (0-15) H* 12/01/22 00:36 Troponin T Baseline 261 ng/L (0-15) H* 11/27/22 23:04 Troponin T 120 Minute 278.3 ng/L (0-15) H 11/28/22 00:51 Delta Troponin T 17.3 ABS# (0-10) H* 11/28/22 00:51 Troponin T Hi Sens 6Hr 447.2 ng/L (0-15) H 11/28/22 05:11 Troponin T Hi Sens 6Hr Delta 186.2 ng/L (0-12) H* 11/28/22 05:11 C-Reactive Protein 10.3 mg/L (0.0-4.9) H 11/30/22 04:10 NT-Pro-B Natriuret Pep 1821 pg/mL (0-125) H 11/27/22 23:04 Total Protein 5.7 g/dL (6.6-8.7) L 12/04/22 02:22 Albumin 2.9 g/dL (3.5-5.2) L 12/04/22 02:22 Globulin 2.8 g/dL (1.3-4.6) 12/04/22 02:22 Triglycerides 125 mg/dL (0-150) 11/30/22 04:10 Cholesterol 176 mg/dL (0-200) 11/30/22 04:10 LDL Cholesterol, Calc 111 mg/dL (50-129) 11/30/22 04:10 HDL Cholesterol 40 mg/dL (60-100) L 11/30/22 04:10 LDL/HDL Ratio 2.78 RATIO (0.00-3.22) 11/30/22 04:10 Cholesterol/HDL Ratio 4.40 mg/dL (1.0-5.00) 11/30/22 04:10 Urine Color Cancelled 12/01/22 08:35 Urine Appearance Cancelled 12/01/22 08:35 Urine pH Cancelled 12/01/22 08:35 Ur Specific Kimberly Cancelled 12/01/22 08:35 Urine Protein Cancelled 12/01/22 08:35 Urine Glucose (UA) Cancelled 12/01/22 08:35 Urine Ketones Cancelled 12/01/22 08:35 Urine Blood Cancelled 12/01/22 08:35 Urine Nitrate Cancelled 12/01/22 08:35 Urine Bilirubin Cancelled 04/10/23 08:35 Prot Sulfosalicylic Acd Cancelled 12/01/22 08:35 Urine Urobilinogen Cancelled 12/01/22 08:35 Ur Leukocyte Esterase Cancelled 12/01/22 08:35 Urine RBC Too numerous to cnt /hpf (0-2) H 11/29/22 08:57 Urine WBC 40-55 /hpf (0-5) H 11/29/22 08:57 Ur Squamous Epith Cells 0-4 /hpf (0-5) H 11/29/22 08:57 Amorphous Sediment Not Reportable 11/29/22 08:57 Urine Bacteria 1+ /hpf (NONE) H 11/29/22 08:57 Ur Random Sodium 29 mmol/L 11/29/22 08:57 Urine Creatinine 133 mg/dL (39-259) 11/29/22 08:57 Influenza Type A Ag negative (Negative) 11/27/22 22:40 Influenza Type B Ag negative (Negative) 11/27/22 22:40 SARS-CoV-2 Ag (Rapid) negative (Negative) 11/27/22 22:40 Other data: From 12/08/2022 Normal LV size with a diminished ejection fraction of around ?43%.? Mild hypokinesia of the mid and apical septum, ?anteroseptum and inferior wall segments.Grade III/IV diastolic ?dysfunction (restrictive filling pattern), severely elevated ?filling pressures.? Because of the poor ultrasonic window, ?Optison was used for endocardial delineation and ejection ?fraction estimation. ?Severe low gradient aortic valve stenosis, mean gradient 26 ?mmHg, BRIAN 0.8 cm squared.? Peak velocity of 3.44 m/s with a peak ?gradient of 47 mmHg. ?Thickened mitral valve. Moderate mitral annular calcification. ?Mildly increased left atrial size. ?No pericardial effusion ?Compared to the study from 12/01/2022, there is significant ?improvement in the LV ejection fraction.? The aortic valve ?stenosis appears to be more severe compared to the study from ?11/29/2022-could be because of the difference in the technical ?quality EKG from today, 12/09/2022 revealed atrial fibrillation with rapid ventricular rate of 112 bpm. Poor R wave progression. Diffuse nonspecific ST-T changes. QS pattern in lead V2 suggesting of old anteroseptal MT. A&P Assessment and plan (1) New onset atrial fibrillation: In view of the new onset of atrial fibrillation, patient carries a high risk for thromboembolism and recurrent arrhythmia. I may start him on amiodarone 400 mg p.o. twice daily. The dose need to be slowly titrated. He also may benefit from long-term oral anticoagulation. The so discussed with the patient and family. May keep him on aspirin and Plavix for a month, because of the left main stenting and then take him off the aspirin (2) Stenosis of left main coronary artery: Start post PCI of the left main. Currently seems to be stable. We will continue on the Plavix, aspirin and other medications. (3) Ischemic cardiomyopathy: There is significant improvement of the LV ejection fraction, since the PCI. At this point, I may hold off on the LifeVest. (4) Non-ST elevation MT (NSTEMI): May continue on the Plavix. (5) Acute respiratory failure with hypoxia: The patient is respiratory status is stable. He is off the ventilator. Oxygenation seems to be appropriate. (6) Altered mental status: Patient seems to have intermittent confusion (7) T2DM (type 2 diabetes mellitus): The blood sugar seems to be fairly under control. (8) Acute kidney injury: The kidney function seems to stable Plan Discussed with Dr. Bates. Decided to start him on Eliquis and amiodarone. Closely monitor for any bleeding . May discontinue Lovenox. Attestations Medical Necessity Statement*: Patient requires continued hospital stay for close monitoring and further management Coding Level of Care Code 97713 Diagnoses New onset atrial fibrillation I48.91 Stenosis of left main coronary artery I25.10 Ischemic cardiomyopathy I25.5 Non-ST elevation MT (NSTEMI) I21.4 Acute respiratory failure with hypoxia J96.01 Altered mental status R41.82 T2DM (type 2 diabetes mellitus) E11.9 Acute kidney injury N17.9
[2022-12-09] MEDS: budesonide 0.5 mg/2 mL Neb INHALATION (20:24)
[2022-12-09 20:42] LABS: Glucose Point of Care 213 mg/dL (70-110)
--- NOTE | 2022-12-09 20:50 | P.PN_ITS ---
Subjective Subjective: He is somewhat more irritable today per discussion with his . He denies any symptoms, however, reports choking upon eating eggs and drinking milk this morning. Vitals/I&O/Wt Last Vital Signs Temp 98.7 F 12/09/22 20:00 Pulse 83 12/09/22 20:33 Resp 19 H 12/09/22 20:00 BP 115/68 12/09/22 20:00 Pulse Ox 99 12/09/22 20:00 O2 Del Method Nasal Cannula 12/09/22 20:00 O2 Flow Rate 2 12/09/22 20:00 FiO2 30 12/04/22 13:25 12/09/22 12/09/22 12/09/22 06:59 14:59 22:59 Intake Total 630 / 630 52 / 682 Output Total 400 / 1550 Balance -400 / -680 630 / 630 52 / 682 Weight last 48 hrs Weight 126.6 kg Weight 127.1 kg Physical Exam Narrative: Accompanied by Const: GENERAL APPEARANCE: patient mechanically ventilated HENMT: COMMON NORMALS: oropharynx normal Neck/C-Spine: COMMON NORMALS: no JVD Resp: COMMON NORMALS: clear to auscultation bilaterally AUSCULTATION: clear to auscultation bilaterally and no rhonchi Cardio: COMMON NORMALS: no JVD, regular rhythm, S1 normal heart sound present, S2 normal heart sound present and No murmurs present (Cardio) RHYTHM: regular rhythm HEART SOUNDS: S1 normal heart sound present and S2 normal heart sound present GI: COMMON NORMALS: Normal to inspection, nondistended, normoactive bowel sounds present, Soft to palpation and non-tender PALPATION: Yes Soft to palpation Extremity: COMMON NORMALS: no joint enlargement GENERAL: Yes edema (Trace) Urinary Catheter Management: Vasquez: Cath Placed During This Visit: yes Reason for Continuing Indwelling Catheter: Accurate Measurement of Urinary Output in Critically Ill Patients Urinary Catheter Date of Insertion: 11/29/22 Urinary Catheter Time of Insertion: 01:14 Data 12/09/22 06:08 12/09/22 06:08 A&P Assessment and plan (1) Acute respiratory failure with hypoxia: provides history that he is more irritable today. Suspect acute encephalopathy with mild delirium. Choking up this morning while eating eggs and drinking milk. This morning also went into new A-fib with RVR. CT head obtained. Chest x-ray obtained. Worsening of bibasilar opacities. Suspect aspiration. MBS requested. Requested ST to be notified. Strongly suspect patient has chronic hypoxia that has been untreated. He does have known sleep apnea and is intolerant of facial mask. Limited echocardiogram reassess, noted, EF appears to have risen into the 40s. (2) New onset atrial fibrillation: Metoprolol dose increased to 50 mg. Discussed with cardiology. They are adding amiodarone as well. Magnesium checked, 1.9. Given 1 g magnesium. Discussed risk of CVA, risk of bleeding. Start Eliquis. (3) Acute kidney injury: Improved. Suspect prerenal from diuresis plus or minus a component of ATN. Improved creatinine today though BUN is a bit higher and potassium remains elevated. May be related to steroids. (4) Hypotension: (5) Non-ST elevation OR (NSTEMI): Type II process related to degree of hypoxemia considered but has risk factors for coronary artery disease including obesity, diabetes, hypertension. Cardiomegaly and small bilateral pleural effusions noted on CTA of the chest. With significant increase in troponin elevation likely had obstructive coronary disease is higher. (6) Pneumonia: Organism unknown, present on admission, with infiltrates described in the right middle and lingular lobes (7) COPD exacerbation: Related to allergies and pneumonia (8) Lymphadenopathy: Scattered mediastinal lymph nodes up to 15 mm in the subcarinal region noted on CTA of the chest (9) T2DM (type 2 diabetes mellitus): Chronically on metformin, hemoglobin A1c 8.2 (10) Hypertension: Chronically on Lasix (11) Gross hematuria: Likely traumatic related to Vasquez placement along with anticoagulation. Resolved with irrigation and holding of anticoagulation. Will monitor with resumption of anticoagulation. (12) Prostate cancer: May be a contributing factor to above, chronically on Flomax (13) Hyperkalemia: Related to acute kidney injury, though persists after normalization of creatinine. Not on any potassium containing medications presently will need to monitor. (14) Aortic stenosis: Newly identified diagnosis as per echocardiogram. Aortic valve area 1.3 cm?. (15) Seasonal allergies: Plan Thrombocytopenia: Platelets noted down to 123. Heparin stopped. Follow-up CBC. Attestations Medical Necessity Statement*: Continue admission for further assessment of mild worsening mental status/delirium, some worsening of pneumonia, aspiration pneumonia, new A-fib with RVR Coding Level of Care Code 58904 Straight Forward/Low MDM includes number and complexity of problems actively addressed during encounter and amount and/or complexity of data reviewed/ordered [ previous or external records, resulted lab(s)/test(s), ordered lab(s)/test(s), independent historian and other healthcare professional discussion] as docu mented Diagnoses Acute respiratory failure with hypoxia J96.01 New onset atrial fibrillation I48.91 Acute kidney injury N17.9 Hypotension I95.9 Non-ST elevation OR (NSTEMI) I21.4 Pneumonia J18.9 COPD exacerbation J44.1 Lymphadenopathy R59.1 T2DM (type 2 diabetes mellitus) E11.9 Hypertension I10 Gross hematuria R31.0 Prostate cancer C61 Hyperkalemia E87.5 Aortic stenosis I35.0 Seasonal allergies J30.2
[2022-12-09] MEDS: atorvastatin 40 mg Tablet 80 MG PO (21:14)
[2022-12-09] MEDS: apixaban 5 mg Tablet PO (21:46)
[2022-12-10] VITALS (13 sets, daily range): BP systolic 106–134; BP diastolic 54–75; PULSE 68–80; RESP 14–20; TEMP 36.6–37.1; O2SAT 91–98
[2022-12-10] MEDS: ipratropium-albuterol 3 mL Neb INHALATION ×4 (03:34→19:28)
[2022-12-10 06:22] LABS: Basophils % 0.1 %; Eosinophils # 0.2 10^3/uL (0.0-0.8); Eosinophils % 1.4 %; Hematocrit 30.1 % (42.0-52.0); Hemoglobin 8.9 g/dL (11.7-16.6); Lymphocytes # 0.8 10^3/uL (0.8-4.8); Lymphocytes % 6.9 %; Mean Corpuscular HGB Conc 29.6 g/dL (30.0-36.0); Mean Corpuscular Hemoglobin 26.7 pg (28.0-34.0); Mean Corpuscular Volume 90.4 fl (80-94); Monocytes # 1.1 10^3/uL (0.2-0.9); Monocytes % 9.3 %; Neutrophils # 9.49 10^3/uL (1.8-7.7); Neutrophils % 81.4 %; Nucleated Red Blood Cells % 0.2 %; Platelet Count 118 10^3/cmm (130-400); Red Blood Count 3.33 10^6/uL (4.1-5.3); Red Cell Distribution Width 15.3 % (12.1-15.1); White Blood Count 11.7 10^3/uL (4.0-10.0)
[2022-12-10 06:33] LABS: Glucose Point of Care 142 mg/dL (70-110)
[2022-12-10 06:43] LABS: Anion Gap 11.6 (5-19); Blood Urea Nitrogen 28 mg/dL (8-23); Calcium 8.2 mg/dL (8.5-10.5); Carbon Dioxide 29 mmol/L (22-29); Chloride 105 mmol/L (98-107); Glucose 136 mg/dL (65-115); Osmolality Calculated 300 mOsm/kg (285-295); Potassium 4.6 mmol/L (3.5-5.1); Sodium 141 mmol/L (136-145)
[2022-12-10] MEDS: levofloxacin-dextrose 5 % 750 MG/150 ML PREMIX 100 MG IV (08:38)
[2022-12-10] MEDS: fluticasone nasal spray 16gm Btl 2 SPRAY NASAL (08:41)
[2022-12-10] MEDS: metoprolol tartrate 25 mg Tablet 50 MG PO ×2 (08:42→21:04)
[2022-12-10] MEDS: guaiFENesin 600 mg Tablet 1200 MG PO ×2 (08:42→17:55)
[2022-12-10] MEDS: apixaban 5 mg Tablet PO ×2 (08:43→21:04)
[2022-12-10] MEDS: predniSONE 10 mg Tablet PO (08:43)
[2022-12-10] MEDS: clopidogrel 75 mg Tablet PO (08:43)
[2022-12-10] MEDS: amiodarone 200 mg Tablet 400 MG PO ×2 (08:43→21:04)
[2022-12-10] MEDS: aspirin 81 mg EC Tablet PO (08:43)
--- NOTE | 2022-12-10 09:00 | FL_ITS ---
WS: [id number] Modified barium swallow, 12/10/2022 Clinical Data: Oropharyngeal dysphagia Comparison: None. Fluoroscopy time: 1min [id number] # of spot films: 0 Findings: The patient exhibited normal oral function with minimal premature spillage once. There was no residue on the vallecula or piriform sinuses. There is no aspiration or penetration. FL/FL barium swallow modifd [id number] Impression: Negative modified barium swallow.
[2022-12-10] MEDS: pantoprazole 40 mg SDV IVP (10:30)
[2022-12-10 11:29] LABS: Glucose Point of Care 203 mg/dL (70-110)
--- NOTE | 2022-12-10 12:15 | PC.NURSE ---
wound assessment pt family reported pt reported of soreness in his bottom. check on pt's bottom and noted to have a pressure injury/excoration due to freq BM. wound assessed and noted. notified. juany to apply optifoam dressing. Applied aloe vesta barrier cream and optifoam dressing. educated pt on repositioning to his sides at least q2hrs.
[2022-12-10] MEDS: insulin lispro 100 unit/1 mL SUBCUT ×3 (12:24→21:05)
--- NOTE | 2022-12-10 15:54 | P.PN_ITS ---
Subjective Subjective: He reports today he is feeling slightly better. He is having a little bit more phlegm. He has been having a sore area on his bottom. Vitals/I&O/Wt Last Vital Signs Temp 98.0 F 12/10/22 11:05 Pulse 73 12/10/22 13:43 Resp 16 12/10/22 13:43 BP 108/54 12/10/22 11:05 Pulse Ox 94 12/10/22 13:43 O2 Del Method Room Air 12/10/22 13:43 O2 Flow Rate 1.5 12/10/22 08:00 FiO2 30 12/04/22 13:25 12/10/22 12/10/22 12/10/22 06:59 14:59 22:59 Intake Total 240 / 922 372 / 372 Output Total 400 / 1000 Balance -160 / -78 372 / 372 Weight last 48 hrs Weight 126.6 kg Physical Exam Narrative: Accompanied by and male family member Const: GENERAL APPEARANCE: patient mechanically ventilated HENMT: COMMON NORMALS: oropharynx normal Neck/C-Spine: COMMON NORMALS: no JVD Resp: AUSCULTATION: rhonchi Cardio: COMMON NORMALS: no JVD, regular rhythm, S1 normal heart sound present, S2 normal heart sound present and No murmurs present (Cardio) RHYTHM: regular rhythm HEART SOUNDS: S1 normal heart sound present and S2 normal heart sound present GI: COMMON NORMALS: Normal to inspection, nondistended, normoactive bowel sounds present, Soft to palpation and non-tender PALPATION: Yes Soft to palpation Extremity: COMMON NORMALS: no joint enlargement GENERAL: Yes edema (Trace) Urinary Catheter Management: Vasquez: Cath Placed During This Visit: yes Reason for Continuing Indwelling Catheter: Accurate Measurement of Urinary Output in Critically Ill Patients Urinary Catheter Date of Insertion: 11/29/22 Urinary Catheter Time of Insertion: 01:14 Data 12/10/22 06:09 12/10/22 06:09 A&P Assessment and plan (1) Acute respiratory failure with hypoxia: Discussed with patient additional aspiration yesterday based on chest x-ray, which seems to have affected his mentation somewhat as well with mild ence phalopathy and delirium. WBC worsened up to 11.7. Today mental status is improved. Delirium appears to have resolved. He is having more rhonchi today. Encouraged him to use flutter valve. Noted worsening of thrombocytopenia. Stop Levaquin. Check procalcitonin. Underwent MBS, and did well per discussion with ST. Diet unchanged. Continue special precautions, level 7 diet easy to chew. Strongly suspect patient has chronic hypoxia that has been untreated. He does have known sleep apnea and is intolerant of facial mask. Limited echocardiogram reassess, noted, EF appears to have risen into the 40s. (2) New onset atrial fibrillation: Continue metoprolol 50 mg. Amiodarone 400 mg twice daily per cardiology. Heart rate appears to have responded well. Potassium noted 4.6. Follow-up chemistry, recheck magnesium level. Discussed risk of CVA, risk of bleeding. Eliquis, however, noted platelets down to 118. Stop Levaquin. Stop pantoprazole, switch to famotidine. Recheck CBC. (3) Acute kidney injury: Improved. Suspect prerenal from diuresis plus or minus a component of ATN. Improved creatinine today though BUN is a bit higher and potassium remains elevated. May be related to steroids. (4) Hypotension: (5) Non-ST elevation CA (NSTEMI): Type II process related to degree of hypoxemia considered but has risk factors for coronary artery disease including obesity, diabetes, hypertension. Cardiomegaly and small bilateral pleural effusions noted on CTA of the chest. With significant increase in troponin elevation likely had obstructive coronary disease is higher. (6) Pneumonia: Organism unknown, present on admission, with infiltrates described in the right middle and lingular lobes (7) COPD exacerbation: Related to allergies and pneumonia (8) Lymphadenopathy: Scattered mediastinal lymph nodes up to 15 mm in the subcarinal region noted on CTA of the chest (9) T2DM (type 2 diabetes mellitus): Chronically on metformin, hemoglobin A1c 8.2 (10) Hypertension: Chronically on Lasix (11) Gross hematuria: Likely traumatic related to Vasquez placement along with anticoagulation. Resolved with irrigation and holding of anticoagulation. Will monitor with resumption of anticoagulation. (12) Prostate cancer: May be a contributing factor to above, chronically on Flomax (13) Hyperkalemia: Related to acute kidney injury, though persists after normalization of creatinine. Not on any potassium containing medications presently will need to monitor. (14) Aortic stenosis: Newly identified diagnosis as per echocardiogram. Aortic valve area 1.3 cm?. (15) Seasonal allergies: Plan Thrombocytopenia: Noted some worsening today down to 118. Stop Levaquin, stop Protonix, changed to famotidine. Sacral erythema: Noted some skin maceration, possible stage II decubitus ulcer. Wound care. Repositioning. Continue nutrition supplements. Attestations Medical Necessity Statement*: Continue admission for assessment management of pneumonia, assessment of thrombocytopenia, medication adjustment, requiring antiplatelets, anticoagul ation. Diagnoses Acute respiratory failure with hypoxia J96.01 New onset atrial fibrillation I48.91 Acute kidney injury N17.9 Hypotension I95.9 Non-ST elevation CA (NSTEMI) I21.4 Pneumonia J18.9 COPD exacerbation J44.1 Lymphadenopathy R59.1 T2DM (type 2 diabetes mellitus) E11.9 Hypertension I10 Gross hematuria R31.0 Prostate cancer C61 Hyperkalemia E87.5 Aortic stenosis I35.0 Seasonal allergies J30.2
[2022-12-10 17:25] LABS: Glucose Point of Care 173 mg/dL (70-110)
[2022-12-10] MEDS: famotidine 20 mg Tablet PO (17:55)
--- NOTE | 2022-12-10 19:24 | PC.NURSE ---
notified Dr pt had urine output of only 200. received verbal orders to bladder scan and may irrigate or change flores catheter due to high urine sediments. night nurse notified.
[2022-12-10] MEDS: budesonide 0.5 mg/2 mL Neb INHALATION (19:28)
[2022-12-10 20:22] LABS: Glucose Point of Care 165 mg/dL (70-110)
--- NOTE | 2022-12-10 20:52 | PM.PN ---
Subjective Subjective: Patient continues to stay in the sinus rhythm. Tolerating the amiodarone so far well. Has no fever or chills. Medications: Medication Review Details: Current Medications Acetaminophen (Acetaminophen 500 Mg Tablet) 500 mg PO Q4H PRN PRN Reason: fever Albuterol/Ipratropium (Ipratropium-Albuterol 3 Ml Neb) 3 ml INHALATION Q6H.RESP GUDELIA Last Admin: 12/10/22 19:28 Dose: 3 ml Albuterol/Ipratropium (Ipratropium-Albuterol 3 Ml Neb) 3 ml INHALATION Q6H PRN PRN Reason: SHORTNESS OF BREATH Amiodarone HCl (Amiodarone 200 Mg Tablet) 400 mg PO Q12H [facility] Last Admin: 12/10/22 08:43 Dose: 400 mg Apixaban (Apixaban 5 Mg Tablet) 5 mg PO BID@0900,2100 [facility] Last Admin: 12/10/22 08:43 Dose: 5 mg Aspirin (Aspirin 81 Mg Ec Tablet) 81 mg PO DAILY [facility] Last Admin: 12/10/22 08:43 Dose: 81 mg Atorvastatin Calcium (Atorvastatin 40 Mg Tablet) 80 mg PO BEDTIME [facility] Last Admin: 12/09/22 21:14 Dose: 80 mg Budesonide (Budesonide 0.5 Mg/2 Ml Neb) 0.5 mg INHALATION BID.RESPIRATORY [facility] Last Admin: 12/10/22 19:28 Dose: 0.5 mg Chlorhexidine Gluconate (Chlorhexidine Gluconate 4% Btl 118 Ml) 1 applic TOPICAL 0100 [facility] Last Admin: 12/10/22 01:15 Dose: Not Given Clopidogrel Bisulfate (Clopidogrel 75 Mg Tablet) 75 mg PO DAILY [facility] Last Admin: 12/10/22 08:43 Dose: 75 mg Dextrose (Dextrose 50% Syringe 50 Ml) 25 ml IVP ONCE PRN; Protocol PRN Reason: hypoglycemia protocol Dextrose (Dextrose 50% Syringe 50 Ml) 50 ml IVP PRN PRN; Protocol PRN Reason: hypoglycemia protocol Famotidine (Famotidine 20 Mg Tablet) 20 mg PO BID [facility] Last Admin: 12/10/22 17:55 Dose: 20 mg Fluticasone Propionate (Fluticasone Nasal Garita 16gm Btl) 2 spray NASAL DAILY [facility] Last Admin: 12/10/22 08:41 Dose: 2 spray Furosemide (Furosemide 10 Mg/Ml Sdv 2ml) 20 mg IVP Q12H [facility] Last Admin: 12/06/22 10:42 Dose: 20 mg Glucagon (Glucagon 1 Mg/Ml Inj 1 Ml) 1 mg IM ONCE PRN; Protocol PRN Reason: Adult Acute Hypoglycemia Prot. Guaifenesin (Guaifenesin 600 Mg Tablet) 1,200 mg PO BID [facility] Last Admin: 12/10/22 17:55 Dose: 1,200 mg Dextrose (D5w) 500 mls @ 100 mls/hr IV ONCE PRN; Protocol PRN Reason: Adult Acute Hypoglycemia Prot Insulin Human Lispro (Insulin Lispro 100 Unit/1 Ml) 0 unit SUBCUT TIDWM [facility]; Protocol Last Admin: 12/10/22 17:55 Dose: 4 unit Insulin Human Lispro (Insulin Lispro 100 Unit/1 Ml) 0 unit SUBCUT BEDTIME [facility]; Protocol Last Admin: 12/09/22 21:13 Dose: 2 unit Lanolin (Lanolin Oint 7 Gm) 1 applic TOPICAL PRN PRN PRN Reason: DRYNESS Last Admin: 11/29/22 05:23 Dose: 1 applic Metoprolol Tartrate (Metoprolol Tartrate 1 Mg/1 Ml Sdv 5 Ml) 5 mg IVP Q6H PRN PRN Reason: HYPERTENSION Last Admin: 11/30/22 13:11 Dose: 5 mg Metoprolol Tartrate (Metoprolol Tartrate 25 Mg Tablet) 50 mg PO BID@0900,2100 [facility] Last Admin: 12/10/22 08:42 Dose: 50 mg Ondansetron HCl (Ondansetron 2 Mg/Ml Sdv 2 Ml) 4 mg IVP Q6H PRN PRN Reason: NAUSEA AND VOMITING Polyethylene Glycol (Polyethylene Glycol 3350 Pkt 17 Gm) 17 gm PO BID [facility] Last Admin: 12/10/22 17:16 Dose: Not Given Prednisone (Prednisone 10 Mg Tablet) 10 mg PO DAILY [facility] Last Admin: 12/10/22 08:43 Dose: 10 mg Vitals/I&O/Wt Last Vital Signs Temp 98.0 F 12/10/22 11:05 Pulse 79 12/10/22 19:32 Resp 16 12/10/22 19:25 BP 134/64 12/10/22 16:00 Pulse Ox 94 12/10/22 19:25 O2 Del Method Nasal Cannula 12/10/22 19:25 O2 Flow Rate 2 04/19/23 19:25 FiO2 30 12/04/22 13:25 12/10/22 12/10/22 12/10/22 06:59 14:59 22:59 Intake Total 240 / 922 372 / 372 240 / 612 Output Total 400 / 1000 200 / 200 Balance -160 / -78 372 / 372 40 / 412 Weight last 48 hrs Weight 279 lb 1.683 oz Physical Exam Narrative: GENERAL: Patient is alert but somewhat confused. HEENT: No significant pallor, icterus or lymphadenopathy.Oral cavity: There are no mucous membrane lesions. NECK: Trachea appears to be central. No masses noted. No JVD or thyromegaly appreciated. RESPIRATORY: Chest is symmetrical. No intercostals muscle retraction or any accessory muscle activation. There is no chest wall tenderness. Breath sounds are heard bilaterally. No rales or rhonchi heard. No evidence of any consolidation. BREASTS: Deferred. HEART: The heart sounds are normal. No S3 or S4. Short systolic murmur in the left sternal border. No diastolic murmurs. No pericardial rub ABDOMEN: No vessel pulsations or distention. No tenderness. No organomegaly appreciated. Bowel sounds are normally heard. : Deferred. RECTAL: Deferred. LYMPHATIC: No lymphadenopathy noted in the neck. EXTREMITIES: Trace edema with no cyanosis. MUSCULOSKELETAL: No acute joint deformities or swelling SKIN: There are no significant rashes or ecchymosis NEUROPSYCHIATRIC: Patient is alert with intermittent confusion. No focal motor deficits. Urinary Catheter Management: Vasquez: Cath Placed During This Visit: yes Reason for Continuing Indwelling Catheter: Accurate Measurement of Urinary Output in Critically Ill Patients Urinary Catheter Date of Insertion: 11/29/22 Urinary Catheter Time of Insertion: 01:14 Data 12/10/22 06:09 12/10/22 06:09 Other Labs: Laboratory Last Values WBC 11.7 10^3/uL (4.0-10.0) H 12/10/22 06:09 RBC 3.33 10^6/uL (4.1-5.3) L 12/10/22 06:09 Hgb 8.9 g/dL (11.7-16.6) L 12/10/22 06:09 Hct 30.1 % (42.0-52.0) L 12/10/22 06:09 MCV 90.4 fl (80-94) 12/10/22 06:09 MCH 26.7 pg (28.0-34.0) L 12/10/22 06:09 MCHC 29.6 g/dL (30.0-36.0) L 12/10/22 06:09 RDW 15.3 % (12.1-15.1) H 12/10/22 06:09 Plt Count 118 10^3/cmm (130-400) L 12/10/22 06:09 MPV 11.0 fL (7.4-10.4) H 12/10/22 06:09 Neut % (Auto) 81.4 % 12/10/22 06:09 Lymph % (Auto) 6.9 % 12/10/22 06:09 Amelia % (Auto) 9.3 % 12/10/22 06:09 Eos % (Auto) 1.4 % 12/10/22 06:09 Baso % (Auto) 0.1 % 12/10/22 06:09 Neut # (Auto) 9.49 10^3/uL (1.8-7.7) H 12/10/22 06:09 Lymph # (Auto) 0.8 10^3/uL (0.8-4.8) 12/10/22 06:09 Amelia # (Auto) 1.1 10^3/uL (0.2-0.9) H 12/10/22 06:09 Eos # (Auto) 0.2 10^3/uL (0.0-0.8) 12/10/22 06:09 Baso # (Auto) 0.0 10^3/uL (0.0-0.1) 12/10/22 06:09 Nucleated RBC % (auto) 0.2 % 12/10/22 06:09 Nucleated RBCs # 0.0 /100WBC 12/10/22 06:09 PT 13.20 SECONDS (12.1-14.9) 11/27/22 23:04 INR 0.98 (0.8-1.2) 11/27/22 23:04 APTT 66.1 SECONDS (23.9-36.7) H 12/01/22 00:36 Specimen Type Arterial 12/04/22 06:24 Sample Site Radial, right 12/04/22 06:24 ABG pH 7.45 (7.35-7.45) 12/04/22 06:24 ABG pCO2 40.6 mmHg (35-45) 12/04/22 06:24 ABG pO2 62.8 mmHg (80.0-100.0) L 12/04/22 06:24 ABG HCO3 28.0 mmol/L (22-26) H 12/04/22 06:24 ABG O2 Saturation 92.6 12/04/22 06:24 ABG Base Excess 3.6 mmol/L (-2.0-2.0) H 12/04/22 06:24 [place] Test Pos 12/04/22 06:24 A-a O2 Gradient 22.3 mmHg (5-10) H 12/04/22 06:24 Hematocrit 35.7 % (42-52) L 12/04/22 06:24 Hgb O2 Saturation 91.1 % (95-100) L 12/04/22 06:24 Carboxyhemoglobin 1.2 %THgb (0.4-20.1) 12/04/22 06:24 Methemoglobin 0.4 % (0.4-1.5) 12/04/22 06:24 Total Hemoglobin 11.6 g/dL (14-18) L 12/04/22 06:24 Sodium 136.0 mmol/L (131-143) 12/04/22 06:24 Potassium 5.0 mmol/L (3.5-5.0) 12/04/22 06:24 Glucose 210.0 mg/dL (70-115) H 12/04/22 06:24 Ionized Calcium 1.0 mmol/L (1.1-1.4) L 12/04/22 06:24 O2 Delivery Device Vent 12/04/22 06:24 O2 Liters/Min 4.0 % 11/30/22 08:24 FiO2 40.0 % 12/04/22 06:24 Tidal Volume 0.50 12/04/22 06:24 PEEP 8.0 cmH20 12/04/22 06:24 Guidance And Control System Engineer ID Lai 12/04/22 06:24 Sodium 141 mmol/L (136-145) 12/10/22 06:09 Potassium 4.6 mmol/L (3.5-5.1) 12/10/22 06:09 Chloride 105 mmol/L (98-107) 12/10/22 06:09 Carbon Dioxide 29 mmol/L (22-29) 12/10/22 06:09 Anion Gap 11.6 (5-19) 12/10/22 06:09 BUN 28 mg/dL (8-23) H 12/10/22 06:09 Creatinine 0.8 mg/dL (0.7-1.2) 12/10/22 06:09 GFR Calculation Not Reportable 12/10/22 06:09 Glucose 136 mg/dL (65-115) H 12/10/22 06:09 POC Glucose 165 mg/dL (70-110) H 12/10/22 20:16 Estimat Average Glucose 189 11/29/22 02:27 Hemoglobin A1c 8.2 % (4.0-6.0) H 11/29/22 02:27 Calculated Osmolality 300 mOsm/kg (285-295) H 12/10/22 06:09 Uric Acid 8.6 mg/dL (3.4-7.0) H 11/29/22 02:27 Calcium 8.2 mg/dL (8.5-10.5) L 12/10/22 06:09 Phosphorus 3.9 mg/dL (2.5-4.5) 12/01/22 00:36 Magnesium 1.9 mg/dL (1.7-2.3) 12/09/22 06:08 Total Bilirubin 0.3 mg/dL (0.15-1.2) 12/04/22 02:22 AST 17 U/L (0-40) 12/04/22 02:22 ALT 24 U/L (0-41) 12/04/22 02:22 Alkaline Phosphatase 59 U/L (40-130) 12/04/22 02:22 Ammonia 24 umol/L (16-60) 12/04/22 14:06 Creatine Kinase 254 U/L (39-308) 12/01/22 00:36 Troponin T Gen 5 ng/L 2208 ng/L (0-15) H* 12/01/22 00:36 Troponin T Baseline 261 ng/L (0-15) H* 11/27/22 23:04 Troponin T 120 Minute 278.3 ng/L (0-15) H 11/28/22 00:51 Delta Troponin T 17.3 ABS# (0-10) H* 11/28/22 00:51 Troponin T Hi Sens 6Hr 447.2 ng/L (0-15) H 11/28/22 05:11 Troponin T Hi Sens 6Hr Delta 186.2 ng/L (0-12) H* 11/28/22 05:11 C-Reactive Protein 10.3 mg/L (0.0-4.9) H 11/30/22 04:10 NT-Pro-B Natriuret Pep 1821 pg/mL (0-125) H 11/27/22 23:04 Total Protein 5.7 g/dL (6.6-8.7) L 12/04/22 02:22 Albumin 2.9 g/dL (3.5-5.2) L 12/04/22 02:22 Globulin 2.8 g/dL (1.3-4.6) 12/04/22 02:22 Triglycerides 125 mg/dL (0-150) 11/30/22 04:10 Cholesterol 176 mg/dL (0-200) 11/30/22 04:10 LDL Cholesterol, Calc 111 mg/dL (50-129) 11/30/22 04:10 HDL Cholesterol 40 mg/dL (60-100) L 11/30/22 04:10 LDL/HDL Ratio 2.78 RATIO (0.00-3.22) 11/30/22 04:10 Cholesterol/HDL Ratio 4.40 mg/dL (1.0-5.00) 11/30/22 04:10 Urine Color Cancelled 12/01/22 08:35 Urine Appearance Cancelled 12/01/22 08:35 Urine pH Cancelled 12/01/22 08:35 Ur Specific [place] Cancelled 12/01/22 08:35 Urine Protein Cancelled 12/01/22 08:35 Urine Glucose (UA) Cancelled 12/01/22 08:35 Urine Ketones Cancelled 12/01/22 08:35 Urine Blood Cancelled 12/01/22 08:35 Urine Nitrate Cancelled 12/01/22 08:35 Urine Bilirubin Cancelled 12/01/22 08:35 Prot Sulfosalicylic Acd Cancelled 12/01/22 08:35 Urine Urobilinogen Cancelled 12/01/22 08:35 Ur Leukocyte Esterase Cancelled 12/01/22 08:35 Urine RBC Too numerous to cnt /hpf (0-2) H 11/29/22 08:57 Urine WBC 40-55 /hpf (0-5) H 11/29/22 08:57 Ur Squamous Epith Cells 0-4 /hpf (0-5) H 11/29/22 08:57 Amorphous Sediment Not Reportable 11/29/22 08:57 Urine Bacteria 1+ /hpf (NONE) H 11/29/22 08:57 Ur Random Sodium 29 mmol/L 11/29/22 08:57 Urine Creatinine 133 mg/dL (39-259) 11/29/22 08:57 Influenza Type A Ag negative (Negative) 11/27/22 22:40 Influenza Type B Ag negative (Negative) 11/27/22 22:40 SARS-CoV-2 Ag (Rapid) negative (Negative) 11/27/22 22:40 A&P Assessment and plan (1) New onset atrial fibrillation: May continue on the amiodarone and the oral anticoagulation. (2) Stenosis of left main coronary artery: Start post PCI of the left main. Currently seems to be stable. We will continue on the Plavix, aspirin and other medications. Because of the anemia, may discontinue the aspirin after a month (3) Ischemic cardiomyopathy: There is significant improvement of the LV ejection fraction, since the PCI. At this point, I may hold off on the LifeVest. (4) Non-ST elevation VT (NSTEMI): May continue on the Plavix. (5) Acute respiratory failure with hypoxia: The patient is respiratory status is stable. He is off the ventilator. Oxygenation seems to be appropriate. Continue on the current treatment measures (6) Altered mental status: Patient seems to have intermittent confusion (7) T2DM (type 2 diabetes mellitus): The blood sugar seems to be fairly under control. (8) Acute kidney injury: The kidney function seems to stable Plan May continue on the current medications. Attestations Medical Necessity Statement*: Disposition as per the primary Coding Level of Care Code 82330 Diagnoses New onset atrial fibrillation I48.91 Stenosis of left main coronary artery I25.10 Ischemic cardiomyopathy I25.5 Non-ST elevation VT (NSTEMI) I21.4 Acute respiratory failure with hypoxia J96.01 Altered mental status R41.82 T2DM (type 2 diabetes mellitus) E11.9 Acute kidney injury N17.9
[2022-12-10] MEDS: atorvastatin 40 mg Tablet 80 MG PO (21:04)
[2022-12-11] VITALS (15 sets, daily range): BP systolic 109–150; BP diastolic 63–85; PULSE 60–94; RESP 16–22; TEMP 36.3–37; O2SAT 91–99; BMI 41.1
[2022-12-11] MEDS: ipratropium-albuterol 3 mL Neb INHALATION ×4 (03:10→20:42)
[2022-12-11 05:31] LABS: Basophils % 0.2 %; Eosinophils # 0.2 10^3/uL (0.0-0.8); Eosinophils % 1.2 %; Hematocrit 30.3 % (42.0-52.0); Hemoglobin 9.1 g/dL (11.7-16.6); Lymphocytes % 8.1 %; Mean Corpuscular Hemoglobin 27.2 pg (28.0-34.0); Mean Corpuscular Volume 90.7 fl (80-94); Mean Platelet Volume 11.7 fL (7.4-10.4); Monocytes % 7.7 %; Neutrophils # 10.29 10^3/uL (1.8-7.7); Neutrophils % 82.2 %; Nucleated Red Blood Cells % 0 %; Platelet Count 119 10^3/cmm (130-400); Red Blood Count 3.34 10^6/uL (4.1-5.3); Red Cell Distribution Width 15.6 % (12.1-15.1); White Blood Count 12.5 10^3/uL (4.0-10.0)
[2022-12-11 05:42] LABS: Anion Gap 13.4 (5-19); Blood Urea Nitrogen 24 mg/dL (8-23); Calcium 8.2 mg/dL (8.5-10.5); Carbon Dioxide 26 mmol/L (22-29); Chloride 105 mmol/L (98-107); Glucose 125 mg/dL (65-115); Osmolality Calculated 296 mOsm/kg (285-295); Potassium 4.4 mmol/L (3.5-5.1); Sodium 140 mmol/L (136-145)
[2022-12-11 05:45] LABS: Procalcitonin 0.07 ng/mL (0-0.5)
[2022-12-11 05:59] LABS: Glucose Point of Care 143 mg/dL (70-110)
[2022-12-11] MEDS: insulin lispro 100 unit/1 mL SUBCUT ×3 (08:20→21:23)
[2022-12-11] MEDS: amiodarone 200 mg Tablet 400 MG PO ×2 (08:20→20:26)
[2022-12-11] MEDS: guaiFENesin 600 mg Tablet 1200 MG PO ×2 (08:20→17:23)
[2022-12-11] MEDS: clopidogrel 75 mg Tablet PO (08:20)
[2022-12-11] MEDS: aspirin 81 mg EC Tablet PO (08:21)
[2022-12-11] MEDS: budesonide 0.5 mg/2 mL Neb INHALATION (08:21)
[2022-12-11] MEDS: famotidine 20 mg Tablet PO ×2 (08:21→17:23)
[2022-12-11] MEDS: predniSONE 10 mg Tablet PO (08:21)
[2022-12-11] MEDS: apixaban 5 mg Tablet PO ×2 (08:42→20:25)
[2022-12-11] MEDS: metoprolol tartrate 25 mg Tablet 50 MG PO ×2 (08:42→20:26)
--- NOTE | 2022-12-11 09:02 | PC.SOCIAL ---
IMM Update pg 2 of IMM updated and reviewed w/ patient. Copy provided and copy in chart dated, and initialed.
--- NOTE | 2022-12-11 11:42 | PC.NURSE ---
10 cc of water deflated from the balloon at first. There was resistance in the flores catheter upon trying to remove. Remove another 10 cc in the balloon, total of 20 cc deflated. He has back flow of urine/gush of urine with plenty of sediments when catheter came out completely. bleeding in his penile area then noted. Hospitalist notified.
[2022-12-11 12:08] LABS: Glucose Point of Care 153 mg/dL (70-110)
[2022-12-11 17:07] LABS: Glucose Point of Care 269 mg/dL (70-110)
--- NOTE | 2022-12-11 19:57 | P.PN_ITS ---
Subjective Subjective: She is overall doing slightly better. Did not have appetite this morning, did not eat breakfast. States he would be okay to try some Ensure. States breathing is okay. Did not notice much phlegm. Vitals/I&O/Wt Last Vital Signs Temp 98.5 F 12/11/22 16:00 Pulse 78 12/11/22 16:00 Resp 20 H 12/11/22 16:00 BP 142/79 12/11/22 16:00 Pulse Ox 96 12/11/22 16:00 O2 Del Method Nasal Cannula 12/11/22 16:00 O2 Flow Rate 3 12/11/22 13:51 FiO2 30 12/04/22 13:25 12/11/22 12/11/22 12/11/22 06:59 14:59 22:59 Intake Total 780 / 780 480 / 1260 Output Total 200 / 200 100 / 300 Balance 580 / 580 380 / 960 Weight last 48 hrs Weight 126.297 kg Physical Exam Narrative: Accompanied by Const: GENERAL APPEARANCE: patient mechanically ventilated HENMT: COMMON NORMALS: oropharynx normal Neck/C-Spine: COMMON NORMALS: no JVD Resp: COMMON NORMALS: clear to auscultation bilaterally AUSCULTATION: clear to auscultation bilaterally and rhonchi Cardio: COMMON NORMALS: no JVD, regular rhythm, S1 normal heart sound present, S2 normal heart sound present and No murmurs present (Cardio) RHYTHM: regular rhythm HEART SOUNDS: S1 normal heart sound present and S2 normal heart sound present GI: COMMON NORMALS: Normal to inspection, nondistended, normoactive bowel sounds present, Soft to palpation and non-tender PALPATION: Yes Soft to palpation Extremity: COMMON NORMALS: no joint enlargement GENERAL: Yes edema (Trace) Skin: NARRATIVE SKIN EXAM: Maceration plus possible decubitus ulcer on sacrum Urinary Catheter Management: Vasquez: Cath Placed During This Visit: yes, but has since been removed by the nurse Reason for Continuing Indwelling Catheter: Decision to DC Catheter Urinary Catheter Date of Insertion: 11/29/22 Urinary Catheter Time of Insertion: 01:14 Date Urinary Catheter Removed: 12/11/22 Time Urinary Catheter Discontinued: 11:30 Data 12/11/22 04:21 12/11/22 04:21 A&P Assessment and plan (1) Urethral bleeding: Difficult to remove Vasquez today. Vasquez removed after balloon deflated containing 20 cc. Urethral bleeding. On anticoagulation. Monitor for worsening bleeding. Subsequently improving, with some clots. In ca se of worsening may need to replace Vasquez catheter. (2) Acute respiratory failure with hypoxia: Rhonchi doing better. Antibiotics stopped. Procalcitonin assessed, noted 0.07. Continue aspiration precautions, flutter valve, pulmonary toilet. Noted some leukocytosis 12.5. Reassess CBC. Noted worsening of thrombocytopenia. Stop Levaquin. Check procalcitonin. Underwent MBS, and did well per discussion with ST. Diet unchanged. Continue special precautions, level 7 diet easy to chew. Strongly suspect patient has chronic hypoxia that has been untreated. He does have known sleep apnea and is intolerant of facial mask. Limited echocardiogram reassess, noted, EF appears to have risen into the 40s. (3) New onset atrial fibrillation: Heart rate noted doing well. Continue metoprolol 50 mg. Amiodarone 400 mg twice daily per cardiology. Heart rate appears to have responded well. Potassium noted 4.6. Follow-up chemistry, recheck magnesium level. Discussed risk of CVA, risk of bleeding. Eliquis, however, noted platelets down to 118. Stop Levaquin. Stop pantoprazole, switch to famotidine. Recheck CBC. Hemoglobin 9.1. (4) Acute kidney injury: Improved. Suspect prerenal from diuresis plus or minus a component of ATN. Improved creatinine today though BUN is a bit higher and potassium remains elevated. May be related to steroids. (5) Hypotension: Resolved (6) Non-ST elevation SC (NSTEMI): Type II process related to degree of hypoxemia considered but has risk factors for coronary artery disease including obesity, diabetes, hypertension. Cardiomegaly and small bilateral pleural effusions noted on CTA of the chest. With significant increase in troponin elevation likely had obstructive coronary disease is higher. (7) Pneumonia: Organism unknown, present on admission, with infiltrates described in the right middle and lingular lobes (8) COPD exacerbation: Related to allergies and pneumonia (9) Lymphadenopathy: Scattered mediastinal lymph nodes up to 15 mm in the subcarinal region noted on CTA of the chest (10) T2DM (type 2 diabetes mellitus): Chronically on metformin, hemoglobin A1c 8.2 (11) Hypertension: Chronically on Lasix (12) Gross hematuria: Likely traumatic related to Vasquez placement along with anticoagulation. Resolved with irrigation and holding of anticoagulation. Will monitor with resumption of anticoagulation. (13) Prostate cancer: May be a contributing factor to above, chronically on Flomax (14) Hyperkalemia: Related to acute kidney injury, though persists after normalization of creatinine. Not on any potassium containing medications presently will need to monitor. (15) Aortic stenosis: Newly identified diagnosis as per echocardiogram. Aortic valve area 1.3 cm?. (16) Seasonal allergies: Plan Thrombocytopenia: So far noted without further decline, 119 today. Stop Levaquin, stop Protonix, changed to famotidine. Sacral erythema: Maceration, stage II decub. Interdry at the gluteal cleft. Zinc oxide. Foam dressing. Noted some skin maceration, possible stage II decubitus ulcer. Wound care. Repositioning. Continue nutrition supplements. Attestations Medical Necessity Statement*: Continue admission for reassessment of urethral bleeding, on anticoagulation, reassessment with de-escalation of antibiotics, discharge planning and arrangement. Diagnoses Urethral bleeding N36.8 Acute respiratory failure with hypoxia J96.01 New onset atrial fibrillation I48.91 Acute kidney injury N17.9 Hypotension I95.9 Non-ST elevation SC (NSTEMI) I21.4 Pneumonia J18.9 COPD exacerbation J44.1 Lymphadenopathy R59.1 T2DM (type 2 diabetes mellitus) E11.9 Hypertension I10 Gross hematuria R31.0 Prostate cancer C61 Hyperkalemia E87.5 Aortic stenosis I35.0 Seasonal allergies J30.2
[2022-12-11] MEDS: atorvastatin 40 mg Tablet 80 MG PO (20:26)
[2022-12-11 21:02] LABS: Glucose Point of Care 199 mg/dL (70-110)
--- NOTE | 2022-12-11 23:50 | PM.CCN ---
Critical Care Event Note The high probability of a clinically significant, sudden or life threatening deterioration of the patient's [] system(s) required my full and direct attention, intervention and personal management. The critical care time is as shown. This time is in addition to time spent performing any reported procedures but includes the following: [x] Data and vital sign review and interpretation [x] Patient assessment, examination and intervention [x] Documentation [x] Medication orders and management Critical Care Time Code activated: Yes Critical Care Time (min): 35 Additional information about critical care time: 2315 -CODE BLUE activated, due to the night ER physician being tied up with another critical patient I responded. Arrived to find morbidly obese patient status postcardiac catheterization and cardiac arrest, patient had PICC line access, chest compressions and [id number] ventilation was in progress, patient had not yet been giving any medications. Epinephrine was given, patient was noted to be in V-fib, defibrillator was charged and the patient was given 120 J shock, CPR was resumed, patient received a second dose of epinephrine, was also given lidocaine and then amiodarone 300 mg. Patient was noted to have ROSC, I intubated the patient, see below. Post ROSC, the patient was given 1 amp of bicarb. EKG was obtained which was difficult to interpret due to significant artifact, however concerning for STEMI. Epinephrine drip was requested and brought to bedside, however before patient could be hooked up to it, he rearrested into V-fib Defibrillator was charged to 150 J, and the patient was shocked, he was given a third dose of epinephrine, and 150 mg of amiodarone. I requested an amiodarone drip. Patient was noted to have ROSC. Epinephrine drip was connected. Family was updated by hospitalist who requested that the patient's CODE STATUS be changed to DNR/DNI, and requested that the patient be extubated. Patient was extubated by respiratory therapy, I return to the emergency department, the patient has a grim prognosis. Intubation note: I intubated the patient using video laryngoscopy, MAC 3, 8-0 tube, 25 at the lips confirmed by color change capnography and direct visualization, no complications. Coding Level of Care Code Critical Care Other Coding Information Procedural care (documented in this note) and Prolonged care (total time indicated above or notated here) Intubation time is excluded from critical care time
--- NOTE | 2022-12-12 00:42 | PC.NURSE ---
At 2313 observed v-fib on telemetry. Ran to patient's room to assess patient. Immediately called code team. Spouse at bedside. TOD per Dr Nova is [phone].
--- NOTE | 2022-12-12 01:58 | PM.CCNAC ---
Critical Care Event Note The high probability of a clinically significant, sudden or life threatening deterioration of the patient's [] system(s) required my full and direct attention, intervention and personal management. The critical care time is as shown. This time is in addition to time spent performing any reported procedures but includes the following: [x] Data and vital sign review and interpretation [x] Patient assessment, examination and intervention [x] Documentation [x] Medication orders and management Critical Care Time Code activated: Yes Critical Care Time (min): 40 Additional information about critical care time: - JOSE COLE was called at 11:15 PM -I arrived at roughly 11:17 PM -Patient was receiving CPR, ER provider at bedside -Nursing staff tell me that patient became apneic, nonresponsive, loss of pulse -2319 V-fib, shock, 9 received epi, 2320 received epi 2322, ROSC, looks like sinus rhythm, -2324 received amp of bicarb, 2025 received 300 amnio, intubated by Dr. Degroot at 2327, 2330, heart rate 64 -EKG was obtained, poor quality, but did show possible ST elevations in anterior leads, I was discussing with cardiology -When patient went back into V-fib, received shock at 2332, CPR resumed -Patient's is outside the room, nursing staff were discussing his CODE STATUS -I had a detailed discussion with patient's and daughter, I was informed by patient that he would not want to have CPR, he would not want to be intubated, they want him to be comfortable, they want us to ease his pain eases suffering allow him to pass away comfortably -After discussing the risk and benefits of all options, they voiced understanding, all question answered, agreed to proceed with comfort care -At this time CPR was ongoing -2334 ROSC was obtained -However patient's pulses very faint, agonal respirations, looks like he went back into V-fib had periods of junctional rhythm -I came back to the room and advised of the team of patient's family decision that he is a DO NOT INTUBATE, DO NOT RESUSCITATE, at this time pulse was low and thready, it looks like junctional rhythm on the monitor, with periods of going back into V-fib -As per family's wishes patient was extubated -Made comfort care -Time of 2350, no pulse, on telemetry monitoring, no electrical activity, no respirations, pupils fixed dilated nonresponsive to light, does not withdraw from pain, nonresponsive Coding Level of Care Code Critical Care Other Coding Information 40min
--- NOTE | 2022-12-12 04:04 | PC.NURSE ---
V-fib observed on telemetry at 5113. Ran to pts room to assess. Code team was called. Spouse at bedside, decision to stop resuscitation was made by spouse, TOD was called by Dr Nova at [phone].
--- NOTE | 2022-12-12 22:04 | PM.DDS ---
Discharge Providers DDS Date of Admission: 11/28/22 01:16 Date Summary Completed: 12/12/22 Attending Provider at Admission: Abilio Goddard MD Time of : 23:51 Attending Provider at Discharge: Migel Bates Primary Care Provider: Van Oseguera MD DS Diagnoses Hospital Diagnoses (1) Urethral bleeding: (2) Acute respiratory failure with hypoxia: (3) New onset atrial fibrillation: (4) Acute kidney injury: (5) Hypotension: (6) Non-ST elevation AK (NSTEMI): (7) Pneumonia: (8) COPD exacerbation: (9) Lymphadenopathy: (10) T2DM (type 2 diabetes mellitus): (11) Hypertension: (12) Gross hematuria: (13) Prostate cancer: (14) Hyperkalemia: (15) Aortic stenosis: (16) Seasonal allergies: Reason for Visit Reason for Visit SOB\Chest Pain Summary Date and Time of Date of : 12/11/22 Time of : 23:51 Summary Summary: 72-year-old gentleman with history of smoking since age 15, history of stroke, seizure, prostate cancer with recurrence, liver cirrhosis, known sleep apnea but intolerant of treatment, was admitted on 11/28 presenting with shortness of breath and chest pain. Found to have new hypoxia, community-acquired pneumonia, with also suspected undiagnosed COPD. On presentation with findings suspicious for NSTEMI, with EKG with ST depressions, elevation of troponin, was started on NSTEMI protocol, cardiology consulted. On admission also started on diuresis for finding of diastolic CHF exacerbation but treatment complicated by ALFRED. Echocardiogram showed slightly diminished ejection fraction around 50%, grade 3 diastolic dysfunction, but difficult assessment, additional study with contrast with finding of ejection fraction 25-30%. Treatment complicated by hematuria and significant encephalopathy requiring holding anticoagulation and intubation to allow additional assement and treatment. No bleeding on CT head with noted old strokes. No stone or hydronephrosis on CT abdomen and pelvis. ALFRED showed improvement. 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 Chronic CASE MANAGEMENT COORDINATOR proximal RCA, left to right collaterals. Patent LAD and LCx. Moderate to severe aortic stenosis. With further consideration of options underwent high risk PCI and stenting with transient Impella support. Continued treatment for pneumonia, COPD exacerbation, with Pseudomona eventually noted in culture, antibiotics adjusted to Levaquin, with transient hypotension likely combination of decreased EF, moderate to severe aortic stenosis, sedation. With improving blood pressure continued on gentle diuresis, weaned off ventilator support and sedation waking up well, and was extubated to nasal cannula, continuing on 3 L. Was assessed by speech therapy and MBS after possibly some aspiration with breakfast 11/08 also accompanied by A-fib with RVR. Heart rate came under control with increase in metoprolol dose and start of amiodarone as well as Eliquis due to stroke risk. Swallowing assessed with speech therapy, and he did well on MBS. Respiratory status gradually improving, volume status improved, Lasix discontinued, ALFRED resolved. Continued to slowly progress, steroids tapered down with decreased secretions, antibiotics de-escalated and completed course with Levaquin. Overall generally weak, with poor appetite. Very deconditioned, developed maceration on the sacrum and early pressure ulcer, so arrangements were underway for rehabilitation at SNF, however, went into V-fib arrest x2 late in the evening on 12/11, with family by his room, with limited goals of care, resuscitative efforts were discontinued with transition to comfort measures and he at 2351. Additional Data Advance directives?: No Discharge Plan Discharge Patient Disposition: At Medical Facility Condition: Prescriptions: New Breztri Aerosphere 160-9-4.8 mcg/actuation HFA aerosol inhaler 2 inh inhalation BID 90 Days Qty: 963 4RF No Action calcium-vitamin D2-iron Tablet 1 tab PO DAILY metformin 500 mg tablet 1,000 mg PO BID tamsulosin 0.4 mg capsule 0.4 mg PO DAILY ferrous sulfate 324 mg (65 mg iron) tablet,delayed release (DR/EC) 648 mg PO DAILY Rx Instructions: Every other day ascorbic acid (vitamin C) 1,000 mg tablet 1 g PO DAILY montelukast 10 mg tablet 10 mg PO DAILY furosemide 40 mg tablet 40 mg PO DAILY Rx Instructions: Take 1.5 tab daily as needed. Referrals: Sushma Rivero FNP [Nurse Practitioner] - 12/16/22 10:45 am Van Oseguera MD [Primary Care Provider] - Patient Instructions: Budesonide/Glycopyrrolate/Formoterol (By breathing) (Breztri Aerosphere), A-fib (Atrial Fibrillation) (DC), Coronary Angioplasty (DC), Post Angiogram Home Care Instructions Probable Cause of Probable cause of : Cardiac arrest DS Attestations Time Spent in /Discharge Care*: greater than 30 min Quality - AMI: AMI present?: Yes Quality - Stroke: CVA present?: No Quality - VTE: VTE present?: No Deep Vein Thrombosis/Pulmonary Embolism Present on Admission: No Coding Level of Care Code 86777 Diagnoses Urethral bleeding N36.8 Acute respiratory failure with hypoxia J96.01 New onset atrial fibrillation I48.91 Acute kidney injury N17.9 Hypotension I95.9 Non-ST elevation AK (NSTEMI) I21.4 Pneumonia J18.9 COPD exacerbation J44.1 Lymphadenopathy R59.1 T2DM (type 2 diabetes mellitus) E11.9 Hypertension I10 Gross hematuria R31.0 Prostate cancer C61 Hyperkalemia E87.5 Aortic stenosis I35.0 Seasonal allergies J30.2
== END 2022-12-11 23:43 | disposition expired | DRG 216 ==
LOC: ER 11-28 01:15 → CSU 11-28 01:25 → ICU 11-30 09:50 → CSU 12-07 18:10
PROVIDERS: Hospitalist; Internal Medicine; Internal Medicine Cardiovascular Disease; Admitting Provider Internal Medicine; Emergency Provider Emergency Medicine; PCP Family Medicine; Visit Provider Internal Medicine
PROC: 5A0221D Assistance with Cardiac Output using Impeller Pump, Continuous (ICD-10-PCS; principal; 2022-12-02 08:30)
DX: I21.4 Non-ST elevation (NSTEMI) myocardial infarction (principal); G93.41 Metabolic encephalopathy; I50.33 Acute on chronic diastolic (congestive) heart failure; J15.1 Pneumonia due to Pseudomonas; J96.21 Acute and chronic respiratory failure with hypoxia; N17.9 Acute kidney failure, unspecified; R57.9 Shock, unspecified; Z68.41 Body mass index [BMI] 40.0-44.9, adult; I25.10 Atherosclerotic heart disease of native coronary artery without angina pectoris; F17.210 Nicotine dependence, cigarettes, uncomplicated; Z86.73 Personal history of transient ischemic attack (TIA), and cerebral infarction without residual deficits; C61 Malignant neoplasm of prostate; K75.81 Nonalcoholic steatohepatitis (NASH); K74.69 Other cirrhosis of liver; G47.33 Obstructive sleep apnea (adult) (pediatric); I25.5 Ischemic cardiomyopathy; J43.9 Emphysema, unspecified; R31.0 Gross hematuria; I35.0 Nonrheumatic aortic (valve) stenosis; I95.9 Hypotension, unspecified; I48.91 Unspecified atrial fibrillation; L89.152 Pressure ulcer of sacral region, stage 2; I46.9 Cardiac arrest, cause unspecified; J30.1 Allergic rhinitis due to pollen; E66.01 Morbid (severe) obesity due to excess calories; R59.0 Localized enlarged lymph nodes; E11.9 Type 2 diabetes mellitus without complications; E78.5 Hyperlipidemia, unspecified; E87.5 Hyperkalemia; Z66 Do not resuscitate; D69.6 Thrombocytopenia, unspecified
CPT/HCPCS: 31500; 33975; 36415; 36416; 36569; 36592; 36600; 51702; 51798; 70450; 71045; 71046; 71275; 74022; 74176; 74230; 80048; 80051; 80053; 80061; 81001; 82140; 82330; 82550; 82570; 82803; 82805; 82962; 83036; 83735; 83880; 84100; 84145; 84300; 84484; 84550; 85025; 85347; 85610; 85730; 86140; 87040; 87070; 87077; 87086; 87186; 87205; 87426; 87641; 87804; 92523; 92526; 92610; 92611; 92978; 93005; 93306; 93458; 94002; 94003; 94640; 94664; 94799; 96365; 96367; 96372; 96375; 96376; 97110; 97162; 97167; 97530; 97535; 99152; 99153; 99285; A9270; C1725; C1751; C1753; C1760; C1769; C1874; C1887; C1894; C8924; C9113; C9600; G0269; J0171; J0282; J0456; J0696; J1170; J1644; J1650; J1815; J1940; J1956; J2001; J2060; J2250; J2270; J2405; J2704; J2920; J3010; J3475; J3490; J7030; J7050; J7060; J7512; J7613; J7626; Q0144; Q0163; Q9956; Q9967